=== PATIENT | male | born 1960 | race Caucasian/White ===

== ENCOUNTER 2017-01-05 09:56 | Emergency (ER) | payer SELFPAY ==
[~2017-01-05] VITALS: Ht 180.3 cm; Wt 83.9 kg
[2017-01-05] MEDS ORDERED: LIDOCAINE 1%/EPI 1:100,000 20 ML VIAL. INJ ONE (10:00)
[2017-01-05] MEDS ORDERED: IV NORMAL SALINE 1000ML BAG 1,000 ML IV ONE (10:15)
[2017-01-05] MEDS ORDERED: DIPHTH,PERTUSS(ACELL),TET TOX 0.5 ML DISP.SYRIN. VAX IM ONE (10:15)
--- NOTE | 2017-01-05 10:18 | PHYS DOC ---
Past Medical History Past Medical History: Depression, Other Additional Past Medical Histor: PSORIASIS Past Surgical History: Other Additional Past Surgical Histo: CLEFT PALATE, CYST ON BOWEL REMOVED. Alcohol Use: Heavy Drug Use: Marijuana Adult General Chief Complaint Chief Complaint: MECHANICAL FALL HPI HPI Patient is a 56 year old male who presents with laceration to the scalp after he had a syncopal episode at a local [facility] [place]. Patient states he was walking to his class when he felt faint and passed out striking his head. How long the patient was out is unknown, patient has had syncopal episodes in the past with workups not showing cause. Records show history of alcohol abuse, patient states he hasn't been drinking for 2 days. Patient denies any chest pain or shortness of breath, no neck or back pain. Denies any takes any blood thinners. 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 GI: Denies abdominal pain, nausea, vomiting, bloody stools or diarrhea [] : Denies dysuria or hematuria [] Musculoskeletal: Denies back pain or joint pain [] Integument: chronic periumbilical rash that pt states is psoriasis Neurologic: Denies focal weakness or sensory changes [] Current Medications Current Medications Current Medications Medications (Trade) Dose Ordered Sig/Kala Start Time Stop Time Status Last Admin Dose Admin Diphtheria/ Tetanus/Acell Pertussis (Boostrix) 0.5 ml ONCE ONCE 01/05/17 10:15 01/05/17 10:16 DC 01/05/17 10:34 0.5 ML Lidocaine/ Epinephrine (Xylocaine 1%-Epi 1:100,000) 20 ml 1X ONCE 01/05/17 10:00 01/05/17 10:03 DC 01/05/17 10:33 20 ML Lorazepam (Ativan) 1 mg 1X ONCE 01/05/17 10:15 01/05/17 10:16 DC 01/05/17 10:32 1 MG Sodium Chloride 1,000 ml @ 1,000 mls/hr 1X ONCE 01/05/17 10:15 01/05/17 11:14 DC 01/05/17 10:34 1,000 MLS/HR Allergies Allergies Allergies Coded Allergies Type Severity Reaction Last Updated Verified egg Allergy Mild 10/15/14 Yes Physical Exam Physical Exam Constitutional: Well developed, well nourished, no acute distress, non-toxic appearance. [] HENT: Normocephalic, R mid proximal forehead laceration 4 cm moderate hemostasis , linear, bilateral external ears normal, oropharynx dry ,no oral exudates, nose normal. [] Eyes: PERRLA, EOMI, conjunctiva normal, no discharge. [] Neck: Normal range of motion, no tenderness, supple, no stridor. [] Cardiovascular:Heart rate tachy with regular rhythm, no murmur [] Lungs & Thorax: Bilateral breath sounds clear to auscultation, 4x6cm bruise appears several days old Abdomen: Bowel sounds normal, soft, no tenderness, no masses, no pulsatile masses. [] Skin: Warm, dry, periumbilical rash consistent with psoriasis Back: No midline stepoffs or tenderness, no CVA tenderness. [] Extremities: No tenderness, no cyanosis, no clubbing, ROM intact, mild bilatearl lower ext edema. [] Neurologic: Alert and oriented X 3, normal motor function, normal sensory function, no focal deficits noted. [] Psychologic: Affect normal, judgement normal, mood normal. [] Current Patient Data Vital Signs Vital Signs Date Time Temp Pulse Resp B/P (MAP) Pulse Ox O2 Delivery O2 Flow Rate FiO2 01/05/17 12:30 90 16 135/83 (100) 96 Room Air 01/05/17 11:32 1.0 01/05/17 10:02 98.1 98.1 Lab Values Laboratory Tests Test 01/05/17 10:45 01/05/17 10:50 01/05/17 11:40 White Blood Count 4.1 x10^3/uL (4.0-11.0) Red Blood Count 3.79 x10^6/uL (4.30-5.70) L Hemoglobin 13.7 g/dL (13.0-17.5) Hematocrit 40.5 % (39.0-53.0) Mean Corpuscular Volume 107 fL (79-100) H Mean Corpuscular Hemoglobin 36 pg (25-35) H Mean Corpuscular Hemoglobin Concent 34 g/dL (31-37) Red Cell Distribution Width 13.8 % (11.5-14.5) Platelet Count 122 x10^3/uL (140-400) L Neutrophils (%) (Auto) 75 % (31-73) H Lymphocytes (%) (Auto) 14 % (24-48) L Monocytes (%) (Auto) 7 % (0-9) Eosinophils (%) (Auto) 1 % (0-3) Basophils (%) (Auto) 3 % (0-3) Neutrophils # (Auto) 3.1 x10^3uL (1.8-7.7) Lymphocytes # (Auto) 0.6 x10^3/uL (1.0-4.8) L Monocytes # (Auto) 0.3 x10^3/uL (0.0-1.1) Eosinophils # (Auto) 0.0 x10^3/uL (0.0-0.7) Basophils # (Auto) 0.1 x10^3/uL (0.0-0.2) Prothrombin Time 11.8 SEC (11.7-14.0) 12.4 Sec (10.0-14.0) Prothrombin Time INR 0.9 (0.8-1.1) Sodium Level 145 mmol/L (136-145) Potassium Level 3.2 mmol/L (3.5-5.1) L Chloride Level 107 mmol/L (98-107) Carbon Dioxide Level 25 mmol/L (21-32) Anion Gap 13 (6-14) Blood Urea Nitrogen 14 mg/dL (8-26) Creatinine 0.6 mg/dL (0.7-1.3) L Estimated GFR (Cockcroft-Gault) 140.4 BUN/Creatinine Ratio 23 (6-20) H Glucose Level 93 mg/dL (70-99) Calcium Level 8.1 mg/dL (8.5-10.1) L Magnesium Level 1.2 mg/dL (1.8-2.4) L Total Bilirubin 0.7 mg/dL (0.2-1.0) Aspartate Amino Transferase (AST) 210 U/L (15-37) H Alanine Aminotransferase (ALT) 72 U/L (16-63) H Alkaline Phosphatase 71 U/L (46-116) Troponin I Quantitative < 0.017 ng/mL (0.000-0.055) Total Protein 6.1 g/dL (6.4-8.2) L Albumin 3.3 g/dL (3.4-5.0) L Albumin/Globulin Ratio 1.2 (1.0-1.7) Ethyl Alcohol Level 361 mg/dL (0-10) H POC INR 1.0 (0.9-1.1) Urine Collection Type Unknown Urine Color Yellow Urine Clarity Clear Urine pH 6.0 Urine Specific Bartelso 1.010 Urine Protein Negative mg/dL (NEG-TRACE) Urine Glucose (UA) Negative mg/dL (NEG) Urine Ketones (Stick) Negative mg/dL (NEG) Urine Blood Negative (NEG) Urine Nitrite Negative (NEG) Urine Bilirubin Negative (NEG) Urine Urobilinogen Dipstick 0.2 mg/dL (0.2 mg/dL) Urine Leukocyte Esterase Negative (NEG) Urine RBC 0 /HPF (0-2) Urine WBC 0 /HPF (0-4) Urine Bacteria 0 /HPF (0-FEW) Laboratory Tests 01/05/17 10:45 Laboratory Tests 01/05/17 10:45 EKG EKG 112 bpm, sinus tach, normal axis,, no ST elevation or depression appreciated, widened QRS at 116 with a right bundle-branch block, nonischemic T waves, interpreted by me[] Radiology/Procedures Radiology/Procedures head ct: Impression: 1. No acute intracranial process. Course & Med Decision Making Course & Med Decision Making Pertinent Labs and Imaging studies reviewed. (See chart for details) Tetanus updated, will numb up laceration and close. Labs, EKG performed. Patient appears dry, 1 L of IV fluids given along with 1 mg Ativan in case patient is withdrawing from alcohol as he states he hasn't been drinking for 2 days. Etoh level Elevated, likely the caused the pt to fall. Pt sobered in Ed, mom came to get him. Counseled pt extensively on the dangers of excessive alcohol and drinking and driving, which pt admitted to doing. Sutures closed with dissolvable, counseled on wound care. Dragon Disclaimer Dragon Disclaimer This electronic medical record was generated, in whole or in part, using a voice recognition dictation system. Departure Departure Impression: Primary Impression: Alcohol intoxication Additional Impression: Facial laceration Disposition: 01 HOME, SELF-CARE Condition: IMPROVED Referrals: NO PCP (PCP) Laceration Repair Lac Repair Indication: forehead laceration Procedure: The patient was placed in the appropriate position and anesthesia around the 1% lidocaine with epi . The area was then irrigated with tap water. The laceration was 6-0 chromic gut simple interrupted with 1 deep , closed with steristrips. The wound area was then dressed with steristrips. Total repaired wound length: 4cm . Other Items: The patient tolerated the procedure well. Complications: none. Problem Qualifiers VANESSA CERNA MD Jan 05, 2017 10:18
--- NOTE | 2017-01-05 10:40 | RAD ---
CT head without contrast History: Syncope, fall. Comparison: 10/14/2014. Procedure: Axial images are obtained of the head from the skull base through the vertex without IV contrast. Findings: Mild bilateral periventricular white matter hypodensities likely chronic small vessel ischemic disease. The ventricles and sulci are normal for the patient's age. No mass-effect, intracranial mass, midline shift, hemorrhage or obvious acute infarction is identified. Basilar cisterns are patent. Bone windows demonstrate no significant calvarial abnormality. The visualized paranasal sinuses appear clear. Probable old fracture of the left zygomatic arch similar to prior exam. Impression: 1. No acute intracranial process. PQRS Compliance Statement: One or more of the following individualized dose reduction techniques were utilized for this examination: 1. Automated exposure control 2. Adjustment of the mA and/or kV according to patient size 3. Use of iterative reconstruction technique
--- NOTE | 2017-01-05 10:50 | EKG ---
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
[2017-01-05 10:59] LABS: ISTAT PT 12.4 Sec (10.0-14.0)
[2017-01-05 11:05] LABS: CALCIUM 8.1 mg/dL (8.5-10.1); CREATININE 0.6 mg/dL (0.7-1.3); GFR 140.4; POTASSIUM 3.2 mmol/L (3.5-5.1)
[2017-01-05 11:08] LABS: BASO # 0.1 x10^3/uL (0.0-0.2); BASO % 3 % (0-3); EOS % 1 % (0-3); HEMATOCRIT 40.5 % (39.0-53.0); HEMOGLOBIN 13.7 g/dL (13.0-17.5); LYMPH # 0.6 x10^3/uL (1.0-4.8); LYMPH % 14 % (24-48); MEAN CORPUSCULAR HEMOGLOBIN 36 pg (25-35); MEAN CORPUSCULAR HGB CONC 34 g/dL (31-37); MEAN CORPUSCULAR VOLUME 107 fL (79-100); MONO % 7 % (0-9); NEUT % 75 % (31-73); PLATELET COUNT 122 x10^3/uL (140-400); RED BLOOD COUNT 3.79 x10^6/uL (4.30-5.70); RED CELL DISTRIBUTION WIDTH 13.8 % (11.5-14.5); WHITE BLOOD COUNT 4.1 x10^3/uL (4.0-11.0)
[2017-01-05 11:12] LABS: ALBUMIN 3.3 g/dL (3.4-5.0); ALBUMIN/GLOBULIN RATIO 1.2 (1.0-1.7); MAGNESIUM 1.2 mg/dL (1.8-2.4); TOTAL BILIRUBIN 0.7 mg/dL (0.2-1.0); TOTAL PROTEIN 6.1 g/dL (6.4-8.2)
[2017-01-05 11:47] LABS: INR 0.9 (0.8-1.1); PROTHROMBIN TIME PATIENT 11.8 SEC (11.7-14.0)
[2017-01-05 11:54] LABS: BILIRUBIN,URINE NEGATIVE (NEG); GLUCOSE,URINE NEGATIVE (NEG); NITRITE,URINE NEGATIVE (NEG); PROTEIN,URINE NEGATIVE (NEG-TRACE); UROBILINOGEN,URINE 0.2 mg/dL (0.2 mg/dL)
[2017-01-05 12:13] LABS: BACTERIA,URINE 0 /HPF (0-FEW); RBC,URINE 0 /HPF (0-2); WBC,URINE 0 /HPF (0-4)
[2017-01-05 12:30] VITALS: BP 135/83
== END 2017-01-05 13:20 | disposition home or self-care (01) ==
LOC: ER 09:56
DX: S01.81XA Laceration without foreign body of other part of head, initial encounter (principal); F10.129 Alcohol abuse with intoxication, unspecified; F12.10 Cannabis abuse, uncomplicated; Z91.012 Allergy to eggs; Z79.01 Long term (current) use of anticoagulants; Z79.899 Other long term (current) drug therapy; W19.XXXA Unspecified fall, initial encounter; Y93.89 Activity, other specified; Y92.89 Other specified places as the place of occurrence of the external cause; Y99.8 Other external cause status
CPT/HCPCS: 12013; 36415; 70450; 80053; 81001; 83735; 84484; 85025; 85610; 90471; 90715; 93005; 96361; 96374; 99285; G0480; J2060; J3490; J7030

== ENCOUNTER 2017-03-31 15:26 | Emergency (ER) | payer SELFPAY ==
[~2017-03-31] VITALS: Ht 180.3 cm; Wt 83.9 kg
[2017-03-31 16:14] LABS: BASO % 1 % (0-3); EOS % 1 % (0-3); HEMATOCRIT 39.3 % (39.0-53.0); HEMOGLOBIN 13.1 g/dL (13.0-17.5); LYMPH % 28 % (24-48); MEAN CORPUSCULAR HEMOGLOBIN 36 pg (25-35); MEAN CORPUSCULAR HGB CONC 33 g/dL (31-37); MEAN CORPUSCULAR VOLUME 108 fL (79-100); MONO % 12 % (0-9); NEUT % 59 % (31-73); PLATELET COUNT 120 x10^3/uL (140-400); RED BLOOD COUNT 3.63 x10^6/uL (4.30-5.70); RED CELL DISTRIBUTION WIDTH 14.4 % (11.5-14.5); WHITE BLOOD COUNT 3.7 x10^3/uL (4.0-11.0)
[2017-03-31 16:22] LABS: PROTHROMBIN TIME PATIENT 12.4 SEC (11.7-14.0)
[2017-03-31 16:23] LABS: CREATININE 0.6 mg/dL (0.7-1.3); GFR 139.9; POTASSIUM 3.3 mmol/L (3.5-5.1)
[2017-03-31 16:29] LABS: ALBUMIN 2.9 g/dL (3.4-5.0); ALBUMIN/GLOBULIN RATIO 0.7 (1.0-1.7); MAGNESIUM 1.1 mg/dL (1.8-2.4); TOTAL BILIRUBIN 0.5 mg/dL (0.2-1.0); TOTAL PROTEIN 7.1 g/dL (6.4-8.2)
[2017-03-31 16:35] LABS: ETHANOL 325 mg/dL (0-10)
[2017-03-31 16:39] LABS: BILIRUBIN,URINE NEGATIVE (NEG); GLUCOSE,URINE NEGATIVE (NEG); NITRITE,URINE NEGATIVE (NEG); PROTEIN,URINE NEGATIVE (NEG-TRACE)
[2017-03-31 16:44] LABS: BACTERIA,URINE 0 /HPF (0-FEW); RBC,URINE 0 /HPF (0-2); WBC,URINE 0 /HPF (0-4)
[2017-03-31 16:45] LABS: BARBITURATES NEG (NEG); BENZODIAZEPINES NEG (NEG); CANNABINOIDS NEG (NEG); COCAINE NEG (NEG); METHADONE NEG (NEG); OPIATES NEG (NEG); PHENCYCLIDINE NEG (NEG)
[2017-03-31] MEDS ORDERED: POTASSIUM CHLORIDE 20 MEQ TABLET.ER. PO ONE (17:45)
[2017-03-31] MEDS ORDERED: CHLO25CA9 PO (18:11)
--- NOTE | 2017-03-31 18:11 | PHYS DOC ---
Past Medical History Past Medical History: Depression, IBS, Other Additional Past Medical Histor: PSORIASIS Past Surgical History: Other Additional Past Surgical Histo: CLEFT PALATE, CYST ON BOWEL REMOVED. Additional Information: 5 cigars/day. Alcohol Use: Heavy Additional Information: 2 pints day-either Tequila or Vodka. Drug Use: None Adult General Chief Complaint Chief Complaint: OTHER COMPLAINTS HPI HPI Patient is a 57 year old male presenting to the emergency department to try and get medically cleared to go to [facility] for alcohol detox. Patient says that he is feeling medically fine and he is having some shaking right now but no seizures or confusion. He says that he has had one seizure in his life from withdrawal. He is denying any pain fevers chills nausea vomiting or other medical complaints at this time. Review of Systems Review of Systems Constitutional: Denies fever or chills [] Eyes: Denies change in visual acuity, redness, or eye pain [] HENT: Denies nasal congestion or sore throat [] Respiratory: Denies cough or shortness of breath [] Cardiovascular: No additional information not addressed in HPI [] GI: Denies abdominal pain, nausea, vomiting, bloody stools or diarrhea [] : Denies dysuria or hematuria [] Musculoskeletal: Denies back pain or joint pain [] Integument: Denies rash or skin lesions [] Neurologic: Denies headache, focal weakness or sensory changes [] Endocrine: Denies polyuria or polydipsia [] All other systems were reviewed and found to be within normal limits, except as documented in this note. Current Medications Current Medications Current Medications Medications (Trade) Dose Ordered Sig/Kala Start Time Stop Time Status Last Admin Dose Admin Lorazepam (Ativan) 1 mg 1X ONCE 03/31/17 18:15 03/31/17 18:16 DC 03/31/17 18:16 1 MG Potassium Chloride (Klor-Con) 40 meq 1X ONCE 03/31/17 17:45 03/31/17 17:46 DC 03/31/17 18:16 40 MEQ Allergies Allergies Allergies Coded Allergies Type Severity Reaction Last Updated Verified egg Allergy Mild 10/15/14 Yes Physical Exam Physical Exam Constitutional: Well developed, well nourished, no acute distress, non-toxic appearance. [] HENT: Normocephalic, atraumatic, bilateral external ears normal, oropharynx moist, no oral exudates, nose normal. [] Eyes: PERRLA, EOMI, conjunctiva normal, no discharge. [] Neck: Normal range of motion, no tenderness, supple, no stridor. [] Cardiovascular:Heart rate regular rhythm, no murmur [] Lungs & Thorax: Bilateral breath sounds clear to auscultation [] Abdomen: Bowel sounds normal, soft, no tenderness, no masses, no pulsatile masses. [] Skin: Warm, dry, no erythema, no rash. [] Back: No tenderness, no CVA tenderness. [] Extremities: No tenderness, no cyanosis, no clubbing, ROM intact, no edema. [] Neurologic: Alert and oriented X 3, normal motor function, normal sensory function, no focal deficits noted. [] Psychologic: Affect normal, judgement normal, mood normal. [] Current Patient Data Vital Signs Vital Signs Date Time Temp Pulse Resp B/P (MAP) Pulse Ox O2 Delivery O2 Flow Rate FiO2 03/31/17 18:27 90 22 138/85 (102) 100 Room Air 03/31/17 15:30 98.5 98.5 Lab Values Laboratory Tests Test 03/31/17 16:05 03/31/17 16:30 White Blood Count 3.7 x10^3/uL (4.0-11.0) L Red Blood Count 3.63 x10^6/uL (4.30-5.70) L Hemoglobin 13.1 g/dL (13.0-17.5) Hematocrit 39.3 % (39.0-53.0) Mean Corpuscular Volume 108 fL (79-100) H Mean Corpuscular Hemoglobin 36 pg (25-35) H Mean Corpuscular Hemoglobin Concent 33 g/dL (31-37) Red Cell Distribution Width 14.4 % (11.5-14.5) Platelet Count 120 x10^3/uL (140-400) L Neutrophils (%) (Auto) 59 % (31-73) Lymphocytes (%) (Auto) 28 % (24-48) Monocytes (%) (Auto) 12 % (0-9) H Eosinophils (%) (Auto) 1 % (0-3) Basophils (%) (Auto) 1 % (0-3) Neutrophils # (Auto) 2.2 x10^3uL (1.8-7.7) Lymphocytes # (Auto) 1.0 x10^3/uL (1.0-4.8) Monocytes # (Auto) 0.4 x10^3/uL (0.0-1.1) Eosinophils # (Auto) 0.1 x10^3/uL (0.0-0.7) Basophils # (Auto) 0.0 x10^3/uL (0.0-0.2) Prothrombin Time 12.4 SEC (11.7-14.0) Prothrombin Time INR 1.0 (0.8-1.1) PTT 31 SEC (24-38) Sodium Level 149 mmol/L (136-145) H Potassium Level 3.3 mmol/L (3.5-5.1) L Chloride Level 108 mmol/L (98-107) H Carbon Dioxide Level 27 mmol/L (21-32) Anion Gap 14 (6-14) Blood Urea Nitrogen 11 mg/dL (8-26) Creatinine 0.6 mg/dL (0.7-1.3) L Estimated GFR (Cockcroft-Gault) 139.9 BUN/Creatinine Ratio 18 (6-20) Glucose Level 94 mg/dL (70-99) Calcium Level 8.0 mg/dL (8.5-10.1) L Magnesium Level 1.1 mg/dL (1.8-2.4) L Total Bilirubin 0.5 mg/dL (0.2-1.0) Aspartate Amino Transferase (AST) 96 U/L (15-37) H Alanine Aminotransferase (ALT) 42 U/L (16-63) Alkaline Phosphatase 111 U/L (46-116) Total Protein 7.1 g/dL (6.4-8.2) Albumin 2.9 g/dL (3.4-5.0) L Albumin/Globulin Ratio 0.7 (1.0-1.7) L Lipase 340 U/L (73-393) Thyroid Stimulating Hormone (TSH) 2.629 uIU/mL (0.358-3.74) Salicylates Level 7.0 mg/dL (2.8-20.0) Salicylate Last Dose Date Salicylate Last Dose Time Acetaminophen Level < 2 mcg/ml (10-30) L Acetaminophen Last Dose Date Acetaminophen Last Dose Time Ethyl Alcohol Level 325 mg/dL (0-10) H Urine Collection Type Unknown Urine Color Bhavana Urine Clarity Clear Urine pH 6.0 Urine Specific Laura 1.015 Urine Protein Negative mg/dL (NEG-TRACE) Urine Glucose (UA) Negative mg/dL (NEG) Urine Ketones (Stick) Negative mg/dL (NEG) Urine Blood Negative (NEG) Urine Nitrite Negative (NEG) Urine Bilirubin Negative (NEG) Urine Urobilinogen Dipstick 1.0 mg/dL (0.2 mg/dL) Urine Leukocyte Esterase Negative (NEG) Urine RBC 0 /HPF (0-2) Urine WBC 0 /HPF (0-4) Urine Bacteria 0 /HPF (0-FEW) Urine Mucus Mod /LPF Urine Opiates Screen Neg (NEG) Urine Methadone Screen Neg (NEG) Urine Barbiturates Neg (NEG) Urine Phencyclidine Screen Neg (NEG) Urine Amphetamine/Methamphetamine Neg (NEG) Urine Benzodiazepines Screen Neg (NEG) Urine Cocaine Screen Neg (NEG) Urine Cannabinoids Screen Neg (NEG) Urine Ethyl Alcohol Pos (NEG) Laboratory Tests 03/31/17 16:05 Laboratory Tests 03/31/17 16:05 EKG EKG [] Radiology/Procedures Radiology/Procedures [] Course & Med Decision Making Course & Med Decision Making [facility] wanted his alcohol level under 300. Report was called to [facility] and we recommended that they supplement his diet with extra potassium and magnesium. They said that they would do this. They requested that I prescribe Librium for his withdrawal symptoms that he would likely have so I did this for them and wrote down the taper dose instructions. Patient was told about all his incidental laboratory findings of the need for follow-up to make sure that they are resolving. Patient is going to be driven directly to [facility] by his friend and he was told to come back to the emergency room with any concerns. Patient aware and agreeable with plan for discharge and verbalized understanding of the need for short-term follow-up and strict ED return precautions discussed worsening pain seizures or other general concerns. Dragon Disclaimer Dragon Disclaimer This electronic medical record was generated, in whole or in part, using a voice recognition dictation system. Departure Departure Impression: Primary Impression: Alcohol intoxication Additional Impressions: Hypokalemia Hypomagnesemia Thrombocytopenia Disposition: HOME, SELF-CARE ([facility]) Condition: STABLE Referrals: NO PCP (PCP) Patient Instructions: Alcohol Withdrawal Scripts Chlordiazepoxide Hcl (CHLORDIAZEPOXIDE HCL) 25 Mg Capsule 25 MG PO Q8HRS, #30 CAP TAKE 50MG EVERY 8 HOURS FOR 2 DAYS THEN TAKE 25MG EVERY 8 HOURS FOR 2 DAYS THEN TAKE 25MG PRN NEEDED. Prov: ADRIANO MATTSON DO 03/31/17 Problem Qualifiers Primary Impression: Alcohol intoxication Complication of substance-induced condition: uncomplicated Qualified Codes: F10.920 - Alcohol use, unspecified with intoxication, uncomplicated ARDIANO MATTSON DO Mar 31, 2017 18:11
[2017-03-31] MEDS ORDERED: LORazepam 1 MG TABLET PO ONE (18:15)
[2017-03-31 18:27] VITALS: BP 138/85
== END 2017-03-31 18:32 | disposition home or self-care (01) ==
LOC: ER 15:26
DX: F10.920 Alcohol use, unspecified with intoxication, uncomplicated (principal); E87.6 Hypokalemia; E83.42 Hypomagnesemia; D69.6 Thrombocytopenia, unspecified; F32.9 Major depressive disorder, single episode, unspecified; K58.9 Irritable bowel syndrome, unspecified; L40.9 Psoriasis, unspecified; F17.210 Nicotine dependence, cigarettes, uncomplicated; Z91.012 Allergy to eggs
CPT/HCPCS: 36415; 80053; 80307; 80329; 81001; 83690; 83735; 84443; 85025; 85610; 85730; 96374; 99284; G0480; J2060; G0479

== ENCOUNTER 2019-03-09 00:19 | Inpatient (IN) | payer SELFPAY ==
[2019-03-09] VITALS (23 sets, daily range): BP systolic 81–109; BP diastolic 44–67
[~2019-03-09] VITALS: Ht 180.3 cm; Wt 111.6 kg
[~2019-03-09 00:19] MED LIST: CHLO25CA9 PO; LORA-434 PO; MULT1TAB90 PO; THIA500T PO; VITA1TAB19 PO
[2019-03-09 01:11] LABS: BASO # 0.1 x10^3/uL (0.0-0.2); BASO % 1 % (0-3); EOS % 0 % (0-3); HEMATOCRIT 35.2 % (39.0-53.0); HEMOGLOBIN 11.8 g/dL (13.0-17.5); LYMPH # 1.3 x10^3/uL (1.0-4.8); LYMPH % 12 % (24-48); MEAN CORPUSCULAR HEMOGLOBIN 41 pg (25-35); MEAN CORPUSCULAR HGB CONC 34 g/dL (31-37); MEAN CORPUSCULAR VOLUME 122 fL (79-100); MONO # 0.7 x10^3/uL (0.0-1.1); MONO % 7 % (0-9); NEUT # 8.1 x10^3/uL (1.8-7.7); NEUT % 80 % (31-73); PLATELET COUNT 173 x10^3/uL (140-400); RED BLOOD COUNT 2.89 x10^6/uL (4.30-5.70); RED CELL DISTRIBUTION WIDTH 16.1 % (11.5-14.5); WHITE BLOOD COUNT 10.1 x10^3/uL (4.0-11.0)
[2019-03-09 01:24] LABS: PROTHROMBIN TIME PATIENT 14.9 SEC (11.7-14.0)
[2019-03-09 01:28] LABS: ALBUMIN 1.5 g/dL (3.4-5.0); ALBUMIN/GLOBULIN RATIO 0.4 (1.0-1.7); CREATININE 4.4 mg/dL (0.7-1.3); GFR 13.9; MAGNESIUM 1.3 mg/dL (1.8-2.4); TOTAL BILIRUBIN 13.8 mg/dL (0.2-1.0); TOTAL PROTEIN 5.6 g/dL (6.4-8.2)
[2019-03-09 01:33] LABS: POTASSIUM 1.9 mmol/L (3.5-5.1)
[2019-03-09] MEDS ORDERED: POTASSIUM CHLORIDE 20 MEQ TABLET.ER. PO ONE ×5 (01:45→18:45)
[2019-03-09] MEDS ORDERED: MAGNESIUM SULFATE 2GM 50 ML IV ONE (01:45)
[2019-03-09 01:53] LABS: PLT ESTIMATE ADEQUATE (ADEQUATE)
[2019-03-09 01:54] LABS: POLYCHROMASIA SLIGHT
[2019-03-09] MEDS: POTASSIUM CHLORIDE 10MEQ 100 ML IV SCH ×8 (02:02→11:03)
[2019-03-09] MEDS ORDERED: PIPERACILLIN/TAZOBACTAM 3.375 GM in IV NORMAL SALINE 50ML 50 ML IV ONE (02:15)
[2019-03-09] MEDS ORDERED: IV NORMAL SALINE 1000ML BAG 1,000 ML IV ONE (02:15)
[2019-03-09] MEDS ORDERED: VANCOMYCIN 1GM IVPB FOR OMNI 250 ML IV ONE (02:15)
--- NOTE | 2019-03-09 02:33 | PHYS DOC ---
Past Medical History Past Medical History: Depression, IBS, Other Additional Past Medical Histor: PSORIASIS Past Surgical History: Other Additional Past Surgical Histo: CLEFT PALATE, CYST ON BOWEL REMOVED. Alcohol Use: Heavy Additional Information: REPORTS DRINKING 1 1/2- 2 PINTS OF VODKA OR FIREBALL DAILY Drug Use: None Adult General Chief Complaint Chief Complaint: WEAKNESS/GENERALIZED HPI HPI Patient is a 59 year old male patient with history of IBS, depression, psoriasis, of chronic liver disease who presents with complaining of weakness. Patient complaining of progressive generalized weakness for the last 6 months that gradually getting worse. Patient states he was not able to sleep for the last 4 days and asking for medication to able to sleep. Patient also states was not able to support getting for the last several days and has problems with walking because of generalized weakness. Patient had history of alcohol abuse and alcoholic liver disease with obvious jaundice but denies drinking alcohol for the last several days. Patient states he did not have urine output for the last couple days and complaining of chronic diarrhea that does not getting better with taking Imodium. Patient denies chest pain, shortness of breath, focal neuro deficit, headache, fever and chills, vomiting. Patient presented to ER with his parents and states he lives with them. Review of Systems Review of Systems Constitutional: Denies fever or chills [] Eyes: Denies change in visual acuity, redness, or eye pain [] HENT: Denies nasal congestion or sore throat [] Respiratory: Denies cough or shortness of breath [] Cardiovascular: No additional information not addressed in HPI [] GI: Denies abdominal pain, vomiting, bloody stools, reports diarrhea [] : Denies dysuria or hematuria [] Musculoskeletal: Denies back pain or joint pain [] Integument: Denies rash or skin lesions [] Neurologic: Denies headache, focal weakness or sensory changes [] Endocrine: Denies polyuria or polydipsia [] All other systems were reviewed and found to be within normal limits, except as documented in this note. Allergies Allergies Allergies Coded Allergies Type Severity Reaction Last Updated Verified egg Allergy Mild 10/15/14 Yes Physical Exam Physical Exam Constitutional: Well developed, mild distress, non-toxic appearance, jaundice. [] HENT: Normocephalic, atraumatic, oropharynx dry, no oral exudates. Eyes: PERRLA, EOMI, conjunctiva normal, no discharge, severe jaundice. [] Neck: Normal range of motion, no tenderness, supple, no stridor. [] Cardiovascular:Heart rate regular rhythm, no murmur [] Lungs & Thorax: Bilateral breath sounds clear to auscultation [] Abdomen: Bowel sounds normal, soft, moderate to severe distention of abdomen with fluid. Skin: Jaundiced Back: No tenderness, no CVA tenderness. [] Extremities: No tenderness, no cyanosis, no clubbing, ROM intact, bilateral lower extremity 2+ edema. [] Neurologic: Alert and oriented X 3, normal motor function, normal sensory function, no focal deficits noted. [] Psychologic: Affect depressed,mood normal. [] Current Patient Data Vital Signs Vital Signs Date Time Temp Pulse Resp B/P (MAP) Pulse Ox O2 Delivery O2 Flow Rate FiO2 03/09/19 01:05 92 24 96 03/09/19 00:30 97.6 91/58 (69) Room Air 97.6 Lab Values Laboratory Tests Test 03/09/19 00:45 White Blood Count 10.1 x10^3/uL (4.0-11.0) Red Blood Count 2.89 x10^6/uL (4.30-5.70) L Hemoglobin 11.8 g/dL (13.0-17.5) L Hematocrit 35.2 % (39.0-53.0) L Mean Corpuscular Volume 122 fL (79-100) H Mean Corpuscular Hemoglobin 41 pg (25-35) H Mean Corpuscular Hemoglobin Concent 34 g/dL (31-37) Red Cell Distribution Width 16.1 % (11.5-14.5) H Platelet Count 173 x10^3/uL (140-400) Neutrophils (%) (Auto) 80 % (31-73) H Lymphocytes (%) (Auto) 12 % (24-48) L Monocytes (%) (Auto) 7 % (0-9) Eosinophils (%) (Auto) 0 % (0-3) Basophils (%) (Auto) 1 % (0-3) Neutrophils # (Auto) 8.1 x10^3/uL (1.8-7.7) H Lymphocytes # (Auto) 1.3 x10^3/uL (1.0-4.8) Monocytes # (Auto) 0.7 x10^3/uL (0.0-1.1) Eosinophils # (Auto) 0.0 x10^3/uL (0.0-0.7) Basophils # (Auto) 0.1 x10^3/uL (0.0-0.2) Platelet Estimate Adequate (ADEQUATE) Polychromasia Slight Macrocytosis Marked Prothrombin Time 14.9 SEC (11.7-14.0) H Prothrombin Time INR 1.2 (0.8-1.1) H Activated Partial Thromboplast Time 38 SEC (24-38) Sodium Level 131 mmol/L (136-145) L Potassium Level 1.9 mmol/L (3.5-5.1) *L Chloride Level 89 mmol/L (98-107) L Carbon Dioxide Level 25 mmol/L (21-32) Anion Gap 17 (6-14) H Blood Urea Nitrogen 12 mg/dL (8-26) Creatinine 4.4 mg/dL (0.7-1.3) H Estimated GFR (Cockcroft-Gault) 13.9 BUN/Creatinine Ratio 3 (6-20) L Glucose Level 94 mg/dL (70-99) Lactic Acid Level 5.6 mmol/L (0.4-2.0) *H Calcium Level 7.0 mg/dL (8.5-10.1) L Magnesium Level 1.3 mg/dL (1.8-2.4) L Total Bilirubin 13.8 mg/dL (0.2-1.0) H Aspartate Amino Transferase (AST) 171 U/L (15-37) H Alanine Aminotransferase (ALT) 71 U/L (16-63) H Alkaline Phosphatase 180 U/L (46-116) H Ammonia 93 mcmol/L (11-34) H Creatine Kinase 96 U/L (39-308) Troponin I Quantitative 0.021 ng/mL (0.000-0.055) XW-Nzp-I-Type Natriuretic Peptide 1707 pg/mL (0-124) H Total Protein 5.6 g/dL (6.4-8.2) L Albumin 1.5 g/dL (3.4-5.0) L Albumin/Globulin Ratio 0.4 (1.0-1.7) L Lipase 89 U/L (73-393) Thyroid Stimulating Hormone (TSH) 2.489 uIU/mL (0.358-3.74) Ethyl Alcohol Level < 10 mg/dL (0-10) Laboratory Tests 03/09/19 00:45 Laboratory Tests 03/09/19 00:45 EKG EKG EKG interpreted by me. EKG at 0115 showed normal sinus rhythm at rate of 90, right bundle branch block, LVH with repolarization abnormality, normal CT and QT intervals, no acute ST and T-wave elevation. Radiology/Procedures Radiology/Procedures [facility] [address] [place] [address] IMAGING REPORT Signed PATIENT: SUZY AGUILERA ACCOUNT: [id number] : 1960 LOCATION: [facility] ICU AGE: 59 SEX: M EXAM STATUS: ADM IN ORD. PHYSICIAN: MADHURI HAGAN MD REASON: generalized weakness PROCEDURE: CT ABDOMEN PELVIS WO CONTRAST INDICATION: Generalized weakness COMPARISON: None. TECHNIQUE: Axial CT images obtained through the abdomen and pelvis without contrast. Limited assessment of solid organ structures and vasculature secondary to lack of intravenous contrast.. One or more of the following individualized dose reduction techniques were utilized for this examination: 1. Automated exposure control; 2. Adjustment of the mA and/or kV according to patient size; 3. Use of iterative reconstruction technique. FINDINGS: Mild reticulation at lung bases. Coronary artery calcific atherosclerosis. Moderate calcific atherosclerosis. Edema of the soft tissues. Severe low density of the liver. Gallbladder is distended. No peripancreatic fluid collection. Spleen unremarkable. Nonobstructive bilateral renal stones. No hydronephrosis. Urinary bladder is largely decompressed. Colonic wall is prominent in thickness but not very distended. Diverticulosis is identified. The suspected appendix does not appear enlarged. Small free fluid. Degenerative changes of spine with multilevel central canal and neural foraminal stenosis. Mild wedging of multiple vertebral bodies including L1, T12, T11. IMPRESSION: * There is some wall thickening seen within the colon. The colon is not very distended therefore could be from regions of contraction but would correlate with symptoms to ensure that there is not a pathologic cause such as mild colitis. * Small free fluid within the pelvis. * Severe low density of the liver. This can be seen with fatty infiltration. * Calcific atherosclerosis including of the coronary arteries which appears severe. * The gallbladder is dilated. Would correlate with symptoms and lab markers to ensure that this is not secondary to biliary disease such as hydrops. Electronically signed by: Gary Haywood MD (03/09/2019 2:46 AM) [facility] DICTATED and SIGNED BY: GARY HAYWOOD MD DATE: 03/09/19 0246 Course & Med Decision Making Course & Med Decision Making Pertinent Labs and Imaging studies reviewed. (See chart for details) Evaluation of patient in ER showed 59-year-old male patient with alcoholic hepatic failure and severe jaundice with complaining of increasing generalized weakness for 6 months. Patient had mild pallor and severe jaundice with ascites and lower extremity edema without fever and tachycardia. Blood pressure was 91/50 at arrival to ER. Labs showed potassium of 1.9 and magnesium 1.3 and creatinine of 4.4 with ammonia of 95 and elevation of liver function tests. Lactic acid was 5.4 but patient did not have sign of sepsis and lactic acid was elevated mainly because of abnormal liver function tests. Therefore patient was not treated with 30 mL of IV fluid/kg that but 1 dose of antibiotic was given. Patient was admitted to ICU and IV potassium and magnesium was started.Patient requiring admission for further evaluation and treatment. Discussed with Dr. Green who is in agreement with admission. Discussed findings and plan with patient and family, who acknowledge understanding and agreement. GI consult was requested. Dragon Disclaimer Dragon Disclaimer This electronic medical record was generated, in whole or in part, using a voice recognition dictation system. Departure Departure Impression: Primary Impression: Hepatic encephalopathy Additional Impressions: Hypokalemia Hypomagnesemia Alcoholic hepatic failure without coma Renal insufficiency Severe sepsis Ascites Hypoalbuminemia Anemia Hyponatremia Disposition: ADMITTED INPATIENT (at 0200) Admitting Physician: MANDY (Dr. Green accepted admission) Condition: GUARDED Referrals: NO PCP (PCP) Date and Time of Reassessment Date: Mar 09, 2019 Time: 02:00 Fluid Challenge Is the fluid challenge complet: No IBW Target Volume Used: No BMI > 30: No Vital Signs Vital Signs: Vital Signs Date Time Temp Pulse Resp B/P (MAP) Pulse Ox O2 Delivery O2 Flow Rate FiO2 03/09/19 01:05 92 24 96 03/09/19 00:30 97.6 91/58 (69) Room Air 97.6 Temperature Source: Oral Respirations Respiratory Pattern: Normal Cardiovascular Pulse Rhythm: Regular Heart: Nml rate, reg. rhythm Lung Sounds Breath Sounds: Clear Capillary Refil Capillary Refill: Rt Hand < 3 seconds Peripheral Pulse Pulse Location: Radial Pulse Strength: Normal (2+) Pulse Assessment Method: NIBP Integumentary Skin Moisture: Dry Critical Care Time Critical care time was 70 minutes exclusive of procedures. Problem Qualifiers Additional Impressions: Ascites Ascites type: other type Qualified Codes: R18.8 - Other ascites Anemia Anemia type: unspecified type Qualified Codes: D64.9 - Anemia, unspecified MADHURI HAGAN MD Mar 09, 2019 02:33
--- NOTE | 2019-03-09 02:48 | RAD ---
INDICATION: Generalized weakness COMPARISON: None. TECHNIQUE: Axial CT images obtained through the abdomen and pelvis without contrast. Limited assessment of solid organ structures and vasculature secondary to lack of intravenous contrast.. One or more of the following individualized dose reduction techniques were utilized for this examination: 1. Automated exposure control; 2. Adjustment of the mA and/or kV according to patient size; 3. Use of iterative reconstruction technique. FINDINGS: Mild reticulation at lung bases. Coronary artery calcific atherosclerosis. Moderate calcific atherosclerosis. Edema of the soft tissues. Severe low density of the liver. Gallbladder is distended. No peripancreatic fluid collection. Spleen unremarkable. Nonobstructive bilateral renal stones. No hydronephrosis. Urinary bladder is largely decompressed. Colonic wall is prominent in thickness but not very distended. Diverticulosis is identified. The suspected appendix does not appear enlarged. Small free fluid. Degenerative changes of spine with multilevel central canal and neural foraminal stenosis. Mild wedging of multiple vertebral bodies including L1, T12, T11. IMPRESSION: * There is some wall thickening seen within the colon. The colon is not very distended therefore could be from regions of contraction but would correlate with symptoms to ensure that there is not a pathologic cause such as mild colitis. * Small free fluid within the pelvis. * Severe low density of the liver. This can be seen with fatty infiltration. * Calcific atherosclerosis including of the coronary arteries which appears severe. * The gallbladder is dilated. Would correlate with symptoms and lab markers to ensure that this is not secondary to biliary disease such as hydrops. Electronically signed by: Adrien Robles MD (03/09/2019 2:46 AM) [facility]
[2019-03-09] MEDS: IV NORMAL SALINE 1000ML BAG 1,000 ML IV SCH ×3 (04:09→16:20)
[2019-03-09] MEDS ORDERED: VANCOMYCIN PER PHARMACY MC PRN (06:00)
[2019-03-09] MEDS ORDERED: PIP/TAZO PER PHARMACY MC PRN (06:00)
[2019-03-09] MEDS ORDERED: PIPERACILLIN/TAZOBACTAM 2.25 GM in IV NORMAL SALINE 50ML 50 ML IV SCH (06:00)
[2019-03-09] MEDS ORDERED: VANCOMYCIN 2 GM in IV NORMAL SALINE 500ML BAG 500 ML IV ONE (06:30)
--- NOTE | 2019-03-09 06:39 | NUR ---
Pharmacy Vancomycin Dosing Note S:Consulted to monitor and dose vancomycin started 03/09/19. O:SUZY AGUILERA is a 59 year old M with Sepsis . Height: 5 feet, 11 inches Weight: 114.393525 kg [place] Body Weight: 75.30 Adjusted Body Weight: 91.10 Dosing Weight: Actual Other Antibiotics: ZOSYN 2.25GM IV Q6H LABS: Last BUN: 12 Last Creatinine: 4.4 Creatinine Clearance: 23.8 mL/min Last WBC: 10.1 Last Procalcitonin: Tmax (past 24 hours): Microbiology: I/O: Drug Levels: Last level: on at Last dose given at Vancomycin Dosing: Loading Dose: 2000 mg x1 03/09/19 1000MG ER AT 0347 & 1000MG ICU AT 0645 Dosing Weight: Actual Target Trough: 15-20 A: Based on: Actual Wt and CrCl P: 1. 03/10/19 0400 Vancomycin 1500 mg IV q24h 2. Follow up Trough level on 03/11/19 at 0330 3. Pharmacy will continue to monitor, follow and adjust therapy as needed. TAVO TOVAR RPH, 03/09/19 0639 Signed: 03/09/19 at 0642 by TAVO TOVAR RPH PHA
[2019-03-09] MEDS ORDERED: VANCOMYCIN 1 GM in IV NORMAL SALINE 250ML 250 ML IV ONE (06:45)
--- NOTE | 2019-03-09 08:13 | RAD ---
PORTABLE CHEST 1V INDICATION: Generalized weakness. COMPARISON STUDY: 11/23/2018. FINDINGS: Lungs: Low lung volume. No pulmonary mass or consolidation. The tracheobronchial tree and hilar structures are normal. Pleura: No pleural effusion or pneumothorax. Heart and Mediastinum: The cardiomediastinal silhouette is normal. The great vessels of the thorax are normal. IMPRESSION: Low lung volume. No consolidation. Electronically signed by: Jaswinder Gunn MD (03/09/2019 8:10 AM) [facility]
[2019-03-09] MEDS: NICOTINE 21MG PATCH. TD PRN (08:46)
--- NOTE | 2019-03-09 08:58 | PDOC1 ---
History and Physical Date of Admission Date of Admission DATE: 03/09/19 TIME: 08:50 Identification/Chief Complaint Chief Complaint Weakness History of Present Illness History of Present Illness Mr Mcgowan is a 59 year old male patient with PMHx IBS, depression, psoriasis, chronic liver disease who presents with complaining of weakness. Patient complaining of progressive generalized weakness for the last 6 months that gradually getting worse. 3 days ago he literally had to crawl across concrete floor as he states his legs have been giving out on him. Patient states he was not able to sleep for the last 4 days and asking for medication to able to sl eep. He had been trying to take 3 advil daily to help with pain and sleep Patient also states was not able to support getting for the last several days and has problems with walking because of generalized weakness. Patient had history of alcohol abuse and alcoholic liver disease with obvious jaundice but denies drinking alcohol for the last several days. Patient states he did not h ave urine output for the last couple days and complaining of chronic diarrhea for 3 straight weeks that does not improve with taking Imodium. Patient denies chest pain, shortness of breath, focal neuro deficit, headache, fever and chills, vomiting. Patient presented to ER with his parents and states he lives with them. In ED K noted 1.9, Mg 1.3, Cr 4.4, BUN 12, Bilirubin 13.8. albumin of 1.5 lactic acid of 5.6 Lactic acid was 5.4 but patient did not have sign of sepsis and lactic acid was elevated mainly because of abnormal liver function tests. Therefore patient was not treated with 30 mL of IV fluid/kg that but 1 dose of antibiotic was given. Patient was admitted to ICU and IV potassium and magnesium was started He has not previously been told of any kidney disease, he has been previously told his liver function was abnormal. Overnight EKG showed RBBB, LVH. He did experience 70 beats of v-tach and cardiology was consulted and admitted to ICU Past Medical History Cardiovascular: No pertinent hx Pulmonary: No pertinent hx GI: No pertinent hx Heme/Onc: No pertinent hx Hepatobiliary: No pertinent hx Psych: Addictions Rheumatologic: No pertinent hx Infectious disease: No pertinent hx ENT: No pertinent hx Renal/: No pertinent hx Endocrine: No pertinent hx Dermatology: No pertinent hx Past Surgical History Past Surgical History: Other Family History Family History: Diabetes, Heart Disease Social History Smoke: <1 pack per day ALCOHOL: other Drugs: None Current Problem List Problem List Problems Medical Problems: (1) Alcoholic hepatic failure without coma Status: Acute (2) Anemia Status: Acute (3) Ascites Status: Acute (4) Hepatic encephalopathy Status: Acute (5) Hypoalbuminemia Status: Acute (6) Hypokalemia Status: Acute (7) Hypomagnesemia Status: Acute (8) Hyponatremia Status: Acute (9) Renal insufficiency Status: Acute (10) Severe sepsis Status: Acute Current Medications Current Medications Current Medications Magnesium Sulfate 50 ml @ 25 mls/hr 1X ONCE IV Last administered on 03/09/19 02:02; Start 03/09/19 at 01:45; Stop 03/09/19 at 03:44; Status DC Potassium Chloride (Klor-Con) 40 meq 1X ONCE PO Last administered on 03/09/19at 02:03; Start 03/09/19 at 01:45; Stop 03/09/19 at 01:46; Status DC Potassium Chloride/Water 100 ml @ 100 mls/hr Q1H IV Last administered on 03/09/19at 05:09; Start 03/09/19 at 01:45; Stop 03/09/19 at 05:44; Status DC Sodium Chloride 1,000 ml @ 1,000 mls/hr 1X ONCE IV Last administered on 03/09/19at 02:24; Start 03/09/19 at 02:15; Stop 03/09/19 at 03:14; Status DC Piperacillin Sod/ Tazobactam Sod 3.375 gm/Sodium Chloride 50 ml @ 100 mls/hr 1X ONCE IV Last administered on 03/09/19at 02:24; Start 03/09/19 at 02:15; Stop 03/09/19 at 02:44; Status DC Vancomycin HCl 250 ml @ 250 mls/hr 1X ONCE IV Last administered on 03/09/19at 03:47; Start 03/09/19 at 02:15; Stop 03/09/19 at 03:14; Status DC Sodium Chloride 1,000 ml @ 150 mls/hr Q6H40M IV Last administered on 03/09/19at 04:09; Start 03/09/19 at 03:00; Stop 03/10/19 at 02:59 Vancomycin HCl 2 gm/Sodium Chloride 500 ml @ 250 mls/hr 1X ONCE IV ; Start 03/09/19 at 06:30; Stop 03/09/19 at 08:29; Status Cancel Piperacillin Sod/ Tazobactam Sod 2.25 gm/Sodium Chloride 50 ml @ 100 mls/hr Q6HRS IV Last administered on 03/09/19at 06:25; Start 03/09/19 at 06:00 Vancomycin HCl (Vanco Per Pharmacy) 1 each PRN DAILY PRN MC SEE COMMENTS Last administered on 03/09/19at 06:34; Start 03/09/19 at 06:00 Piperacillin Sod/ Tazobactam Sod (Zosyn Per Pharmacy) 1 each PRN DAILY PRN MC SEE COMMENTS; Start 03/09/19 at 06:00 Vancomycin HCl 1 gm/Sodium Chloride 250 ml @ 250 mls/hr 1X ONCE IV Last administered on 03/09/19at 06:25; Start 03/09/19 at 06:45; Stop 03/09/19 at 07:44; Status DC Vancomycin HCl 1.5 gm/Sodium Chloride 500 ml @ 250 mls/hr Q24H IV ; Start 03/10/19 at 04:00 Vancomycin HCl (Vancomycin Trough Level) 1 each 1X ONCE MC ; Start 03/11/19 at 03:30; Stop 03/11/19 at 03:31 Potassium Chloride (Klor-Con) 40 meq 1X ONCE PO Last administered on 03/09/19at 07:55; Start 03/09/19 at 07:30; Stop 03/09/19 at 07:31; Status DC Potassium Chloride/Water 100 ml @ 100 mls/hr Q1H IV Last administered on 03/09/19at 07:55; Start 03/09/19 at 08:00; Stop 03/09/19 at 11:59 Potassium Chloride (Klor-Con) 80 meq 1X ONCE PO ; Start 03/09/19 at 08:15; Stop 03/09/19 at 08:16; Status DC Nicotine (Nicoderm Cq 21mg) 1 patch PRN DAILY PRN TD SMOKING CESSATION Last administered on 03/09/19at 08:46; Start 03/09/19 at 08:30 Active Scripts Active Ativan (Lorazepam) 1 Mg Tablet 1 Mg PO QIDPRN PRN B Complex (Vitamin B Complex) 1 Each Tablet 1 Each PO DAILY Thiamine Hcl 500 Mg Tablet 500 Mg PO DAILY Thera-M Tablet (Multivits,Ca,Minerals/Iron/Fa) 1 Each Tablet 1 Tab PO DAILY Allergies Allergies: Coded Allergies: egg (Verified Allergy, Mild, 10/15/14) ROS Review of System Difficult due to patient confusion General: YES: Fatigue, Malaise; No: Chills, Night Sweats, Appetite, Other PSYCHOLOGICAL ROS: YES: Anxiety; No: Behavioral Disorder, Concentration difficultie, Decreased libido, Depress ion, Disorientation, Hallucinations, Hostility, Irritablity, Memory difficulties, Mood Swings, Obsessive thoughts, Physical abuse, Sexual abuse, Sleep disturbances, Suicidal ideation, Other Eyes: No Blurry vision, No Decreased vision, No Double vision, No Dry eyes, No Excessive tearing, No Eye Pain, No Itchy Eyes, No Loss of vision, No Photophobia, No Scotomata, No Uses contacts, No Uses glasses, No Other HEENT: No: Heacaches, Visual Changes, Hearing change, Nasal congestion, Nasal discharge, Oral lesions, Sinus pain, Sore Throat, Epistaxis, Sneezing, Snoring, Tinnitus, Vertigo, Vocal changes, Other ALLERGY AND IMMUNOLOGY: No: Hives, Insect Bite Sensitivity, Itchy/Watery Eyes, Nasal Congestion, Post Nasal Drip, Seasonal Allergies, Other Hematological and Lymphatic: No: Bleeding Problems, Blood Clots, Blood Transfusions, Brusing, Night Sweats, Pallor, Swollen Lymph Nodes, Other ENDOCRINE: No: Breast Changes, Galactorrhea, Hair Pattern Changes, Hot Flashes, Malaise/lethargy, Mood Swings, Palpitations, Polydipsia/polyuria, Skin Changes, Temperature Intolerance, Unexpected Weight Changes, Other Breast: No New/Changing Breast Lumps, No Nipple changes, No Nipple discharge, No Other Respiratory: YES: Shortness of breath; No: Cough, Hemoptysis, Orthopnea, Pleuritic Pain, SOB with excertion, Sputum Changes, Stridor, Tachypnea, Wheezing, Other Cardiovascular: No Chest Pain, No Palpitations, No Orthopnea, No Paroxysmal Noc. Dyspnea, No Edema, No Lt Headedness, No Other Gastrointestinal: Yes Nausea, Yes Abdominal Pain, Yes Diarrhea; No Vomiting, No Constipation, No Melena, No Hematochezia, No Other Genitourinary: No Dysuria, No Frequency, No Incontinence, No Hematuria, No Retention, No Discharge, No Urgency, No Pain, No Flank Pain, No Other, No , No , No , No , No , No , No Musculoskeletal: Yes Gait Disturbance; No Joint Pain, No Joint Stiffness, No Joint Swelling, No Muscle Pain, No Muscular Weakness, No Pain In:, No Swelling In:, No Other Neurological: Yes Gait Disturbance; No Behavorial Changes, No Bowel/Bladder ControlChng, No Confusion, No Dizziness, No Headaches, No Impaired Coord/balance, No Memory Loss, No Numbness/Tingling, No Seizures, No Speech Problems, No Tremors, No Visual Changes, No Weakness, No Other Skin: No Dry Skin, No Eczema, No Hair Changes, No Lumps, No Mole Changes, No Mottling, No Nail Changes, No Pruritus, No Rash, No Skin Lesion Changes, No Other, No Acne Physical Exam General: Alert, Cooperative, mild distress, Other (Confused) HEENT: Atraumatic, PERRLA, EOMI, Mucous membr. moist/pink Lungs: Clear to auscultation, Normal air movement Heart: S1S2, RRR, no thrills, no rubs Abdomen: Normal bowel sounds, Soft, Other (Fluid wave, enlarged abdomen) Extremities: No clubbing, No cyanosis, Normal pulses, No tenderness/swelling, Other (2+) Skin: No rashes, No breakdown, No significant lesion Neuro: Normal speech, Strength at 5/5 X4 ext, Normal tone, Cranial nerves 3-12 NL, Reflexes 2+, Other (decreased sensation bilateral feet) Psych/Mental Status: Mental status NL, Mood NL Vitals Vitals Vital Signs Date Time Temp Pulse Resp B/P (MAP) Pulse Ox O2 Delivery O2 Flow Rate FiO2 03/09/19 08:00 98.8 85 20 92/46 (61) 99 Room Air 98.8 Labs Labs Laboratory Tests Test 03/09/19 00:45 03/09/19 04:00 03/09/19 06:40 White Blood Count 10.1 x10^3/uL (4.0-11.0) Red Blood Count 2.89 x10^6/uL (4.30-5.70) Hemoglobin 11.8 g/dL (13.0-17.5) Hematocrit 35.2 % (39.0-53.0) Mean Corpuscular Volume 122 fL (79-100) Mean Corpuscular Hemoglobin 41 pg (25-35) Mean Corpuscular Hemoglobin Concent 34 g/dL (31-37) Red Cell Distribution Width 16.1 % (11.5-14.5) Platelet Count 173 x10^3/uL (140-400) Neutrophils (%) (Auto) 80 % (31-73) Lymphocytes (%) (Auto) 12 % (24-48) Monocytes (%) (Auto) 7 % (0-9) Eosinophils (%) (Auto) 0 % (0-3) Basophils (%) (Auto) 1 % (0-3) Neutrophils # (Auto) 8.1 x10^3/uL (1.8-7.7) Lymphocytes # (Auto) 1.3 x10^3/uL (1.0-4.8) Monocytes # (Auto) 0.7 x10^3/uL (0.0-1.1) Eosinophils # (Auto) 0.0 x10^3/uL (0.0-0.7) Basophils # (Auto) 0.1 x10^3/uL (0.0-0.2) Platelet Estimate Adequate (ADEQUATE) Polychromasia Slight Macrocytosis Marked Prothrombin Time 14.9 SEC (11.7-14.0) Prothromb Time International Ratio 1.2 (0.8-1.1) Activated Partial Thromboplast Time 38 SEC (24-38) Sodium Level 131 mmol/L (136-145) Potassium Level 1.9 mmol/L (3.5-5.1) 2.1 mmol/L (3.5-5.1) Chloride Level 89 mmol/L (98-107) Carbon Dioxide Level 25 mmol/L (21-32) Anion Gap 17 (6-14) Blood Urea Nitrogen 12 mg/dL (8-26) Creatinine 4.4 mg/dL (0.7-1.3) Estimated GFR (Cockcroft-Gault) 13.9 BUN/Creatinine Ratio 3 (6-20) Glucose Level 94 mg/dL (70-99) Lactic Acid Level 5.6 mmol/L (0.4-2.0) 4.0 mmol/L (0.4-2.0) Calcium Level 7.0 mg/dL (8.5-10.1) Magnesium Level 1.3 mg/dL (1.8-2.4) Total Bilirubin 13.8 mg/dL (0.2-1.0) Aspartate Amino Transf (AST/SGOT) 171 U/L (15-37) Alanine Aminotransferase (ALT/SGPT) 71 U/L (16-63) Alkaline Phosphatase 180 U/L (46-116) Ammonia 93 mcmol/L (11-34) Creatine Kinase 96 U/L (39-308) Troponin I Quantitative 0.021 ng/mL (0.000-0.055) QV-Gdv-C-Type Natriuretic Peptide 1707 pg/mL (0-124) Total Protein 5.6 g/dL (6.4-8.2) Albumin 1.5 g/dL (3.4-5.0) Albumin/Globulin Ratio 0.4 (1.0-1.7) Lipase 89 U/L (73-393) Thyroid Stimulating Hormone (TSH) 2.489 uIU/mL (0.358-3.74) Ethyl Alcohol Level < 10 mg/dL (0-10) Laboratory Tests Test 03/09/19 00:45 03/09/19 04:00 03/09/19 06:40 White Blood Count 10.1 x10^3/uL (4.0-11.0) Red Blood Count 2.89 x10^6/uL (4.30-5.70) Hemoglobin 11.8 g/dL (13.0-17.5) Hematocrit 35.2 % (39.0-53.0) Mean Corpuscular Volume 122 fL (79-100) Mean Corpuscular Hemoglobin 41 pg (25-35) Mean Corpuscular Hemoglobin Concent 34 g/dL (31-37) Red Cell Distribution Width 16.1 % (11.5-14.5) Platelet Count 173 x10^3/uL (140-400) Neutrophils (%) (Auto) 80 % (31-73) Lymphocytes (%) (Auto) 12 % (24-48) Monocytes (%) (Auto) 7 % (0-9) Eosinophils (%) (Auto) 0 % (0-3) Basophils (%) (Auto) 1 % (0-3) Neutrophils # (Auto) 8.1 x10^3/uL (1.8-7.7) Lymphocytes # (Auto) 1.3 x10^3/uL (1.0-4.8) Monocytes # (Auto) 0.7 x10^3/uL (0.0-1.1) Eosinophils # (Auto) 0.0 x10^3/uL (0.0-0.7) Basophils # (Auto) 0.1 x10^3/uL (0.0-0.2) Platelet Estimate Adequate (ADEQUATE) Polychromasia Slight Macrocytosis Marked Prothrombin Time 14.9 SEC (11.7-14.0) Prothromb Time International Ratio 1.2 (0.8-1.1) Activated Partial Thromboplast Time 38 SEC (24-38) Sodium Level 131 mmol/L (136-145) Potassium Level 1.9 mmol/L (3.5-5.1) 2.1 mmol/L (3.5-5.1) Chloride Level 89 mmol/L (98-107) Carbon Dioxide Level 25 mmol/L (21-32) Anion Gap 17 (6-14) Blood Urea Nitrogen 12 mg/dL (8-26) Creatinine 4.4 mg/dL (0.7-1.3) Estimated GFR (Cockcroft-Gault) 13.9 BUN/Creatinine Ratio 3 (6-20) Glucose Level 94 mg/dL (70-99) Lactic Acid Level 5.6 mmol/L (0.4-2.0) 4.0 mmol/L (0.4-2.0) Calcium Level 7.0 mg/dL (8.5-10.1) Magnesium Level 1.3 mg/dL (1.8-2.4) Total Bilirubin 13.8 mg/dL (0.2-1.0) Aspartate Amino Transf (AST/SGOT) 171 U/L (15-37) Alanine Aminotransferase (ALT/SGPT) 71 U/L (16-63) Alkaline Phosphatase 180 U/L (46-116) Ammonia 93 mcmol/L (11-34) Creatine Kinase 96 U/L (39-308) Troponin I Quantitative 0.021 ng/mL (0.000-0.055) YT-Ikn-Z-Type Natriuretic Peptide 1707 pg/mL (0-124) Total Protein 5.6 g/dL (6.4-8.2) Albumin 1.5 g/dL (3.4-5.0) Albumin/Globulin Ratio 0.4 (1.0-1.7) Lipase 89 U/L (73-393) Thyroid Stimulating Hormone (TSH) 2.489 uIU/mL (0.358-3.74) Ethyl Alcohol Level < 10 mg/dL (0-10) Images Images CXR - low lung volume CT abdomen/pelvis - * There is some wall thickening seen within the colon. The colon is not very distended therefore could be from regions of contraction but would correlate with symptoms to ensure that there is not a pathologic cause such as mild colitis. * Small free fluid within the pelvis. * Severe low density of the liver. This can be seen with fatty infiltration. * Calcific atherosclerosis including of the coronary arteries which appears severe. * The gallbladder is dilated. Would correlate with symptoms and lab markers to ensure that this is not secondary to biliary disease such as hydrops. VTE Prophylaxis Ordered VTE Prophylaxis Devices: Yes VTE Pharmacological Prophylaxi: No Assessment/Plan Assessment/Plan A/P: Ventricular tachycardia - likely 2/2 hypokalemia and hypomagnesemia. Cardiology to see Acute kidney injury - Cr 4.4. possibly vasomotor nephropathy from GI losses, poor PO intake, there is some concern he may have much worse liver disease than he implies. Possible hepatorenal syndrome. GI and nephro Hypokalemia - 1.9, severe, will keep in ICU on IV replacement Lactic acidosis - seems more hepatic related than sepsis, has no infectious symptoms. Given vancomycin and zosyn by ED. will stop. IVF for now Hypomagnesemia - will replace IV, monitor renal function q 6hours Severe protein calorie malnutrion - Anasarca - severe hypoalbuminemia and malnutrition likely from ETOH abuse Acute encephalopathy - most certainly hepatic encephalopathy, with meld score 34, will initiate lactulose, consult GI ETOH abuse - counseled on cessation Hyperbilirubinemia - with significant cirrhosis symptoms likely has severe liver disease, Gallbladder is also dilated, though he does not c/o RUQ pain Transaminitis - has an alcoholic pattern consistent with his history. Counseled on cessation FEN - Cardiac diet PPX - heparin FULL CODE Dispo - ICU for critically ill patient with life-threatening electrolyte abnormalities in renal and hepatic failure CC time 47 minutes HARESH LARSON MD Mar 09, 2019 08:58
--- NOTE | 2019-03-09 09:13 | NUR ---
PT REPORTS NOT URINATING FOR 3 DAYS. BLADDER SCAN PERFORMED- 14ML URINE IN BLADDER. BARAJAS CATHETER INSERTED PER DR. Sorin SILVERMAN- 10ML OF COLA COLORED URINE RETURNED. PT TOLERATED WELL.
--- NOTE | 2019-03-09 09:22 | PDOC2 ---
CONSULT Date of Consult Date of Consult DATE: 03/09/19 TIME: 09:05 Reason for Consult Reason for Consult: Renal failure, creatinine 4.4 Referring Physician Referring Physician: Kayla Identification/Chief Complaint Chief Complaint Weakness Source Source: Chart review, Patient History of Present Illness Reason for Visit: Kentrell is a 59-year-old gentleman with no significant medical past history other than tobaccoism atherosclerosis and substance abuse in the past was told about his elevated blood pressures in the ER recently and is under h istory of alcoholism as well as severe DJD arthritis for which he takes 3 Advil a day for the last few months. He has had diarrhea for about 3 weeks. He was also on diuretics at home which she stopped about 3 weeks ago. He did have one episode of vomiting. He developed significant weakness and presented to the ER for further evaluation. In the ER he was noted to have a potassium of 1.9 sodium of 131 anion gap 17 BUN of 12 creatinine 4.4 magnesium of 1.3 albumin of 1.5 lactic acid of 5.6. He is currently on potassium replacement. Magnesium has been replaced. He is not aware of her diagnosis of liver failure per se. Past Medical History Cardiovascular: HTN (newly diagnoes) Psych: Anxiety, Addictions, Depression Past Surgical History Past Surgical History: Other Family History Family History: Diabetes, Heart Disease Social History ALCOHOL: other Drugs: None Lives: with Family Domestic Violence: Neg Current Problem List Problem List Problems Medical Problems: (1) Alcoholic hepatic failure without coma Status: Acute (2) Anemia Status: Acute (3) Ascites Status: Acute (4) Hepatic encephalopathy Status: Acute (5) Hypoalbuminemia Status: Acute (6) Hypokalemia Status: Acute (7) Hypomagnesemia Status: Acute (8) Hyponatremia Status: Acute (9) Renal insufficiency Status: Acute (10) Severe sepsis Status: Acute Current Medications Current Medications Current Medications Magnesium Sulfate 50 ml @ 25 mls/hr 1X ONCE IV Last administered on 03/09/19at 02:02; Start 03/09/19 at 01:45; Stop 03/09/19 at 03:44; Status DC Potassium Chloride (Klor-Con) 40 meq 1X ONCE PO Last administered on 03/09/19at 02:03; Start 03/09/19 at 01:45; Stop 03/09/19 at 01:46; Status DC Potassium Chloride/Water 100 ml @ 100 mls/hr Q1H IV Last administered on 03/09/19at 05:09; Start 03/09/19 at 01:45; Stop 03/09/19 at 05:44; Status DC Sodium Chloride 1,000 ml @ 1,000 mls/hr 1X ONCE IV Last administered on 03/09/19at 02:24; Start 03/09/19 at 02:15; Stop 03/09/19 at 03:14; Status DC Piperacillin Sod/ Tazobactam Sod 3.375 gm/Sodium Chloride 50 ml @ 100 mls/hr 1X ONCE IV Last administered on 03/09/19at 02:24; Start 03/09/19 at 02:15; Stop 03/09/19 at 02:44; Status DC Vancomycin HCl 250 ml @ 250 mls/hr 1X ONCE IV Last administered on 03/09/19at 03:47; Start 03/09/19 at 02:15; Stop 03/09/19 at 03:14; Status DC Sodium Chloride 1,000 ml @ 150 mls/hr Q6H40M IV Last administered on 03/09/19at 04:09; Start 03/09/19 at 03:00; Stop 03/10/19 at 02:59 Vancomycin HCl 2 gm/Sodium Chloride 500 ml @ 250 mls/hr 1X ONCE IV ; Start 03/09/19 at 06:30; Stop 03/09/19 at 08:29; Status Cancel Piperacillin Sod/ Tazobactam Sod 2.25 gm/Sodium Chloride 50 ml @ 100 mls/hr Q6HRS IV Last administered on 03/09/19at 06:25; Start 03/09/19 at 06:00 Vancomycin HCl (Vanco Per Pharmacy) 1 each PRN DAILY PRN MC SEE COMMENTS Last administered on 03/09/19at 06:34; Start 03/09/19 at 06:00 Piperacillin Sod/ Tazobactam Sod (Zosyn Per Pharmacy) 1 each PRN DAILY PRN MC SEE COMMENTS; Start 03/09/19 at 06:00 Vancomycin HCl 1 gm/Sodium Chloride 250 ml @ 250 mls/hr 1X ONCE IV Last administered on 03/09/19at 06:25; Start 03/09/19 at 06:45; Stop 03/09/19 at 07:44; Status DC Vancomycin HCl 1.5 gm/Sodium Chloride 500 ml @ 250 mls/hr Q24H IV ; Start 03/10/19 at 04:00 Vancomycin HCl (Vancomycin Trough Level) 1 each 1X ONCE MC ; Start 03/11/19 at 03:30; Stop 03/11/19 at 03:31 Potassium Chloride (Klor-Con) 40 meq 1X ONCE PO Last administered on 03/09/19at 07:55; Start 03/09/19 at 07:30; Stop 03/09/19 at 07:31; Status DC Potassium Chloride/Water 100 ml @ 100 mls/hr Q1H IV Last administered on 03/09/19at 07:55; Start 03/09/19 at 08:00; Stop 03/09/19 at 11:59 Potassium Chloride (Klor-Con) 80 meq 1X ONCE PO ; Start 03/09/19 at 08:15; Stop 03/09/19 at 08:16; Status DC Nicotine (Nicoderm Cq 21mg) 1 patch PRN DAILY PRN TD SMOKING CESSATION Last administered on 03/09/19at 08:46; Start 03/09/19 at 08:30 Active Scripts Active Ativan (Lorazepam) 1 Mg Tablet 1 Mg PO QIDPRN PRN B Complex (Vitamin B Complex) 1 Each Tablet 1 Each PO DAILY Thiamine Hcl 500 Mg Tablet 500 Mg PO DAILY Thera-M Tablet (Multivits,Ca,Minerals/Iron/Fa) 1 Each Tablet 1 Tab PO DAILY Allergies Allergies: Coded Allergies: egg (Verified Allergy, Mild, 10/15/14) ROS Review of System Review of systems as reviewed under history of present illness otherwise grossly negative Physical Exam Physical Exam GEN: Awake, Oriented x 3, In no distress EYES: Vision Unchanged, Conjunctiva Normal EN: No EN Drainage, Mucous Membranes moist NECK: no JVD, + JVP, Supple, no Thyromegaly CVS: S1S2, ? Murmur, No Gallop, No Rub,+2 Edema RESP: no Rales, no Rhonchi,no Acc. Muscle Use GI: BS + ve, NO Bruit, ? Tender, + Distended : no CVA tenderness, no Suprapubic Tenderness Vital Signs Vital Signs Date Time Temp Pulse Resp B/P (MAP) Pulse Ox O2 Delivery O2 Flow Rate FiO2 03/09/19 08:00 98.8 85 20 92/46 (61) 99 Room Air 98.8 Assessment & Plan Acute kidney injury: Possible ATN associated with volume depletion, NSAID use, if found to have liver disease and hepatorenal state is a possibility. Bladder scan did show significant fluid however when Gan was placed only 10 mL return. Urine looks dark cola colored. CPK was 96 on presentation here he had baseline creatinine is normal Severe hypokalemia: Presumably associated with hypomagnesemia prior diuretic use. Supplementation as required Lactic acidosis appears to be improving Severe hypoalbuminemia: Presumably associated with liver disease, alcoholism, poor by mouth intake Labs Labs Laboratory Tests Test 03/09/19 00:45 03/09/19 04:00 03/09/19 06:40 White Blood Count 10.1 x10^3/uL (4.0-11.0) Red Blood Count 2.89 x10^6/uL (4.30-5.70) Hemoglobin 11.8 g/dL (13.0-17.5) Hematocrit 35.2 % (39.0-53.0) Mean Corpuscular Volume 122 fL (79-100) Mean Corpuscular Hemoglobin 41 pg (25-35) Mean Corpuscular Hemoglobin Concent 34 g/dL (31-37) Red Cell Distribution Width 16.1 % (11.5-14.5) Platelet Count 173 x10^3/uL (140-400) Neutrophils (%) (Auto) 80 % (31-73) Lymphocytes (%) (Auto) 12 % (24-48) Monocytes (%) (Auto) 7 % (0-9) Eosinophils (%) (Auto) 0 % (0-3) Basophils (%) (Auto) 1 % (0-3) Neutrophils # (Auto) 8.1 x10^3/uL (1.8-7.7) Lymphocytes # (Auto) 1.3 x10^3/uL (1.0-4.8) Monocytes # (Auto) 0.7 x10^3/uL (0.0-1.1) Eosinophils # (Auto) 0.0 x10^3/uL (0.0-0.7) Basophils # (Auto) 0.1 x10^3/uL (0.0-0.2) Platelet Estimate Adequate (ADEQUATE) Polychromasia Slight Macrocytosis Marked Prothrombin Time 14.9 SEC (11.7-14.0) Prothromb Time International Ratio 1.2 (0.8-1.1) Activated Partial Thromboplast Time 38 SEC (24-38) Sodium Level 131 mmol/L (136-145) Potassium Level 1.9 mmol/L (3.5-5.1) 2.1 mmol/L (3.5-5.1) Chloride Level 89 mmol/L (98-107) Carbon Dioxide Level 25 mmol/L (21-32) Anion Gap 17 (6-14) Blood Urea Nitrogen 12 mg/dL (8-26) Creatinine 4.4 mg/dL (0.7-1.3) Estimated GFR (Cockcroft-Gault) 13.9 BUN/Creatinine Ratio 3 (6-20) Glucose Level 94 mg/dL (70-99) Lactic Acid Level 5.6 mmol/L (0.4-2.0) 4.0 mmol/L (0.4-2.0) Calcium Level 7.0 mg/dL (8.5-10.1) Magnesium Level 1.3 mg/dL (1.8-2.4) Total Bilirubin 13.8 mg/dL (0.2-1.0) Aspartate Amino Transf (AST/SGOT) 171 U/L (15-37) Alanine Aminotransferase (ALT/SGPT) 71 U/L (16-63) Alkaline Phosphatase 180 U/L (46-116) Ammonia 93 mcmol/L (11-34) Creatine Kinase 96 U/L (39-308) Troponin I Quantitative 0.021 ng/mL (0.000-0.055) EJ-Vak-Z-Type Natriuretic Peptide 1707 pg/mL (0-124) Total Protein 5.6 g/dL (6.4-8.2) Albumin 1.5 g/dL (3.4-5.0) Albumin/Globulin Ratio 0.4 (1.0-1.7) Lipase 89 U/L (73-393) Thyroid Stimulating Hormone (TSH) 2.489 uIU/mL (0.358-3.74) Ethyl Alcohol Level < 10 mg/dL (0-10) Laboratory Tests Test 03/09/19 00:45 03/09/19 04:00 03/09/19 06:40 White Blood Count 10.1 x10^3/uL (4.0-11.0) Red Blood Count 2.89 x10^6/uL (4.30-5.70) Hemoglobin 11.8 g/dL (13.0-17.5) Hematocrit 35.2 % (39.0-53.0) Mean Corpuscular Volume 122 fL (79-100) Mean Corpuscular Hemoglobin 41 pg (25-35) Mean Corpuscular Hemoglobin Concent 34 g/dL (31-37) Red Cell Distribution Width 16.1 % (11.5-14.5) Platelet Count 173 x10^3/uL (140-400) Neutrophils (%) (Auto) 80 % (31-73) Lymphocytes (%) (Auto) 12 % (24-48) Monocytes (%) (Auto) 7 % (0-9) Eosinophils (%) (Auto) 0 % (0-3) Basophils (%) (Auto) 1 % (0-3) Neutrophils # (Auto) 8.1 x10^3/uL (1.8-7.7) Lymphocytes # (Auto) 1.3 x10^3/uL (1.0-4.8) Monocytes # (Auto) 0.7 x10^3/uL (0.0-1.1) Eosinophils # (Auto) 0.0 x10^3/uL (0.0-0.7) Basophils # (Auto) 0.1 x10^3/uL (0.0-0.2) Platelet Estimate Adequate (ADEQUATE) Polychromasia Slight Macrocytosis Marked Prothrombin Time 14.9 SEC (11.7-14.0) Prothromb Time International Ratio 1.2 (0.8-1.1) Activated Partial Thromboplast Time 38 SEC (24-38) Sodium Level 131 mmol/L (136-145) Potassium Level 1.9 mmol/L (3.5-5.1) 2.1 mmol/L (3.5-5.1) Chloride Level 89 mmol/L (98-107) Carbon Dioxide Level 25 mmol/L (21-32) Anion Gap 17 (6-14) Blood Urea Nitrogen 12 mg/dL (8-26) Creatinine 4.4 mg/dL (0.7-1.3) Estimated GFR (Cockcroft-Gault) 13.9 BUN/Creatinine Ratio 3 (6-20) Glucose Level 94 mg/dL (70-99) Lactic Acid Level 5.6 mmol/L (0.4-2.0) 4.0 mmol/L (0.4-2.0) Calcium Level 7.0 mg/dL (8.5-10.1) Magnesium Level 1.3 mg/dL (1.8-2.4) Total Bilirubin 13.8 mg/dL (0.2-1.0) Aspartate Amino Transf (AST/SGOT) 171 U/L (15-37) Alanine Aminotransferase (ALT/SGPT) 71 U/L (16-63) Alkaline Phosphatase 180 U/L (46-116) Ammonia 93 mcmol/L (11-34) Creatine Kinase 96 U/L (39-308) Troponin I Quantitative 0.021 ng/mL (0.000-0.055) NY-Owo-X-Type Natriuretic Peptide 1707 pg/mL (0-124) Total Protein 5.6 g/dL (6.4-8.2) Albumin 1.5 g/dL (3.4-5.0) Albumin/Globulin Ratio 0.4 (1.0-1.7) Lipase 89 U/L (73-393) Thyroid Stimulating Hormone (TSH) 2.489 uIU/mL (0.358-3.74) Ethyl Alcohol Level < 10 mg/dL (0-10) Review All relevant outside records, renal labs, imaging studies, telemetry/EKG's were reviewed. Images Images * There is some wall thickening seen within the colon. The colon is not very distended therefore could be from regions of contraction but would correlate with symptoms to ensure that there is not a pathologic cause such as mild colitis. * Small free fluid within the pelvis. * Severe low density of the liver. This can be seen with fatty infiltration. * Calcific atherosclerosis including of the coronary arteries which appears severe. * The gallbladder is dilated. Would correlate with symptoms and lab markers to ensure that this is not secondary to biliary disease such as hydrops. CECILY SILVERMAN MD Mar 09, 2019 09:22
--- NOTE | 2019-03-09 09:40 | CONS ---
DATE OF CONSULTATION: 03/09/2019 REASON FOR CONSULTATION: Ventricular tachycardia. CONSULTING PHYSICIAN: Dr. Green. HISTORY OF PRESENT ILLNESS: The patient is an unfortunate 59-year-old male with prior history of alcohol abuse, who comes in to the hospital with weakness. He unfortunately appears to be going through another bout of alcohol abuse and subsequent withdrawal. He has been admitted for treatment and while on telemetry, was noted to have a nonsustained VT episode in the setting of potassium 1.9 upon arrival. Currently, the patient still appears to be inebriated and denies any specific chest pain, dyspnea, orthopnea, but he does report significant lower extremity edema. He reports abdominal tenderness and increasing distention. PAST MEDICAL HISTORY: 1. Alcohol abuse. 2. Hypertension. 3. Dyslipidemia. SOCIAL HISTORY: As noted above. FAMILY HISTORY: Noncontributory. ALLERGIES: EGGS. CURRENT CARDIOVASCULAR MEDICATIONS: None. REVIEW OF SYSTEMS: Negative unless otherwise mentioned above. PHYSICAL EXAMINATION: VITAL SIGNS: Afebrile, 92, 21, 85/48, 95% on room air. GENERAL: He is alert and oriented to person, place and time. HEAD AND NECK: Unremarkable. CARDIAC: Regular rate and rhythm without any obvious murmurs, rubs noted. LUNGS: Notable for decreased breath sounds at the bases. ABDOMEN: Obese, protuberant and mildly tender to palpation. He has abdominal wall edema. EXTREMITIES: He has 3+ lower extremity edema. NEUROLOGIC: He appears weak without any focal or lateralizing signs. DIAGNOSTIC STUDIES: Hemoglobin 11.8 at baseline. Creatinine 4.4. Potassium 1.9 with repeat at 2.1 after 80 mEq. Lactate at 4.0. BNP is elevated at 1707. Troponin negative x 1. Albumin 1.5. Telemetry reviewed and EKG shows nonsustained VT, probable fascicular VT and/or RVOT area related to ventricular tachycardia. IMPRESSION: 1. Ventricular tachycardia in the setting of severe metabolic disturbances, specifically hypokalemia and hypomagnesemia. 2. Acute kidney injury. 3. Probable hepatorenal syndrome. 4. Anasarca secondary to severe hypoalbuminemia and malnutrition. 5. Alcohol abuse. 6. Probable diastolic heart failure with echocardiogram in 11/2018 revealing normal LV function and no evidence of significant pulmonary hypertension. 7. Acute kidney injury with a new creatinine of 4.4. RECOMMENDATIONS: 1. Agree with aggressive electrolyte supplementation with q.6 hour basic metabolic panel to ensure that the potassium and magnesium are above 4.0 with a potassium of 2.0 for the magnesium. 2. Consider GI and renal consultation for further evaluation of possible hepatorenal syndrome. 3. Agree with intravenous fluids and may then challenge with IV Lasix, but his anasarca is likely related to his severe hypoalbuminemia. Poor long-term prognosis. Cardiology is available for any further acute issues. Please call with any questions. Thank you for this consultation. JUAN PACKER MD DR: FERNANDO/gerardo JOB#: [id number] / [id number]
[2019-03-09] MEDS: POTASSIUM CL 40MEQ IN 0.9%NACL 1,000 ML IV SCH ×3 (09:43→23:29)
[2019-03-09] MEDS: LACTULOSE 20 GM/30 ML SOLUTION. PO SCH ×3 (10:41→23:23)
--- NOTE | 2019-03-09 10:51 | PDOC ---
G I PROGRESS NOTE Reason for Follow-up Cirrhosis/Alcoholic hepatitis Subjective Minimal urine output noted Physical Exam Lungs decreased BS 'CV S1 S2 ABD mild distention, +RUQ tenderness Review of Relevant I have reviewed the following items tammi (where applicable) has been applied. Labs Laboratory Tests Test 03/09/19 00:45 03/09/19 04:00 03/09/19 06:40 White Blood Count 10.1 x10^3/uL (4.0-11.0) Red Blood Count 2.89 x10^6/uL (4.30-5.70) Hemoglobin 11.8 g/dL (13.0-17.5) Hematocrit 35.2 % (39.0-53.0) Mean Corpuscular Volume 122 fL (79-100) Mean Corpuscular Hemoglobin 41 pg (25-35) Mean Corpuscular Hemoglobin Concent 34 g/dL (31-37) Red Cell Distribution Width 16.1 % (11.5-14.5) Platelet Count 173 x10^3/uL (140-400) Neutrophils (%) (Auto) 80 % (31-73) Lymphocytes (%) (Auto) 12 % (24-48) Monocytes (%) (Auto) 7 % (0-9) Eosinophils (%) (Auto) 0 % (0-3) Basophils (%) (Auto) 1 % (0-3) Neutrophils # (Auto) 8.1 x10^3/uL (1.8-7.7) Lymphocytes # (Auto) 1.3 x10^3/uL (1.0-4.8) Monocytes # (Auto) 0.7 x10^3/uL (0.0-1.1) Eosinophils # (Auto) 0.0 x10^3/uL (0.0-0.7) Basophils # (Auto) 0.1 x10^3/uL (0.0-0.2) Platelet Estimate Adequate (ADEQUATE) Polychromasia Slight Macrocytosis Marked Prothrombin Time 14.9 SEC (11.7-14.0) Prothromb Time International Ratio 1.2 (0.8-1.1) Activated Partial Thromboplast Time 38 SEC (24-38) Sodium Level 131 mmol/L (136-145) Potassium Level 1.9 mmol/L (3.5-5.1) 2.1 mmol/L (3.5-5.1) Chloride Level 89 mmol/L (98-107) Carbon Dioxide Level 25 mmol/L (21-32) Anion Gap 17 (6-14) Blood Urea Nitrogen 12 mg/dL (8-26) Creatinine 4.4 mg/dL (0.7-1.3) Estimated GFR (Cockcroft-Gault) 13.9 BUN/Creatinine Ratio 3 (6-20) Glucose Level 94 mg/dL (70-99) Lactic Acid Level 5.6 mmol/L (0.4-2.0) 4.0 mmol/L (0.4-2.0) Calcium Level 7.0 mg/dL (8.5-10.1) Magnesium Level 1.3 mg/dL (1.8-2.4) Total Bilirubin 13.8 mg/dL (0.2-1.0) Aspartate Amino Transf (AST/SGOT) 171 U/L (15-37) Alanine Aminotransferase (ALT/SGPT) 71 U/L (16-63) Alkaline Phosphatase 180 U/L (46-116) Ammonia 93 mcmol/L (11-34) Creatine Kinase 96 U/L (39-308) Troponin I Quantitative 0.021 ng/mL (0.000-0.055) LL-Jiu-K-Type Natriuretic Peptide 1707 pg/mL (0-124) Total Protein 5.6 g/dL (6.4-8.2) Albumin 1.5 g/dL (3.4-5.0) Albumin/Globulin Ratio 0.4 (1.0-1.7) Lipase 89 U/L (73-393) Thyroid Stimulating Hormone (TSH) 2.489 uIU/mL (0.358-3.74) Ethyl Alcohol Level < 10 mg/dL (0-10) Laboratory Tests Test 03/09/19 00:45 03/09/19 04:00 03/09/19 06:40 White Blood Count 10.1 x10^3/uL (4.0-11.0) Red Blood Count 2.89 x10^6/uL (4.30-5.70) Hemoglobin 11.8 g/dL (13.0-17.5) Hematocrit 35.2 % (39.0-53.0) Mean Corpuscular Volume 122 fL (79-100) Mean Corpuscular Hemoglobin 41 pg (25-35) Mean Corpuscular Hemoglobin Concent 34 g/dL (31-37) Red Cell Distribution Width 16.1 % (11.5-14.5) Platelet Count 173 x10^3/uL (140-400) Neutrophils (%) (Auto) 80 % (31-73) Lymphocytes (%) (Auto) 12 % (24-48) Monocytes (%) (Auto) 7 % (0-9) Eosinophils (%) (Auto) 0 % (0-3) Basophils (%) (Auto) 1 % (0-3) Neutrophils # (Auto) 8.1 x10^3/uL (1.8-7.7) Lymphocytes # (Auto) 1.3 x10^3/uL (1.0-4.8) Monocytes # (Auto) 0.7 x10^3/uL (0.0-1.1) Eosinophils # (Auto) 0.0 x10^3/uL (0.0-0.7) Basophils # (Auto) 0.1 x10^3/uL (0.0-0.2) Platelet Estimate Adequate (ADEQUATE) Polychromasia Slight Macrocytosis Marked Prothrombin Time 14.9 SEC (11.7-14.0) Prothromb Time International Ratio 1.2 (0.8-1.1) Activated Partial Thromboplast Time 38 SEC (24-38) Sodium Level 131 mmol/L (136-145) Potassium Level 1.9 mmol/L (3.5-5.1) 2.1 mmol/L (3.5-5.1) Chloride Level 89 mmol/L (98-107) Carbon Dioxide Level 25 mmol/L (21-32) Anion Gap 17 (6-14) Blood Urea Nitrogen 12 mg/dL (8-26) Creatinine 4.4 mg/dL (0.7-1.3) Estimated GFR (Cockcroft-Gault) 13.9 BUN/Creatinine Ratio 3 (6-20) Glucose Level 94 mg/dL (70-99) Lactic Acid Level 5.6 mmol/L (0.4-2.0) 4.0 mmol/L (0.4-2.0) Calcium Level 7.0 mg/dL (8.5-10.1) Magnesium Level 1.3 mg/dL (1.8-2.4) Total Bilirubin 13.8 mg/dL (0.2-1.0) Aspartate Amino Transf (AST/SGOT) 171 U/L (15-37) Alanine Aminotransferase (ALT/SGPT) 71 U/L (16-63) Alkaline Phosphatase 180 U/L (46-116) Ammonia 93 mcmol/L (11-34) Creatine Kinase 96 U/L (39-308) Troponin I Quantitative 0.021 ng/mL (0.000-0.055) RS-Kfm-T-Type Natriuretic Peptide 1707 pg/mL (0-124) Total Protein 5.6 g/dL (6.4-8.2) Albumin 1.5 g/dL (3.4-5.0) Albumin/Globulin Ratio 0.4 (1.0-1.7) Lipase 89 U/L (73-393) Thyroid Stimulating Hormone (TSH) 2.489 uIU/mL (0.358-3.74) Ethyl Alcohol Level < 10 mg/dL (0-10) Medications Current Medications Magnesium Sulfate 50 ml @ 25 mls/hr 1X ONCE IV Last administered on 03/09/19at 02:02; Start 03/09/19 at 01:45; Stop 03/09/19 at 03:44; Status DC Potassium Chloride (Klor-Con) 40 meq 1X ONCE PO Last administered on 03/09/19at 02:03; Start 03/09/19 at 01:45; Stop 03/09/19 at 01:46; Status DC Potassium Chloride/Water 100 ml @ 100 mls/hr Q1H IV Last administered on 03/09/19at 05:09; Start 03/09/19 at 01:45; Stop 03/09/19 at 05:44; Status DC Sodium Chloride 1,000 ml @ 1,000 mls/hr 1X ONCE IV Last administered on 03/09/19at 02:24; Start 03/09/19 at 02:15; Stop 03/09/19 at 03:14; Status DC Piperacillin Sod/ Tazobactam Sod 3.375 gm/Sodium Chloride 50 ml @ 100 mls/hr 1X ONCE IV Last administered on 03/09/19at 02:24; Start 03/09/19 at 02:15; Stop 03/09/19 at 02:44; Status DC Vancomycin HCl 250 ml @ 250 mls/hr 1X ONCE IV Last administered on 03/09/19at 03:47; Start 03/09/19 at 02:15; Stop 03/09/19 at 03:14; Status DC Sodium Chloride 1,000 ml @ 150 mls/hr Q6H40M IV Last administered on 03/09/19at 04:09; Start 03/09/19 at 03:00; Stop 03/10/19 at 02:59 Vancomycin HCl 2 gm/Sodium Chloride 500 ml @ 250 mls/hr 1X ONCE IV ; Start 03/09/19 at 06:30; Stop 03/09/19 at 08:29; Status Cancel Piperacillin Sod/ Tazobactam Sod 2.25 gm/Sodium Chloride 50 ml @ 100 mls/hr Q6HRS IV Last administered on 03/09/19at 06:25; Start 03/09/19 at 06:00; Stop 03/09/19 at 10:25; Status DC Vancomycin HCl (Vanco Per Pharmacy) 1 each PRN DAILY PRN MC SEE COMMENTS Last administered on 03/09/19at 06:34; Start 03/09/19 at 06:00 Piperacillin Sod/ Tazobactam Sod (Zosyn Per Pharmacy) 1 each PRN DAILY PRN MC SEE COMMENTS; Start 03/09/19 at 06:00 Vancomycin HCl 1 gm/Sodium Chloride 250 ml @ 250 mls/hr 1X ONCE IV Last administered on 03/09/19at 06:25; Start 03/09/19 at 06:45; Stop 03/09/19 at 07:44; Status DC Vancomycin HCl 1.5 gm/Sodium Chloride 500 ml @ 250 mls/hr Q24H IV ; Start 03/10/19 at 04:00; Stop 03/09/19 at 10:25; Status DC Vancomycin HCl (Vancomycin Trough Level) 1 each 1X ONCE MC ; Start 03/11/19 at 03:30; Stop 03/11/19 at 03:31 Potassium Chloride (Klor-Con) 40 meq 1X ONCE PO Last administered on 03/09/19at 07:55; Start 03/09/19 at 07:30; Stop 03/09/19 at 07:31; Status DC Potassium Chloride/Water 100 ml @ 100 mls/hr Q1H IV Last administered on 03/09/19at 10:24; Start 03/09/19 at 08:00; Stop 03/09/19 at 11:59 Potassium Chloride (Klor-Con) 80 meq 1X ONCE PO ; Start 03/09/19 at 08:15; Stop 03/09/19 at 08:16; Status DC Nicotine (Nicoderm Cq 21mg) 1 patch PRN DAILY PRN TD SMOKING CESSATION Last administered on 03/09/19at 08:46; Start 03/09/19 at 08:30 Potassium Chloride/Sodium Chloride 1,000 ml @ 150 mls/hr Q6H40M IV Last administered on 03/09/19at 09:43; Start 03/09/19 at 09:30 Lactulose (Lactulose) 20 gm TID PO ; Start 03/09/19 at 10:30 Active Scripts Active Ativan (Lorazepam) 1 Mg Tablet 1 Mg PO QIDPRN PRN B Complex (Vitamin B Complex) 1 Each Tablet 1 Each PO DAILY Thiamine Hcl 500 Mg Tablet 500 Mg PO DAILY Thera-M Tablet (Multivits,Ca,Minerals/Iron/Fa) 1 Each Tablet 1 Tab PO DAILY Vitals/I & O Vital Sign - Last 24 Hours 03/09/19 03/09/19 03/09/19 03/09/19 00:30 00:35 01:05 01:58 Temp 97.6 97.6 Pulse 106 104 92 93 Resp 24 B/P (MAP) 91/58 (69) Pulse Ox 98 98 96 96 O2 Delivery Room Air 03/09/19 03/09/19 03/09/19 03/09/19 02:05 03:30 03:45 04:00 Temp 98.3 98.3 Pulse 94 96 88 90 Resp 21 18 B/P (MAP) 96/60 (72) 90/51 (64) 87/50 (62) Pulse Ox 96 99 96 97 O2 Delivery Room Air Room Air Room Air 03/09/19 03/09/19 03/09/19 03/09/19 04:00 04:15 04:30 05:00 Pulse 86 92 88 Resp 23 23 22 B/P (MAP) 90/50 (63) 95/50 (65) 88/48 (61) Pulse Ox 93 94 96 O2 Delivery Room Air Room Air Room Air Room Air 11/2803/09/19 03/09/19 03/09/19 06:00 07:00 08:00 08:00 Temp 98.8 98.8 Pulse 88 92 85 Resp 20 21 20 B/P (MAP) 87/48 (61) 85/48 (60) 92/46 (61) Pulse Ox 92 95 99 O2 Delivery Room Air Room Air Room Air Room Air 03/09/19 03/09/19 09:00 10:00 Pulse 92 87 Resp 21 20 B/P (MAP) 98/55 (69) 94/54 (67) Pulse Ox 95 96 O2 Delivery Room Air Room Air Intake and Output 03/08/19 03/08/19 03/09/19 15:00 23:00 07:00 Intake Total 2259 ml Output Total 0 ml Balance 2259 ml Problem List Problems Medical Problems: (1) Alcoholic hepatic failure without coma Status: Acute (2) Anemia Status: Acute (3) Ascites Status: Acute (4) Hepatic encephalopathy Status: Acute (5) Hypoalbuminemia Status: Acute (6) Hypokalemia Status: Acute (7) Hypomagnesemia Status: Acute (8) Hyponatremia Status: Acute (9) Renal insufficiency Status: Acute (10) Severe sepsis Status: Acute Assessment Alcoholic hepatitis- with acute renal failure, MELD score 33 with 50% plus mortality rate over next three months, alcohol abstinence alf with AA, patient to consider, renal input appreciated JOSE KATZ MD Mar 09, 2019 10:51
[2019-03-09 12:16] LABS: CALCIUM 6.6 mg/dL (8.5-10.1); CREATININE 4.6 mg/dL (0.7-1.3); GFR 13.2
[2019-03-09 12:19] LABS: POTASSIUM 2.8 mmol/L (3.5-5.1)
[2019-03-09] MEDS ORDERED: ONDANSETRON PF 4 MG/2 ML VIAL. ONE (13:24)
[2019-03-09] MEDS ORDERED: ONDANSETRON PF 4 MG/2 ML VIAL. IVP PRN (13:30)
[2019-03-09] MEDS ORDERED: diphenhydrAMINE 50 MG/ML VIAL IVP PRN (17:00)
[2019-03-09] MEDS ORDERED: HALOPERIDOL LACTATE 5 MG/ML VIAL. IVP PRN (17:00)
[2019-03-09] MEDS ORDERED: LORazepam 1 MG TABLET PO PRN ×2 (17:00)
[2019-03-09] MEDS ORDERED: cloNIDine HCL 0.1 MG TABLET PO PRN (17:00)
[2019-03-09 18:32] LABS: CALCIUM 6.6 mg/dL (8.5-10.1); CREATININE 4.8 mg/dL (0.7-1.3); GFR 12.6; MAGNESIUM 1.8 mg/dL (1.8-2.4)
[2019-03-10] VITALS (25 sets, daily range): BP systolic 76–115; BP diastolic 51–73
[2019-03-10] MEDS ORDERED: VANCOMYCIN 1.5 GM in IV NORMAL SALINE 500ML BAG 500 ML IV SCH (04:00)
[2019-03-10 04:22] LABS: BASO # 0.1 x10^3/uL (0.0-0.2); BASO % 1 % (0-3); EOS % 0 % (0-3); HEMATOCRIT 35.8 % (39.0-53.0); HEMOGLOBIN 11.9 g/dL (13.0-17.5); LYMPH # 0.6 x10^3/uL (1.0-4.8); LYMPH % 7 % (24-48); MEAN CORPUSCULAR HEMOGLOBIN 40 pg (25-35); MEAN CORPUSCULAR HGB CONC 33 g/dL (31-37); MEAN CORPUSCULAR VOLUME 121 fL (79-100); MONO # 0.5 x10^3/uL (0.0-1.1); MONO % 6 % (0-9); NEUT # 7.2 x10^3/uL (1.8-7.7); NEUT % 87 % (31-73); PLATELET COUNT 144 x10^3/uL (140-400); RED BLOOD COUNT 2.96 x10^6/uL (4.30-5.70); RED CELL DISTRIBUTION WIDTH 16.8 % (11.5-14.5); WHITE BLOOD COUNT 8.3 x10^3/uL (4.0-11.0)
[2019-03-10 04:32] LABS: CALCIUM 6.5 mg/dL (8.5-10.1); CREATININE 5.1 mg/dL (0.7-1.3); GFR 11.8; POTASSIUM 4.1 mmol/L (3.5-5.1)
[2019-03-10 04:52] LABS: % BANDS 5 % (0-9); % EOS 1 % (0-5); % LYMPHS 9 % (24-48); % MONOS 5 % (0-10); % SEGS 80 % (35-66)
[2019-03-10 04:53] LABS: HYPOCHROMIA SLIGHT; PAPPENHEIMER BODIES OCC; PLT ESTIMATE ADEQUATE (ADEQUATE); POLYCHROMASIA SLIGHT; TOXIC GRANULATION SLIGHT
[2019-03-10] MEDS: POTASSIUM CL 40MEQ IN 0.9%NACL 1,000 ML IV SCH (06:30)
[2019-03-10] MEDS: IV NORMAL SALINE 1000ML BAG 1,000 ML IV SCH (07:00)
[2019-03-10] MEDS ORDERED: LORazepam 1 MG TABLET PO PRN (07:45)
--- NOTE | 2019-03-10 07:47 | NUR ---
Paged Dr. Holguin regarding mental status change and right sided facial droop. No new orders received. Pt had these symptoms on admission 03/09.
--- NOTE | 2019-03-10 07:50 | PDOC ---
PROGRESS NOTES Chief Complaint Chief Complaint A/P: Ventricular tachycardia - likely 2/2 hypokalemia and hypomagnesemia. Cardiology to see Acute kidney injury - Cr 4.4. possibly vasomotor nephropathy from GI losses, poor PO intake, there is some concern he may have much worse liver disease than he implies. Possible hepatorenal syndrome. GI and nephro Hypokalemia - 1.9, severe, will keep in ICU on IV replacement Lactic acidosis - seems more hepatic related than sepsis, has no infectious symptoms. Given vancomycin and zosyn by ED. will stop. IVF for now Hypomagnesemia - will replace IV, monitor renal function q 6hours Severe protein calorie malnutrion - Anasarca - severe hypoalbuminemia and malnutrition likely from ETOH abuse Acute encephalopathy - most certainly hepatic encephalopathy, with meld score 34, will initiate lactulose, consult GI ETOH abuse - counseled on cessation Hyperbilirubinemia - with significant cirrhosis symptoms likely has severe liver disease, Gallbladder is also dilated, though he does not c/o RUQ pain Transaminitis - has an alcoholic pattern consistent with his history. Counseled on cessation FEN - Cardiac diet PPX - heparin FULL CODE Dispo - ICU for critically ill patient with life-threatening electrolyte abnormalities in renal and hepatic failure History of Present Illness History of Present Illness Mr Mcgowan is a 59 year old male patient with PMHx IBS, depression, psoriasis, chronic liver disease who presents with complaining of weakness. Patient complaining of progressive generalized weakness for the last 6 months that gradually getting worse. 3 days ago he literally had to crawl across concrete floor as he states his legs have been giving out on him. Patient states he was not able to sleep for the last 4 days and asking for medication to able to sleep. He had been trying to take 3 advil daily to help with pain and sleep Patient also states was not able to support getting for the last several days and has problems with walking because of generalized weakness. Patient had history of alcohol abuse and alcoholic liver disease with obvious jaundice but denies drinking alcohol for the last several days. Patient states he did not have urine output for the last couple days and complaining of chronic diarrhea for 3 straight weeks that does not improve with taking Imodium. Patient denies chest pain, shortness of breath, focal neuro deficit, headache, fever and chills, vomiting. Patient presented to ER with his parents and states he lives with them. In ED K noted 1.9, Mg 1.3, Cr 4.4, BUN 12, Bilirubin 13.8. albumin of 1.5 lactic acid of 5.6 Lactic acid was 5.4 but patient did not have sign of sepsis and lactic acid was elevated mainly because of abnormal liver function tests. Therefore patient was not treated with 30 mL of IV fluid/kg that but 1 dose of antibiotic was given. Patient was admitted to ICU and IV potassium and magnesium was started He has not previously been told of any kidney disease, he has been previously t old his liver function was abnormal. Overnight EKG showed RBBB, LVH. He did experience 70 beats of v-tach and cardiology was consulted and admitted to ICU. His Cr has been climbing. Has had multiple bowel movements. NSS was given overnight, his abdomen is more swollen. Confused. Discussed with his parents bedside his UOP has been dropping and cr climbing. Vitals Vitals Vital Signs Date Time Temp Pulse Resp B/P (MAP) Pulse Ox O2 Delivery O2 Flow Rate FiO2 03/10/19 04:00 Nasal Cannula 2.0 03/10/19 03:00 94 28 90/59 (69) 97 03/10/19 00:00 98.7 98.7 Physical Exam General: Alert, Cooperative, mild distress, Other (Confused) Abdomen: Normal bowel sounds, Soft, Other (Fluid wave, enlarged abdomen) Extremities: No clubbing, No cyanosis, Normal pulses, No tenderness/swelling, Other (2+) Skin: No rashes, No breakdown, No significant lesion Labs LABS Laboratory Tests Test 03/09/19 12:00 03/09/19 15:15 03/09/19 18:00 03/10/19 00:15 Sodium Level 130 mmol/L (136-145) 131 mmol/L (136-145) Potassium Level 2.8 mmol/L (3.5-5.1) 3.0 mmol/L (3.5-5.1) 3.6 mmol/L (3.5-5.1) Chloride Level 92 mmol/L (98-107) 94 mmol/L (98-107) Carbon Dioxide Level 26 mmol/L (21-32) 22 mmol/L (21-32) Anion Gap 12 (6-14) 15 (6-14) Blood Urea Nitrogen 13 mg/dL (8-26) 14 mg/dL (8-26) Creatinine 4.6 mg/dL (0.7-1.3) 4.8 mg/dL (0.7-1.3) Estimated GFR (Cockcroft-Gault) 13.2 12.6 Glucose Level 81 mg/dL (70-99) 98 mg/dL (70-99) Lactic Acid Level 2.1 mmol/L (0.4-2.0) 2.6 mmol/L (0.4-2.0) 2.5 mmol/L (0.4-2.0) Calcium Level 6.6 mg/dL (8.5-10.1) 6.6 mg/dL (8.5-10.1) Magnesium Level 1.8 mg/dL (1.8-2.4) Test 03/10/19 04:00 White Blood Count 8.3 x10^3/uL (4.0-11.0) Red Blood Count 2.96 x10^6/uL (4.30-5.70) Hemoglobin 11.9 g/dL (13.0-17.5) Hematocrit 35.8 % (39.0-53.0) Mean Corpuscular Volume 121 fL (79-100) Mean Corpuscular Hemoglobin 40 pg (25-35) Mean Corpuscular Hemoglobin Concent 33 g/dL (31-37) Red Cell Distribution Width 16.8 % (11.5-14.5) Platelet Count 144 x10^3/uL (140-400) Neutrophils (%) (Auto) 87 % (31-73) Lymphocytes (%) (Auto) 7 % (24-48) Monocytes (%) (Auto) 6 % (0-9) Eosinophils (%) (Auto) 0 % (0-3) Basophils (%) (Auto) 1 % (0-3) Neutrophils # (Auto) 7.2 x10^3/uL (1.8-7.7) Lymphocytes # (Auto) 0.6 x10^3/uL (1.0-4.8) Monocytes # (Auto) 0.5 x10^3/uL (0.0-1.1) Eosinophils # (Auto) 0.0 x10^3/uL (0.0-0.7) Basophils # (Auto) 0.1 x10^3/uL (0.0-0.2) Segmented Neutrophils % 80 % (35-66) Band Neutrophils % 5 % (0-9) Lymphocytes % 9 % (24-48) Monocytes % 5 % (0-10) Eosinophils % 1 % (0-5) Toxic Granulation Slight Platelet Estimate Adequate (ADEQUATE) Polychromasia Slight Hypochromasia Slight Macrocytosis Marked Pappenheimer Bodies Occ Sodium Level 132 mmol/L (136-145) Potassium Level 4.1 mmol/L (3.5-5.1) Chloride Level 96 mmol/L (98-107) Carbon Dioxide Level 20 mmol/L (21-32) Anion Gap 16 (6-14) Blood Urea Nitrogen 14 mg/dL (8-26) Creatinine 5.1 mg/dL (0.7-1.3) Estimated GFR (Cockcroft-Gault) 11.8 Glucose Level 122 mg/dL (70-99) Lactic Acid Level 2.6 mmol/L (0.4-2.0) Calcium Level 6.5 mg/dL (8.5-10.1) Assessment and Plan Assessmemt and Plan Problems Medical Problems: (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 Labs Laboratory Tests Test 03/09/19 00:45 03/09/19 04:00 03/09/19 06:40 03/09/19 12:00 White Blood Count 10.1 x10^3/uL (4.0-11.0) Red Blood Count 2.89 x10^6/uL (4.30-5.70) Hemoglobin 11.8 g/dL (13.0-17.5) Hematocrit 35.2 % (39.0-53.0) Mean Corpuscular Volume 122 fL (79-100) Mean Corpuscular Hemoglobin 41 pg (25-35) Mean Corpuscular Hemoglobin Concent 34 g/dL (31-37) Red Cell Distribution Width 16.1 % (11.5-14.5) Platelet Count 173 x10^3/uL (140-400) Neutrophils (%) (Auto) 80 % (31-73) Lymphocytes (%) (Auto) 12 % (24-48) Monocytes (%) (Auto) 7 % (0-9) Eosinophils (%) (Auto) 0 % (0-3) Basophils (%) (Auto) 1 % (0-3) Neutrophils # (Auto) 8.1 x10^3/uL (1.8-7.7) Lymphocytes # (Auto) 1.3 x10^3/uL (1.0-4.8) Monocytes # (Auto) 0.7 x10^3/uL (0.0-1.1) Eosinophils # (Auto) 0.0 x10^3/uL (0.0-0.7) Basophils # (Auto) 0.1 x10^3/uL (0.0-0.2) Platelet Estimate Adequate (ADEQUATE) Polychromasia Slight Macrocytosis Marked Prothrombin Time 14.9 SEC (11.7-14.0) Prothromb Time International Ratio 1.2 (0.8-1.1) Activated Partial Thromboplast Time 38 SEC (24-38) Sodium Level 131 mmol/L (136-145) 130 mmol/L (136-145) Potassium Level 1.9 mmol/L (3.5-5.1) 2.1 mmol/L (3.5-5.1) 2.8 mmol/L (3.5-5.1) Chloride Level 89 mmol/L (98-107) 92 mmol/L (98-107) Carbon Dioxide Level 25 mmol/L (21-32) 26 mmol/L (21-32) Anion Gap 17 (6-14) 12 (6-14) Blood Urea Nitrogen 12 mg/dL (8-26) 13 mg/dL (8-26) Creatinine 4.4 mg/dL (0.7-1.3) 4.6 mg/dL (0.7-1.3) Estimated GFR (Cockcroft-Gault) 13.9 13.2 BUN/Creatinine Ratio 3 (6-20) Glucose Level 94 mg/dL (70-99) 81 mg/dL (70-99) Lactic Acid Level 5.6 mmol/L (0.4-2.0) 4.0 mmol/L (0.4-2.0) 2.1 mmol/L (0.4-2.0) Calcium Level 7.0 mg/dL (8.5-10.1) 6.6 mg/dL (8.5-10.1) Magnesium Level 1.3 mg/dL (1.8-2.4) Total Bilirubin 13.8 mg/dL (0.2-1.0) Aspartate Amino Transf (AST/SGOT) 171 U/L (15-37) Alanine Aminotransferase (ALT/SGPT) 71 U/L (16-63) Alkaline Phosphatase 180 U/L (46-116) Ammonia 93 mcmol/L (11-34) Creatine Kinase 96 U/L (39-308) Troponin I Quantitative 0.021 ng/mL (0.000-0.055) NQ-Kus-D-Type Natriuretic Peptide 1707 pg/mL (0-124) Total Protein 5.6 g/dL (6.4-8.2) Albumin 1.5 g/dL (3.4-5.0) Albumin/Globulin Ratio 0.4 (1.0-1.7) Lipase 89 U/L (73-393) Thyroid Stimulating Hormone (TSH) 2.489 uIU/mL (0.358-3.74) Ethyl Alcohol Level < 10 mg/dL (0-10) Procalcitonin 5.53 ng/mL (0.00-0.10) Test 03/09/19 15:15 03/09/19 18:00 03/10/19 00:15 03/10/19 04:00 Lactic Acid Level 2.6 mmol/L (0.4-2.0) 2.5 mmol/L (0.4-2.0) 2.6 mmol/L (0.4-2.0) Sodium Level 131 mmol/L (136-145) 132 mmol/L (136-145) Potassium Level 3.0 mmol/L (3.5-5.1) 3.6 mmol/L (3.5-5.1) 4.1 mmol/L (3.5-5.1) Chloride Level 94 mmol/L (98-107) 96 mmol/L (98-107) Carbon Dioxide Level 22 mmol/L (21-32) 20 mmol/L (21-32) Anion Gap 15 (6-14) 16 (6-14) Blood Urea Nitrogen 14 mg/dL (8-26) 14 mg/dL (8-26) Creatinine 4.8 mg/dL (0.7-1.3) 5.1 mg/dL (0.7-1.3) Estimated GFR (Cockcroft-Gault) 12.6 11.8 Glucose Level 98 mg/dL (70-99) 122 mg/dL (70-99) Calcium Level 6.6 mg/dL (8.5-10.1) 6.5 mg/dL (8.5-10.1) Magnesium Level 1.8 mg/dL (1.8-2.4) White Blood Count 8.3 x10^3/uL (4.0-11.0) Red Blood Count 2.96 x10^6/uL (4.30-5.70) Hemoglobin 11.9 g/dL (13.0-17.5) Hematocrit 35.8 % (39.0-53.0) Mean Corpuscular Volume 121 fL (79-100) Mean Corpuscular Hemoglobin 40 pg (25-35) Mean Corpuscular Hemoglobin Concent 33 g/dL (31-37) Red Cell Distribution Width 16.8 % (11.5-14.5) Platelet Count 144 x10^3/uL (140-400) Neutrophils (%) (Auto) 87 % (31-73) Lymphocytes (%) (Auto) 7 % (24-48) Monocytes (%) (Auto) 6 % (0-9) Eosinophils (%) (Auto) 0 % (0-3) Basophils (%) (Auto) 1 % (0-3) Neutrophils # (Auto) 7.2 x10^3/uL (1.8-7.7) Lymphocytes # (Auto) 0.6 x10^3/uL (1.0-4.8) Monocytes # (Auto) 0.5 x10^3/uL (0.0-1.1) Eosinophils # (Auto) 0.0 x10^3/uL (0.0-0.7) Basophils # (Auto) 0.1 x10^3/uL (0.0-0.2) Segmented Neutrophils % 80 % (35-66) Band Neutrophils % 5 % (0-9) Lymphocytes % 9 % (24-48) Monocytes % 5 % (0-10) Eosinophils % 1 % (0-5) Toxic Granulation Slight Platelet Estimate Adequate (ADEQUATE) Polychromasia Slight Hypochromasia Slight Macrocytosis Marked Pappenheimer Bodies Occ Laboratory Tests Test 03/09/19 12:00 03/09/19 15:15 03/09/19 18:00 03/10/19 00:15 Sodium Level 130 mmol/L (136-145) 131 mmol/L (136-145) Potassium Level 2.8 mmol/L (3.5-5.1) 3.0 mmol/L (3.5-5.1) 3.6 mmol/L (3.5-5.1) Chloride Level 92 mmol/L (98-107) 94 mmol/L (98-107) Carbon Dioxide Level 26 mmol/L (21-32) 22 mmol/L (21-32) Anion Gap 12 (6-14) 15 (6-14) Blood Urea Nitrogen 13 mg/dL (8-26) 14 mg/dL (8-26) Creatinine 4.6 mg/dL (0.7-1.3) 4.8 mg/dL (0.7-1.3) Estimated GFR (Cockcroft-Gault) 13.2 12.6 Glucose Level 81 mg/dL (70-99) 98 mg/dL (70-99) Lactic Acid Level 2.1 mmol/L (0.4-2.0) 2.6 mmol/L (0.4-2.0) 2.5 mmol/L (0.4-2.0) Calcium Level 6.6 mg/dL (8.5-10.1) 6.6 mg/dL (8.5-10.1) Magnesium Level 1.8 mg/dL (1.8-2.4) Test 03/10/19 04:00 White Blood Count 8.3 x10^3/uL (4.0-11.0) Red Blood Count 2.96 x10^6/uL (4.30-5.70) Hemoglobin 11.9 g/dL (13.0-17.5) Hematocrit 35.8 % (39.0-53.0) Mean Corpuscular Volume 121 fL (79-100) Mean Corpuscular Hemoglobin 40 pg (25-35) Mean Corpuscular Hemoglobin Concent 33 g/dL (31-37) Red Cell Distribution Width 16.8 % (11.5-14.5) Platelet Count 144 x10^3/uL (140-400) Neutrophils (%) (Auto) 87 % (31-73) Lymphocytes (%) (Auto) 7 % (24-48) Monocytes (%) (Auto) 6 % (0-9) Eosinophils (%) (Auto) 0 % (0-3) Basophils (%) (Auto) 1 % (0-3) Neutrophils # (Auto) 7.2 x10^3/uL (1.8-7.7) Lymphocytes # (Auto) 0.6 x10^3/uL (1.0-4.8) Monocytes # (Auto) 0.5 x10^3/uL (0.0-1.1) Eosinophils # (Auto) 0.0 x10^3/uL (0.0-0.7) Basophils # (Auto) 0.1 x10^3/uL (0.0-0.2) Segmented Neutrophils % 80 % (35-66) Band Neutrophils % 5 % (0-9) Lymphocytes % 9 % (24-48) Monocytes % 5 % (0-10) Eosinophils % 1 % (0-5) Toxic Granulation Slight Platelet Estimate Adequate (ADEQUATE) Polychromasia Slight Hypochromasia Slight Macrocytosis Marked Pappenheimer Bodies Occ Sodium Level 132 mmol/L (136-145) Potassium Level 4.1 mmol/L (3.5-5.1) Chloride Level 96 mmol/L (98-107) Carbon Dioxide Level 20 mmol/L (21-32) Anion Gap 16 (6-14) Blood Urea Nitrogen 14 mg/dL (8-26) Creatinine 5.1 mg/dL (0.7-1.3) Estimated GFR (Cockcroft-Gault) 11.8 Glucose Level 122 mg/dL (70-99) Lactic Acid Level 2.6 mmol/L (0.4-2.0) Calcium Level 6.5 mg/dL (8.5-10.1) Microbiology 03/09/19 Blood Culture - Preliminary, Resulted NO GROWTH AFTER 1 DAY Medications Current Medications Magnesium Sulfate 50 ml @ 25 mls/hr 1X ONCE IV Last administered on 03/09/19at 02:02; Start 03/09/19 at 01:45; Stop 03/09/19 at 03:44; Status DC Potassium Chloride (Klor-Con) 40 meq 1X ONCE PO Last administered on 03/09/19at 02:03; Start 03/09/19 at 01:45; Stop 03/09/19 at 01:46; Status DC Potassium Chloride/Water 100 ml @ 100 mls/hr Q1H IV Last administered on 03/09/19at 05:09; Start 03/09/19 at 01:45; Stop 03/09/19 at 05:44; Status DC Sodium Chloride 1,000 ml @ 1,000 mls/hr 1X ONCE IV Last administered on 03/09/19at 02:24; Start 03/09/19 at 02:15; Stop 03/09/19 at 03:14; Status DC Piperacillin Sod/ Tazobactam Sod 3.375 gm/Sodium Chloride 50 ml @ 100 mls/hr 1X ONCE IV Last administered on 03/09/19at 02:24; Start 03/09/19 at 02:15; Stop 03/09/19 at 02:44; Status DC Vancomycin HCl 250 ml @ 250 mls/hr 1X ONCE IV Last administered on 03/09/19at 03:47; Start 03/09/19 at 02:15; Stop 03/09/19 at 03:14; Status DC Sodium Chloride 1,000 ml @ 150 mls/hr Q6H40M IV Last administered on 03/09/19at 04:09; Start 03/09/19 at 03:00; Stop 03/10/19 at 02:59; Status DC Vancomycin HCl 2 gm/Sodium Chloride 500 ml @ 250 mls/hr 1X ONCE IV ; Start 03/09/19 at 06:30; Stop 03/09/19 at 08:29; Status Cancel Piperacillin Sod/ Tazobactam Sod 2.25 gm/Sodium Chloride 50 ml @ 100 mls/hr Q6HRS IV Last administered on 03/09/19at 06:25; Start 03/09/19 at 06:00; Stop 03/09/19 at 10:25; Status DC Vancomycin HCl (Vanco Per Pharmacy) 1 each PRN DAILY PRN MC SEE COMMENTS Last administered on 03/09/19at 06:34; Start 03/09/19 at 06:00; Stop 03/09/19 at 21:39; Status DC Piperacillin Sod/ Tazobactam Sod (Zosyn Per Pharmacy) 1 each PRN DAILY PRN MC SEE COMMENTS; Start 03/09/19 at 06:00; Stop 03/09/19 at 17:01; Status DC Vancomycin HCl 1 gm/Sodium Chloride 250 ml @ 250 mls/hr 1X ONCE IV Last administered on 03/09/19at 06:25; Start 03/09/19 at 06:45; Stop 03/09/19 at 07:44; Status DC Vancomycin HCl 1.5 gm/Sodium Chloride 500 ml @ 250 mls/hr Q24H IV ; Start 03/10/19 at 04:00; Stop 03/09/19 at 10:25; Status DC Vancomycin HCl (Vancomycin Trough Level) 1 each 1X ONCE MC ; Start 03/11/19 at 03:30; Stop 03/09/19 at 21:39; Status DC Potassium Chloride (Klor-Con) 40 meq 1X ONCE PO Last administered on 03/09/19at 07:55; Start 03/09/19 at 07:30; Stop 03/09/19 at 07:31; Status DC Potassium Chloride/Water 100 ml @ 100 mls/hr Q1H IV Last administered on 03/09/19at 11:03; Start 03/09/19 at 08:00; Stop 03/09/19 at 11:59; Status DC Potassium Chloride (Klor-Con) 80 meq 1X ONCE PO Last administered on 03/09/19at 13:21; Start 03/09/19 at 08:15; Stop 03/09/19 at 08:16; Status DC Nicotine (Nicoderm Cq 21mg) 1 patch PRN DAILY PRN TD SMOKING CESSATION Last administered on 03/09/19at 08:46; Start 03/09/19 at 08:30 Potassium Chloride/Sodium Chloride 1,000 ml @ 150 mls/hr Q6H40M IV Last administered on 03/09/19at 23:29; Start 03/09/19 at 09:30 Lactulose (Lactulose) 20 gm TID PO Last administered on 03/09/19at 23:23; Start 03/09/19 at 10:30 Potassium Chloride (Klor-Con) 20 meq STK-MED ONCE PO ; Start 03/09/19 at 13:19; Stop 03/09/19 at 13:20; Status DC Ondansetron HCl (Zofran) 4 mg STK-MED ONCE .ROUTE ; Start 03/09/19 at 13:24; Stop 03/09/19 at 13:24; Status DC Ondansetron HCl (Zofran) 4 mg PRN Q6HRS PRN IVP NAUSEA/VOMITING Last administered on 03/09/19at 13:45; Start 03/09/19 at 13:30 Lorazepam (Ativan) 4 mg PRN Q1HR PRN PO For CIWA 8-14; Start 03/09/19 at 17:00 Lorazepam (Ativan) 8 mg PRN Q1HR PRN PO For CIWA 15 or greater; Start 03/09/19 at 17:00 Lorazepam (Ativan Inj) 2 mg PRN Q1HR PRN IV For CIWA 8-14 Last administered on 03/10/19at 05:56; Start 03/09/19 at 17:00 Lorazepam (Ativan Inj) 4 mg PRN Q1HR PRN IV For CIWA 15 or greater; Start 03/09/19 at 17:00 Haloperidol Lactate (Haldol Inj) 5 mg PRN Q4HRS PRN IVP Hallucinatns,Confusn,Delirium; Start 03/09/19 at 17:00 Diphenhydramine HCl (Benadryl) 25 mg PRN Q15MIN PRN IVP EPS symptoms 2'Haldol admin; Start 03/09/19 at 17:00 Clonidine HCl (Catapres) 0.1 mg PRN Q1HR PRN PO SBP > 180 or DBP > 100, MRX3; Start 03/09/19 at 17:00 Potassium Chloride (Klor-Con) 40 meq 1X ONCE PO Last administered on 03/09/19at 19:25; Start 03/09/19 at 18:45; Stop 03/09/19 at 18:48; Status DC Active Scripts Active Ativan (Lorazepam) 1 Mg Tablet 1 Mg PO QIDPRN PRN B Complex (Vitamin B Complex) 1 Each Tablet 1 Each PO DAILY Thiamine Hcl 500 Mg Tablet 500 Mg PO DAILY Thera-M Tablet (Multivits,Ca,Minerals/Iron/Fa) 1 Each Tablet 1 Tab PO DAILY Vitals/I & O Vital Sign - Last 24 Hours 03/09/19 03/09/19 03/09/19 03/09/19 08:00 08:00 09:00 10:00 Temp 98.8 98.8 Pulse 85 92 87 Resp 20 21 20 B/P (MAP) 92/46 (61) 98/55 (69) 94/54 (67) Pulse Ox 99 95 96 O2 Delivery Room Air Room Air Room Air Room Air 03/09/19 03/09/19 03/09/19 03/09/19 10:58 12:00 12:00 13:00 Temp 98.5 98.5 Pulse 90 97 95 Resp 19 23 20 B/P (MAP) 85/47 (60) 95/44 (61) 91/47 (62) Pulse Ox 96 96 98 O2 Delivery Room Air Room Air Room Air Room Air 03/09/19 03/09/19 03/09/19 03/09/19 14:00 15:00 16:00 16:00 Temp 99.0 99.0 Pulse 95 92 90 Resp 20 20 23 B/P (MAP) 109/53 (71) 94/50 (65) 87/49 (62) Pulse Ox 98 98 96 O2 Delivery Room Air Room Air Room Air Room Air 03/09/19 03/09/19 03/09/19 03/09/19 17:01 18:00 20:00 20:00 Temp 98.5 98.5 Pulse 90 92 100 Resp 20 20 16 B/P (MAP) 85/50 (62) 103/67 (79) 94/53 (67) Pulse Ox 98 98 96 O2 Delivery Room Air Room Air Nasal Cannula Nasal Cannula O2 Flow Rate 2.0 2.0 03/09/19 03/09/19 03/09/19 03/10/19 21:00 22:00 23:00 00:00 Temp 98.7 98.7 Pulse 90 94 95 98 Resp 31 B/P (MAP) 95/51 (66) 81/52 (62) 98/51 (67) 93/52 (66) Pulse Ox 98 99 99 99 O2 Delivery Nasal Cannula Nasal Cannula Nasal Cannula Nasal Cannula O2 Flow Rate 2.0 2.0 2.0 2.0 03/10/19 03/10/19 03/10/19 03/10/19 00:00 01:00 02:00 03:00 Pulse 94 96 94 Resp 25 25 28 B/P (MAP) 96/55 (69) 97/54 (68) 90/59 (69) Pulse Ox 99 99 97 O2 Delivery Nasal Cannula Nasal Cannula Nasal Cannula Nasal Cannula O2 Flow Rate 2.0 2.0 2.0 2.0 03/10/19 04:00 O2 Delivery Nasal Cannula O2 Flow Rate 2.0 Intake and Output 03/09/19 03/09/19 03/10/19 15:00 23:00 07:00 Intake Total 740 ml 430 ml 60 ml Output Total 13 ml 5 ml 0 ml Balance 727 ml 425 ml 60 ml HARESH LARSON MD Mar 10, 2019 07:50
[2019-03-10] MEDS: LACTULOSE 20 GM/30 ML SOLUTION. PO SCH ×3 (08:34→20:48)
--- NOTE | 2019-03-10 10:09 | EKG ---
[facility] [address] [place] [address] Test Date: 2019-03-09 Test Time: 01:15:19 Pat Name: SUZY AGUILERA Department: Room: Gender: B[employer]: : 1960 Requested By: MADHURI HAGAN Order Number: [id number] Reading MD: Measurements Intervals [place] Rate: 90 P: 31 SD: 140 QRS: 32 QRSD: 136 T: 4 QT: 380 QTc: 469 Interpretive Statements SINUS RHYTHM RIGHT BUNDLE BRANCH BLOCK RVH WITH REPOLARIZATION ABNORMALITY ABNORMAL ECG RI6.01 No previous ECG available for comparison
--- NOTE | 2019-03-10 12:13 | PDOC ---
SUBJECTIVE ROS Asked to see for acute kidney injury Patient has received IV fluids overnight and has not produced much in terms of urine. Abdominal distention may be a little worse by his reports. OBJECTIVE Vital Signs Vital Signs Date Time Temp Pulse Resp B/P (MAP) Pulse Ox O2 Delivery O2 Flow Rate FiO2 03/10/19 10:00 97 23 103/55 (71) 98 Nasal Cannula 2.0 03/10/19 08:00 97.4 97.4 I & 0 Intake and Output 03/10/19 07:00 Intake Total 4759 ml Output Total 23 ml Balance 4736 ml Intake Oral 740 ml IV Total 4019 ml Output Urine Total 23 ml # Bowel Movements 3 PHYSICAL EXAM Physical Exam GEN: Awake, Oriented x 3, In no distress EYES: Vision Unchanged, Conjunctiva Normal EN: No EN Drainage, Mucous Membranes moist NECK: no JVD, + JVP, Supple, no Thyromegaly CVS: S1S2, ? Murmur, No Gallop, No Rub,+2 Edema RESP: no Rales, no Rhonchi,no Acc. Muscle Use GI: BS + ve, NO Bruit, ? Tender, + Distended : no CVA tenderness, no Suprapubic Tenderness Assessment & Plan Acute kidney injury: Possible ATN. Cannot rule out hepatorenal state patient remains oligo anuric hence we'll proceed with initiation of dialysis. Discussed need her dialysis with patient who is agreeable to initiation of the same ESRD: Dialysis as below F 180 NR 3.0 Hrs 3 K 2.5 Ca 140 Na 40 HC03 Qb 300 Qd 500 Heparin 0 Units Uf 1-2 Kgs or to dry weight as tolerated May give 25-50 gms of 25% Albumin if needed to maintain Hemodynamic stability Treatment plan reviewed and discussed with electrical appliance preparer Severe hypokalemia: Now status post. Supplementation Lactic acidosis appears to have resolved Severe hypoalbuminemia: Presumably associated with liver disease, alcoholism, poor by mouth intake Possible ascites: Deferred to GI evaluated and drain if needed COMMENT/RELEVANT DATA Meds Current Medications Medications (Trade) Dose Ordered Sig/Kala Start Time Stop Time Status Last Admin Dose Admin Clonidine HCl (Catapres) 0.1 mg PRN Q1HR PRN 03/09/19 17:00 Diphenhydramine HCl (Benadryl) 25 mg PRN Q15MIN PRN 03/09/19 17:00 Haloperidol Lactate (Haldol Inj) 5 mg PRN Q4HRS PRN 03/09/19 17:00 Lactulose (Lactulose) 20 gm TID 03/09/19 10:30 03/10/19 08:34 20 GM Lorazepam (Ativan Inj) 0.5 mg PRN Q1HR PRN 03/10/19 07:45 Lorazepam (Ativan) 1 mg PRN Q1HR PRN 03/10/19 07:45 03/10/19 10:03 1 MG Magnesium Sulfate 50 ml @ 25 mls/hr 1X ONCE 03/09/19 01:45 03/09/19 03:44 DC 03/09/19 02:02 25 MLS/HR Nicotine (Nicoderm Cq 21mg) 1 patch PRN DAILY PRN 03/09/19 08:30 03/09/19 08:46 1 PATCH Ondansetron HCl (Zofran) 4 mg PRN Q6HRS PRN 03/09/19 13:30 03/09/19 13:45 4 MG Piperacillin Sod/ Tazobactam Sod (Zosyn Per Pharmacy) 1 each PRN DAILY PRN 03/09/19 06:00 03/09/19 17:01 DC Piperacillin Sod/ Tazobactam Sod 2.25 gm/Sodium Chloride 50 ml @ 100 mls/hr Q6HRS 03/09/19 06:00 03/09/19 10:25 DC 03/09/19 06:25 100 MLS/HR Piperacillin Sod/ Tazobactam Sod 3.375 gm/Sodium Chloride 50 ml @ 100 mls/hr 1X ONCE 03/09/19 02:15 03/09/19 02:44 DC 03/09/19 02:24 100 MLS/HR Potassium Chloride/Sodium Chloride 1,000 ml @ 150 mls/hr Q6H40M 03/09/19 09:30 03/09/19 23:29 150 MLS/HR Potassium Chloride/Water 100 ml @ 100 mls/hr Q1H 03/09/19 08:00 03/09/19 11:59 DC 03/09/19 11:03 100 MLS/HR Potassium Chloride (Klor-Con) 40 meq 1X ONCE 03/09/19 18:45 03/09/19 18:48 DC 03/09/19 19:25 40 MEQ Sodium Chloride 1,000 ml @ 150 mls/hr Q6H40M 03/09/19 03:00 03/10/19 02:59 DC 03/10/19 07:00 150 MLS/HR Vancomycin HCl (Vanco Per Pharmacy) 1 each PRN DAILY PRN 03/09/19 06:00 03/09/19 21:39 DC 03/09/19 06:34 1 EACH Vancomycin HCl (Vancomycin Trough Level) 1 each 1X ONCE 03/11/19 03:30 03/09/19 21:39 DC Vancomycin HCl 1.5 gm/Sodium Chloride 500 ml @ 250 mls/hr Q24H 03/10/19 04:00 03/09/19 10:25 DC Vancomycin HCl 1 gm/Sodium Chloride 250 ml @ 250 mls/hr 1X ONCE 03/09/19 06:45 03/09/19 07:44 DC 03/09/19 06:25 250 MLS/HR Vancomycin HCl 2 gm/Sodium Chloride 500 ml @ 250 mls/hr 1X ONCE 03/09/19 06:30 03/09/19 08:29 Cancel Lab Laboratory Tests Test 03/09/19 15:15 03/09/19 18:00 03/10/19 00:15 03/10/19 04:00 Lactic Acid Level 2.6 mmol/L (0.4-2.0) 2.5 mmol/L (0.4-2.0) 2.6 mmol/L (0.4-2.0) Sodium Level 131 mmol/L (136-145) 132 mmol/L (136-145) Potassium Level 3.0 mmol/L (3.5-5.1) 3.6 mmol/L (3.5-5.1) 4.1 mmol/L (3.5-5.1) Chloride Level 94 mmol/L (98-107) 96 mmol/L (98-107) Carbon Dioxide Level 22 mmol/L (21-32) 20 mmol/L (21-32) Anion Gap 15 (6-14) 16 (6-14) Blood Urea Nitrogen 14 mg/dL (8-26) 14 mg/dL (8-26) Creatinine 4.8 mg/dL (0.7-1.3) 5.1 mg/dL (0.7-1.3) Estimated GFR (Cockcroft-Gault) 12.6 11.8 Glucose Level 98 mg/dL (70-99) 122 mg/dL (70-99) Calcium Level 6.6 mg/dL (8.5-10.1) 6.5 mg/dL (8.5-10.1) Magnesium Level 1.8 mg/dL (1.8-2.4) White Blood Count 8.3 x10^3/uL (4.0-11.0) Red Blood Count 2.96 x10^6/uL (4.30-5.70) Hemoglobin 11.9 g/dL (13.0-17.5) Hematocrit 35.8 % (39.0-53.0) Mean Corpuscular Volume 121 fL (79-100) Mean Corpuscular Hemoglobin 40 pg (25-35) Mean Corpuscular Hemoglobin Concent 33 g/dL (31-37) Red Cell Distribution Width 16.8 % (11.5-14.5) Platelet Count 144 x10^3/uL (140-400) Neutrophils (%) (Auto) 87 % (31-73) Lymphocytes (%) (Auto) 7 % (24-48) Monocytes (%) (Auto) 6 % (0-9) Eosinophils (%) (Auto) 0 % (0-3) Basophils (%) (Auto) 1 % (0-3) Neutrophils # (Auto) 7.2 x10^3/uL (1.8-7.7) Lymphocytes # (Auto) 0.6 x10^3/uL (1.0-4.8) Monocytes # (Auto) 0.5 x10^3/uL (0.0-1.1) Eosinophils # (Auto) 0.0 x10^3/uL (0.0-0.7) Basophils # (Auto) 0.1 x10^3/uL (0.0-0.2) Segmented Neutrophils % 80 % (35-66) Band Neutrophils % 5 % (0-9) Lymphocytes % 9 % (24-48) Monocytes % 5 % (0-10) Eosinophils % 1 % (0-5) Toxic Granulation Slight Platelet Estimate Adequate (ADEQUATE) Polychromasia Slight Hypochromasia Slight Macrocytosis Marked Pappenheimer Bodies Occ Results All relevant outside records, renal labs, imaging studies, telemetry/EKG's were reviewed. CECILY SILVERMAN MD Mar 10, 2019 12:13
[2019-03-10 12:22] LABS: ALBUMIN 1.5 g/dL (3.4-5.0); DIRECT BILIRUBIN 14.3 mg/dL (0.0-0.2); TOTAL BILIRUBIN 16.7 mg/dL (0.2-1.0); TOTAL PROTEIN 4.9 g/dL (6.4-8.2)
--- NOTE | 2019-03-10 13:03 | RAD ---
Limited ultrasound of the abdomen. HISTORY: Evaluate for ascites, weakness, abdominal pain Ultrasound was used to evaluate the abdomen. Ascites was not demonstrated. Evaluation was limited by the patient's large body habitus. IMPRESSION: 1. No ascites identified. Electronically signed by: Juarez Peters MD (03/10/2019 1:00 PM) [id number]
[2019-03-10] MEDS ORDERED: LIDOCAINE WITH 8.4% SOD BICARB 3 ML DISP.SYRIN. INJ ONE (13:30)
[2019-03-10] MEDS ORDERED: LIDOCAINE WITH 8.4% SOD BICARB 3 ML DISP.SYRIN. ONE (13:34)
[2019-03-10] MEDS ORDERED: IV NORMAL SALINE 1000ML BAG 1,000 ML IV PRN ×2 (14:01)
[2019-03-10] MEDS ORDERED: ACETAMINOPHEN 500 MG TABLET PO PRN (14:15)
[2019-03-10] MEDS ORDERED: DIALYSIS PATIENT. MC PRN (14:15)
[2019-03-10] MEDS ORDERED: diphenhydrAMINE 50 MG/ML VIAL IV PRN ×2 (14:15)
--- NOTE | 2019-03-10 15:07 | RAD ---
EXAM: Chest, single view. HISTORY: IJ catheter placement. COMPARISON: 03/09/2019. FINDINGS: A frontal view of the chest is obtained. There has been placement of a right internal jugular catheter with the tip in the inferior right atrium or inferior cavoatrial junction. There is stable diffuse increased interstitial opacity. There may be trace pleural effusions. There is no pneumothorax. The heart is normal in size. IMPRESSION: Interval placement of a right intraventricular catheter with the tip in the inferior right atrium or inferior cavoatrial junction. Electronically signed by: Stephani Sosa MD (03/10/2019 3:04 PM) [facility] [place]
--- NOTE | 2019-03-10 15:08 | RAD ---
Procedure: Temporary hemodialysis catheter placement at the bedside. Clinical Indication: 59-year-old requiring hemodialysis Sedation: Local anesthesia only Antibiotics: None Fluoro Time: Not applicable Contrast: None Sterility: All elements of maximal sterile barrier technique including the use of a cap, mask, sterile gown, sterile gloves, large sterile sheet, appropriate hand hygiene, and 2% chlorhexidine for cutaneous antisepsis (or acceptable alternative antiseptic per current guidelines) were followed for this procedure. Consent: The procedure was explained in its entirety to the patient or the patients designated cordage sales representative by a member of the treatment team, including a discussion of the risks, benefits and commonly accepted alternatives to the procedure, as well as the expected consequences of no therapy whatsoever. Discussion of the risks included, but was not limited to, those that are most frequent and those that are rare but possibly severe or life-threatening, as well as the possibility of unforeseen complications. Technique and Findings: Following informed consent, the patient was prepped and draped in the usual sterile fashion. Ultrasound interrogation of the right neck revealed patency and compressibility of the right internal jugular vein. A 21-gauge micropuncture needle was used to gain access to this vein after 1% Lidocaine was used to achieve local anesthesia. A hardcopy ultrasound image was recorded. The needle was exchanged over a wire for serial dilators followed by a 20 cm Schon temporary hemodialysis catheter which was deployed in the expected location of the mid right atrium. The catheter flow rates were assessed manually and found to be excellent. The catheter was then flushed, packed with Heparin, capped, and sutured to the skin. Chest x-ray was then obtained to assess line position. Complications: No immediate Impression: 1. Ultrasound guided placement of a temporary hemodialysis catheter which exhibits excellent manual flow rates as described.
[2019-03-11] VITALS (12 sets, daily range): BP systolic 82–107; BP diastolic 52–62
[2019-03-11 04:39] LABS: VANC TR 15.6 mcg/mL (10.0-20.0)
[2019-03-11 05:00] LABS: ALBUMIN 1.3 g/dL (3.4-5.0); ALBUMIN/GLOBULIN RATIO 0.4 (1.0-1.7); CALCIUM 6.6 mg/dL (8.5-10.1); CREATININE 4.3 mg/dL (0.7-1.3); GFR 14.3; POTASSIUM 4.3 mmol/L (3.5-5.1); TOTAL BILIRUBIN 15.8 mg/dL (0.2-1.0); TOTAL PROTEIN 4.4 g/dL (6.4-8.2)
[2019-03-11] MEDS ORDERED: IV NORMAL SALINE 1000ML BAG 1,000 ML IV PRN ×2 (08:06)
[2019-03-11] MEDS ORDERED: diphenhydrAMINE 50 MG/ML VIAL IV PRN ×2 (08:15)
[2019-03-11] MEDS ORDERED: ALBUMIN HUMAN 25% 200 ML IV PRN (08:15)
[2019-03-11] MEDS ORDERED: ACETAMINOPHEN 500 MG TABLET PO PRN (08:15)
[2019-03-11] MEDS ORDERED: DIALYSIS PATIENT. MC PRN (08:15)
[2019-03-11] MEDS ORDERED: 0.9 % SODIUM CHLORIDE 10 ML DISP.SYRIN. IV PRN ×2 (08:15)
[2019-03-11] MEDS: LACTULOSE 20 GM/30 ML SOLUTION. PO SCH ×3 (09:00→21:00)
--- NOTE | 2019-03-11 09:36 | PDOC ---
Dialysis Progress Note Dialysis Note Dialysis Note Seen on Hemodialysis, tolerating treatment Okay Vitals on Hemodialysis: 98/64 112 afeb General Appearance: Awake: Alert Oriented x 2-3 Neck: No JVD or JVP Chest: CTA Ab Heart: S1 S2 Abdomen - Soft NTND Extremities - No Edema ARF/ ATN : Dialysis as below F 180 NR 3.0 Hrs 3 K 3.5 Ca 140 Na 35 HC03 Qb 350 + Qd 500+ Heparin 0 Units Uf 0-1 Kgs or to dry weight as tolerated May give 25-50 gms of 25% Albumin if needed to maintain Hemodynamic stability Treatment plan reviewed and discussed with political science faculty member Vitals Vital Signs Vital Signs Date Time Temp Pulse Resp B/P (MAP) Pulse Ox O2 Delivery O2 Flow Rate FiO2 03/11/19 08:00 97.4 107 22 82/59 (67) 95 Nasal Cannula 3.0 97.4 Labs Last Labs Laboratory Tests Test 03/09/19 12:00 03/09/19 15:15 03/09/19 18:00 03/10/19 00:15 Sodium Level 130 mmol/L (136-145) 131 mmol/L (136-145) Potassium Level 2.8 mmol/L (3.5-5.1) 3.0 mmol/L (3.5-5.1) 3.6 mmol/L (3.5-5.1) Chloride Level 92 mmol/L (98-107) 94 mmol/L (98-107) Carbon Dioxide Level 26 mmol/L (21-32) 22 mmol/L (21-32) Anion Gap 12 (6-14) 15 (6-14) Blood Urea Nitrogen 13 mg/dL (8-26) 14 mg/dL (8-26) Creatinine 4.6 mg/dL (0.7-1.3) 4.8 mg/dL (0.7-1.3) Estimated GFR (Cockcroft-Gault) 13.2 12.6 Glucose Level 81 mg/dL (70-99) 98 mg/dL (70-99) Lactic Acid Level 2.1 mmol/L (0.4-2.0) 2.6 mmol/L (0.4-2.0) 2.5 mmol/L (0.4-2.0) Calcium Level 6.6 mg/dL (8.5-10.1) 6.6 mg/dL (8.5-10.1) Magnesium Level 1.8 mg/dL (1.8-2.4) Test 03/10/19 04:00 03/10/19 11:58 03/10/19 12:00 03/10/19 15:40 White Blood Count 8.3 x10^3/uL (4.0-11.0) Red Blood Count 2.96 x10^6/uL (4.30-5.70) Hemoglobin 11.9 g/dL (13.0-17.5) Hematocrit 35.8 % (39.0-53.0) Mean Corpuscular Volume 121 fL (79-100) Mean Corpuscular Hemoglobin 40 pg (25-35) Mean Corpuscular Hemoglobin Concent 33 g/dL (31-37) Red Cell Distribution Width 16.8 % (11.5-14.5) Platelet Count 144 x10^3/uL (140-400) Neutrophils (%) (Auto) 87 % (31-73) Lymphocytes (%) (Auto) 7 % (24-48) Monocytes (%) (Auto) 6 % (0-9) Eosinophils (%) (Auto) 0 % (0-3) Basophils (%) (Auto) 1 % (0-3) Neutrophils # (Auto) 7.2 x10^3/uL (1.8-7.7) Lymphocytes # (Auto) 0.6 x10^3/uL (1.0-4.8) Monocytes # (Auto) 0.5 x10^3/uL (0.0-1.1) Eosinophils # (Auto) 0.0 x10^3/uL (0.0-0.7) Basophils # (Auto) 0.1 x10^3/uL (0.0-0.2) Segmented Neutrophils % 80 % (35-66) Band Neutrophils % 5 % (0-9) Lymphocytes % 9 % (24-48) Monocytes % 5 % (0-10) Eosinophils % 1 % (0-5) Toxic Granulation Slight Platelet Estimate Adequate (ADEQUATE) Polychromasia Slight Hypochromasia Slight Macrocytosis Marked Pappenheimer Bodies Occ Sodium Level 132 mmol/L (136-145) Potassium Level 4.1 mmol/L (3.5-5.1) 4.1 mmol/L (3.5-5.1) Chloride Level 96 mmol/L (98-107) Carbon Dioxide Level 20 mmol/L (21-32) Anion Gap 16 (6-14) Blood Urea Nitrogen 14 mg/dL (8-26) Creatinine 5.1 mg/dL (0.7-1.3) Estimated GFR (Cockcroft-Gault) 11.8 Glucose Level 122 mg/dL (70-99) Lactic Acid Level 2.6 mmol/L (0.4-2.0) Calcium Level 6.5 mg/dL (8.5-10.1) Total Bilirubin 16.7 mg/dL (0.2-1.0) Direct Bilirubin 14.3 mg/dL (0.0-0.2) Aspartate Amino Transf (AST/SGOT) 178 U/L (15-37) Alanine Aminotransferase (ALT/SGPT) 81 U/L (16-63) Alkaline Phosphatase 189 U/L (46-116) Total Protein 4.9 g/dL (6.4-8.2) Albumin 1.5 g/dL (3.4-5.0) Hepatitis B Surface Antibody, Quant <3.1 mIU/mL (Immunity>9.9) Hepatitis B Surface Antigen Nonreactive (Nonreactive) Urine Random Sodium 76 mmol/L (Not Estab.) Test 03/10/19 19:20 03/11/19 03:45 Potassium Level 3.7 mmol/L (3.5-5.1) 4.3 mmol/L (3.5-5.1) Sodium Level 134 mmol/L (136-145) Chloride Level 98 mmol/L (98-107) Carbon Dioxide Level 24 mmol/L (21-32) Anion Gap 12 (6-14) Blood Urea Nitrogen 9 mg/dL (8-26) Creatinine 4.3 mg/dL (0.7-1.3) Estimated GFR (Cockcroft-Gault) 14.3 BUN/Creatinine Ratio 2 (6-20) Glucose Level 70 mg/dL (70-99) Calcium Level 6.6 mg/dL (8.5-10.1) Total Bilirubin 15.8 mg/dL (0.2-1.0) Aspartate Amino Transf (AST/SGOT) 174 U/L (15-37) Alanine Aminotransferase (ALT/SGPT) 82 U/L (16-63) Alkaline Phosphatase 185 U/L (46-116) Total Protein 4.4 g/dL (6.4-8.2) Albumin 1.3 g/dL (3.4-5.0) Albumin/Globulin Ratio 0.4 (1.0-1.7) Vancomycin Level Trough 15.6 mcg/mL (10.0-20.0) Vancomycin Last Dose Date 03/10/19 Vancomycin Last Dose Time 0400 Laboratory Tests Test 03/10/19 11:58 03/10/19 12:00 03/10/19 15:40 03/10/19 19:20 Potassium Level 4.1 mmol/L (3.5-5.1) 3.7 mmol/L (3.5-5.1) Total Bilirubin 16.7 mg/dL (0.2-1.0) Direct Bilirubin 14.3 mg/dL (0.0-0.2) Aspartate Amino Transf (AST/SGOT) 178 U/L (15-37) Alanine Aminotransferase (ALT/SGPT) 81 U/L (16-63) Alkaline Phosphatase 189 U/L (46-116) Total Protein 4.9 g/dL (6.4-8.2) Albumin 1.5 g/dL (3.4-5.0) Hepatitis B Surface Antibody, Quant <3.1 mIU/mL (Immunity>9.9) Hepatitis B Surface Antigen Nonreactive (Nonreactive) Urine Random Sodium 76 mmol/L (Not Estab.) Test 03/11/19 03:45 Sodium Level 134 mmol/L (136-145) Potassium Level 4.3 mmol/L (3.5-5.1) Chloride Level 98 mmol/L (98-107) Carbon Dioxide Level 24 mmol/L (21-32) Anion Gap 12 (6-14) Blood Urea Nitrogen 9 mg/dL (8-26) Creatinine 4.3 mg/dL (0.7-1.3) Estimated GFR (Cockcroft-Gault) 14.3 BUN/Creatinine Ratio 2 (6-20) Glucose Level 70 mg/dL (70-99) Calcium Level 6.6 mg/dL (8.5-10.1) Total Bilirubin 15.8 mg/dL (0.2-1.0) Aspartate Amino Transf (AST/SGOT) 174 U/L (15-37) Alanine Aminotransferase (ALT/SGPT) 82 U/L (16-63) Alkaline Phosphatase 185 U/L (46-116) Total Protein 4.4 g/dL (6.4-8.2) Albumin 1.3 g/dL (3.4-5.0) Albumin/Globulin Ratio 0.4 (1.0-1.7) Vancomycin Level Trough 15.6 mcg/mL (10.0-20.0) Vancomycin Last Dose Date 03/10/19 Vancomycin Last Dose Time 0400 Assessment Assessment Problems Medical Problems: (1) Alcoholic hepatic failure without coma Status: Acute (2) Anemia Status: Acute (3) Ascites Status: Acute (4) Hepatic encephalopathy Status: Acute (5) Hypoalbuminemia Status: Acute (6) Hypokalemia Status: Acute (7) Hypomagnesemia Status: Acute (8) Hyponatremia Status: Acute (9) Renal insufficiency Status: Acute (10) Severe sepsis Status: Acute Plan Plan of Care Problems Medical Problems: (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
--- NOTE | 2019-03-11 09:40 | PDOC ---
PROGRESS NOTES Chief Complaint Chief Complaint A/P: Ventricular tachycardia - likely 2/2 hypokalemia and hypomagnesemia. Cardiology to see Acute kidney injury - Cr 4.4. possibly vasomotor nephropathy from GI losses, poor PO intake, there is some concern he may have much worse liver disease than he implies. Possible hepatorenal syndrome. GI and nephro Hypokalemia - 1.9, severe, will keep in ICU on IV replacement Lactic acidosis - seems more hepatic related than sepsis, has no infectious symptoms. Given vancomycin and zosyn by ED. will stop. IVF for now Hypomagnesemia - will replace IV, monitor renal function q 6hours Severe protein calorie malnutrion - Anasarca - severe hypoalbuminemia and malnutrition likely from ETOH abuse Acute encephalopathy - most certainly hepatic encephalopathy, with meld score 34, will initiate lactulose, consult GI ETOH abuse - counseled on cessation Hyperbilirubinemia - with significant cirrhosis symptoms likely has severe liver disease, Gallbladder is also dilated, though he does not c/o RUQ pain Transaminitis - has an alcoholic pattern consistent with his history. Counseled on cessation FEN - Cardiac diet PPX - heparin FULL CODE Dispo - ICU for critically ill patient with life-threatening electrolyte abnormalities in renal and hepatic failure History of Present Illness History of Present Illness Mr Mcgowan is a 59 yo male patient with PMHx IBS, depression, psoriasis, chronic liver disease who presents with complaining of weakness. Patient complaining of progressive generalized weakness for the last 6 months that gradually getting wo rse. 3 days ago he literally had to crawl across concrete floor as he states his legs have been giving out on him. Patient states he was not able to sleep for the last 4 days and asking for medication to able to sleep. He had been trying to take 3 advil daily to help with pain and sleep Patient also states was not able to support getting for the last several days and has problems with walking because of generalized weakness. Patient had history of alcohol abuse and alcoholic liver disease with obvious jaundice but denies drinking alcohol for the last several days. Patient states he did not have urine output for the last couple days and complaining of chronic diarrhea for 3 straight weeks that does not improve with taking Imodium. Patient denies chest pain, shortness of breath, focal neuro deficit, headache, fever and chills, vomiting. Patient presented to ER with his parents and states he lives with them. In ED K noted 1.9, Mg 1.3, Cr 4.4, BUN 12, Bilirubin 13.8. albumin of 1.5 lactic acid of 5.6 Lactic acid was 5.4 but patient did not have sign of sepsis and lactic acid was elevated mainly because of abnormal liver function tests. Therefore patient was not treated with 30 mL of IV fluid/kg that but 1 dose of antibiotic was given. Patient was admitted to ICU and IV potassium and magnesium was started He has not previously been told of any kidney disease, he has been previously told his liver function was abnormal. Overnight EKG showed RBBB, LVH. He did experience 70 beats of v-tach and cardiology was consulted and admitted to ICU. 03/10: His Cr has been climbing. Has had multiple bowel movements. NSS was given overnight, his abdomen is more swollen. Confused. Discussed with his parents bedside his UOP has been dropping and cr climbing. IR placed HD catheter, con sented for dialysis Dialysis this morning. Began vomiting, NGT placed with >1L out. KUB shows dilated bowel loops consistent with adynamic ileus. Bilirubin 16.7 yesterday, 15.8 today. Cr 4.3. Still very confused. Vitals Vitals Vital Signs Date Time Temp Pulse Resp B/P (MAP) Pulse Ox O2 Delivery O2 Flow Rate FiO2 03/11/19 08:00 97.4 107 22 82/59 (67) 95 Nasal Cannula 3.0 97.4 Physical Exam General: Alert, Cooperative, mild distress, Other (Confused) Abdomen: Normal bowel sounds, Soft, Other (Fluid wave, enlarged abdomen) Extremities: No clubbing, No cyanosis, Normal pulses, No tenderness/swelling, Other (2+) Skin: No rashes, No breakdown, No significant lesion Labs LABS Laboratory Tests Test 03/10/19 11:58 03/10/19 12:00 03/10/19 15:40 03/10/19 19:20 Potassium Level 4.1 mmol/L (3.5-5.1) 3.7 mmol/L (3.5-5.1) Total Bilirubin 16.7 mg/dL (0.2-1.0) Direct Bilirubin 14.3 mg/dL (0.0-0.2) Aspartate Amino Transf (AST/SGOT) 178 U/L (15-37) Alanine Aminotransferase (ALT/SGPT) 81 U/L (16-63) Alkaline Phosphatase 189 U/L (46-116) Total Protein 4.9 g/dL (6.4-8.2) Albumin 1.5 g/dL (3.4-5.0) Hepatitis B Surface Antibody, Quant <3.1 mIU/mL (Immunity>9.9) Hepatitis B Surface Antigen Nonreactive (Nonreactive) Urine Random Sodium 76 mmol/L (Not Estab.) Test 03/11/19 03:45 Sodium Level 134 mmol/L (136-145) Potassium Level 4.3 mmol/L (3.5-5.1) Chloride Level 98 mmol/L (98-107) Carbon Dioxide Level 24 mmol/L (21-32) Anion Gap 12 (6-14) Blood Urea Nitrogen 9 mg/dL (8-26) Creatinine 4.3 mg/dL (0.7-1.3) Estimated GFR (Cockcroft-Gault) 14.3 BUN/Creatinine Ratio 2 (6-20) Glucose Level 70 mg/dL (70-99) Calcium Level 6.6 mg/dL (8.5-10.1) Total Bilirubin 15.8 mg/dL (0.2-1.0) Aspartate Amino Transf (AST/SGOT) 174 U/L (15-37) Alanine Aminotransferase (ALT/SGPT) 82 U/L (16-63) Alkaline Phosphatase 185 U/L (46-116) Total Protein 4.4 g/dL (6.4-8.2) Albumin 1.3 g/dL (3.4-5.0) Albumin/Globulin Ratio 0.4 (1.0-1.7) Vancomycin Level Trough 15.6 mcg/mL (10.0-20.0) Vancomycin Last Dose Date 03/10/19 Vancomycin Last Dose Time 0400 Assessment and Plan Assessmemt and Plan Problems Medical Problems: (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 Labs Laboratory Tests Test 03/09/19 12:00 03/09/19 15:15 03/09/19 18:00 03/10/19 00:15 Sodium Level 130 mmol/L (136-145) 131 mmol/L (136-145) Potassium Level 2.8 mmol/L (3.5-5.1) 3.0 mmol/L (3.5-5.1) 3.6 mmol/L (3.5-5.1) Chloride Level 92 mmol/L (98-107) 94 mmol/L (98-107) Carbon Dioxide Level 26 mmol/L (21-32) 22 mmol/L (21-32) Anion Gap 12 (6-14) 15 (6-14) Blood Urea Nitrogen 13 mg/dL (8-26) 14 mg/dL (8-26) Creatinine 4.6 mg/dL (0.7-1.3) 4.8 mg/dL (0.7-1.3) Estimated GFR (Cockcroft-Gault) 13.2 12.6 Glucose Level 81 mg/dL (70-99) 98 mg/dL (70-99) Lactic Acid Level 2.1 mmol/L (0.4-2.0) 2.6 mmol/L (0.4-2.0) 2.5 mmol/L (0.4-2.0) Calcium Level 6.6 mg/dL (8.5-10.1) 6.6 mg/dL (8.5-10.1) Magnesium Level 1.8 mg/dL (1.8-2.4) Test 03/10/19 04:00 03/10/19 11:58 03/10/19 12:00 03/10/19 15:40 White Blood Count 8.3 x10^3/uL (4.0-11.0) Red Blood Count 2.96 x10^6/uL (4.30-5.70) Hemoglobin 11.9 g/dL (13.0-17.5) Hematocrit 35.8 % (39.0-53.0) Mean Corpuscular Volume 121 fL (79-100) Mean Corpuscular Hemoglobin 40 pg (25-35) Mean Corpuscular Hemoglobin Concent 33 g/dL (31-37) Red Cell Distribution Width 16.8 % (11.5-14.5) Platelet Count 144 x10^3/uL (140-400) Neutrophils (%) (Auto) 87 % (31-73) Lymphocytes (%) (Auto) 7 % (24-48) Monocytes (%) (Auto) 6 % (0-9) Eosinophils (%) (Auto) 0 % (0-3) Basophils (%) (Auto) 1 % (0-3) Neutrophils # (Auto) 7.2 x10^3/uL (1.8-7.7) Lymphocytes # (Auto) 0.6 x10^3/uL (1.0-4.8) Monocytes # (Auto) 0.5 x10^3/uL (0.0-1.1) Eosinophils # (Auto) 0.0 x10^3/uL (0.0-0.7) Basophils # (Auto) 0.1 x10^3/uL (0.0-0.2) Segmented Neutrophils % 80 % (35-66) Band Neutrophils % 5 % (0-9) Lymphocytes % 9 % (24-48) Monocytes % 5 % (0-10) Eosinophils % 1 % (0-5) Toxic Granulation Slight Platelet Estimate Adequate (ADEQUATE) Polychromasia Slight Hypochromasia Slight Macrocytosis Marked Pappenheimer Bodies Occ Sodium Level 132 mmol/L (136-145) Potassium Level 4.1 mmol/L (3.5-5.1) 4.1 mmol/L (3.5-5.1) Chloride Level 96 mmol/L (98-107) Carbon Dioxide Level 20 mmol/L (21-32) Anion Gap 16 (6-14) Blood Urea Nitrogen 14 mg/dL (8-26) Creatinine 5.1 mg/dL (0.7-1.3) Estimated GFR (Cockcroft-Gault) 11.8 Glucose Level 122 mg/dL (70-99) Lactic Acid Level 2.6 mmol/L (0.4-2.0) Calcium Level 6.5 mg/dL (8.5-10.1) Total Bilirubin 16.7 mg/dL (0.2-1.0) Direct Bilirubin 14.3 mg/dL (0.0-0.2) Aspartate Amino Transf (AST/SGOT) 178 U/L (15-37) Alanine Aminotransferase (ALT/SGPT) 81 U/L (16-63) Alkaline Phosphatase 189 U/L (46-116) Total Protein 4.9 g/dL (6.4-8.2) Albumin 1.5 g/dL (3.4-5.0) Hepatitis B Surface Antibody, Quant <3.1 mIU/mL (Immunity>9.9) Hepatitis B Surface Antigen Nonreactive (Nonreactive) Urine Random Sodium 76 mmol/L (Not Estab.) Test 03/10/19 19:20 03/11/19 03:45 Potassium Level 3.7 mmol/L (3.5-5.1) 4.3 mmol/L (3.5-5.1) Sodium Level 134 mmol/L (136-145) Chloride Level 98 mmol/L (98-107) Carbon Dioxide Level 24 mmol/L (21-32) Anion Gap 12 (6-14) Blood Urea Nitrogen 9 mg/dL (8-26) Creatinine 4.3 mg/dL (0.7-1.3) Estimated GFR (Cockcroft-Gault) 14.3 BUN/Creatinine Ratio 2 (6-20) Glucose Level 70 mg/dL (70-99) Calcium Level 6.6 mg/dL (8.5-10.1) Total Bilirubin 15.8 mg/dL (0.2-1.0) Aspartate Amino Transf (AST/SGOT) 174 U/L (15-37) Alanine Aminotransferase (ALT/SGPT) 82 U/L (16-63) Alkaline Phosphatase 185 U/L (46-116) Total Protein 4.4 g/dL (6.4-8.2) Albumin 1.3 g/dL (3.4-5.0) Albumin/Globulin Ratio 0.4 (1.0-1.7) Vancomycin Level Trough 15.6 mcg/mL (10.0-20.0) Vancomycin Last Dose Date 03/10/19 Vancomycin Last Dose Time 0400 Laboratory Tests Test 03/10/19 11:58 03/10/19 12:00 03/10/19 15:40 03/10/19 19:20 Potassium Level 4.1 mmol/L (3.5-5.1) 3.7 mmol/L (3.5-5.1) Total Bilirubin 16.7 mg/dL (0.2-1.0) Direct Bilirubin 14.3 mg/dL (0.0-0.2) Aspartate Amino Transf (AST/SGOT) 178 U/L (15-37) Alanine Aminotransferase (ALT/SGPT) 81 U/L (16-63) Alkaline Phosphatase 189 U/L (46-116) Total Protein 4.9 g/dL (6.4-8.2) Albumin 1.5 g/dL (3.4-5.0) Hepatitis B Surface Antibody, Quant <3.1 mIU/mL (Immunity>9.9) Hepatitis B Surface Antigen Nonreactive (Nonreactive) Urine Random Sodium 76 mmol/L (Not Estab.) Test 03/11/19 03:45 Sodium Level 134 mmol/L (136-145) Potassium Level 4.3 mmol/L (3.5-5.1) Chloride Level 98 mmol/L (98-107) Carbon Dioxide Level 24 mmol/L (21-32) Anion Gap 12 (6-14) Blood Urea Nitrogen 9 mg/dL (8-26) Creatinine 4.3 mg/dL (0.7-1.3) Estimated GFR (Cockcroft-Gault) 14.3 BUN/Creatinine Ratio 2 (6-20) Glucose Level 70 mg/dL (70-99) Calcium Level 6.6 mg/dL (8.5-10.1) Total Bilirubin 15.8 mg/dL (0.2-1.0) Aspartate Amino Transf (AST/SGOT) 174 U/L (15-37) Alanine Aminotransferase (ALT/SGPT) 82 U/L (16-63) Alkaline Phosphatase 185 U/L (46-116) Total Protein 4.4 g/dL (6.4-8.2) Albumin 1.3 g/dL (3.4-5.0) Albumin/Globulin Ratio 0.4 (1.0-1.7) Vancomycin Level Trough 15.6 mcg/mL (10.0-20.0) Vancomycin Last Dose Date 03/10/19 Vancomycin Last Dose Time 0400 Microbiology 03/09/19 Blood Culture - Preliminary, Resulted NO GROWTH AFTER 2 DAYS Medications Current Medications Magnesium Sulfate 50 ml @ 25 mls/hr 1X ONCE IV Last administered on 03/09/19at 02:02; Start 03/09/19 at 01:45; Stop 03/09/19 at 03:44; Status DC Potassium Chloride (Klor-Con) 40 meq 1X ONCE PO Last administered on 03/09/19at 02:03; Start 03/09/19 at 01:45; Stop 03/09/19 at 01:46; Status DC Potassium Chloride/Water 100 ml @ 100 mls/hr Q1H IV Last administered on 03/09/19at 05:09; Start 03/09/19 at 01:45; Stop 03/09/19 at 05:44; Status DC Sodium Chloride 1,000 ml @ 1,000 mls/hr 1X ONCE IV Last administered on 03/09/19at 02:24; Start 03/09/19 at 02:15; Stop 03/09/19 at 03:14; Status DC Piperacillin Sod/ Tazobactam Sod 3.375 gm/Sodium Chloride 50 ml @ 100 mls/hr 1X ONCE IV Last administered on 03/09/19at 02:24; Start 03/09/19 at 02:15; Stop 03/09/19 at 02:44; Status DC Vancomycin HCl 250 ml @ 250 mls/hr 1X ONCE IV Last administered on 03/09/19at 03:47; Start 03/09/19 at 02:15; Stop 03/09/19 at 03:14; Status DC Sodium Chloride 1,000 ml @ 150 mls/hr Q6H40M IV Last administered on 03/10/19at 07:00; Start 03/09/19 at 03:00; Stop 03/10/19 at 02:59; Status DC Vancomycin HCl 2 gm/Sodium Chloride 500 ml @ 250 mls/hr 1X ONCE IV ; Start 03/09/19 at 06:30; Stop 03/09/19 at 08:29; Status Cancel Piperacillin Sod/ Tazobactam Sod 2.25 gm/Sodium Chloride 50 ml @ 100 mls/hr Q6HRS IV Last administered on 03/09/19at 06:25; Start 03/09/19 at 06:00; Stop 03/09/19 at 10:25; Status DC Vancomycin HCl (Vanco Per Pharmacy) 1 each PRN DAILY PRN MC SEE COMMENTS Last administered on 03/09/19at 06:34; Start 03/09/19 at 06:00; Stop 03/09/19 at 21:39; Status DC Piperacillin Sod/ Tazobactam Sod (Zosyn Per Pharmacy) 1 each PRN DAILY PRN MC SEE COMMENTS; Start 03/09/19 at 06:00; Stop 03/09/19 at 17:01; Status DC Vancomycin HCl 1 gm/Sodium Chloride 250 ml @ 250 mls/hr 1X ONCE IV Last administered on 03/09/19at 06:25; Start 03/09/19 at 06:45; Stop 03/09/19 at 07:44; Status DC Vancomycin HCl 1.5 gm/Sodium Chloride 500 ml @ 250 mls/hr Q24H IV ; Start 03/10/19 at 04:00; Stop 03/09/19 at 10:25; Status DC Vancomycin HCl (Vancomycin Trough Level) 1 each 1X ONCE MC ; Start 03/11/19 at 03:30; Stop 03/09/19 at 21:39; Status DC Potassium Chloride (Klor-Con) 40 meq 1X ONCE PO Last administered on 03/09/19at 07:55; Start 03/09/19 at 07:30; Stop 03/09/19 at 07:31; Status DC Potassium Chloride/Water 100 ml @ 100 mls/hr Q1H IV Last administered on 03/09/19at 11:03; Start 03/09/19 at 08:00; Stop 03/09/19 at 11:59; Status DC Potassium Chloride (Klor-Con) 80 meq 1X ONCE PO Last administered on 03/09/19at 13:21; Start 03/09/19 at 08:15; Stop 03/09/19 at 08:16; Status DC Nicotine (Nicoderm Cq 21mg) 1 patch PRN DAILY PRN TD SMOKING CESSATION Last administered on 03/09/19at 08:46; Start 03/09/19 at 08:30 Potassium Chloride/Sodium Chloride 1,000 ml @ 150 mls/hr Q6H40M IV Last administered on 03/09/19at 23:29; Start 03/09/19 at 09:30; Stop 03/10/19 at 12:12; Status DC Lactulose (Lactulose) 20 gm TID PO Last administered on 03/10/19at 20:48; Start 03/09/19 at 10:30 Potassium Chloride (Klor-Con) 20 meq STK-MED ONCE PO ; Start 03/09/19 at 13:19; Stop 03/09/19 at 13:20; Status DC Ondansetron HCl (Zofran) 4 mg STK-MED ONCE .ROUTE ; Start 03/09/19 at 13:24; Stop 03/09/19 at 13:24; Status DC Ondansetron HCl (Zofran) 4 mg PRN Q6HRS PRN IVP NAUSEA/VOMITING Last administered on 03/09/19at 13:45; Start 03/09/19 at 13:30 Lorazepam (Ativan) 4 mg PRN Q1HR PRN PO For CIWA 8-14; Start 03/09/19 at 17:00; Stop 03/10/19 at 07:45; Status DC Lorazepam (Ativan) 8 mg PRN Q1HR PRN PO For CIWA 15 or greater; Start 03/09/19 at 17:00; Stop 03/10/19 at 07:45; Status DC Lorazepam (Ativan Inj) 2 mg PRN Q1HR PRN IV For CIWA 8-14 Last administered on 03/10/19at 05:56; Start 03/09/19 at 17:00; Stop 03/10/19 at 07:45; Status DC Lorazepam (Ativan Inj) 4 mg PRN Q1HR PRN IV For CIWA 15 or greater; Start 03/09/19 at 17:00; Stop 03/10/19 at 07:45; Status DC Haloperidol Lactate (Haldol Inj) 5 mg PRN Q4HRS PRN IVP Hallucinatns,Confusn,Delirium; Start 03/09/19 at 17:00 Diphenhydramine HCl (Benadryl) 25 mg PRN Q15MIN PRN IVP EPS symptoms 2'Haldol admin; Start 03/09/19 at 17:00 Clonidine HCl (Catapres) 0.1 mg PRN Q1HR PRN PO SBP > 180 or DBP > 100, MRX3; Start 03/09/19 at 17:00 Potassium Chloride (Klor-Con) 40 meq 1X ONCE PO Last administered on 03/09/19at 19:25; Start 03/09/19 at 18:45; Stop 03/09/19 at 18:48; Status DC Lorazepam (Ativan) 1 mg PRN Q1HR PRN PO For CIWA 8-14 Last administered on 03/10/19at 10:03; Start 03/10/19 at 07:45 Lorazepam (Ativan Inj) 0.5 mg PRN Q1HR PRN IV For CIWA 8-14 Last administered on 03/11/19at 07:35; Start 03/10/19 at 07:45 Lidocaine HCl (Buffered Lidocaine 1%) 6 ml 1X ONCE INJ Last administered on 03/10/19at 14:25; Start 03/10/19 at 13:30; Stop 03/10/19 at 13:31; Status DC Lidocaine HCl (Buffered Lidocaine 1%) 3 ml STK-MED ONCE .ROUTE ; Start 03/10/19 at 13:34; Stop 03/10/19 at 13:34; Status DC Sodium Chloride 1,000 ml @ 1,000 mls/hr Q1H PRN IV hypotension; Start 03/10/19 at 14:01; Stop 03/10/19 at 20:00; Status DC Acetaminophen (Tylenol) 500 mg 1X PRN PRN PO MILD PAIN / TEMP; Start 03/10/19 at 14:15; Stop 03/11/19 at 14:14 Diphenhydramine HCl (Benadryl) 25 mg 1X PRN PRN IV ITCHING; Start 03/10/19 at 14:15; Stop 03/11/19 at 14:14 Diphenhydramine HCl (Benadryl) 25 mg 1X PRN PRN IV ITCHING; Start 03/10/19 at 14:15; Stop 03/11/19 at 14:14 Sodium Chloride 1,000 ml @ 400 mls/hr Q2H30M PRN IV PATENCY; Start 03/10/19 at 14:01; Stop 03/11/19 at 02:00; Status DC Info (PHARMACY MONITORING -- do not chart) 1 each PRN DAILY PRN MC SEE COMMENTS; Start 03/10/19 at 14:15 Sodium Chloride 1,000 ml @ 1,000 mls/hr Q1H PRN IV hypotension; Start 03/11/19 at 08:06; Stop 03/11/19 at 14:05 Albumin Human 200 ml @ 200 mls/hr 1X PRN PRN IV Hypotension; Start 03/11/19 at 08:15; Stop 03/11/19 at 14:14 Acetaminophen (Tylenol) 500 mg 1X PRN PRN PO MILD PAIN / TEMP; Start 03/11/19 at 08:15; Stop 03/12/19 at 08:14 Diphenhydramine HCl (Benadryl) 25 mg 1X PRN PRN IV ITCHING; Start 03/11/19 at 08:15; Stop 03/12/19 at 08:14 Diphenhydramine HCl (Benadryl) 25 mg 1X PRN PRN IV ITCHING; Start 03/11/19 at 08:15; Stop 03/12/19 at 08:14 Sodium Chloride (Normal Saline Flush) 10 ml 1X PRN PRN IV AP catheter pack; Start 03/11/19 at 08:15; Stop 03/12/19 at 08:14 Sodium Chloride (Normal Saline Flush) 10 ml 1X PRN PRN IV CASE FITTER catheter pack; Start 03/11/19 at 08:15; Stop 03/12/19 at 08:14 Sodium Chloride 1,000 ml @ 400 mls/hr Q2H30M PRN IV PATENCY; Start 03/11/19 at 08:06; Stop 03/11/19 at 20:05 Info (PHARMACY MONITORING -- do not chart) 1 each PRN DAILY PRN MC SEE COMMENTS; Start 03/11/19 at 08:15 Active Scripts Active Ativan (Lorazepam) 1 Mg Tablet 1 Mg PO QIDPRN PRN B Complex (Vitamin B Complex) 1 Each Tablet 1 Each PO DAILY Thiamine Hcl 500 Mg Tablet 500 Mg PO DAILY Thera-M Tablet (Multivits,Ca,Minerals/Iron/Fa) 1 Each Tablet 1 Tab PO DAILY Vitals/I & O Vital Sign - Last 24 Hours 03/10/19 03/10/19 03/10/19 03/10/19 10:00 11:00 12:00 12:00 Temp 97.6 97.6 Pulse 97 98 102 Resp 23 28 32 B/P (MAP) 103/55 (71) 115/73 (87) 96/59 (71) Pulse Ox 98 98 96 O2 Delivery Nasal Cannula Nasal Cannula Nasal Cannula Nasal Cannula O2 Flow Rate 2.0 2.0 2.0 2.0 03/10/19 03/10/19 03/10/19 03/10/19 13:00 14:00 15:00 16:00 Temp 97.6 97.6 Pulse 100 96 100 103 Resp 27 25 25 26 B/P (MAP) 96/59 (71) 91/59 (70) 98/61 (73) 95/55 (68) Pulse Ox 98 98 99 98 O2 Delivery Nasal Cannula Nasal Cannula Nasal Cannula Nasal Cannula O2 Flow Rate 2.0 2.0 2.0 2.0 03/10/19 03/10/19 03/10/19 03/10/19 16:00 17:00 18:00 18:30 Pulse 106 110 Resp 30 B/P (MAP) 81/56 (64) 76/56 (63) 81/58 (66) Pulse Ox 97 97 O2 Delivery Nasal Cannula Nasal Cannula Nasal Cannula O2 Flow Rate 2.0 2.0 2.0 03/10/19 03/10/19 03/10/19 03/10/19 18:43 20:00 20:10 21:00 Temp 97.9 97.9 Pulse 106 114 Resp B/P (MAP) 99/59 (72) 98/61 (73) 94/54 (67) Pulse Ox 96 98 O2 Delivery Nasal Cannula Nasal Cannula Nasal Cannula O2 Flow Rate 2.0 2.0 2.0 03/10/19 03/10/19 03/11/19 03/11/19 22:00 23:15 00:01 00:01 Temp 98.6 98.6 Pulse 104 104 104 Resp 20 B/P (MAP) 90/51 (64) 86/52 (63) 90/62 (71) Pulse Ox 97 97 98 O2 Delivery Nasal Cannula Nasal Cannula Nasal Cannula Nasal Cannula O2 Flow Rate 2.0 2.0 2.0 2.0 03/11/19 03/11/19 03/11/19 03/11/19 01:00 02:00 03:07 04:00 Temp 98.1 98.1 Pulse 107 104 102 102 Resp 20 18 18 20 B/P (MAP) 90/60 (70) 83/54 (64) 87/54 (65) 84/52 (63) Pulse Ox 96 96 96 96 O2 Delivery Nasal Cannula Nasal Cannula Nasal Cannula Nasal Cannula O2 Flow Rate 2.0 2.0 2.0 2.0 03/11/19 03/11/19 03/11/19 03/11/19 04:00 05:00 06:00 07:00 Pulse 102 104 102 Resp 24 22 22 B/P (MAP) 86/56 (66) 95/55 (68) 88/57 (67) Pulse Ox 96 95 95 O2 Delivery Nasal Cannula Nasal Cannula Nasal Cannula Nasal Cannula O2 Flow Rate 2.0 2.0 2.0 3.0 03/11/19 03/11/19 08:00 08:00 Temp 97.4 97.4 Pulse 107 Resp 22 B/P (MAP) 82/59 (67) Pulse Ox 95 O2 Delivery Nasal Cannula Nasal Cannula O2 Flow Rate 3.0 3.0 Intake and Output 03/10/19 03/10/19 03/11/19 15:00 23:00 07:00 Intake Total 100 ml 0 ml Output Total 12 ml 0 ml 50 ml Balance -12 ml 100 ml -50 ml HARESH LARSON MD Mar 11, 2019 09:40
--- NOTE | 2019-03-11 14:22 | RAD ---
KUB INDICATION: NG placement. COMPARISON: None. TECHNIQUE: Supine view of the abdomen was obtained. FINDINGS: Enteric tube with tip coiled in the stomach multiple dilated loops of small bowel measuring up to 4.3 cm. Scattered colonic gas. No free air on this limited supine image. Limited view of the lower chest demonstrates no acute abnormality. IMPRESSION: 1. Enteric tube with tip coiled in the stomach. 2. Multiple dilated loops of small bowel with scattered colonic gas, likely representing adynamic ileus Electronically signed by: Jaswinder Gunn MD (03/11/2019 2:19 PM) [facility]
[2019-03-12 03:54] VITALS: BP 88/52
[2019-03-12 05:22] LABS: PROTHROMBIN TIME PATIENT 18.8 SEC (11.7-14.0)
[2019-03-12 07:00] VITALS: BP 84/52
[2019-03-12] MEDS: LACTULOSE 20 GM/30 ML SOLUTION. PO SCH ×3 (08:38→20:11)
[2019-03-12 11:00] VITALS: BP 94/56
--- NOTE | 2019-03-12 13:21 | PDOC ---
G I PROGRESS NOTE Subjective Confused. Mittens on as pulls on NG. Objective Abdominal distention yesterday. KUB with ileus. NG with high output. Physical Exam Lungs clear. RRR Abdomen distended. No bowel sounds heard. Review of Relevant I have reviewed the following items tammi (where applicable) has been applied. Labs Laboratory Tests Test 03/10/19 15:40 03/10/19 19:20 03/11/19 03:45 03/12/19 04:30 Urine Random Sodium 76 mmol/L (Not Estab.) Potassium Level 3.7 mmol/L (3.5-5.1) 4.3 mmol/L (3.5-5.1) Sodium Level 134 mmol/L (136-145) Chloride Level 98 mmol/L (98-107) Carbon Dioxide Level 24 mmol/L (21-32) Anion Gap 12 (6-14) Blood Urea Nitrogen 9 mg/dL (8-26) Creatinine 4.3 mg/dL (0.7-1.3) Estimated GFR (Cockcroft-Gault) 14.3 BUN/Creatinine Ratio 2 (6-20) Glucose Level 70 mg/dL (70-99) Calcium Level 6.6 mg/dL (8.5-10.1) Total Bilirubin 15.8 mg/dL (0.2-1.0) Aspartate Amino Transf (AST/SGOT) 174 U/L (15-37) Alanine Aminotransferase (ALT/SGPT) 82 U/L (16-63) Alkaline Phosphatase 185 U/L (46-116) Total Protein 4.4 g/dL (6.4-8.2) Albumin 1.3 g/dL (3.4-5.0) Albumin/Globulin Ratio 0.4 (1.0-1.7) Vancomycin Level Trough 15.6 mcg/mL (10.0-20.0) Vancomycin Last Dose Date 03/10/19 Vancomycin Last Dose Time 0400 Prothrombin Time 18.8 SEC (11.7-14.0) Prothromb Time International Ratio 1.6 (0.8-1.1) Laboratory Tests Test 03/12/19 04:30 Prothrombin Time 18.8 SEC (11.7-14.0) Prothromb Time International Ratio 1.6 (0.8-1.1) Microbiology 03/09/19 Blood Culture - Preliminary, Resulted NO GROWTH AFTER 3 DAYS Vitals/I & O Vital Sign - Last 24 Hours 03/11/19 03/11/19 03/11/19 03/11/19 15:00 20:00 20:26 23:10 Temp 98.3 98.4 98.5 98.3 98.4 98.5 Pulse 106 110 112 Resp 24 34 32 B/P (MAP) 107/58 (74) 86/54 (65) 95/53 (67) Pulse Ox 91 93 94 O2 Delivery Nasal Cannula Nasal Cannula Nasal Cannula Room Air O2 Flow Rate 3.0 2.0 4.0 4.0 03/12/19 03/12/19 03/12/19 03/12/19 03:54 07:00 08:00 11:00 Temp 97.9 98.0 98.3 97.9 98.0 98.3 Pulse 105 107 107 Resp 32 24 22 B/P (MAP) 88/52 (64) 84/52 (63) 94/56 (69) Pulse Ox 93 94 96 O2 Delivery Nasal Cannula Nasal Cannula Nasal Cannula O2 Flow Rate 4.0 2.0 2.0 2.0 Intake and Output 03/11/19 03/11/19 03/12/19 15:00 23:00 07:00 Intake Total 0 ml 0 ml 0 ml Output Total 950 ml 150 ml 0 ml Balance -950 ml -150 ml 0 ml Problem List Problems Medical Problems: (1) Alcoholic hepatic failure without coma Status: Acute (2) Anemia Status: Acute (3) Ascites Status: Acute (4) Hepatic encephalopathy Status: Acute (5) Hypoalbuminemia Status: Acute (6) Hypokalemia Status: Acute (7) Hypomagnesemia Status: Acute (8) Hyponatremia Status: Acute (9) Renal insufficiency Status: Acute (10) Severe sepsis Status: Acute Assessment Alcoholic hepatitis Ileus Plan of Care: Continue current Tx, Mgmt NICA CLARK MD Mar 12, 2019 13:21
[2019-03-12 15:00] VITALS: BP 87/50
--- NOTE | 2019-03-12 16:13 | PDOC ---
PROGRESS NOTES Chief Complaint Chief Complaint A/P: Ventricular tachycardia - likely 2/2 hypokalemia and hypomagnesemia. Cardiology has seen, now resolved Acute kidney injury - Cr 4.4. possibly vasomotor nephropathy from GI losses, more likely much worse liver disease than he implies. Possible hepatorenal syndrome. HD per nephro Hypokalemia - 1.9, severe, replaced Lactic acidosis - seems more hepatic related than sepsis, has no infectious symptoms. Given vancomycin and zosyn by ED. will stop. IVF for now Hypomagnesemia - replaced Severe protein calorie malnutrion - Anasarca - severe hypoalbuminemia and malnutrition likely from ETOH abuse and liver disease Acute encephalopathy - most certainly hepatic encephalopathy, with meld score 34, will initiate lactulose, consult GI ETOH abuse - counseled on cessation Hyperbilirubinemia - with significant cirrhosis symptoms likely has severe liver disease, Gallbladder is also dilated, though he does not c/o RUQ pain Transaminitis - has an alcoholic pattern consistent with his history. Counseled on cessation Ileus FEN - Cardiac diet PPX - heparin FULL CODE Dispo - CVC for critically ill patient with life-threatening electrolyte abnormalities in renal and hepatic failure History of Present Illness History of Present Illness Mr Mcgowan is a 59 yo male patient with PMHx IBS, depression, psoriasis, chronic liver disease who presents with complaining of weakness. Patient complaining of progressive generalized weakness for the last 6 months that gradually getting worse. 3 days ago he literally had to crawl across concrete floor as he states his legs have been giving out on him. Patient states he was not able to sleep for the last 4 days and asking for medication to able to sleep. He had been trying to take 3 advil daily to help with pain and sleep Patient also states was not able to support getting for the last several days and has problems with walking because of generalized weakness. Patient had history of alcohol abuse and alcoholic liver disease with obvious jaundice but denies drinking alcohol for the last several days. Patient states he did not have urine output for the last couple days and complaining of chronic diarrhea for 3 straight weeks that does not improve with taking Imodium. Patient denies chest pain, shortness of breath, focal neuro deficit, headache, fever and chills, vomiting. Patient presented to ER with his parents and states he lives with them. In ED K noted 1.9, Mg 1.3, Cr 4.4, BUN 12, Bilirubin 13.8. albumin of 1.5 lactic acid of 5.6 Lactic acid was 5.4 but patient did not have sign of sepsis and lactic acid was elevated mainly because of abnormal liver function tests. Therefore patient was not treated with 30 mL of IV fluid/kg that but 1 dose of antibiotic was given. Patient was admitted to ICU and IV potassium and magnesium was started He has not previously been told of any kidney disease, he has been previously told his liver function was abnormal. Overnight EKG showed RBBB, LVH. He did experience 70 beats of v-tach and cardiology was consulted and admitted to ICU. 03/10: His Cr has been climbing. Has had multiple bowel movements. NSS was given overnight, his abdomen is more swollen. Confused. Discussed with his parents bedside his UOP has been dropping and cr climbing. IR placed HD catheter, consented for dialysis 03/11: Dialysis this morning. Began vomiting, NGT placed with >1L out. KUB shows dilated bowel loops consistent with adynamic ileus. Bilirubin 16.7 yesterday, 15.8 today. Cr 4.3. Still very confused. Pulling at his mittens. Still with ileus and large NGT output. Discussed with his parents bedside his overall poor prognosis. Vitals Vitals Vital Signs Date Time Temp Pulse Resp B/P (MAP) Pulse Ox O2 Delivery O2 Flow Rate FiO2 03/12/19 15:00 97.4 117 24 87/50 (62) 95 Nasal Cannula 2.0 97.4 Physical Exam General: Alert, Cooperative, mild distress, Other (Confused) Abdomen: Normal bowel sounds, Soft, Other (Fluid wave, enlarged abdomen) Extremities: No clubbing, No cyanosis, Normal pulses, No tenderness/swelling, Other (2+) Skin: No rashes, No breakdown, No significant lesion Labs LABS Laboratory Tests Test 03/12/19 04:30 Prothrombin Time 18.8 SEC (11.7-14.0) Prothromb Time International Ratio 1.6 (0.8-1.1) Assessment and Plan Assessmemt and Plan Problems Medical Problems: (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 Labs Laboratory Tests Test 03/10/19 19:20 03/11/19 03:45 03/12/19 04:30 Potassium Level 3.7 mmol/L (3.5-5.1) 4.3 mmol/L (3.5-5.1) Sodium Level 134 mmol/L (136-145) Chloride Level 98 mmol/L (98-107) Carbon Dioxide Level 24 mmol/L (21-32) Anion Gap 12 (6-14) Blood Urea Nitrogen 9 mg/dL (8-26) Creatinine 4.3 mg/dL (0.7-1.3) Estimated GFR (Cockcroft-Gault) 14.3 BUN/Creatinine Ratio 2 (6-20) Glucose Level 70 mg/dL (70-99) Calcium Level 6.6 mg/dL (8.5-10.1) Total Bilirubin 15.8 mg/dL (0.2-1.0) Aspartate Amino Transf (AST/SGOT) 174 U/L (15-37) Alanine Aminotransferase (ALT/SGPT) 82 U/L (16-63) Alkaline Phosphatase 185 U/L (46-116) Total Protein 4.4 g/dL (6.4-8.2) Albumin 1.3 g/dL (3.4-5.0) Albumin/Globulin Ratio 0.4 (1.0-1.7) Vancomycin Level Trough 15.6 mcg/mL (10.0-20.0) Vancomycin Last Dose Date 03/10/19 Vancomycin Last Dose Time 0400 Prothrombin Time 18.8 SEC (11.7-14.0) Prothromb Time International Ratio 1.6 (0.8-1.1) Laboratory Tests Test 03/12/19 04:30 Prothrombin Time 18.8 SEC (11.7-14.0) Prothromb Time International Ratio 1.6 (0.8-1.1) Microbiology 03/09/19 Blood Culture - Preliminary, Resulted NO GROWTH AFTER 3 DAYS Medications Current Medications Magnesium Sulfate 50 ml @ 25 mls/hr 1X ONCE IV Last administered on 03/09/19at 02:02; Start 03/09/19 at 01:45; Stop 03/09/19 at 03:44; Status DC Potassium Chloride (Klor-Con) 40 meq 1X ONCE PO Last administered on 03/09/19at 02:03; Start 03/09/19 at 01:45; Stop 03/09/19 at 01:46; Status DC Potassium Chloride/Water 100 ml @ 100 mls/hr Q1H IV Last administered on 03/09/19at 05:09; Start 03/09/19 at 01:45; Stop 03/09/19 at 05:44; Status DC Sodium Chloride 1,000 ml @ 1,000 mls/hr 1X ONCE IV Last administered on 03/09/19at 02:24; Start 03/09/19 at 02:15; Stop 03/09/19 at 03:14; Status DC Piperacillin Sod/ Tazobactam Sod 3.375 gm/Sodium Chloride 50 ml @ 100 mls/hr 1X ONCE IV Last administered on 03/09/19at 02:24; Start 03/09/19 at 02:15; Stop 03/09/19 at 02:44; Status DC Vancomycin HCl 250 ml @ 250 mls/hr 1X ONCE IV Last administered on 03/09/19at 03:47; Start 03/09/19 at 02:15; Stop 03/09/19 at 03:14; Status DC Sodium Chloride 1,000 ml @ 150 mls/hr Q6H40M IV Last administered on 03/10/19at 07:00; Start 03/09/19 at 03:00; Stop 03/10/19 at 02:59; Status DC Vancomycin HCl 2 gm/Sodium Chloride 500 ml @ 250 mls/hr 1X ONCE IV ; Start 03/09/19 at 06:30; Stop 03/09/19 at 08:29; Status Cancel Piperacillin Sod/ Tazobactam Sod 2.25 gm/Sodium Chloride 50 ml @ 100 mls/hr Q6HRS IV Last administered on 03/09/19at 06:25; Start 03/09/19 at 06:00; Stop 03/09/19 at 10:25; Status DC Vancomycin HCl (Vanco Per Pharmacy) 1 each PRN DAILY PRN MC SEE COMMENTS Last administered on 03/09/19at 06:34; Start 03/09/19 at 06:00; Stop 03/09/19 at 21:39; Status DC Piperacillin Sod/ Tazobactam Sod (Zosyn Per Pharmacy) 1 each PRN DAILY PRN MC SEE COMMENTS; Start 03/09/19 at 06:00; Stop 03/09/19 at 17:01; Status DC Vancomycin HCl 1 gm/Sodium Chloride 250 ml @ 250 mls/hr 1X ONCE IV Last administered on 03/09/19at 06:25; Start 03/09/19 at 06:45; Stop 03/09/19 at 07:44; Status DC Vancomycin HCl 1.5 gm/Sodium Chloride 500 ml @ 250 mls/hr Q24H IV ; Start 03/10/19 at 04:00; Stop 03/09/19 at 10:25; Status DC Vancomycin HCl (Vancomycin Trough Level) 1 each 1X ONCE MC ; Start 03/11/19 at 03:30; Stop 03/09/19 at 21:39; Status DC Potassium Chloride (Klor-Con) 40 meq 1X ONCE PO Last administered on 03/09/19at 07:55; Start 03/09/19 at 07:30; Stop 03/09/19 at 07:31; Status DC Potassium Chloride/Water 100 ml @ 100 mls/hr Q1H IV Last administered on 03/09/19at 11:03; Start 03/09/19 at 08:00; Stop 03/09/19 at 11:59; Status DC Potassium Chloride (Klor-Con) 80 meq 1X ONCE PO Last administered on 03/09/19at 13:21; Start 03/09/19 at 08:15; Stop 03/09/19 at 08:16; Status DC Nicotine (Nicoderm Cq 21mg) 1 patch PRN DAILY PRN TD SMOKING CESSATION Last administered on 03/09/19at 08:46; Start 03/09/19 at 08:30 Potassium Chloride/Sodium Chloride 1,000 ml @ 150 mls/hr Q6H40M IV Last administered on 03/09/19at 23:29; Start 03/09/19 at 09:30; Stop 03/10/19 at 12:12; Status DC Lactulose (Lactulose) 20 gm TID PO Last administered on 03/12/19at 13:35; Start 03/09/19 at 10:30 Potassium Chloride (Klor-Con) 20 meq STK-MED ONCE PO ; Start 03/09/19 at 13:19; Stop 03/09/19 at 13:20; Status DC Ondansetron HCl (Zofran) 4 mg STK-MED ONCE .ROUTE ; Start 03/09/19 at 13:24; Stop 03/09/19 at 13:24; Status DC Ondansetron HCl (Zofran) 4 mg PRN Q6HRS PRN IVP NAUSEA/VOMITING Last administered on 03/09/19at 13:45; Start 03/09/19 at 13:30 Lorazepam (Ativan) 4 mg PRN Q1HR PRN PO For CIWA 8-14; Start 03/09/19 at 17:00; Stop 03/10/19 at 07:45; Status DC Lorazepam (Ativan) 8 mg PRN Q1HR PRN PO For CIWA 15 or greater; Start 03/09/19 at 17:00; Stop 03/10/19 at 07:45; Status DC Lorazepam (Ativan Inj) 2 mg PRN Q1HR PRN IV For CIWA 8-14 Last administered on 03/10/19at 05:56; Start 03/09/19 at 17:00; Stop 03/10/19 at 07:45; Status DC Lorazepam (Ativan Inj) 4 mg PRN Q1HR PRN IV For CIWA 15 or greater; Start 03/09/19 at 17:00; Stop 03/10/19 at 07:45; Status DC Haloperidol Lactate (Haldol Inj) 5 mg PRN Q4HRS PRN IVP Hallucinatns,Confusn,Delirium; Start 03/09/19 at 17:00 Diphenhydramine HCl (Benadryl) 25 mg PRN Q15MIN PRN IVP EPS symptoms 2'Haldol admin; Start 03/09/19 at 17:00 Clonidine HCl (Catapres) 0.1 mg PRN Q1HR PRN PO SBP > 180 or DBP > 100, MRX3; Start 03/09/19 at 17:00 Potassium Chloride (Klor-Con) 40 meq 1X ONCE PO Last administered on 03/09/19at 19:25; Start 03/09/19 at 18:45; Stop 03/09/19 at 18:48; Status DC Lorazepam (Ativan) 1 mg PRN Q1HR PRN PO For CIWA 8-14 Last administered on 03/10/19at 10:03; Start 03/10/19 at 07:45 Lorazepam (Ativan Inj) 0.5 mg PRN Q1HR PRN IV For CIWA 8-14 Last administered on 03/11/19at 07:35; Start 03/10/19 at 07:45 Lidocaine HCl (Buffered Lidocaine 1%) 6 ml 1X ONCE INJ Last administered on 03/10/19at 14:25; Start 03/10/19 at 13:30; Stop 03/10/19 at 13:31; Status DC Lidocaine HCl (Buffered Lidocaine 1%) 3 ml STK-MED ONCE .ROUTE ; Start 03/10/19 at 13:34; Stop 03/10/19 at 13:34; Status DC Sodium Chloride 1,000 ml @ 1,000 mls/hr Q1H PRN IV hypotension; Start 03/10/19 at 14:01; Stop 03/10/19 at 20:00; Status DC Acetaminophen (Tylenol) 500 mg 1X PRN PRN PO MILD PAIN / TEMP; Start 03/10/19 at 14:15; Stop 03/11/19 at 14:14; Status DC Diphenhydramine HCl (Benadryl) 25 mg 1X PRN PRN IV ITCHING; Start 03/10/19 at 14:15; Stop 03/11/19 at 14:14; Status DC Diphenhydramine HCl (Benadryl) 25 mg 1X PRN PRN IV ITCHING; Start 03/10/19 at 14:15; Stop 03/11/19 at 14:14; Status DC Sodium Chloride 1,000 ml @ 400 mls/hr Q2H30M PRN IV PATENCY; Start 03/10/19 at 14:01; Stop 03/11/19 at 02:00; Status DC Info (PHARMACY MONITORING -- do not chart) 1 each PRN DAILY PRN MC KATINA Perez OMMENTS; Start 03/10/19 at 14:15 Sodium Chloride 1,000 ml @ 1,000 mls/hr Q1H PRN IV hypotension; Start 03/11/19 at 08:06; Stop 03/11/19 at 14:05; Status DC Albumin Human 200 ml @ 200 mls/hr 1X PRN PRN IV Hypotension; Start 03/11/19 at 08:15; Stop 03/11/19 at 14:14; Status DC Acetaminophen (Tylenol) 500 mg 1X PRN PRN PO MILD PAIN / TEMP; Start 03/11/19 at 08:15; Stop 03/12/19 at 08:14; Status DC Diphenhydramine HCl (Benadryl) 25 mg 1X PRN PRN IV ITCHING; Start 03/11/19 at 08:15; Stop 03/12/19 at 08:14; Status DC Diphenhydramine HCl (Benadryl) 25 mg 1X PRN PRN IV ITCHING; Start 03/11/19 at 08:15; Stop 03/12/19 at 08:14; Status DC Sodium Chloride (Normal Saline Flush) 10 ml 1X PRN PRN IV AP catheter pack; Start 03/11/19 at 08:15; Stop 03/12/19 at 08:14; Status DC Sodium Chloride (Normal Saline Flush) 10 ml 1X PRN PRN IV DIRECTOR OF ACCOUNTS PAYABLE catheter pack; Start 03/11/19 at 08:15; Stop 03/12/19 at 08:14; Status DC Sodium Chloride 1,000 ml @ 400 mls/hr Q2H30M PRN IV PATENCY; Start 03/11/19 at 08:06; Stop 03/11/19 at 20:05; Status DC Info (PHARMACY MONITORING -- do not chart) 1 each PRN DAILY PRN MC SEE COMMENTS; Start 03/11/19 at 08:15 Active Scripts Active Ativan (Lorazepam) 1 Mg Tablet 1 Mg PO QIDPRN PRN B Complex (Vitamin B Complex) 1 Each Tablet 1 Each PO DAILY Thiamine Hcl 500 Mg Tablet 500 Mg PO DAILY Thera-M Tablet (Multivits,Ca,Minerals/Iron/Fa) 1 Each Tablet 1 Tab PO DAILY Vitals/I & O Vital Sign - Last 24 Hours 03/11/19 03/11/19 03/11/19 03/12/19 20:00 20:26 23:10 03:54 Temp 98.4 98.5 97.9 98.4 98.5 97.9 Pulse 110 112 105 Resp 34 32 32 B/P (MAP) 86/54 (65) 95/53 (67) 88/52 (64) Pulse Ox 93 94 93 O2 Delivery Nasal Cannula Nasal Cannula Room Air Nasal Cannula O2 Flow Rate 2.0 4.0 4.0 4.0 03/12/19 03/12/19 03/12/19 03/12/19 07:00 08:00 11:00 15:00 Temp 98.0 98.3 97.4 98.0 98.3 97.4 Pulse 107 107 117 Resp 24 22 24 B/P (MAP) 84/52 (63) 94/56 (69) 87/50 (62) Pulse Ox 94 96 95 O2 Delivery Nasal Cannula Nasal Cannula Nasal Cannula O2 Flow Rate 2.0 2.0 2.0 2.0 Intake and Output 03/11/19 03/11/19 03/12/19 15:00 23:00 07:00 Intake Total 0 ml 0 ml 0 ml Output Total 950 ml 150 ml 0 ml Balance -950 ml -150 ml 0 ml HARESH LARSON MD Mar 12, 2019 16:13
[2019-03-12 19:56] VITALS: BP 88/52
[2019-03-12 22:33] VITALS: BP 98/54
[2019-03-13] VITALS (18 sets, daily range): BP systolic 74–106; BP diastolic 45–62
[2019-03-13 05:13] LABS: PROTHROMBIN TIME PATIENT 19.1 SEC (11.7-14.0)
[2019-03-13 06:08] LABS: ALBUMIN 1.4 g/dL (3.4-5.0); ALBUMIN/GLOBULIN RATIO 0.4 (1.0-1.7); CALCIUM 7.4 mg/dL (8.5-10.1); CREATININE 5.4 mg/dL (0.7-1.3); POTASSIUM 4.1 mmol/L (3.5-5.1); TOTAL BILIRUBIN 19.3 mg/dL (0.2-1.0); TOTAL PROTEIN 4.8 g/dL (6.4-8.2)
[2019-03-13] MEDS ORDERED: DEXTROSE 50% 25 GM / 50ML DISP.SYRIN. IV ONE (06:15)
[2019-03-13] MEDS ORDERED: DEXTROSE 50% 25 GM / 50ML DISP.SYRIN. IV PRN (06:30)
[2019-03-13] MEDS: LACTULOSE 20 GM/30 ML SOLUTION. PO SCH ×3 (08:52→20:36)
[2019-03-13] MEDS: NICOTINE 21MG PATCH. TD PRN (08:56)
[2019-03-13] MEDS ORDERED: PANTOPRAZOLE IV PUSH 40 MG VIAL. IVP ONE (09:30)
[2019-03-13] MEDS ORDERED: ALBUMIN HUMAN 25% 100 ML IV ONE ×2 (09:30→19:15)
[2019-03-13] MEDS ORDERED: ACETAMINOPHEN 325 MG SUPP.RECT. PR PRN (09:30)
--- NOTE | 2019-03-13 10:08 | PDOC ---
SUBJECTIVE ROS Lethargic, confused , his parents are at bedside OBJECTIVE Vital Signs Vital Signs Date Time Temp Pulse Resp B/P (MAP) Pulse Ox O2 Delivery O2 Flow Rate FiO2 03/13/19 07:17 98.3 120 28 93/55 (68) 91 Nasal Cannula 4.0 98.3 I & 0 Intake and Output 03/13/19 07:00 Intake Total 0 ml Output Total 210 ml Balance -210 ml Intake Oral 0 ml Output Urine Total 10 ml Drainage Total 200 ml # Bowel Movements 1 PHYSICAL EXAM Physical Exam General: Confused, mild distress HEENT: Icterus ++, neck supple Lungs: Clear to auscultation Heart: S1S2, RRR, no thrills, no rubs Abdomen: Soft, Extremities: No clubbing, No cyanosis, Bilat LE edema + Skin: No rashes, Jaundice++ Neuro: Confused Gan + DIAGNOSIS/ASSESSMENT Assessment & Plan Acute kidney injury: Suspect Hepatorenal Remains Anuric , initiated on HD on 03/10 Unlikely to tolerate or benefit from jail HD with Hepatorenal unless Hepatic issues addressed/ or candidate for Liver Tx Dialysis today if BP stable Hypotensive- sec to Hepatic etiology Severe hypokalemia:Resolved Alcoholic Hepatitis - per GI GB is dilated on CT r/o secondary to biliary disease such as hydrops. Defer to GI Nonobstructive bilateral renal stones. No hydronephrosis. Urinary bladder is largely decompressed. Discussed A/P from renal standpoint with Parents, RN and GI OFFICE 365 CONSULTANT COMMENT/RELEVANT DATA Meds Current Medications Medications (Trade) Dose Ordered Sig/Kala Start Time Stop Time Status Last Admin Dose Admin Acetaminophen (Tylenol Supp) 325 mg PRN Q6HRS PRN 03/13/19 09:30 Acetaminophen (Tylenol) 500 mg 1X PRN PRN 03/11/19 08:15 03/12/19 08:14 DC Albumin Human 100 ml @ 100 mls/hr 1X ONCE 03/13/19 09:30 03/13/19 10:29 Clonidine HCl (Catapres) 0.1 mg PRN Q1HR PRN 03/09/19 17:00 Dextrose (Dextrose 50%-Water Syringe) 12.5 gm PRN Q15MIN PRN 03/13/19 06:30 03/13/19 06:43 12.5 GM Dextrose/Sodium Chloride 1,000 ml @ 75 mls/hr [id number] 03/13/19 09:30 Diphenhydramine HCl (Benadryl) 25 mg 1X PRN PRN 03/11/19 08:15 03/12/19 08:14 DC Haloperidol Lactate (Haldol Inj) 5 mg PRN Q4HRS PRN 03/09/19 17:00 Info (PHARMACY MONITORING -- do not chart) 1 each PRN DAILY PRN 03/11/19 08:15 Lactulose (Lactulose) 20 gm TID 03/09/19 10:30 03/12/19 20:11 20 GM Lidocaine HCl (Buffered Lidocaine 1%) 3 ml STK-MED ONCE 03/10/19 13:34 03/10/19 13:34 DC Lorazepam (Ativan Inj) 0.5 mg PRN Q1HR PRN 03/10/19 07:45 03/13/19 08:56 0.5 MG Lorazepam (Ativan) 1 mg PRN Q1HR PRN 03/10/19 07:45 03/10/19 10:03 1 MG Magnesium Sulfate 50 ml @ 25 mls/hr 1X ONCE 03/09/19 01:45 03/09/19 03:44 DC 03/09/19 02:02 25 MLS/HR Nicotine (Nicoderm Cq 21mg) 1 patch PRN DAILY PRN 03/09/19 08:30 03/13/19 08:56 1 PATCH Ondansetron HCl (Zofran) 4 mg PRN Q6HRS PRN 03/09/19 13:30 03/09/19 13:45 4 MG Pantoprazole Sodium (PROTONIX VIAL for IV PUSH) 40 mg 1X ONCE 03/13/19 09:30 03/13/19 09:31 DC Piperacillin Sod/ Tazobactam Sod (Zosyn Per Pharmacy) 1 each PRN DAILY PRN 03/09/19 06:00 03/09/19 17:01 DC Piperacillin Sod/ Tazobactam Sod 2.25 gm/Sodium Chloride 50 ml @ 100 mls/hr Q6HRS 03/09/19 06:00 03/09/19 10:25 DC 03/09/19 06:25 100 MLS/HR Piperacillin Sod/ Tazobactam Sod 3.375 gm/Sodium Chloride 50 ml @ 100 mls/hr 1X ONCE 03/09/19 02:15 03/09/19 02:44 DC 03/09/19 02:24 100 MLS/HR Potassium Chloride/Sodium Chloride 1,000 ml @ 150 mls/hr Q6H40M 03/09/19 09:30 03/10/19 12:12 DC 03/09/19 23:29 150 MLS/HR Potassium Chloride/Water 100 ml @ 100 mls/hr Q1H 03/09/19 08:00 03/09/19 11:59 DC 03/09/19 11:03 100 MLS/HR Potassium Chloride (Klor-Con) 40 meq 1X ONCE 03/09/19 18:45 03/09/19 18:48 DC 03/09/19 19:25 40 MEQ Sodium Chloride 1,000 ml @ 400 mls/hr Q2H30M PRN 03/11/19 08:06 03/11/19 20:05 DC Sodium Chloride (Normal Saline Flush) 10 ml 1X PRN PRN 03/11/19 08:15 03/12/19 08:14 DC Vancomycin HCl (Vanco Per Pharmacy) 1 each PRN DAILY PRN 03/09/19 06:00 03/09/19 21:39 DC 03/09/19 06:34 1 EACH Vancomycin HCl (Vancomycin Trough Level) 1 each 1X ONCE 03/11/19 03:30 03/09/19 21:39 DC Vancomycin HCl 1.5 gm/Sodium Chloride 500 ml @ 250 mls/hr Q24H 03/10/19 04:00 03/09/19 10:25 DC Vancomycin HCl 1 gm/Sodium Chloride 250 ml @ 250 mls/hr 1X ONCE 03/09/19 06:45 03/09/19 07:44 DC 03/09/19 06:25 250 MLS/HR Vancomycin HCl 2 gm/Sodium Chloride 500 ml @ 250 mls/hr 1X ONCE 03/09/19 06:30 03/09/19 08:29 Cancel Lab Laboratory Tests Test 03/13/19 04:40 03/13/19 06:35 03/13/19 08:30 Prothrombin Time 19.1 SEC (11.7-14.0) Prothromb Time International Ratio 1.6 (0.8-1.1) Sodium Level 140 mmol/L (136-145) Potassium Level 4.1 mmol/L (3.5-5.1) Chloride Level 103 mmol/L (98-107) Carbon Dioxide Level 26 mmol/L (21-32) Anion Gap 11 (6-14) Blood Urea Nitrogen 15 mg/dL (8-26) Creatinine 5.4 mg/dL (0.7-1.3) Estimated GFR (Cockcroft-Gault) 11.0 BUN/Creatinine Ratio 3 (6-20) Glucose Level 13 mg/dL (70-99) Calcium Level 7.4 mg/dL (8.5-10.1) Total Bilirubin 19.3 mg/dL (0.2-1.0) Aspartate Amino Transf (AST/SGOT) 195 U/L (15-37) Alanine Aminotransferase (ALT/SGPT) 79 U/L (16-63) Alkaline Phosphatase 184 U/L (46-116) Total Protein 4.8 g/dL (6.4-8.2) Albumin 1.4 g/dL (3.4-5.0) Albumin/Globulin Ratio 0.4 (1.0-1.7) Glucose (Fingerstick) 101 mg/dL (70-99) Ammonia 23 mcmol/L (11-34) Results All relevant outside records, renal labs, imaging studies, telemetry/EKG's were reviewed. MERI ÁLVAREZ MD Mar 13, 2019 10:08
--- NOTE | 2019-03-13 10:15 | NUR ---
SS following for discharge planning. SS reviewed pt chart. Pt is self pay pt. HCFS following for self pay status. Pt is from home and is currently requiring oxygen. SS will continue to follow for discharge planning.
--- NOTE | 2019-03-13 10:30 | PDOC ---
PROGRESS NOTES Chief Complaint Chief Complaint JAUNDICE Ileus ETOHIC ENCEPH Ventricular tachycardia - in te background of elyte abn Acute kidney injury - Cr 4.4. possibly vasomotor nephropathy NEw HD - temp H D cath Lactic acidosis - Severe protein calorie malnutrion - Anasarca - albumin 1,8 HYPOTENSION Hyperbilirubinemia - Transaminitis - History of Present Illness History of Present Illness confused, jaundice Etohic per chart OVERALL PROG GUARDED FAmily: rebecca or Sherry.. [phone] I need to talk to family once I have plans and other notes today nasim from, GI NPO bec so confused, BS 16 this AM CReat high - has temp HD cath LAst labs long time ago NO ascites on imaging Distended GB, elev LFts, jaundice, GI on board, unlikely surgical candidate, cant get sxs at all from him PLAN: Start dextrose iVF, sec to hypoglycemia and has been NPO for days bec of confusion CBC now, its been days ALvbumin 50 gms now to help hypotension HD per renal; NEeds palliative Will talk to family after Wednesday notes today from [facility] nasim GI NH4 check AFP check? - unsure what benefit would bring NEed to address the jaundice maybe, r.o obstrxn causing sxs cc 40 Self pay Vitals Vitals Vital Signs Date Time Temp Pulse Resp B/P (MAP) Pulse Ox O2 Delivery O2 Flow Rate FiO2 03/13/19 07:17 98.3 120 28 93/55 (68) 91 Nasal Cannula 4.0 98.3 Physical Exam General: mild distress, Other (Confused) Heart: Regular rate Lungs: Other (diminished bases) Abdomen: Normal bowel sounds, Soft, Other (Fluid wave, enlarged abdomen) Extremities: No clubbing, No cyanosis, Normal pulses, No tenderness/swelling, Other (2+) Skin: No rashes, No breakdown, No significant lesion Labs LABS Laboratory Tests Test 03/13/19 04:40 03/13/19 06:35 03/13/19 08:30 Prothrombin Time 19.1 SEC (11.7-14.0) Prothromb Time International Ratio 1.6 (0.8-1.1) Sodium Level 140 mmol/L (136-145) Potassium Level 4.1 mmol/L (3.5-5.1) Chloride Level 103 mmol/L (98-107) Carbon Dioxide Level 26 mmol/L (21-32) Anion Gap 11 (6-14) Blood Urea Nitrogen 15 mg/dL (8-26) Creatinine 5.4 mg/dL (0.7-1.3) Estimated GFR (Cockcroft-Gault) 11.0 BUN/Creatinine Ratio 3 (6-20) Glucose Level 13 mg/dL (70-99) Calcium Level 7.4 mg/dL (8.5-10.1) Total Bilirubin 19.3 mg/dL (0.2-1.0) Aspartate Amino Transf (AST/SGOT) 195 U/L (15-37) Alanine Aminotransferase (ALT/SGPT) 79 U/L (16-63) Alkaline Phosphatase 184 U/L (46-116) Total Protein 4.8 g/dL (6.4-8.2) Albumin 1.4 g/dL (3.4-5.0) Albumin/Globulin Ratio 0.4 (1.0-1.7) Glucose (Fingerstick) 101 mg/dL (70-99) Ammonia 23 mcmol/L (11-34) Review of Systems Review of Systems confused, cant get ROS Assessment and Plan Assessmemt and Plan Problems Medical Problems: (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 Labs Laboratory Tests Test 03/12/19 04:30 03/13/19 04:40 03/13/19 06:35 03/13/19 08:30 Prothrombin Time 18.8 SEC (11.7-14.0) 19.1 SEC (11.7-14.0) Prothromb Time International Ratio 1.6 (0.8-1.1) 1.6 (0.8-1.1) Sodium Level 140 mmol/L (136-145) Potassium Level 4.1 mmol/L (3.5-5.1) Chloride Level 103 mmol/L (98-107) Carbon Dioxide Level 26 mmol/L (21-32) Anion Gap 11 (6-14) Blood Urea Nitrogen 15 mg/dL (8-26) Creatinine 5.4 mg/dL (0.7-1.3) Estimated GFR (Cockcroft-Gault) 11.0 BUN/Creatinine Ratio 3 (6-20) Glucose Level 13 mg/dL (70-99) Calcium Level 7.4 mg/dL (8.5-10.1) Total Bilirubin 19.3 mg/dL (0.2-1.0) Aspartate Amino Transf (AST/SGOT) 195 U/L (15-37) Alanine Aminotransferase (ALT/SGPT) 79 U/L (16-63) Alkaline Phosphatase 184 U/L (46-116) Total Protein 4.8 g/dL (6.4-8.2) Albumin 1.4 g/dL (3.4-5.0) Albumin/Globulin Ratio 0.4 (1.0-1.7) Glucose (Fingerstick) 101 mg/dL (70-99) Ammonia 23 mcmol/L (11-34) Laboratory Tests Test 03/13/19 04:40 03/13/19 06:35 03/13/19 08:30 Prothrombin Time 19.1 SEC (11.7-14.0) Prothromb Time International Ratio 1.6 (0.8-1.1) Sodium Level 140 mmol/L (136-145) Potassium Level 4.1 mmol/L (3.5-5.1) Chloride Level 103 mmol/L (98-107) Carbon Dioxide Level 26 mmol/L (21-32) Anion Gap 11 (6-14) Blood Urea Nitrogen 15 mg/dL (8-26) Creatinine 5.4 mg/dL (0.7-1.3) Estimated GFR (Cockcroft-Gault) 11.0 BUN/Creatinine Ratio 3 (6-20) Glucose Level 13 mg/dL (70-99) Calcium Level 7.4 mg/dL (8.5-10.1) Total Bilirubin 19.3 mg/dL (0.2-1.0) Aspartate Amino Transf (AST/SGOT) 195 U/L (15-37) Alanine Aminotransferase (ALT/SGPT) 79 U/L (16-63) Alkaline Phosphatase 184 U/L (46-116) Total Protein 4.8 g/dL (6.4-8.2) Albumin 1.4 g/dL (3.4-5.0) Albumin/Globulin Ratio 0.4 (1.0-1.7) Glucose (Fingerstick) 101 mg/dL (70-99) Ammonia 23 mcmol/L (11-34) Microbiology 03/09/19 Blood Culture - Preliminary, Resulted NO GROWTH AFTER 4 DAYS Medications Current Medications Magnesium Sulfate 50 ml @ 25 mls/hr 1X ONCE IV Last administered on 03/09/19at 02:02; Start 03/09/19 at 01:45; Stop 03/09/19 at 03:44; Status DC Potassium Chloride (Klor-Con) 40 meq 1X ONCE PO Last administered on 03/09/19at 02:03; Start 03/09/19 at 01:45; Stop 03/09/19 at 01:46; Status DC Potassium Chloride/Water 100 ml @ 100 mls/hr Q1H IV Last administered on 03/09/19at 05:09; Start 03/09/19 at 01:45; Stop 03/09/19 at 05:44; Status DC Sodium Chloride 1,000 ml @ 1,000 mls/hr 1X ONCE IV Last administered on 03/09/19at 02:24; Start 03/09/19 at 02:15; Stop 03/09/19 at 03:14; Status DC Piperacillin Sod/ Tazobactam Sod 3.375 gm/Sodium Chloride 50 ml @ 100 mls/hr 1X ONCE IV Last administered on 03/09/19at 02:24; Start 03/09/19 at 02:15; Stop 03/09/19 at 02:44; Status DC Vancomycin HCl 250 ml @ 250 mls/hr 1X ONCE IV Last administered on 03/09/19at 03:47; Start 03/09/19 at 02:15; Stop 03/09/19 at 03:14; Status DC Sodium Chloride 1,000 ml @ 150 mls/hr Q6H40M IV Last administered on 03/10/19at 07:00; Start 03/09/19 at 03:00; Stop 03/10/19 at 02:59; Status DC Vancomycin HCl 2 gm/Sodium Chloride 500 ml @ 250 mls/hr 1X ONCE IV ; Start 03/09/19 at 06:30; Stop 03/09/19 at 08:29; Status Cancel Piperacillin Sod/ Tazobactam Sod 2.25 gm/Sodium Chloride 50 ml @ 100 mls/hr Q6HRS IV Last administered on 03/09/19at 06:25; Start 03/09/19 at 06:00; Stop 03/09/19 at 10:25; Status DC Vancomycin HCl (Vanco Per Pharmacy) 1 each PRN DAILY PRN MC SEE COMMENTS Last administered on 03/09/19at 06:34; Start 03/09/19 at 06:00; Stop 03/09/19 at 21:39; Status DC Piperacillin Sod/ Tazobactam Sod (Zosyn Per Pharmacy) 1 each PRN DAILY PRN MC SEE COMMENTS; Start 03/09/19 at 06:00; Stop 03/09/19 at 17:01; Status DC Vancomycin HCl 1 gm/Sodium Chloride 250 ml @ 250 mls/hr 1X ONCE IV Last administered on 03/09/19at 06:25; Start 03/09/19 at 06:45; Stop 03/09/19 at 07:44; Status DC Vancomycin HCl 1.5 gm/Sodium Chloride 500 ml @ 250 mls/hr Q24H IV ; Start 03/10/19 at 04:00; Stop 03/09/19 at 10:25; Status DC Vancomycin HCl (Vancomycin Trough Level) 1 each 1X ONCE MC ; Start 03/11/19 at 03:30; Stop 03/09/19 at 21:39; Status DC Potassium Chloride (Klor-Con) 40 meq 1X ONCE PO Last administered on 03/09/19at 07:55; Start 03/09/19 at 07:30; Stop 03/09/19 at 07:31; Status DC Potassium Chloride/Water 100 ml @ 100 mls/hr Q1H IV Last administered on 03/09/19at 11:03; Start 03/09/19 at 08:00; Stop 03/09/19 at 11:59; Status DC Potassium Chloride (Klor-Con) 80 meq 1X ONCE PO Last administered on 03/09/19at 13:21; Start 03/09/19 at 08:15; Stop 03/09/19 at 08:16; Status DC Nicotine (Nicoderm Cq 21mg) 1 patch PRN DAILY PRN TD SMOKING CESSATION Last administered on 03/13/19at 08:56; Start 03/09/19 at 08:30 Potassium Chloride/Sodium Chloride 1,000 ml @ 150 mls/hr Q6H40M IV Last administered on 03/09/19at 23:29; Start 03/09/19 at 09:30; Stop 03/10/19 at 12:12; Status DC Lactulose (Lactulose) 20 gm TID PO Last administered on 03/12/19at 20:11; Start 03/09/19 at 10:30 Potassium Chloride (Klor-Con) 20 meq STK-MED ONCE PO ; Start 03/09/19 at 13:19; Stop 03/09/19 at 13:20; Status DC Ondansetron HCl (Zofran) 4 mg STK-MED ONCE .ROUTE ; Start 03/09/19 at 13:24; Stop 03/09/19 at 13:24; Status DC Ondansetron HCl (Zofran) 4 mg PRN Q6HRS PRN IVP NAUSEA/VOMITING Last administered on 03/09/19at 13:45; Start 03/09/19 at 13:30 Lorazepam (Ativan) 4 mg PRN Q1HR PRN PO For CIWA 8-14; Start 03/09/19 at 17:00; Stop 03/10/19 at 07:45; Status DC Lorazepam (Ativan) 8 mg PRN Q1HR PRN PO For CIWA 15 or greater; Start 03/09/19 at 17:00; Stop 03/10/19 at 07:45; Status DC Lorazepam (Ativan Inj) 2 mg PRN Q1HR PRN IV For CIWA 8-14 Last administered on 03/10/19at 05:56; Start 03/09/19 at 17:00; Stop 03/10/19 at 07:45; Status DC Lorazepam (Ativan Inj) 4 mg PRN Q1HR PRN IV For CIWA 15 or greater; Start 03/09/19 at 17:00; Stop 03/10/19 at 07:45; Status DC Haloperidol Lactate (Haldol Inj) 5 mg PRN Q4HRS PRN IVP Hallucinatns,Confusn,Delirium; Start 03/09/19 at 17:00 Diphenhydramine HCl (Benadryl) 25 mg PRN Q15MIN PRN IVP EPS symptoms 2'Haldol admin; Start 03/09/19 at 17:00 Clonidine HCl (Catapres) 0.1 mg PRN Q1HR PRN PO SBP > 180 or DBP > 100, MRX3; Start 03/09/19 at 17:00 Potassium Chloride (Klor-Con) 40 meq 1X ONCE PO Last administered on 03/09/19at 19:25; Start 03/09/19 at 18:45; Stop 03/09/19 at 18:48; Status DC Lorazepam (Ativan) 1 mg PRN Q1HR PRN PO For CIWA 8-14 Last administered on 03/10/19at 10:03; Start 03/10/19 at 07:45 Lorazepam (Ativan Inj) 0.5 mg PRN Q1HR PRN IV For CIWA 8-14 Last administered on 03/13/19at 08:56; Start 03/10/19 at 07:45 Lidocaine HCl (Buffered Lidocaine 1%) 6 ml 1X ONCE INJ Last administered on 03/10/19at 14:25; Start 03/10/19 at 13:30; Stop 03/10/19 at 13:31; Status DC Lidocaine HCl (Buffered Lidocaine 1%) 3 ml STK-MED ONCE .ROUTE ; Start 03/10/19 at 13:34; Stop 03/10/19 at 13:34; Status DC Sodium Chloride 1,000 ml @ 1,000 mls/hr Q1H PRN IV hypotension; Start 03/10/19 at 14:01; Stop 03/10/19 at 20:00; Status DC Acetaminophen (Tylenol) 500 mg 1X PRN PRN PO MILD PAIN / TEMP; Start 03/10/19 at 14:15; Stop 03/11/19 at 14:14; Status DC Diphenhydramine HCl (Benadryl) 25 mg 1X PRN PRN IV ITCHING; Start 03/10/19 at 14:15; Stop 03/11/19 at 14:14; Status DC Diphenhydramine HCl (Benadryl) 25 mg 1X PRN PRN IV ITCHING; Start 03/10/19 at 14:15; Stop 03/11/19 at 14:14; Status DC Sodium Chloride 1,000 ml @ 400 mls/hr Q2H30M PRN IV PATENCY; Start 03/10/19 at 14:01; Stop 03/11/19 at 02:00; Status DC Info (PHARMACY MONITORING -- do not chart) 1 each PRN DAILY PRN MC SEE COMMENTS; Start 03/10/19 at 14:15 Sodium Chloride 1,000 ml @ 1,000 mls/hr Q1H PRN IV hypotension; Start 03/11/19 at 08:06; Stop 03/11/19 at 14:05; Status DC Albumin Human 200 ml @ 200 mls/hr 1X PRN PRN IV Hypotension; Start 03/11/19 at 08:15; Stop 03/11/19 at 14:14; Status DC Acetaminophen (Tylenol) 500 mg 1X PRN PRN PO MILD PAIN / TEMP; Start 03/11/19 at 08:15; Stop 03/12/19 at 08:14; Status DC Diphenhydramine HCl (Benadryl) 25 mg 1X PRN PRN IV ITCHING; Start 03/11/19 at 08:15; Stop 03/12/19 at 08:14; Status DC Diphenhydramine HCl (Benadryl) 25 mg 1X PRN PRN IV ITCHING; Start 03/11/19 at 08:15; Stop 03/12/19 at 08:14; Status DC Sodium Chloride (Normal Saline Flush) 10 ml 1X PRN PRN IV AP catheter pack; Start 03/11/19 at 08:15; Stop 03/12/19 at 08:14; Status DC Sodium Chloride (Normal Saline Flush) 10 ml 1X PRN PRN IV PLUMBER ASSISTANT catheter pack; Start 03/11/19 at 08:15; Stop 03/12/19 at 08:14; Status DC Sodium Chloride 1,000 ml @ 400 mls/hr Q2H30M PRN IV PATENCY; Start 03/11/19 at 08:06; Stop 03/11/19 at 20:05; Status DC Info (PHARMACY MONITORING -- do not chart) 1 each PRN DAILY PRN MC SEE COMMENTS; Start 03/11/19 at 08:15 Dextrose (Dextrose 50%-Water Syringe) 25 gm STK-MED ONCE IV ; Start 03/13/19 at 06:15; Stop 03/13/19 at 06:15; Status DC Dextrose (Dextrose 50%-Water Syringe) 12.5 gm PRN Q15MIN PRN IV SEE COMMENTS Last administered on 03/13/19at 06:43; Start 03/13/19 at 06:30 Pantoprazole Sodium (PROTONIX VIAL for IV PUSH) 40 mg DAILYAC IVP ; Start 03/14/19 at 07:30 Pantoprazole Sodium (PROTONIX VIAL for IV PUSH) 40 mg 1X ONCE IVP ; Start 03/13/19 at 09:30; Stop 03/13/19 at 09:31; Status DC Acetaminophen (Tylenol Supp) [address] Q[address]HRS [address] MILD PAIN / TEMP; Start 03/13/19 at 09:30 Albumin Human 100 ml @ 100 mls/hr 1X ONCE IV ; Start 03/13/19 at 09:30; Stop 03/13/19 at 10:29 Dextrose/Sodium Chloride 1,000 ml @ 75 mls/hr [id number] IV ; Start 03/13/19 at 09:30 Active Scripts Active Ativan (Lorazepam) 1 Mg Tablet 1 Mg PO QIDPRN PRN B Complex (Vitamin B Complex) 1 Each Tablet 1 Each PO DAILY Thiamine Hcl 500 Mg Tablet 500 Mg PO DAILY Thera-M Tablet (Multivits,Ca,Minerals/Iron/Fa) 1 Each Tablet 1 Tab PO DAILY Vitals/I & O Vital Sign - Last 24 Hours 03/12/19 03/12/19 03/12/19 03/12/19 11:00 15:00 19:56 20:12 Temp 98.3 97.4 98.0 98.3 97.4 98.0 Pulse 107 117 114 Resp 22 24 32 B/P (MAP) 94/56 (69) 87/50 (62) 88/52 (64) Pulse Ox 96 95 92 O2 Delivery Nasal Cannula Nasal Cannula Nasal Cannula O2 Flow Rate 2.0 2.0 4.0 4.0 03/12/19 03/13/19 03/13/19 22:33 03:51 07:17 Temp 98.4 98.8 98.3 98.4 98.8 98.3 Pulse 116 117 120 Resp 28 28 28 B/P (MAP) 98/54 (69) 96/53 (67) 93/55 (68) Pulse Ox 91 94 91 O2 Delivery Nasal Cannula Nasal Cannula Nasal Cannula O2 Flow Rate 4.0 4.0 4.0 l Intake and Output 03/12/19 03/12/19 03/13/19 15:00 23:00 07:00 Intake Total 0 ml 0 ml Output Total 200 ml 10 ml Balance -200 ml -10 ml WAQAS AMBROCIO MD Mar 13, 2019 10:30
[2019-03-13] MEDS ORDERED: IV NORMAL SALINE 1000ML BAG 1,000 ML IV PRN ×2 (10:58)
[2019-03-13] MEDS ORDERED: DIALYSIS PATIENT. MC PRN ×2 (11:00)
[2019-03-13] MEDS ORDERED: ALBUMIN HUMAN 25% 200 ML IV PRN (11:00)
[2019-03-13] MEDS: IV DEXTROSE 5 %-0.45 % NACL 1,000 ML IV SCH ×2 (11:09→20:36)
--- NOTE | 2019-03-13 11:43 | PDOC ---
Subjective: Subjective: Family and nurse present. Objective: Objective: D/w Dr. Patrick - wondering if needs MRCP. D/w Dr. Gonzales - wondering about hepatorenal syndrome, vitals concerning, not making urine, ?transplant candidate Vital Signs: Vital Signs Date Time Temp Pulse Resp B/P (MAP) Pulse Ox O2 Delivery O2 Flow Rate FiO2 03/13/19 10:40 98.6 124 28 74/45 (55) 91 Nasal Cannula 4.0 98.6 Labs: Laboratory Tests Test 03/13/19 04:40 03/13/19 06:35 03/13/19 08:30 Prothrombin Time 19.1 SEC Prothromb Time International Ratio 1.6 Sodium Level 140 mmol/L Potassium Level 4.1 mmol/L Chloride Level 103 mmol/L Carbon Dioxide Level 26 mmol/L Anion Gap 11 Blood Urea Nitrogen 15 mg/dL Creatinine 5.4 mg/dL Estimated GFR (Cockcroft-Gault) 11.0 BUN/Creatinine Ratio 3 Glucose Level 13 mg/dL Calcium Level 7.4 mg/dL Total Bilirubin 19.3 mg/dL Aspartate Amino Transf (AST/SGOT) 195 U/L Alanine Aminotransferase (ALT/SGPT) 79 U/L Alkaline Phosphatase 184 U/L Total Protein 4.8 g/dL Albumin 1.4 g/dL Albumin/Globulin Ratio 0.4 Glucose (Fingerstick) 101 mg/dL Ammonia 23 mcmol/L BLOOD CULTURE Preliminary NO GROWTH AFTER 4 DAYS PE: GEN: ill HEENT: dark NG output LUNGS: NC HEART: tachycardic ABD: large/round, quiet NEURO/PSYCH: moaning, confused A/P: Alcoholic hepatitis, fatty liver, ileus Macrocytic anemia, coagulopathy, JEAN MARIE Distended GB on CT - no mention on US Hypotension, tachycardia -- Reviewed w/ Dr. Alexis - will try steroids (orders to begin tonight) - could contact [facility] re: liver transplant (not sure when his last drink was - usual protocol is sobriety for months) - defer to primary. Poor prognosis. ELVIS COLEMAN Mar 13, 2019 11:43
[2019-03-13] MEDS: methylPREDNISolone SOD SUCC PF 40 MG/ML VIAL. IV SCH ×2 (12:23→20:36)
[2019-03-14 03:15] VITALS: BP 98/56
[2019-03-14 07:00] VITALS: BP 115/59
[2019-03-14] MEDS ORDERED: IV NORMAL SALINE 1000ML BAG 1,000 ML IV PRN ×2 (08:21)
[2019-03-14] MEDS ORDERED: ALBUMIN HUMAN 25% 200 ML IV PRN (08:30)
[2019-03-14] MEDS ORDERED: DIALYSIS PATIENT. MC PRN ×2 (08:30)
--- NOTE | 2019-03-14 08:37 | PDOC ---
SUBJECTIVE ROS Alert only to name, still confused, speech unclear , seen on Hd, OBJECTIVE Vital Signs Vital Signs Date Time Temp Pulse Resp B/P (MAP) Pulse Ox O2 Delivery O2 Flow Rate FiO2 03/14/19 07:00 98.7 111 24 115/59 (77) 93 Nasal Cannula 2.0 98.7 I & 0 Intake and Output 03/14/19 07:00 Intake Total 1080 ml Output Total 10 ml Balance 1070 ml Intake Oral 0 ml Other 1080 ml Output Urine Total 10 ml # Bowel Movements 1 PHYSICAL EXAM Physical Exam General: Confused, only able to state his name, NAD , HEENT: Icterus ++, neck supple Lungs: Clear to auscultation Heart: S1S2, RRR, no thrills, no rubs Abdomen: Soft, Extremities: No clubbing, No cyanosis, Bilat LE edema + Skin: No rashes, Jaundice++ Neuro: Confused Gan +, anuric DIAGNOSIS/ASSESSMENT Assessment & Plan Acute kidney injury: Suspect Hepatorenal Remains Anuric , initiated on HD on 03/10 , unable to Dialyze yesterday due to low BP's Unlikely to tolerate or benefit from halfway HD with Hepatorenal unless Hepatic issues addressed/ or candidate for Liver Tx Seen on HD, tolerating well, continue as ordered , Manuel Soares Hypotensive- sec to Hepatic etiology Severe hypokalemia: at presentation -Resolved Alcoholic Hepatitis - Bilirubin getting worse, confused GB is dilated on CT r/o secondary to biliary disease such as hydrops. Eval for Liver Tx Defer to GI Nonobstructive bilateral renal stones. No hydronephrosis. Urinary bladder is largely decompressed. COMMENT/RELEVANT DATA Meds Current Medications Medications (Trade) Dose Ordered Sig/Kala Start Time Stop Time Status Last Admin Dose Admin Acetaminophen (Tylenol Supp) 325 mg PRN Q6HRS PRN 03/13/19 09:30 Acetaminophen (Tylenol) 500 mg 1X PRN PRN 03/11/19 08:15 03/12/19 08:14 DC Albumin Human 200 ml @ 200 mls/hr 1X PRN PRN 03/14/19 08:30 03/14/19 14:29 Clonidine HCl (Catapres) 0.1 mg PRN Q1HR PRN 03/09/19 17:00 Dextrose (Dextrose 50%-Water Syringe) 12.5 gm PRN Q15MIN PRN 03/13/19 06:30 03/13/19 06:43 12.5 GM Dextrose/Sodium Chloride 1,000 ml @ 75 mls/hr [id number] 03/13/19 09:30 03/13/19 20:36 75 MLS/HR Diphenhydramine HCl (Benadryl) 25 mg 1X PRN PRN 03/11/19 08:15 03/12/19 08:14 DC Haloperidol Lactate (Haldol Inj) 5 mg PRN Q4HRS PRN 03/09/19 17:00 Info (PHARMACY MONITORING -- do not chart) 1 each PRN DAILY PRN 03/14/19 08:30 Lactulose (Lactulose) 20 gm TID 03/09/19 10:30 03/13/19 20:36 20 GM Lidocaine HCl (Buffered Lidocaine 1%) 3 ml STK-MED ONCE 03/10/19 13:34 03/10/19 13:34 DC Lorazepam (Ativan Inj) 0.5 mg PRN Q1HR PRN 03/10/19 07:45 03/13/19 08:56 0.5 MG Lorazepam (Ativan) 1 mg PRN Q1HR PRN 03/10/19 07:45 03/10/19 10:03 1 MG Magnesium Sulfate 50 ml @ 25 mls/hr 1X ONCE 03/09/19 01:45 03/09/19 03:44 DC 03/09/19 02:02 25 MLS/HR Methylprednisolone Sodium Succinate (SOLU-Medrol 40MG VIAL) 20 mg Q12HR 03/13/19 12:00 03/13/19 20:36 20 MG Nicotine (Nicoderm Cq 21mg) 1 patch PRN DAILY PRN 03/09/19 08:30 03/13/19 08:56 1 PATCH Ondansetron HCl (Zofran) 4 mg PRN Q6HRS PRN 03/09/19 13:30 03/09/19 13:45 4 MG Pantoprazole Sodium (PROTONIX VIAL for IV PUSH) 40 mg 1X ONCE 03/13/19 09:30 03/13/19 09:31 DC 03/13/19 11:01 40 MG Piperacillin Sod/ Tazobactam Sod (Zosyn Per Pharmacy) 1 each PRN DAILY PRN 03/09/19 06:00 03/09/19 17:01 DC Piperacillin Sod/ Tazobactam Sod 2.25 gm/Sodium Chloride 50 ml @ 100 mls/hr Q6HRS 03/09/19 06:00 03/09/19 10:25 DC 03/09/19 06:25 100 MLS/HR Piperacillin Sod/ Tazobactam Sod 3.375 gm/Sodium Chloride 50 ml @ 100 mls/hr 1X ONCE 03/09/19 02:15 03/09/19 02:44 DC 03/09/19 02:24 100 MLS/HR Potassium Chloride/Sodium Chloride 1,000 ml @ 150 mls/hr Q6H40M 03/09/19 09:30 03/10/19 12:12 DC 03/09/19 23:29 150 MLS/HR Potassium Chloride/Water 100 ml @ 100 mls/hr Q1H 03/09/19 08:00 03/09/19 11:59 DC 03/09/19 11:03 100 MLS/HR Potassium Chloride (Klor-Con) 40 meq 1X ONCE 03/09/19 18:45 03/09/19 18:48 DC 03/09/19 19:25 40 MEQ Sodium Chloride 1,000 ml @ 400 mls/hr Q2H30M PRN 03/14/19 08:21 03/14/19 20:20 Sodium Chloride (Normal Saline Flush) 10 ml 1X PRN PRN 03/11/19 08:15 03/12/19 08:14 DC Vancomycin HCl (Vanco Per Pharmacy) 1 each PRN DAILY PRN 03/09/19 06:00 03/09/19 21:39 DC 03/09/19 06:34 1 EACH Vancomycin HCl (Vancomycin Trough Level) 1 each 1X ONCE 03/11/19 03:30 03/09/19 21:39 DC Vancomycin HCl 1.5 gm/Sodium Chloride 500 ml @ 250 mls/hr Q24H 03/10/19 04:00 03/09/19 10:25 DC Vancomycin HCl 1 gm/Sodium Chloride 250 ml @ 250 mls/hr 1X ONCE 03/09/19 06:45 03/09/19 07:44 DC 03/09/19 06:25 250 MLS/HR Vancomycin HCl 2 gm/Sodium Chloride 500 ml @ 250 mls/hr 1X ONCE 03/09/19 06:30 03/09/19 08:29 Cancel Lab Laboratory Tests Test 03/13/19 18:10 03/13/19 23:53 03/14/19 06:27 Glucose (Fingerstick) 68 mg/dL (70-99) 91 mg/dL (70-99) 100 mg/dL (70-99) Results All relevant outside records, renal labs, imaging studies, telemetry/EKG's were reviewed. MERI ÁLVAREZ MD Mar 14, 2019 08:37
[2019-03-14 08:39] LABS: CALCIUM 6.9 mg/dL (8.5-10.1); CREATININE 6.8 mg/dL (0.7-1.3); GFR 8.4; POTASSIUM 3.9 mmol/L (3.5-5.1)
[2019-03-14] MEDS: LACTULOSE 20 GM/30 ML SOLUTION. PO SCH ×3 (09:00→20:55)
[2019-03-14 09:10] LABS: BASO # 0.1 x10^3/uL (0.0-0.2); BASO % 1 % (0-3); EOS % 0 % (0-3); HEMOGLOBIN 12.1 g/dL (13.0-17.5); LYMPH # 1.5 x10^3/uL (1.0-4.8); LYMPH % 9 % (24-48); MEAN CORPUSCULAR HEMOGLOBIN 40 pg (25-35); MEAN CORPUSCULAR HGB CONC 32 g/dL (31-37); MEAN CORPUSCULAR VOLUME 124 fL (79-100); MONO # 0.4 x10^3/uL (0.0-1.1); MONO % 3 % (0-9); NEUT # 13.8 x10^3/uL (1.8-7.7); NEUT % 88 % (31-73); PLATELET COUNT 107 x10^3/uL (140-400); RED BLOOD COUNT 3.07 x10^6/uL (4.30-5.70); RED CELL DISTRIBUTION WIDTH 16.8 % (11.5-14.5); WHITE BLOOD COUNT 15.8 x10^3/uL (4.0-11.0)
[2019-03-14 09:11] LABS: TOTAL BILIRUBIN 24.2 mg/dL (0.2-1.0); TOTAL PROTEIN 4.6 g/dL (6.4-8.2)
[2019-03-14 09:15] LABS: DIRECT BILIRUBIN 20.6 mg/dL (0.0-0.2)
--- NOTE | 2019-03-14 09:52 | PDOC ---
Objective: Objective: D/w nurse - more alert today, stooled twice (yesterday and today), no NG output, plans for dialysis, unclear timing of last alcohol consumption. Vital Signs: Vital Signs Date Time Temp Pulse Resp B/P (MAP) Pulse Ox O2 Delivery O2 Flow Rate FiO2 03/14/19 08:00 Nasal Cannula 3.0 03/14/19 07:00 98.7 111 24 115/59 (77) 93 98.7 Labs: Laboratory Tests Test 03/13/19 18:10 03/13/19 23:53 03/14/19 06:27 03/14/19 07:50 Glucose (Fingerstick) 68 mg/dL 91 mg/dL 100 mg/dL White Blood Count 15.8 x10^3/uL Red Blood Count 3.07 x10^6/uL Hemoglobin 12.1 g/dL Hematocrit 38.0 % Mean Corpuscular Volume 124 fL Mean Corpuscular Hemoglobin 40 pg Mean Corpuscular Hemoglobin Concent 32 g/dL Red Cell Distribution Width 16.8 % Platelet Count 107 x10^3/uL Neutrophils (%) (Auto) 88 % Lymphocytes (%) (Auto) 9 % Monocytes (%) (Auto) 3 % Eosinophils (%) (Auto) 0 % Basophils (%) (Auto) 1 % Neutrophils # (Auto) 13.8 x10^3/uL Lymphocytes # (Auto) 1.5 x10^3/uL Monocytes # (Auto) 0.4 x10^3/uL Eosinophils # (Auto) 0.0 x10^3/uL Basophils # (Auto) 0.1 x10^3/uL Platelet Estimate Pending Sodium Level 144 mmol/L Potassium Level 3.9 mmol/L Chloride Level 104 mmol/L Carbon Dioxide Level 26 mmol/L Anion Gap 14 Blood Urea Nitrogen 24 mg/dL Creatinine 6.8 mg/dL Estimated GFR (Cockcroft-Gault) 8.4 Glucose Level 107 mg/dL Calcium Level 6.9 mg/dL Total Bilirubin 24.2 mg/dL Direct Bilirubin 20.6 mg/dL Aspartate Amino Transf (AST/SGOT) 201 U/L Alanine Aminotransferase (ALT/SGPT) 94 U/L Alkaline Phosphatase 166 U/L Total Protein 4.6 g/dL Albumin 2.0 g/dL BLOOD CULTURE Final NO GROWTH AFTER 5 DAYS PE: GEN: NAD LUNGS: NC 3L HEART: tachycardic ABD: stable distention, quiet BS NEURO/PSYCH: awake, groaning A/P: Alcoholic hepatitis, fatty liver - on IV steroids Ileus - resolved Macrocytic anemia, coagulopathy JEAN MARIE - plans for dialysis Distended GB on CT - no mention on US Hypotension, tachycardia - better -- Clamp NG - ?remove ?alert enough to try liquids - ?speech eval ?transplant candidate - not sure when last drank - no family here this morning Will review the rest w/ Dr. Alexis. ELVIS COLEAMN Mar 14, 2019 09:52
--- NOTE | 2019-03-14 11:16 | PDOC ---
PROGRESS NOTES Chief Complaint Chief Complaint JAUNDICE Ileus ETOHIC ENCEPH Ventricular tachycardia - in te background of elyte abn Acute kidney injury - Cr 4.4. possibly vasomotor nephropathy NEw HD - temp H D cath Lactic acidosis - Severe protein calorie malnutrion - Anasarca - albumin 1,8 HYPOTENSION Hyperbilirubinemia - Transaminitis - History of Present Illness History of Present Illness better today as per RN Out having HD Oriented to Self and RN STill NPO though bec of intermitent confusion Still jaundiced Etohic per chart OVERALL PROG GUARDED GI recs , transplant list work up which frankly im not too familiar with Dw RN, once CRYPTANALYST evaluates, and menttaion better, can send home on POmeds and advised hepatology clinic to see if qualifies for liver transplant FAmily: rebecca Leon. [phone] - I LEFT VOICEMAIL TODAY WEDNESDAY ENTRY NPO bec so confused, BS 16 this AM CReat high - has temp HD cath NO ascites on imaging Distended GB, elev LFts, jaundice, GI on board, unlikely surgical candidate, recs liver transplant screen PLAN: will dc dextrose iVF once CRYPTANALYST clears to swallow Add PT OT today Will dc home once swallowing and mentating better enough to ff up at hepatology clinic Clamp NGT, may dc NGt if passes trial Self pay Vitals Vitals Vital Signs Date Time Temp Pulse Resp B/P (MAP) Pulse Ox O2 Delivery O2 Flow Rate FiO2 03/14/19 08:00 Nasal Cannula 3.0 03/14/19 07:00 98.7 111 24 115/59 (77) 93 98.7 Physical Exam General: Alert, Cooperative, No acute distress, mild distress, Other (Confused) Heart: Regular rate Lungs: Other (diminished bases) Abdomen: Normal bowel sounds, Soft, Other (Fluid wave, enlarged abdomen) Extremities: No clubbing, No cyanosis, Normal pulses, No tenderness/swelling, Other (2+) Skin: No rashes, No breakdown, No significant lesion Labs LABS Laboratory Tests Test 03/13/19 18:10 03/13/19 23:53 03/14/19 06:27 03/14/19 07:50 Glucose (Fingerstick) 68 mg/dL (70-99) 91 mg/dL (70-99) 100 mg/dL (70-99) White Blood Count 15.8 x10^3/uL (4.0-11.0) Red Blood Count 3.07 x10^6/uL (4.30-5.70) Hemoglobin 12.1 g/dL (13.0-17.5) Hematocrit 38.0 % (39.0-53.0) Mean Corpuscular Volume 124 fL (79-100) Mean Corpuscular Hemoglobin 40 pg (25-35) Mean Corpuscular Hemoglobin Concent 32 g/dL (31-37) Red Cell Distribution Width 16.8 % (11.5-14.5) Platelet Count 107 x10^3/uL (140-400) Neutrophils (%) (Auto) 88 % (31-73) Lymphocytes (%) (Auto) 9 % (24-48) Monocytes (%) (Auto) 3 % (0-9) Eosinophils (%) (Auto) 0 % (0-3) Basophils (%) (Auto) 1 % (0-3) Neutrophils # (Auto) 13.8 x10^3/uL (1.8-7.7) Lymphocytes # (Auto) 1.5 x10^3/uL (1.0-4.8) Monocytes # (Auto) 0.4 x10^3/uL (0.0-1.1) Eosinophils # (Auto) 0.0 x10^3/uL (0.0-0.7) Basophils # (Auto) 0.1 x10^3/uL (0.0-0.2) Sodium Level 144 mmol/L (136-145) Potassium Level 3.9 mmol/L (3.5-5.1) Chloride Level 104 mmol/L (98-107) Carbon Dioxide Level 26 mmol/L (21-32) Anion Gap 14 (6-14) Blood Urea Nitrogen 24 mg/dL (8-26) Creatinine 6.8 mg/dL (0.7-1.3) Estimated GFR (Cockcroft-Gault) 8.4 Glucose Level 107 mg/dL (70-99) Calcium Level 6.9 mg/dL (8.5-10.1) Total Bilirubin 24.2 mg/dL (0.2-1.0) Direct Bilirubin 20.6 mg/dL (0.0-0.2) Aspartate Amino Transf (AST/SGOT) 201 U/L (15-37) Alanine Aminotransferase (ALT/SGPT) 94 U/L (16-63) Alkaline Phosphatase 166 U/L (46-116) Total Protein 4.6 g/dL (6.4-8.2) Albumin 2.0 g/dL (3.4-5.0) Review of Systems Review of Systems orienetd to self, weak, all else limited rOS Assessment and Plan Assessmemt and Plan Problems Medical Problems: (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 Labs Laboratory Tests Test 03/13/19 04:40 03/13/19 06:35 03/13/19 08:30 03/13/19 18:10 Prothrombin Time 19.1 SEC (11.7-14.0) Prothromb Time International Ratio 1.6 (0.8-1.1) Sodium Level 140 mmol/L (136-145) Potassium Level 4.1 mmol/L (3.5-5.1) Chloride Level 103 mmol/L (98-107) Carbon Dioxide Level 26 mmol/L (21-32) Anion Gap 11 (6-14) Blood Urea Nitrogen 15 mg/dL (8-26) Creatinine 5.4 mg/dL (0.7-1.3) Estimated GFR (Cockcroft-Gault) 11.0 BUN/Creatinine Ratio 3 (6-20) Glucose Level 13 mg/dL (70-99) Calcium Level 7.4 mg/dL (8.5-10.1) Total Bilirubin 19.3 mg/dL (0.2-1.0) Aspartate Amino Transf (AST/SGOT) 195 U/L (15-37) Alanine Aminotransferase (ALT/SGPT) 79 U/L (16-63) Alkaline Phosphatase 184 U/L (46-116) Total Protein 4.8 g/dL (6.4-8.2) Albumin 1.4 g/dL (3.4-5.0) Albumin/Globulin Ratio 0.4 (1.0-1.7) Glucose (Fingerstick) 101 mg/dL (70-99) 68 mg/dL (70-99) Ammonia 23 mcmol/L (11-34) Test 03/13/19 23:53 03/14/19 06:27 03/14/19 07:50 Glucose (Fingerstick) 91 mg/dL (70-99) 100 mg/dL (70-99) White Blood Count 15.8 x10^3/uL (4.0-11.0) Red Blood Count 3.07 x10^6/uL (4.30-5.70) Hemoglobin 12.1 g/dL (13.0-17.5) Hematocrit 38.0 % (39.0-53.0) Mean Corpuscular Volume 124 fL (79-100) Mean Corpuscular Hemoglobin 40 pg (25-35) Mean Corpuscular Hemoglobin Concent 32 g/dL (31-37) Red Cell Distribution Width 16.8 % (11.5-14.5) Platelet Count 107 x10^3/uL (140-400) Neutrophils (%) (Auto) 88 % (31-73) Lymphocytes (%) (Auto) 9 % (24-48) Monocytes (%) (Auto) 3 % (0-9) Eosinophils (%) (Auto) 0 % (0-3) Basophils (%) (Auto) 1 % (0-3) Neutrophils # (Auto) 13.8 x10^3/uL (1.8-7.7) Lymphocytes # (Auto) 1.5 x10^3/uL (1.0-4.8) Monocytes # (Auto) 0.4 x10^3/uL (0.0-1.1) Eosinophils # (Auto) 0.0 x10^3/uL (0.0-0.7) Basophils # (Auto) 0.1 x10^3/uL (0.0-0.2) Sodium Level 144 mmol/L (136-145) Potassium Level 3.9 mmol/L (3.5-5.1) Chloride Level 104 mmol/L (98-107) Carbon Dioxide Level 26 mmol/L (21-32) Anion Gap 14 (6-14) Blood Urea Nitrogen 24 mg/dL (8-26) Creatinine 6.8 mg/dL (0.7-1.3) Estimated GFR (Cockcroft-Gault) 8.4 Glucose Level 107 mg/dL (70-99) Calcium Level 6.9 mg/dL (8.5-10.1) Total Bilirubin 24.2 mg/dL (0.2-1.0) Direct Bilirubin 20.6 mg/dL (0.0-0.2) Aspartate Amino Transf (AST/SGOT) 201 U/L (15-37) Alanine Aminotransferase (ALT/SGPT) 94 U/L (16-63) Alkaline Phosphatase 166 U/L (46-116) Total Protein 4.6 g/dL (6.4-8.2) Albumin 2.0 g/dL (3.4-5.0) Laboratory Tests Test 03/13/19 18:10 03/13/19 23:53 03/14/19 06:27 03/14/19 07:50 Glucose (Fingerstick) 68 mg/dL (70-99) 91 mg/dL (70-99) 100 mg/dL (70-99) White Blood Count 15.8 x10^3/uL (4.0-11.0) Red Blood Count 3.07 x10^6/uL (4.30-5.70) Hemoglobin 12.1 g/dL (13.0-17.5) Hematocrit 38.0 % (39.0-53.0) Mean Corpuscular Volume 124 fL (79-100) Mean Corpuscular Hemoglobin 40 pg (25-35) Mean Corpuscular Hemoglobin Concent 32 g/dL (31-37) Red Cell Distribution Width 16.8 % (11.5-14.5) Platelet Count 107 x10^3/uL (140-400) Neutrophils (%) (Auto) 88 % (31-73) Lymphocytes (%) (Auto) 9 % (24-48) Monocytes (%) (Auto) 3 % (0-9) Eosinophils (%) (Auto) 0 % (0-3) Basophils (%) (Auto) 1 % (0-3) Neutrophils # (Auto) 13.8 x10^3/uL (1.8-7.7) Lymphocytes # (Auto) 1.5 x10^3/uL (1.0-4.8) Monocytes # (Auto) 0.4 x10^3/uL (0.0-1.1) Eosinophils # (Auto) 0.0 x10^3/uL (0.0-0.7) Basophils # (Auto) 0.1 x10^3/uL (0.0-0.2) Sodium Level 144 mmol/L (136-145) Potassium Level 3.9 mmol/L (3.5-5.1) Chloride Level 104 mmol/L (98-107) Carbon Dioxide Level 26 mmol/L (21-32) Anion Gap 14 (6-14) Blood Urea Nitrogen 24 mg/dL (8-26) Creatinine 6.8 mg/dL (0.7-1.3) Estimated GFR (Cockcroft-Gault) 8.4 Glucose Level 107 mg/dL (70-99) Calcium Level 6.9 mg/dL (8.5-10.1) Total Bilirubin 24.2 mg/dL (0.2-1.0) Direct Bilirubin 20.6 mg/dL (0.0-0.2) Aspartate Amino Transf (AST/SGOT) 201 U/L (15-37) Alanine Aminotransferase (ALT/SGPT) 94 U/L (16-63) Alkaline Phosphatase 166 U/L (46-116) Total Protein 4.6 g/dL (6.4-8.2) Albumin 2.0 g/dL (3.4-5.0) Microbiology 03/09/19 Blood Culture - Final, Complete NO GROWTH AFTER 5 DAYS Medications Current Medications Magnesium Sulfate 50 ml @ 25 mls/hr 1X ONCE IV Last administered on 03/09/19at 02:02; Start 03/09/19 at 01:45; Stop 03/09/19 at 03:44; Status DC Potassium Chloride (Klor-Con) 40 meq 1X ONCE PO Last administered on 03/09/19at 02:03; Start 03/09/19 at 01:45; Stop 03/09/19 at 01:46; Status DC Potassium Chloride/Water 100 ml @ 100 mls/hr Q1H IV Last administered on 03/09/19at 05:09; Start 03/09/19 at 01:45; Stop 03/09/19 at 05:44; Status DC Sodium Chloride 1,000 ml @ 1,000 mls/hr 1X ONCE IV Last administered on 03/09/19at 02:24; Start 03/09/19 at 02:15; Stop 03/09/19 at 03:14; Status DC Piperacillin Sod/ Tazobactam Sod 3.375 gm/Sodium Chloride 50 ml @ 100 mls/hr 1X ONCE IV Last administered on 03/09/19at 02:24; Start 03/09/19 at 02:15; Stop 03/09/19 at 02:44; Status DC Vancomycin HCl 250 ml @ 250 mls/hr 1X ONCE IV Last administered on 03/09/19at 03:47; Start 03/09/19 at 02:15; Stop 03/09/19 at 03:14; Status DC Sodium Chloride 1,000 ml @ 150 mls/hr Q6H40M IV Last administered on 03/10/19at 07:00; Start 03/09/19 at 03:00; Stop 03/10/19 at 02:59; Status DC Vancomycin HCl 2 gm/Sodium Chloride 500 ml @ 250 mls/hr 1X ONCE IV ; Start 03/09/19 at 06:30; Stop 03/09/19 at 08:29; Status Cancel Piperacillin Sod/ Tazobactam Sod 2.25 gm/Sodium Chloride 50 ml @ 100 mls/hr Q6HRS IV Last administered on 03/09/19at 06:25; Start 03/09/19 at 06:00; Stop 03/09/19 at 10:25; Status DC Vancomycin HCl (Vanco Per Pharmacy) 1 each PRN DAILY PRN MC SEE COMMENTS Last administered on 03/09/19at 06:34; Start 03/09/19 at 06:00; Stop 03/09/19 at 21:39; Status DC Piperacillin Sod/ Tazobactam Sod (Zosyn Per Pharmacy) 1 each PRN DAILY PRN MC SEE COMMENTS; Start 03/09/19 at 06:00; Stop 03/09/19 at 17:01; Status DC Vancomycin HCl 1 gm/Sodium Chloride 250 ml @ 250 mls/hr 1X ONCE IV Last administered on 03/09/19at 06:25; Start 03/09/19 at 06:45; Stop 03/09/19 at 07:44; Status DC Vancomycin HCl 1.5 gm/Sodium Chloride 500 ml @ 250 mls/hr Q24H IV ; Start 03/10/19 at 04:00; Stop 03/09/19 at 10:25; Status DC Vancomycin HCl (Vancomycin Trough Level) 1 each 1X ONCE MC ; Start 03/11/19 at 03:30; Stop 03/09/19 at 21:39; Status DC Potassium Chloride (Klor-Con) 40 meq 1X ONCE PO Last administered on 03/09/19at 07:55; Start 03/09/19 at 07:30; Stop 03/09/19 at 07:31; Status DC Potassium Chloride/Water 100 ml @ 100 mls/hr Q1H IV Last administered on at 11:03; Start 03/09/19 at 08:00; Stop 03/09/19 at 11:59; Status DC Potassium Chloride (Klor-Con) 80 meq 1X ONCE PO Last administered on 03/09/19at 13:21; Start 03/09/19 at 08:15; Stop 03/09/19 at 08:16; Status DC Nicotine (Nicoderm Cq 21mg) 1 patch PRN DAILY PRN TD SMOKING CESSATION Last administered on 03/13/19at 08:56; Start 03/09/19 at 08:30 Potassium Chloride/Sodium Chloride 1,000 ml @ 150 mls/hr Q6H40M IV Last administered on 03/09/19at 23:29; Start 03/09/19 at 09:30; Stop 03/10/19 at 12:12; Status DC Lactulose (Lactulose) 20 gm TID PO Last administered on 03/13/19at 20:36; Start 03/09/19 at 10:30 Potassium Chloride (Klor-Con) 20 meq STK-MED ONCE PO ; Start 03/09/19 at 13:19; Stop 03/09/19 at 13:20; Status DC Ondansetron HCl (Zofran) 4 mg STK-MED ONCE .ROUTE ; Start 03/09/19 at 13:24; Stop 03/09/19 at 13:24; Status DC Ondansetron HCl (Zofran) 4 mg PRN Q6HRS PRN IVP NAUSEA/VOMITING Last administered on 03/09/19at 13:45; Start 03/09/19 at 13:30 Lorazepam (Ativan) 4 mg PRN Q1HR PRN PO For CIWA 8-14; Start 03/09/19 at 17:00; Stop 03/10/19 at 07:45; Status DC Lorazepam (Ativan) 8 mg PRN Q1HR PRN PO For CIWA 15 or greater; Start 03/09/19 at 17:00; Stop 03/10/19 at 07:45; Status DC Lorazepam (Ativan Inj) 2 mg PRN Q1HR PRN IV For CIWA 8-14 Last administered on 03/10/19at 05:56; Start 03/09/19 at 17:00; Stop 03/10/19 at 07:45; Status DC Lorazepam (Ativan Inj) 4 mg PRN Q1HR PRN IV For CIWA 15 or greater; Start 03/09/19 at 17:00; Stop 03/10/19 at 07:45; Status DC Haloperidol Lactate (Haldol Inj) 5 mg PRN Q4HRS PRN IVP Hallucinatns,Confusn,Delirium; Start 03/09/19 at 17:00 Diphenhydramine HCl (Benadryl) 25 mg PRN Q15MIN PRN IVP EPS symptoms 2'Haldol admin; Start 03/09/19 at 17:00 Clonidine HCl (Catapres) 0.1 mg PRN Q1HR PRN PO SBP > 180 or DBP > 100, MRX3; Start 03/09/19 at 17:00 Potassium Chloride (Klor-Con) 40 meq 1X ONCE PO Last administered on 03/09/19at 19:25; Start 03/09/19 at 18:45; Stop 03/09/19 at 18:48; Status DC Lorazepam (Ativan) 1 mg PRN Q1HR PRN PO For CIWA 8-14 Last administered on 03/10/19at 10:03; Start 03/10/19 at 07:45 Lorazepam (Ativan Inj) 0.5 mg PRN Q1HR PRN IV For CIWA 8-14 Last administered on 03/13/19at 08:56; Start 03/10/19 at 07:45 Lidocaine HCl (Buffered Lidocaine 1%) 6 ml 1X ONCE INJ Last administered on 03/10/19at 14:25; Start 03/10/19 at 13:30; Stop 03/10/19 at 13:31; Status DC Lidocaine HCl (Buffered Lidocaine 1%) 3 ml STK-MED ONCE .ROUTE ; Start 03/10/19 at 13:34; Stop 03/10/19 at 13:34; Status DC Sodium Chloride 1,000 ml @ 1,000 mls/hr Q1H PRN IV hypotension; Start 03/10/19 at 14:01; Stop 03/10/19 at 20:00; Status DC Acetaminophen (Tylenol) 500 mg 1X PRN PRN PO MILD PAIN / TEMP; Start 03/10/19 at 14:15; Stop 03/11/19 at 14:14; Status DC Diphenhydramine HCl (Benadryl) 25 mg 1X PRN PRN IV ITCHING; Start 03/10/19 at 14:15; Stop 03/11/19 at 14:14; Status DC Diphenhydramine HCl (Benadryl) 25 mg 1X PRN PRN IV ITCHING; Start 03/10/19 at 14:15; Stop 03/11/19 at 14:14; Status DC Sodium Chloride 1,000 ml @ 400 mls/hr Q2H30M PRN IV PATENCY; Start 03/10/19 at 14:01; Stop 03/11/19 at 02:00; Status DC Info (PHARMACY MONITORING -- do not chart) 1 each PRN DAILY PRN MC SEE COMMENTS; Start 03/10/19 at 14:15; Stop 03/14/19 at 11:12; Status DC Sodium Chloride 1,000 ml @ 1,000 mls/hr Q1H PRN IV hypotension; Start 03/11/19 at 08:06; Stop 03/11/19 at 14:05; Status DC Albumin Human 200 ml @ 200 mls/hr 1X PRN PRN IV Hypotension; Start 03/11/19 at 08:15; Stop 03/11/19 at 14:14; Status DC Acetaminophen (Tylenol) 500 mg 1X PRN PRN PO MILD PAIN / TEMP; Start 03/11/19 at 08:15; Stop 03/12/19 at 08:14; Status DC Diphenhydramine HCl (Benadryl) 25 mg 1X PRN PRN IV ITCHING; Start 03/11/19 at 08:15; Stop 03/12/19 at 08:14; Status DC Diphenhydramine HCl (Benadryl) 25 mg 1X PRN PRN IV ITCHING; Start 03/11/19 at 08:15; Stop 03/12/19 at 08:14; Status DC Sodium Chloride (Normal Saline Flush) 10 ml 1X PRN PRN IV AP catheter pack; Start 03/11/19 at 08:15; Stop 03/12/19 at 08:14; Status DC Sodium Chloride (Normal Saline Flush) 10 ml 1X PRN PRN IV PIPE [employer]ESS [employer]INEER catheter pack; Start 03/11/19 at 08:15; Stop 03/12/19 at 08:14; Status DC Sodium Chloride 1,000 ml @ 400 mls/hr Q2H30M PRN IV PATENCY; Start 03/11/19 at 08:06; Stop 03/11/19 at 20:05; Status DC Info (PHARMACY MONITORING -- do not chart) 1 each PRN DAILY PRN MC SEE COMMENTS; Start 03/11/19 at 08:15; Stop 03/14/19 at 11:12; Status DC Dextrose (Dextrose 50%-Water Syringe) 25 gm STK-MED ONCE IV ; Start 03/13/19 at 06:15; Stop 03/13/19 at 06:15; Status DC Dextrose (Dextrose 50%-Water Syringe) 12.5 gm PRN Q15MIN PRN IV SEE COMMENTS Last administered on 03/13/19at 06:43; Start 03/13/19 at 06:30 Pantoprazole Sodium (PROTONIX VIAL for IV PUSH) 40 mg DAILYAC IVP ; Start 03/14/19 at 07:30 Pantoprazole Sodium (PROTONIX VIAL for IV PUSH) 40 mg 1X ONCE IVP Last administered on 03/13/19at 11:01; Start 03/13/19 at 09:30; Stop 03/13/19 at 09:31; Status DC Acetaminophen (Tylenol Supp) 325 mg PRN Q6HRS PRN [place] MILD PAIN / TEMP; Start 03/13/19 at 09:30 Albumin Human 100 ml @ 100 mls/hr 1X ONCE IV Last administered on 03/13/19at 11:01; Start 03/13/19 at 09:30; Stop 03/13/19 at 10:29; Status DC Dextrose/Sodium Chloride 1,000 ml @ 75 mls/hr [id number] IV Last administered on 03/13/19at 20:36; Start 03/13/19 at 09:30 Sodium Chloride 1,000 ml @ 1,000 mls/hr Q1H PRN IV hypotension; Start 03/13/19 at 10:58; Stop 03/13/19 at 16:57; Status DC Albumin Human 200 ml @ 200 mls/hr 1X PRN PRN IV Hypotension; Start 03/13/19 at 11:00; Stop 03/13/19 at 16:59; Status DC Sodium Chloride 1,000 ml @ 400 mls/hr Q2H30M PRN IV PATENCY; Start 03/13/19 at 10:58; Stop 03/13/19 at 22:57; Status DC Info (PHARMACY MONITORING -- do not chart) 1 each PRN DAILY PRN MC SEE COMMENTS; Start 03/13/19 at 11:00; Status UNV Info (PHARMACY MONITORING -- do not chart) 1 each PRN DAILY PRN MC SEE COMMENTS; Start 03/13/19 at 11:00; Status UNV Methylprednisolone Sodium Succinate (SOLU-Medrol 40MG VIAL) 20 mg Q12HR IV Last administered on 03/13/19at 20:36; Start 03/13/19 at 12:00 Albumin Human 100 ml @ 100 mls/hr 1X ONCE IV Last administered on 03/13/19at 20:35; Start 03/13/19 at 19:15; Stop 03/13/19 at 20:14; Status DC Sodium Chloride 1,000 ml @ 1,000 mls/hr Q1H PRN IV hypotension; Start 03/14/19 at 08:21; Stop 03/14/19 at 14:20 Albumin Human 200 ml @ 200 mls/hr 1X PRN PRN IV Hypotension; Start 03/14/19 at 08:30; Stop 03/14/19 at 14:29 Sodium Chloride 1,000 ml @ 400 mls/hr Q2H30M PRN IV PATENCY; Start 03/14/19 at 08:21; Stop 03/14/19 at 20:20 Info (PHARMACY MONITORING -- do not chart) 1 each PRN DAILY PRN MC SEE COMMENTS; Start 03/14/19 at 08:30 Info (PHARMACY MONITORING -- do not chart) 1 each PRN DAILY PRN MC SEE COMMENTS; Start 03/14/19 at 08:30 Active Scripts Active Ativan (Lorazepam) 1 Mg Tablet 1 Mg PO QIDPRN PRN B Complex (Vitamin B Complex) 1 Each Tablet 1 Each PO DAILY Thiamine Hcl 500 Mg Tablet 500 Mg PO DAILY Thera-M Tablet (Multivits,Ca,Minerals/Iron/Fa) 1 Each Tablet 1 Tab PO DAILY Vitals/I & O Vital Sign - Last 24 Hours 03/13/19 03/13/19 03/13/19 03/13/19 12:30 13:00 13:30 14:00 Pulse 120 122 122 124 B/P (MAP) 80/46 (57) 78/49 (59) 88/50 (63) 85/52 (63) 03/13/19 03/13/19 03/13/19 03/13/19 14:10 14:30 15:00 15:30 Temp 99.5 99.5 Pulse 122 122 122 122 Resp 28 B/P (MAP) 89/52 (64) 85/50 (62) 88/50 (63) 94/55 (68) Pulse Ox 93 O2 Delivery Nasal Cannula O2 Flow Rate 4.0 03/13/19 03/13/19 03/13/19 03/13/19 16:00 16:30 17:00 17:30 Pulse 120 118 120 116 B/P (MAP) 91/50 (64) 91/55 (67) 85/56 (66) 98/58 (71) 03/13/19 03/13/19 03/13/19 03/13/19 18:00 19:20 20:00 22:50 Temp 99.7 99.1 99.7 99.1 Pulse 120 122 112 Resp 24 24 B/P (MAP) 98/58 (71) 100/62 (75) 106/56 (73) Pulse Ox 91 92 O2 Delivery Nasal Cannula Nasal Cannula Nasal Cannula O2 Flow Rate 2.0 2.0 2.0 03/14/19 03/14/19 03/14/19 03:15 07:00 08:00 Temp 98.0 98.7 98.0 98.7 Pulse 107 111 Resp 24 24 B/P (MAP) 98/56 (70) 115/59 (77) Pulse Ox 93 93 O2 Delivery Nasal Cannula Nasal Cannula Nasal Cannula O2 Flow Rate 2.0 2.0 3.0 Intake and Output 03/13/19 03/13/19 03/14/19 15:00 23:00 07:00 Intake Total 1080 ml Output Total 10 ml Balance -10 ml 1080 ml WAQAS AMBROCIO MD Mar 14, 2019 11:16
[2019-03-14 11:32] LABS: % BANDS 9 % (0-9); % LYMPHS 15 % (24-48); % METAS 2 % (0-0); % MONOS 10 % (0-10); % SEGS 64 % (35-66); PLT ESTIMATE DECREASED (ADEQUATE)
[2019-03-14 11:33] LABS: ANISOCYTOSIS SLIGHT; TOXIC VACUOLATION SLIGHT
[2019-03-14 11:34] LABS: POLYCHROMASIA OCCASIONAL
[2019-03-14] MEDS: methylPREDNISolone SOD SUCC PF 40 MG/ML VIAL. IV SCH ×2 (13:20→20:55)
[2019-03-14] MEDS: PANTOPRAZOLE IV PUSH 40 MG VIAL. IVP SCH (13:20)
[2019-03-14 14:54] VITALS: BP 92/59
[2019-03-14 19:15] VITALS: BP 93/56
[2019-03-14] MEDS: IV DEXTROSE 5 %-0.45 % NACL 1,000 ML IV SCH (20:55)
[2019-03-14 23:15] VITALS: BP 124/65
[2019-03-15] VITALS (7 sets, daily range): BP systolic 98–157; BP diastolic 58–75
[2019-03-15] MEDS: IV DEXTROSE 5 %-0.45 % NACL 1,000 ML IV SCH ×2 (05:25→21:29)
[2019-03-15 06:01] LABS: CALCIUM 6.9 mg/dL (8.5-10.1); CREATININE 4.9 mg/dL (0.7-1.3); GFR 12.3; POTASSIUM 3.4 mmol/L (3.5-5.1)
[2019-03-15] MEDS: PANTOPRAZOLE IV PUSH 40 MG VIAL. IVP SCH (09:33)
[2019-03-15] MEDS: LACTULOSE 20 GM/30 ML SOLUTION. PO SCH ×3 (09:33→21:28)
[2019-03-15] MEDS: methylPREDNISolone SOD SUCC PF 40 MG/ML VIAL. IV SCH ×2 (09:33→21:28)
[2019-03-15] MEDS: POTASSIUM CHLORIDE 10MEQ 100 ML IV SCH ×2 (09:46→11:27)
--- NOTE | 2019-03-15 10:33 | NUR ---
SS following up with discharge planning. HCFS continuing to follow and assist with self pay status. Pt is from home and is currently requiring oxygen. PT/OT ordered. SS will continue to follow for discharge planning.
--- NOTE | 2019-03-15 10:53 | PDOC ---
PROGRESS NOTES Chief Complaint Chief Complaint END STAGE LIVER DSE JAUNDICE Ileus 03/01 KUB ETOHIC ENCEPH Ventricular tachycardia - in the background of elyte abn Acute kidney injury - Cr 4.4. possibly vasomotor nephropathy NEw HD - temp H D cath Lactic acidosis - Severe protein calorie malnutrion - Anasarca - albumin 1,8 HYPOTENSION resolved Hyperbilirubinemia - Transaminitis - History of Present Illness History of Present Illness more awake today Irritable bec hungry PAssed swallow! Buty belly distended but NO NGT output - has had multiple BMS - on lactulose NO ascites on imaging Distended GB, elev LFts, jaundice, GI on board, unlikely surgical candidate, As above. MELD score 44 with alcoholic hepatitis- 90 day mortality rate at 94% with impending hepatorenal syndrome. Day 1 of IV steroids. Poor prognosis discussed with patient and parent who are bedside.Not transplant candidate at this itme. CPM PLAN: keep dextrose iVF still BS lowish despite gtt MAy dc NGT KUB today ff up - dw RN Aditi Start reg diet with thin per SURGICAL FIRST ASSISTANT recs MAy t,o CVC to non tele bed PT OT Poor prog dw family at bedside, they understand HOpefully can start ambulation soon Self pay Vitals Vitals Vital Signs Date Time Temp Pulse Resp B/P (MAP) Pulse Ox O2 Delivery O2 Flow Rate FiO2 03/15/19 10:15 98.0 101 22 110/69 (83) 91 Nasal Cannula 2.0 98.0 Physical Exam General: Alert, Cooperative, No acute distress, mild distress, Other (Confused) Heart: Regular rate Lungs: Other (diminished bases) Abdomen: Soft, Other (distended, tympnaitic) Extremities: No clubbing, No cyanosis, Normal pulses, No tenderness/swelling, Other (2+) Skin: No rashes, No breakdown, No significant lesion Labs LABS Laboratory Tests Test 03/14/19 13:10 03/14/19 18:09 03/15/19 00:18 03/15/19 05:00 Glucose (Fingerstick) 81 mg/dL (70-99) 97 mg/dL (70-99) 108 mg/dL (70-99) Sodium Level 141 mmol/L (136-145) Potassium Level 3.4 mmol/L (3.5-5.1) Chloride Level 102 mmol/L (98-107) Carbon Dioxide Level 28 mmol/L (21-32) Anion Gap 11 (6-14) Blood Urea Nitrogen 21 mg/dL (8-26) Creatinine 4.9 mg/dL (0.7-1.3) Estimated GFR (Cockcroft-Gault) 12.3 Glucose Level 117 mg/dL (70-99) Calcium Level 6.9 mg/dL (8.5-10.1) Test 03/15/19 06:33 Glucose (Fingerstick) 115 mg/dL (70-99) Review of Systems Review of Systems hungry, irritable, all else is neg Assessment and Plan Assessmemt and Plan Problems Medical Problems: (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 Labs Laboratory Tests Test 03/13/19 18:10 03/13/19 23:53 03/14/19 06:27 03/14/19 07:50 Glucose (Fingerstick) 68 mg/dL (70-99) 91 mg/dL (70-99) 100 mg/dL (70-99) White Blood Count 15.8 x10^3/uL (4.0-11.0) Red Blood Count 3.07 x10^6/uL (4.30-5.70) Hemoglobin 12.1 g/dL (13.0-17.5) Hematocrit 38.0 % (39.0-53.0) Mean Corpuscular Volume 124 fL (79-100) Mean Corpuscular Hemoglobin 40 pg (25-35) Mean Corpuscular Hemoglobin Concent 32 g/dL (31-37) Red Cell Distribution Width 16.8 % (11.5-14.5) Platelet Count 107 x10^3/uL (140-400) Neutrophils (%) (Auto) 88 % (31-73) Lymphocytes (%) (Auto) 9 % (24-48) Monocytes (%) (Auto) 3 % (0-9) Eosinophils (%) (Auto) 0 % (0-3) Basophils (%) (Auto) 1 % (0-3) Neutrophils # (Auto) 13.8 x10^3/uL (1.8-7.7) Lymphocytes # (Auto) 1.5 x10^3/uL (1.0-4.8) Monocytes # (Auto) 0.4 x10^3/uL (0.0-1.1) Eosinophils # (Auto) 0.0 x10^3/uL (0.0-0.7) Basophils # (Auto) 0.1 x10^3/uL (0.0-0.2) Segmented Neutrophils % 64 % (35-66) Band Neutrophils % 9 % (0-9) Lymphocytes % 15 % (24-48) Monocytes % 10 % (0-10) Metamyelocytes % 2 % (0-0) Toxic Vacuolation Slight Platelet Estimate Decreased (ADEQUATE) Polychromasia Occasional Anisocytosis Slight Macrocytosis Present Sodium Level 144 mmol/L (136-145) Potassium Level 3.9 mmol/L (3.5-5.1) Chloride Level 104 mmol/L (98-107) Carbon Dioxide Level 26 mmol/L (21-32) Anion Gap 14 (6-14) Blood Urea Nitrogen 24 mg/dL (8-26) Creatinine 6.8 mg/dL (0.7-1.3) Estimated GFR (Cockcroft-Gault) 8.4 Glucose Level 107 mg/dL (70-99) Calcium Level 6.9 mg/dL (8.5-10.1) Total Bilirubin 24.2 mg/dL (0.2-1.0) Direct Bilirubin 20.6 mg/dL (0.0-0.2) Aspartate Amino Transf (AST/SGOT) 201 U/L (15-37) Alanine Aminotransferase (ALT/SGPT) 94 U/L (16-63) Alkaline Phosphatase 166 U/L (46-116) Total Protein 4.6 g/dL (6.4-8.2) Albumin 2.0 g/dL (3.4-5.0) Test 03/14/19 13:10 03/14/19 18:09 03/15/19 00:18 03/15/19 05:00 Glucose (Fingerstick) 81 mg/dL (70-99) 97 mg/dL (70-99) 108 mg/dL (70-99) Sodium Level 141 mmol/L (136-145) Potassium Level 3.4 mmol/L (3.5-5.1) Chloride Level 102 mmol/L (98-107) Carbon Dioxide Level 28 mmol/L (21-32) Anion Gap 11 (6-14) Blood Urea Nitrogen 21 mg/dL (8-26) Creatinine 4.9 mg/dL (0.7-1.3) Estimated GFR (Cockcroft-Gault) 12.3 Glucose Level 117 mg/dL (70-99) Calcium Level 6.9 mg/dL (8.5-10.1) Test 03/15/19 06:33 Glucose (Fingerstick) 115 mg/dL (70-99) Laboratory Tests Test 03/14/19 13:10 03/14/19 18:09 03/15/19 00:18 03/15/19 05:00 Glucose (Fingerstick) 81 mg/dL (70-99) 97 mg/dL (70-99) 108 mg/dL (70-99) Sodium Level 141 mmol/L (136-145) Potassium Level 3.4 mmol/L (3.5-5.1) Chloride Level 102 mmol/L (98-107) Carbon Dioxide Level 28 mmol/L (21-32) Anion Gap 11 (6-14) Blood Urea Nitrogen 21 mg/dL (8-26) Creatinine 4.9 mg/dL (0.7-1.3) Estimated GFR (Cockcroft-Gault) 12.3 Glucose Level 117 mg/dL (70-99) Calcium Level 6.9 mg/dL (8.5-10.1) Test 03/15/19 06:33 Glucose (Fingerstick) 115 mg/dL (70-99) Microbiology 03/09/19 Blood Culture - Final, Complete NO GROWTH AFTER 5 DAYS Medications Current Medications Magnesium Sulfate 50 ml @ 25 mls/hr 1X ONCE IV Last administered on 03/09/19at 02:02; Start 03/09/19 at 01:45; Stop 03/09/19 at 03:44; Status DC Potassium Chloride (Klor-Con) 40 meq 1X ONCE PO Last administered on 03/09/19at 02:03; Start 03/09/19 at 01:45; Stop 03/09/19 at 01:46; Status DC Potassium Chloride/Water 100 ml @ 100 mls/hr Q1H IV Last administered on 03/09/19at 05:09; Start 03/09/19 at 01:45; Stop 03/09/19 at 05:44; Status DC Sodium Chloride 1,000 ml @ 1,000 mls/hr 1X ONCE IV Last administered on 03/09/19at 02:24; Start 03/09/19 at 02:15; Stop 03/09/19 at 03:14; Status DC Piperacillin Sod/ Tazobactam Sod 3.375 gm/Sodium Chloride 50 ml @ 100 mls/hr 1X ONCE IV Last administered on 03/09/19at 02:24; Start 03/09/19 at 02:15; Stop 03/09/19 at 02:44; Status DC Vancomycin HCl 250 ml @ 250 mls/hr 1X ONCE IV Last administered on 03/09/19at 03:47; Start 03/09/19 at 02:15; Stop 03/09/19 at 03:14; Status DC Sodium Chloride 1,000 ml @ 150 mls/hr Q6H40M IV Last administered on 03/10/19at 07:00; Start 03/09/19 at 03:00; Stop 03/10/19 at 02:59; Status DC Vancomycin HCl 2 gm/Sodium Chloride 500 ml @ 250 mls/hr 1X ONCE IV ; Start 03/09/19 at 06:30; Stop 03/09/19 at 08:29; Status Cancel Piperacillin Sod/ Tazobactam Sod 2.25 gm/Sodium Chloride 50 ml @ 100 mls/hr Q6H RS IV Last administered on 03/09/19at 06:25; Start 03/09/19 at 06:00; Stop 03/09/19 at 10:25; Status DC Vancomycin HCl (Vanco Per Pharmacy) 1 each PRN DAILY PRN MC SEE COMMENTS Last administered on 03/09/19at 06:34; Start 03/09/19 at 06:00; Stop 03/09/19 at 21:39; Status DC Piperacillin Sod/ Tazobactam Sod (Zosyn Per Pharmacy) 1 each PRN DAILY PRN MC SEE COMMENTS; Start 03/09/19 at 06:00; Stop 03/09/19 at 17:01; Status DC Vancomycin HCl 1 gm/Sodium Chloride 250 ml @ 250 mls/hr 1X ONCE IV Last administered on 03/09/19at 06:25; Start 03/09/19 at 06:45; Stop 03/09/19 at 07:44; Status DC Vancomycin HCl 1.5 gm/Sodium Chloride 500 ml @ 250 mls/hr Q24H IV ; Start 03/10/19 at 04:00; Stop 03/09/19 at 10:25; Status DC Vancomycin HCl (Vancomycin Trough Level) 1 each 1X ONCE MC ; Start 03/11/19 at 03:30; Stop 03/09/19 at 21:39; Status DC Potassium Chloride (Klor-Con) 40 meq 1X ONCE PO Last administered on 03/09/19at 07:55; Start 03/09/19 at 07:30; Stop 03/09/19 at 07:31; Status DC Potassium Chloride/Water 100 ml @ 100 mls/hr Q1H IV Last administered on 03/09/19at 11:03; Start 03/09/19 at 08:00; Stop 03/09/19 at 11:59; Status DC Potassium Chloride (Klor-Con) 80 meq 1X ONCE PO Last administered on 03/09/19at 13:21; Start 03/09/19 at 08:15; Stop 03/09/19 at 08:16; Status DC Nicotine (Nicoderm Cq 21mg) 1 patch PRN DAILY PRN TD SMOKING CESSATION Last administered on 03/13/19at 08:56; Start 03/09/19 at 08:30 Potassium Chloride/Sodium Chloride 1,000 ml @ 150 mls/hr Q6H40M IV Last admini stered on 03/09/19at 23:29; Start 03/09/19 at 09:30; Stop 03/10/19 at 12:12; Status DC Lactulose (Lactulose) 20 gm TID PO Last administered on 03/15/19at 09:33; Start 03/09/19 at 10:30 Potassium Chloride (Klor-Con) 20 meq STK-MED ONCE PO ; Start 03/09/19 at 13:19; Stop 03/09/19 at 13:20; Status DC Ondansetron HCl (Zofran) 4 mg STK-MED ONCE .ROUTE ; Start 03/09/19 at 13:24; Stop 03/09/19 at 13:24; Status DC Ondansetron HCl (Zofran) 4 mg PRN Q6HRS PRN IVP NAUSEA/VOMITING Last administered on 03/09/19at 13:45; Start 03/09/19 at 13:30 Lorazepam (Ativan) 4 mg PRN Q1HR PRN PO For CIWA 8-14; Start 03/09/19 at 17:00; Stop 03/10/19 at 07:45; Status DC Lorazepam (Ativan) 8 mg PRN Q1HR PRN PO For CIWA 15 or greater; Start 03/09/19 at 17:00; Stop 03/10/19 at 07:45; Status DC Lorazepam (Ativan Inj) 2 mg PRN Q1HR PRN IV For CIWA 8-14 Last administered on 03/10/19at 05:56; Start 03/09/19 at 17:00; Stop 03/10/19 at 07:45; Status DC Lorazepam (Ativan Inj) 4 mg PRN Q1HR PRN IV For CIWA 15 or greater; Start 03/09/19 at 17:00; Stop 03/10/19 at 07:45; Status DC Haloperidol Lactate (Haldol Inj) 5 mg PRN Q4HRS PRN IVP Hallucinat ns,Confusn,Delirium; Start 03/09/19 at 17:00 Diphenhydramine HCl (Benadryl) 25 mg PRN Q15MIN PRN IVP EPS symptoms 2'Haldol admin; Start 03/09/19 at 17:00 Clonidine HCl (Catapres) 0.1 mg PRN Q1HR PRN PO SBP > 180 or DBP > 100, MRX3; Start 03/09/19 at 17:00 Potassium Chloride (Klor-Con) 40 meq 1X ONCE PO Last administered on 03/09/19at 19:25; Start 03/09/19 at 18:45; Stop 03/09/19 at 18:48; Status DC Lorazepam (Ativan) 1 mg PRN Q1HR PRN PO For CIWA 8-14 Last administered on 03/10/19at 10:03; Start 03/10/19 at 07:45 Lorazepam (Ativan Inj) 0.5 mg PRN Q1HR PRN IV For CIWA 8-14 Last administered on 03/14/19at 23:11; Start 03/10/19 at 07:45 Lidocaine HCl (Buffered Lidocaine 1%) 6 ml 1X ONCE INJ Last administered on 03/10/19at 14:25; Start 03/10/19 at 13:30; Stop 03/10/19 at 13:31; Status DC Lidocaine HCl (Buffered Lidocaine 1%) 3 ml STK-MED ONCE .ROUTE ; Start 03/10/19 at 13:34; Stop 03/10/19 at 13:34; Status DC Sodium Chloride 1,000 ml @ 1,000 mls/hr Q1H PRN IV hypotension; Start 03/10/19 at 14:01; Stop 03/10/19 at 20:00; Status DC Acetaminophen (Tylenol) 500 mg 1X PRN PRN PO MILD PAIN / TEMP; Start 03/10/19 at 14:15; Stop 03/11/19 at 14:14; Status DC Diphenhydramine HCl (Benadryl) 25 mg 1X PRN PRN IV ITCHING; Start 03/10/19 at 14:15; Stop 03/11/19 at 14:14; Status DC Diphenhydramine HCl (Benadryl) 25 mg 1X PRN PRN IV ITCHING; Start 03/10/19 at 14:15; Stop 03/11/19 at 14:14; Status DC Sodium Chloride 1,000 ml @ 400 mls/hr Q2H30M PRN IV PATENCY; Start 03/10/19 at 14:01; Stop 03/11/19 at 02:00; Status DC Info (PHARMACY MONITORING -- do not chart) 1 each PRN DAILY PRN MC SEE COMMENTS; Start 03/10/19 at 14:15; Stop 03/14/19 at 11:12; Status DC Sodium Chloride 1,000 ml @ 1,000 mls/hr Q1H PRN IV hypotension; Start 03/11/19 at 08:06; Stop 03/11/19 at 14:05; Status DC Albumin Human 200 ml @ 200 mls/hr 1X PRN PRN IV Hypotension; Start 03/11/19 at 08:15; Stop 03/11/19 at 14:14; Status DC Acetaminophen (Tylenol) 500 mg 1X PRN PRN PO MILD PAIN / TEMP; Start 03/11/19 at 08:15; Stop 03/12/19 at 08:14; Status DC Diphenhydramine HCl (Benadryl) 25 mg 1X PRN PRN IV ITCHING; Start 03/11/19 at 08:15; Stop 03/12/19 at 08:14; Status DC Diphenhydramine HCl (Benadryl) 25 mg 1X PRN PRN IV ITCHING; Start 03/11/19 at 08:15; Stop 03/12/19 at 08:14; Status DC Sodium Chloride (Normal Saline Flush) 10 ml 1X PRN PRN IV AP catheter pack; Start 03/11/19 at 08:15; Stop 03/12/19 at 08:14; Status DC Sodium Chloride (Normal Saline Flush) 10 ml 1X PRN PRN IV PORTER MARINA catheter pack; Start 03/11/19 at 08:15; Stop 03/12/19 at 08:14; Status DC Sodium Chloride 1,000 ml @ 400 mls/hr Q2H30M PRN IV PATENCY; Start 03/11/19 at 08:06; Stop 03/11/19 at 20:05; Status DC Info (PHARMACY MONITORING -- do not chart) 1 each PRN DAILY PRN MC SEE COMMENTS; Start 03/11/19 at 08:15; Stop 03/14/19 at 11:12; Status DC Dextrose (Dextrose 50%-Water Syringe) 25 gm STK-MED ONCE IV ; Start 03/13/19 at 06:15; Stop 03/13/19 at 06:15; Status DC Dextrose (Dextrose 50%-Water Syringe) 12.5 gm PRN Q15MIN PRN IV SEE COMMENTS La st administered on 03/13/19at 06:43; Start 03/13/19 at 06:30 Pantoprazole Sodium (PROTONIX VIAL for IV PUSH) 40 mg DAILYAC IVP Last administered on 03/15/19at 09:33; Start 03/14/19 at 07:30 Pantoprazole Sodium (PROTONIX VIAL for IV PUSH) 40 mg 1X ONCE IVP Last administered on 03/13/19at 11:01; Start 03/13/19 at 09:30; Stop 03/13/19 at 09:31; Status DC Acetaminophen (Tylenol Supp) 325 mg PRN Q6HRS PRN TN MILD PAIN / TEMP; Start 03/13/19 at 09:30 Albumin Human 100 ml @ 100 mls/hr 1X ONCE IV Last administered on 03/13/19at 11:01; Start 03/13/19 at 09:30; Stop 03/13/19 at 10:29; Status DC Dextrose/Sodium Chloride 1,000 ml @ 75 mls/hr [id number] IV Last administered on 03/15/19at 05:25; Start 03/13/19 at 09:30 Sodium Chloride 1,000 ml @ 1,000 mls/hr Q1H PRN IV hypotension; Start 03/13/19 at 10:58; Stop 03/13/19 at 16:57; Status DC Albumin Human 200 ml @ 200 mls/hr 1X PRN PRN IV Hypotension; Start 03/13/19 at 11:00; Stop 03/13/19 at 16:59; Status DC Sodium Chloride 1,000 ml @ 400 mls/hr Q2H30M PRN IV PATENCY; Start 03/13/19 at 10:58; Stop 03/13/19 at 22:57; Status DC Info (PHARMACY MONITORING -- do not chart) 1 each PRN DAILY PRN MC SEE COMMENTS; Start 03/13/19 at 11:00; Status UNV Info (PHARMACY MONITORING -- do not chart) 1 each PRN DAILY PRN MC SEE C OMMENTS; Start 03/13/19 at 11:00; Status UNV Methylprednisolone Sodium Succinate (SOLU-Medrol 40MG VIAL) 20 mg Q12HR IV Last administered on 03/15/19at 09:33; Start 03/13/19 at 12:00 Albumin Human 100 ml @ 100 mls/hr 1X ONCE IV Last administered on 03/13/19at 20:35; Start 03/13/19 at 19:15; Stop 03/13/19 at 20:14; Status DC Sodium Chloride 1,000 ml @ 1,000 mls/hr Q1H PRN IV hypotension; Start 03/14/19 at 08:21; Stop 03/14/19 at 14:20; Status DC Albumin Human 200 ml @ 200 mls/hr 1X PRN PRN IV Hypotension; Start 03/14/19 at 08:30; Stop 03/14/19 at 14:29; Status DC Sodium Chloride 1,000 ml @ 400 mls/hr Q2H30M PRN IV PATENCY; Start 03/14/19 at 08:21; Stop 03/14/19 at 20:20; Status DC Info (PHARMACY MONITORING -- do not chart) 1 each PRN DAILY PRN MC SEE COMMENTS; Start 03/14/19 at 08:30; Stop 03/14/19 at 11:14; Status DC Info (PHARMACY MONITORING -- do not chart) 1 each PRN DAILY PRN MC SEE COMMENTS; Start 03/14/19 at 08:30 Potassium Chloride/Water 100 ml @ 100 mls/hr Q1H IV Last administered on 1 05/16/18at 09:46; Start 03/15/19 at 09:30; Stop 03/15/19 at 11:29 Active Scripts Active Ativan (Lorazepam) 1 Mg Tablet 1 Mg PO QIDPRN PRN B Complex (Vitamin B Complex) 1 Each Tablet 1 Each PO DAILY Thiamine Hcl 500 Mg Tablet 500 Mg PO DAILY Thera-M Tablet (Multivits,Ca,Minerals/Iron/Fa) 1 Each Tablet 1 Tab PO DAILY Vitals/I & O Vital Sign - Last 24 Hours 03/14/19 03/14/19 03/14/19 03/14/19 14:54 19:15 20:00 23:15 Temp 98.5 98.4 98.4 98.5 98.4 98.4 Pulse 99 95 113 Resp 22 B/P (MAP) 92/59 (70) 93/56 (68) 124/65 (84) Pulse Ox 94 99 96 O2 Delivery Nasal Cannula Nasal Cannula Nasal Cannula Nasal Cannula O2 Flow Rate 2.0 2.0 2.0 2.0 03/15/19 03/15/19 03/15/19 03/15/19 03:20 07:00 08:00 10:15 Temp 98.3 97.7 98.0 98.3 97.7 98.0 Pulse 96 112 101 Resp 22 B/P (MAP) 98/58 (71) 157/73 (101) 110/69 (83) Pulse Ox 94 100 91 O2 Delivery Nasal Cannula Nasal Cannula Nasal Cannula Nasal Cannula O2 Flow Rate 2.0 2.0 3.0 2.0 Intake and Output 03/14/19 03/14/19 03/15/19 15:00 23:00 07:00 Intake Total 600 ml Output Total 30 ml Balance -30 ml 600 ml WAQAS AMBROCIO MD Mar 15, 2019 10:53
--- NOTE | 2019-03-15 11:45 | PDOC ---
SUBJECTIVE ROS Stable OBJECTIVE Vital Signs Vital Signs Date Time Temp Pulse Resp B/P (MAP) Pulse Ox O2 Delivery O2 Flow Rate FiO2 03/15/19 10:15 98.0 101 22 110/69 (83) 91 Nasal Cannula 2.0 98.0 I & 0 Intake and Output 03/15/19 07:00 Intake Total 600 ml Output Total 30 ml Balance 570 ml Intake Oral 0 ml Other 600 ml Output Urine Total 30 ml # Bowel Movements 5 PHYSICAL EXAM Physical Exam General: NAD , HEENT: Icterus ++, neck supple Lungs: Clear to auscultation Heart: S1S2, RRR, no thrills, no rubs Abdomen: Soft, Extremities: No clubbing, No cyanosis, Bilat LE edema + Skin: No rashes, Jaundice++ Neuro: Confused Gan +, anuric DIAGNOSIS/ASSESSMENT Assessment & Plan Acute kidney injury: Suspect Hepatorenal Remains Anuric , initiated on HD on 03/10 ,currently on TTS schedule 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 Started on IV steroids. Poor prognosis and Not transplant candidate at this time Nonobstructive bilateral renal stones. No hydronephrosis. Urinary bladder is largely decompressed. COMMENT/RELEVANT DATA Meds Current Medications Medications (Trade) Dose Ordered Sig/Kala Start Time Stop Time Status Last Admin Dose Admin Acetaminophen (Tylenol Supp) 325 mg PRN Q6HRS PRN 03/13/19 09:30 Acetaminophen (Tylenol) 500 mg 1X PRN PRN 03/11/19 08:15 03/12/19 08:14 DC Albumin Human 200 ml @ 200 mls/hr 1X PRN PRN 03/14/19 08:30 03/14/19 14:29 DC Clonidine HCl (Catapres) 0.1 mg PRN Q1HR PRN 03/09/19 17:00 Dextrose (Dextrose 50%-Water Syringe) 12.5 gm PRN Q15MIN PRN 03/13/19 06:30 03/13/19 06:43 12.5 GM Dextrose/Sodium Chloride 1,000 ml @ 75 mls/hr [id number] 03/13/19 09:30 03/15/19 05:25 75 MLS/HR Diphenhydramine HCl (Benadryl) 25 mg 1X PRN PRN 03/11/19 08:15 03/12/19 08:14 DC Haloperidol Lactate (Haldol Inj) 5 mg PRN Q4HRS PRN 03/09/19 17:00 Info (PHARMACY MONITORING -- do not chart) 1 each PRN DAILY PRN 03/14/19 08:30 Lactulose (Lactulose) 20 gm TID 03/09/19 10:30 03/15/19 09:33 20 GM Lidocaine HCl (Buffered Lidocaine 1%) 3 ml STK-MED ONCE 03/10/19 13:34 03/10/19 13:34 DC Lorazepam (Ativan Inj) 0.5 mg PRN Q1HR PRN 03/10/19 07:45 03/14/19 23:11 0.5 MG Lorazepam (Ativan) 1 mg PRN Q1HR PRN 03/10/19 07:45 03/10/19 10:03 1 MG Magnesium Sulfate 50 ml @ 25 mls/hr 1X ONCE 03/09/19 01:45 03/09/19 03:44 DC 03/09/19 02:02 25 MLS/HR Methylprednisolone Sodium Succinate (SOLU-Medrol 40MG VIAL) 20 mg Q12HR 03/13/19 12:00 03/15/19 09:33 20 MG Nicotine (Nicoderm Cq 21mg) 1 patch PRN DAILY PRN 03/09/19 08:30 03/13/19 08:56 1 PATCH Ondansetron HCl (Zofran) 4 mg PRN Q6HRS PRN 03/09/19 13:30 03/09/19 13:45 4 MG Pantoprazole Sodium (PROTONIX VIAL for IV PUSH) 40 mg 1X ONCE 03/13/19 09:30 03/13/19 09:31 DC 03/13/19 11:01 40 MG Pantoprazole Sodium (Protonix) 40 mg DAILYAC 03/16/19 07:30 Piperacillin Sod/ Tazobactam Sod (Zosyn Per Pharmacy) 1 each PRN DAILY PRN 03/09/19 06:00 03/09/19 17:01 DC Piperacillin Sod/ Tazobactam Sod 2.25 gm/Sodium Chloride 50 ml @ 100 mls/hr Q6HRS 03/09/19 06:00 03/09/19 10:25 DC 03/09/19 06:25 100 MLS/HR Piperacillin Sod/ Tazobactam Sod 3.375 gm/Sodium Chloride 50 ml @ 100 mls/hr 1X ONCE 03/09/19 02:15 03/09/19 02:44 DC 03/09/19 02:24 100 MLS/HR Potassium Chloride/Sodium Chloride 1,000 ml @ 150 mls/hr Q6H40M 03/09/19 09:30 03/10/19 12:12 DC 03/09/19 23:29 150 MLS/HR Potassium Chloride/Water 100 ml @ 100 mls/hr Q1H 03/15/19 09:30 03/15/19 11:29 DC 03/15/19 11:27 100 MLS/HR Potassium Chloride (Klor-Con) 40 meq 1X ONCE 03/09/19 18:45 03/09/19 18:48 DC 03/09/19 19:25 40 MEQ Sodium Chloride 1,000 ml @ 400 mls/hr Q2H30M PRN 03/14/19 08:21 03/14/19 20:20 DC Sodium Chloride (Normal Saline Flush) 10 ml 1X PRN PRN 03/11/19 08:15 03/12/19 08:14 DC Vancomycin HCl (Vanco Per Pharmacy) 1 each PRN DAILY PRN 03/09/19 06:00 03/09/19 21:39 DC 03/09/19 06:34 1 EACH Vancomycin HCl (Vancomycin Trough Level) 1 each 1X ONCE 03/11/19 03:30 03/09/19 21:39 DC Vancomycin HCl 1.5 gm/Sodium Chloride 500 ml @ 250 mls/hr Q24H 03/10/19 04:00 03/09/19 10:25 DC Vancomycin HCl 1 gm/Sodium Chloride 250 ml @ 250 mls/hr 1X ONCE 03/09/19 06:45 03/09/19 07:44 DC 03/09/19 06:25 250 MLS/HR Vancomycin HCl 2 gm/Sodium Chloride 500 ml @ 250 mls/hr 1X ONCE 03/09/19 06:30 03/09/19 08:29 Cancel Lab Laboratory Tests Test 03/14/19 13:10 03/14/19 18:09 03/15/19 00:18 03/15/19 05:00 Glucose (Fingerstick) 81 mg/dL (70-99) 97 mg/dL (70-99) 108 mg/dL (70-99) Sodium Level 141 mmol/L (136-145) Potassium Level 3.4 mmol/L (3.5-5.1) Chloride Level 102 mmol/L (98-107) Carbon Dioxide Level 28 mmol/L (21-32) Anion Gap 11 (6-14) Blood Urea Nitrogen 21 mg/dL (8-26) Creatinine 4.9 mg/dL (0.7-1.3) Estimated GFR (Cockcroft-Gault) 12.3 Glucose Level 117 mg/dL (70-99) Calcium Level 6.9 mg/dL (8.5-10.1) Test 03/15/19 06:33 Glucose (Fingerstick) 115 mg/dL (70-99) Results All relevant outside records, renal labs, imaging studies, telemetry/EKG's were reviewed. MERI ÁLVAREZ MD Mar 15, 2019 11:45
--- NOTE | 2019-03-15 13:13 | PDOC ---
Subjective: Subjective: Up in chair, wants mittens off. Objective: Objective: D/w speech and therapy, also nurse. Plans for KUB w/ possible removal of NGT. Vital Signs: Vital Signs Date Time Temp Pulse Resp B/P (MAP) Pulse Ox O2 Delivery O2 Flow Rate FiO2 03/15/19 10:15 98.0 101 22 110/69 (83) 91 Nasal Cannula 2.0 98.0 Labs: Laboratory Tests Test 03/14/19 18:09 03/15/19 00:18 03/15/19 05:00 03/15/19 06:33 Glucose (Fingerstick) 97 mg/dL 108 mg/dL 115 mg/dL Sodium Level 141 mmol/L Potassium Level 3.4 mmol/L Chloride Level 102 mmol/L Carbon Dioxide Level 28 mmol/L Anion Gap 11 Blood Urea Nitrogen 21 mg/dL Creatinine 4.9 mg/dL Estimated GFR (Cockcroft-Gault) 12.3 Glucose Level 117 mg/dL Calcium Level 6.9 mg/dL Test 03/15/19 11:16 Glucose (Fingerstick) 119 mg/dL PE: GEN: NAD HEENT: NG clamped ABD: BS+ SKIN: +jaundice NEURO/PSYCH: can tells me he's at a hospital [place]/P: Alcoholic liver disease, JEAN MARIE Ileus - resolved -- Note KUB plans, seems okay to remove NG and try diet per speech. No LFTs today - recheck, also INR. Discussion re: high mortality rate w/ parents and Dr. Alexis yesterday. Update: MELD 39 w/ 87% 90 day mortality rate. ELVIS COLEMAN Mar 15, 2019 13:13
[2019-03-15 13:14] LABS: ALBUMIN 1.6 g/dL (3.4-5.0); TOTAL BILIRUBIN 21.8 mg/dL (0.2-1.0); TOTAL PROTEIN 4.4 g/dL (6.4-8.2)
[2019-03-15 13:16] LABS: DIRECT BILIRUBIN 18.1 mg/dL (0.0-0.2)
[2019-03-15 13:43] LABS: PROTHROMBIN TIME PATIENT 18.8 SEC (11.7-14.0)
--- NOTE | 2019-03-15 16:45 | RAD ---
EXAM: Abdomen, single view. HISTORY: Ileus. COMPARISON: 03/11/2019. FINDINGS: A frontal view of the abdomen is obtained. There has been no significant change in distended air-filled loops of small bowel throughout the abdomen. There is a nasogastric tube looped within the stomach. IMPRESSION: No significant change in distended air-filled loops of small bowel. This may be due to partial obstruction or ileus. Electronically signed by: Stephani Sosa MD (03/15/2019 4:42 PM) [facility]
--- NOTE | 2019-03-15 17:39 | NUR ---
Pt transferred to rm [id number], resting quietly. Will continue to monitor.
[2019-03-16 03:00] VITALS: BP 96/66
[2019-03-16] MEDS: IV DEXTROSE 5 %-0.45 % NACL 1,000 ML IV SCH ×2 (04:10→14:48)
[2019-03-16 07:00] VITALS: BP 85/54
[2019-03-16] MEDS: PANTOPRAZOLE 40 MG TABLET.DR. PO SCH (07:30)
[2019-03-16] MEDS: LACTULOSE 20 GM/30 ML SOLUTION. PO SCH ×3 (07:31→21:05)
[2019-03-16] MEDS ORDERED: IV NORMAL SALINE 1000ML BAG 1,000 ML IV PRN ×2 (07:35)
[2019-03-16] MEDS ORDERED: DIALYSIS PATIENT. MC PRN (07:45)
[2019-03-16] MEDS ORDERED: ALBUMIN HUMAN 25% 200 ML IV PRN (07:45)
[2019-03-16] MEDS ORDERED: ACETAMINOPHEN 500 MG TABLET PO PRN (07:45)
[2019-03-16] MEDS ORDERED: 0.9 % SODIUM CHLORIDE 10 ML DISP.SYRIN. IV PRN ×2 (07:45)
[2019-03-16] MEDS ORDERED: diphenhydrAMINE 50 MG/ML VIAL IV PRN ×2 (07:45)
[2019-03-16] MEDS: methylPREDNISolone SOD SUCC PF 40 MG/ML VIAL. IV SCH ×2 (08:18→21:06)
--- NOTE | 2019-03-16 10:30 | PDOC ---
PROGRESS NOTES Chief Complaint Chief Complaint impression impression END STAGE LIVER Disease MELD score 44 - 90 day mortality rate at 94% with impending hepatorenal syndrome. JAUNDICE Ileus 03/01 KUB ETOH associated ENCEPH Ventricular tachycardia - in the background of elyte abn Acute kidney injury - Cr 4.4. possibly vasomotor nephropathy NEw HD - temp H D cath Lactic acidosis - Severe protein calorie malnutrion - Anasarca - albumin 1,8 HYPOTENSION resolved Hyperbilirubinemia - Transaminitis - 03/16 wants to leave ama d/w rn, recommend hospice intake, meeting with family, poor prognosis , "had been drinking vodka because it is easier to hide than beer" refusing dialysis, does not want extended life support will consult hospice today History of Present Illness History of Present Illness more awake today Irritable bec hungry PAssed swallow! Buty belly distended but NO NGT output - has had multiple BMS - on lactulose NO ascites on imaging Distended GB, elev LFts, jaundice, GI on board, unlikely surgical candidate, As above. MELD score 44 with alcoholic hepatitis- 90 day mortality rate at 94% with impending hepatorenal syndrome. Day 1 of IV steroids. Poor prognosis discussed with patient and parent who are bedside.Not transplant candidate at this itme. CPM PLAN: keep dextrose iVF still BS lowish despite gtt MAy dc NGT KUB today ff up - dw MITALI [place] Start reg diet with thin per [employer] recs MAy t,o CVC to non tele bed PT OT Poor prog dw family at bedside, they understand HOpefully can start ambulation soon Self pay Vitals Vitals Vital Signs Date Time Temp Pulse Resp B/P (MAP) Pulse Ox O2 Delivery O2 Flow Rate FiO2 03/16/19 07:00 98.0 79 16 85/54 (64) 93 Nasal Cannula 2.0 98.0 Physical Exam General: Alert, Cooperative, No acute distress, mild distress, Other (Confused, not able to make decisions well) Heart: Regular rate Lungs: Clear, Other (diminished bases) Abdomen: Normal bowel sounds, Soft, Other (distended, tympnaitic) Extremities: No clubbing, No cyanosis, Normal pulses, No tenderness/swelling, Other (2+) Skin: No rashes, No breakdown, No significant lesion Labs LABS Laboratory Tests Test 03/15/19 11:16 Glucose (Fingerstick) 119 mg/dL (70-99) Assessment and Plan Assessmemt and Plan Problems Medical Problems: (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 Labs Laboratory Tests Test 03/14/19 13:10 03/14/19 18:09 03/15/19 00:18 03/15/19 05:00 Glucose (Fingerstick) 81 mg/dL (70-99) 97 mg/dL (70-99) 108 mg/dL (70-99) Prothrombin Time 18.8 SEC (11.7-14.0) Prothromb Time International Ratio 1.6 (0.8-1.1) Sodium Level 141 mmol/L (136-145) Potassium Level 3.4 mmol/L (3.5-5.1) Chloride Level 102 mmol/L (98-107) Carbon Dioxide Level 28 mmol/L (21-32) Anion Gap 11 (6-14) Blood Urea Nitrogen 21 mg/dL (8-26) Creatinine 4.9 mg/dL (0.7-1.3) Estimated GFR (Cockcroft-Gault) 12.3 Glucose Level 117 mg/dL (70-99) Calcium Level 6.9 mg/dL (8.5-10.1) Total Bilirubin 21.8 mg/dL (0.2-1.0) Direct Bilirubin 18.1 mg/dL (0.0-0.2) Aspartate Amino Transf (AST/SGOT) 219 U/L (15-37) Alanine Aminotransferase (ALT/SGPT) 103 U/L (16-63) Alkaline Phosphatase 151 U/L (46-116) Total Protein 4.4 g/dL (6.4-8.2) Albumin 1.6 g/dL (3.4-5.0) Test 03/15/19 06:33 03/15/19 11:16 Glucose (Fingerstick) 115 mg/dL (70-99) 119 mg/dL (70-99) Laboratory Tests Test 03/15/19 11:16 Glucose (Fingerstick) 119 mg/dL (70-99) Microbiology 03/09/19 Blood Culture - Final, Complete NO GROWTH AFTER 5 DAYS Medications Current Medications Magnesium Sulfate 50 ml @ 25 mls/hr 1X ONCE IV Last administered on 03/09/19at 02:02; Start 03/09/19 at 01:45; Stop 03/09/19 at 03:44; Status DC Potassium Chloride (Klor-Con) 40 meq 1X ONCE PO Last administered on 05/09/18at 02:03; Start 03/09/19 at 01:45; Stop 03/09/19 at 01:46; Status DC Potassium Chloride/Water 100 ml @ 100 mls/hr Q1H IV Last administered on 03/09/19at 05:09; Start 03/09/19 at 01:45; Stop 03/09/19 at 05:44; Status DC Sodium Chloride 1,000 ml @ 1,000 mls/hr 1X ONCE IV Last administered on 03/09/19at 02:24; Start 03/09/19 at 02:15; Stop 03/09/19 at 03:14; Status DC Piperacillin Sod/ Tazobactam Sod 3.375 gm/Sodium Chloride 50 ml @ 100 mls/hr 1X ONCE IV Last administered on 03/09/19at 02:24; Start 03/09/19 at 02:15; Stop 03/09/19 at 02:44; Status DC Vancomycin HCl 250 ml @ 250 mls/hr 1X ONCE IV Last administered on 03/09/19at 03:47; Start 03/09/19 at 02:15; Stop 03/09/19 at 03:14; Status DC Sodium Chloride 1,000 ml @ 150 mls/hr Q6H40M IV Last administered on 03/10/19at 07:00; Start 03/09/19 at 03:00; Stop 03/10/19 at 02:59; Status DC Vancomycin HCl 2 gm/Sodium Chloride 500 ml @ 250 mls/hr 1X ONCE IV ; Start 03/09/19 at 06:30; Stop 03/09/19 at 08:29; Status Cancel Piperacillin Sod/ Tazobactam Sod 2.25 gm/Sodium Chloride 50 ml @ 100 mls/hr Q6HRS IV Last administered on 03/09/19at 06:25; Start 03/09/19 at 06:00; Stop 03/09/19 at 10:25; Status DC Vancomycin HCl (Vanco Per Pharmacy) 1 each PRN DAILY PRN MC SEE COMMENTS Last administered on 03/09/19at 06:34; Start 03/09/19 at 06:00; Stop 03/09/19 at 21:39; Status DC Piperacillin Sod/ Tazobactam Sod (Zosyn Per Pharmacy) 1 each PRN DAILY PRN MC SEE COMMENTS; Start 03/09/19 at 06:00; Stop 03/09/19 at 17:01; Status DC Vancomycin HCl 1 gm/Sodium Chloride 250 ml @ 250 mls/hr 1X ONCE IV Last administered on 03/09/19at 06:25; Start 03/09/19 at 06:45; Stop 03/09/19 at 07:44; Status DC Vancomycin HCl 1.5 gm/Sodium Chloride 500 ml @ 250 mls/hr Q24H IV ; Start 03/10/19 at 04:00; Stop 03/09/19 at 10:25; Status DC Vancomycin HCl (Vancomycin Trough Level) 1 each 1X ONCE MC ; Start 03/11/19 at 03:30; Stop 03/09/19 at 21:39; Status DC Potassium Chloride (Klor-Con) 40 meq 1X ONCE PO Last administered on 03/09/19at 07:55; Start 03/09/19 at 07:30; Stop 03/09/19 at 07:31; Status DC Potassium Chloride/Water 100 ml @ 100 mls/hr Q1H IV Last administered on 03/09/19at 11:03; Start 03/09/19 at 08:00; Stop 03/09/19 at 11:59; Status DC Potassium Chloride (Klor-Con) 80 meq 1X ONCE PO Last administered on 03/09/19at 13:21; Start 03/09/19 at 08:15; Stop 03/09/19 at 08:16; Status DC Nicotine (Nicoderm Cq 21mg) 1 patch PRN DAILY PRN TD SMOKING CESSATION Last administered on 03/13/19at 08:56; Start 03/09/19 at 08:30 Potassium Chloride/Sodium Chloride 1,000 ml @ 150 mls/hr Q6H40M IV Last administered on 03/09/19at 23:29; Start 03/09/19 at 09:30; Stop 03/10/19 at 12:12; Status DC Lactulose (Lactulose) 20 gm TID PO Last administered on 03/15/19at 21:28; Start 03/09/19 at 10:30 Potassium Chloride (Klor-Con) 20 meq STK-MED ONCE PO ; Start 03/09/19 at 13:19; Stop 03/09/19 at 13:20; Status DC Ondansetron HCl (Zofran) 4 mg STK-MED ONCE .ROUTE ; Start 03/09/19 at 13:24; Stop 03/09/19 at 13:24; Status DC Ondansetron HCl (Zofran) 4 mg PRN Q6HRS PRN IVP NAUSEA/VOMITING Last administered on 03/09/19at 13:45; Start 03/09/19 at 13:30 Lorazepam (Ativan) 4 mg PRN Q1HR PRN PO For CIWA 8-14; Start 03/09/19 at 17:00; Stop 03/10/19 at 07:45; Status DC Lorazepam (Ativan) 8 mg PRN Q1HR PRN PO For CIWA 15 or greater; Start 03/09/19 at 17:00; Stop 03/10/19 at 07:45; Status DC Lorazepam (Ativan Inj) 2 mg PRN Q1HR PRN IV For CIWA 8-14 Last administered on 03/10/19at 05:56; Start 03/09/19 at 17:00; Stop 03/10/19 at 07:45; Status DC Lorazepam (Ativan Inj) 4 mg PRN Q1HR PRN IV For CIWA 15 or greater; Start 03/09/19 at 17:00; Stop 03/10/19 at 07:45; Status DC Haloperidol Lactate (Haldol Inj) 5 mg PRN Q4HRS PRN IVP Hallucinatns,Confusn,Delirium Last administered on 03/15/19at 21:29; Start 03/09/19 at 17:00 Diphenhydramine HCl (Benadryl) 25 mg PRN Q15MIN PRN IVP EPS symptoms 2'Haldol admin; Start 03/09/19 at 17:00 Clonidine HCl (Catapres) 0.1 mg PRN Q1HR PRN PO SBP > 180 or DBP > 100, MRX3; Start 03/09/19 at 17:00 Potassium Chloride (Klor-Con) 40 meq 1X ONCE PO Last administered on 03/09/19at 19:25; Start 03/09/19 at 18:45; Stop 03/09/19 at 18:48; Status DC Lorazepam (Ativan) 1 mg PRN Q1HR PRN PO For CIWA 8-14 Last administered on 03/10/19at 10:03; Start 03/10/19 at 07:45 Lorazepam (Ativan Inj) 0.5 mg PRN Q1HR PRN IV For CIWA 8-14 Last administered on 03/14/19at 23:11; Start 03/10/19 at 07:45 Lidocaine HCl (Buffered Lidocaine 1%) 6 ml 1X ONCE INJ Last administered on 03/10/19at 14:25; Start 03/10/19 at 13:30; Stop 03/10/19 at 13:31; Status DC Lidocaine HCl (Buffered Lidocaine 1%) 3 ml STK-MED ONCE .ROUTE ; Start 03/10/19 at 13:34; Stop 03/10/19 at 13:34; Status DC Sodium Chloride 1,000 ml @ 1,000 mls/hr Q1H PRN IV hypotension; Start 03/10/19 at 14:01; Stop 03/10/19 at 20:00; Status DC Acetaminophen (Tylenol) 500 mg 1X PRN PRN PO MILD PAIN / TEMP; Start 03/10/19 at 14:15; Stop 03/11/19 at 14:14; Status DC Diphenhydramine HCl (Benadryl) 25 mg 1X PRN PRN IV ITCHING; Start 03/10/19 at 14:15; Stop 03/11/19 at 14:14; Status DC Diphenhydramine HCl (Benadryl) 25 mg 1X PRN PRN IV ITCHING; Start 03/10/19 at 14:15; Stop 03/11/19 at 14:14; Status DC Sodium Chloride 1,000 ml @ 400 mls/hr Q2H30M PRN IV PATENCY; Start 03/10/19 at 14:01; Stop 03/11/19 at 02:00; Status DC Info (PHARMACY MONITORING -- do not chart) 1 each PRN DAILY PRN MC SEE COMMENTS; Start 03/10/19 at 14:15; Stop 03/14/19 at 11:12; Status DC Sodium Chloride 1,000 ml @ 1,000 mls/hr Q1H PRN IV hypotension; Start 03/11/19 at 08:06; Stop 03/11/19 at 14:05; Status DC Albumin Human 200 ml @ 200 mls/hr 1X PRN PRN IV Hypotension; Start 03/11/19 at 08:15; Stop 03/11/19 at 14:14; Status DC Acetaminophen (Tylenol) 500 mg 1X PRN PRN PO MILD PAIN / TEMP; Start 03/11/19 at 08:15; Stop 03/12/19 at 08:14; Status DC Diphenhydramine HCl (Benadryl) 25 mg 1X PRN PRN IV ITCHING; Start 03/11/19 at 08:15; Stop 03/12/19 at 08:14; Status DC Diphenhydramine HCl (Benadryl) 25 mg 1X PRN PRN IV ITCHING; Start 03/11/19 at 08:15; Stop 03/12/19 at 08:14; Status DC Sodium Chloride (Normal Saline Flush) 10 ml 1X PRN PRN IV AP catheter pack; Start 03/11/19 at 08:15; Stop 03/12/19 at 08:14; Status DC Sodium Chloride (Normal Saline Flush) 10 ml 1X PRN PRN IV DEAL ARCHITECT catheter pack; Start 03/11/19 at 08:15; Stop 03/12/19 at 08:14; Status DC Sodium Chloride 1,000 ml @ 400 mls/hr Q2H30M PRN IV PATENCY; Start 03/11/19 at 08:06; Stop 03/11/19 at 20:05; Status DC Info (PHARMACY MONITORING -- do not chart) 1 each PRN DAILY PRN MC SEE COMMENTS; Start 03/11/19 at 08:15; Stop 03/14/19 at 11:12; Status DC Dextrose (Dextrose 50%-Water Syringe) 25 gm STK-MED ONCE IV ; Start 03/13/19 at 06:15; Stop 03/13/19 at 06:15; Status DC Dextrose (Dextrose 50%-Water Syringe) 12.5 gm PRN Q15MIN PRN IV SEE COMMENTS Last administered on 03/13/19at 06:43; Start 03/13/19 at 06:30 Pantoprazole Sodium (PROTONIX VIAL for IV PUSH) 40 mg DAILYAC IVP Last administered on 03/15/19at 09:33; Start 03/14/19 at 07:30; Stop 03/15/19 at 10:50; Status DC Pantoprazole Sodium (PROTONIX VIAL for IV PUSH) 40 mg 1X ONCE IVP Last administered on 03/13/19at 11:01; Start 03/13/19 at 09:30; Stop 03/13/19 at 09:31; Status DC Acetaminophen (Tylenol Supp) 325 mg PRN Q6HRS PRN [place] MILD PAIN / TEMP; Start 03/13/19 at 09:30 Albumin Human 100 ml @ 100 mls/hr 1X ONCE IV Last administered on 03/13/19at 11:01; Start 03/13/19 at 09:30; Stop 03/13/19 at 10:29; Status DC Dextrose/Sodium Chloride 1,000 ml @ 75 mls/hr [id number] IV Last administered on 03/15/19at 21:29; Start 03/13/19 at 09:30 Sodium Chloride 1,000 ml @ 1,000 mls/hr Q1H PRN IV hypotension; Start 03/13/19 at 10:58; Stop 03/13/19 at 16:57; Status DC Albumin Human 200 ml @ 200 mls/hr 1X PRN PRN IV Hypotension; Start 03/13/19 at 11:00; Stop 03/13/19 at 16:59; Status DC Sodium Chloride 1,000 ml @ 400 mls/hr Q2H30M PRN IV PATENCY; Start 03/13/19 at 10:58; Stop 03/13/19 at 22:57; Status DC Info (PHARMACY MONITORING -- do not chart) 1 each PRN DAILY PRN MC SEE COMMENTS; Start 03/13/19 at 11:00; Status UNV Info (PHARMACY MONITORING -- do not chart) 1 each PRN DAILY PRN MC SEE COMMENTS; Start 03/13/19 at 11:00; Status UNV Methylprednisolone Sodium Succinate (SOLU-Medrol 40MG VIAL) 20 mg Q12HR IV Last administered on 03/16/19at 08:18; Start 03/13/19 at 12:00 Albumin Human 100 ml @ 100 mls/hr 1X ONCE IV Last administered on 03/13/19at 20:35; Start 03/13/19 at 19:15; Stop 03/13/19 at 20:14; Status DC Sodium Chloride 1,000 ml @ 1,000 mls/hr Q1H PRN IV hypotension; Start 03/14/19 at 08:21; Stop 03/14/19 at 14:20; Status DC Albumin Human 200 ml @ 200 mls/hr 1X PRN PRN IV Hypotension; Start 03/14/19 at 08:30; Stop 03/14/19 at 14:29; Status DC Sodium Chloride 1,000 ml @ 400 mls/hr Q2H30M PRN IV PATENCY; Start 03/14/19 at 08:21; Stop 03/14/19 at 20:20; Status DC Info (PHARMACY MONITORING -- do not chart) 1 each PRN DAILY PRN MC SEE COMMENTS; Start 03/14/19 at 08:30; Stop 03/14/19 at 11:14; Status DC Info (PHARMACY MONITORING -- do not chart) 1 each PRN DAILY PRN MC SEE COMMENTS; Start 03/14/19 at 08:30 Potassium Chloride/Water 100 ml @ 100 mls/hr Q1H IV Last administered on 03/15/19at 11:27; Start 03/15/19 at 09:30; Stop 03/15/19 at 11:29; Status DC Pantoprazole Sodium (Protonix) 40 mg DAILYAC PO ; Start 03/16/19 at 07:30 Sodium Chloride 1,000 ml @ 1,000 mls/hr Q1H PRN IV hypotension; Start 03/16/19 at 07:35; Stop 03/16/19 at 13:34 Albumin Human 200 ml @ 200 mls/hr 1X PRN PRN IV Hypotension Last administered on 03/16/19at 10:22; Start 03/16/19 at 07:45; Stop 03/16/19 at 13:44 Acetaminophen (Tylenol) 500 mg 1X PRN PRN PO MILD PAIN / TEMP; Start 03/16/19 at 07:45; Stop 03/17/19 at 07:44 Diphenhydramine HCl (Benadryl) 25 mg 1X PRN PRN IV ITCHING; Start 03/16/19 at 07:45; Stop 03/17/19 at 07:44 Diphenhydramine HCl (Benadryl) 25 mg 1X PRN PRN IV ITCHING; Start 03/16/19 at 07:45; Stop 03/17/19 at 07:44 Sodium Chloride (Normal Saline Flush) 10 ml 1X PRN PRN IV AP catheter pack; Start 03/16/19 at 07:45; Stop 03/17/19 at 07:44 Sodium Chloride (Normal Saline Flush) 10 ml 1X PRN PRN IV DEAL ARCHITECT catheter pack; Start 03/16/19 at 07:45; Stop 03/17/19 at 07:44 Sodium Chloride 1,000 ml @ 400 mls/hr Q2H30M PRN IV PATENCY; Start 03/16/19 at 07:35; Stop 03/16/19 at 19:34 Info (PHARMACY MONITORING -- do not chart) 1 each PRN DAILY PRN MC SEE COMMENTS; Start 03/16/19 at 07:45 Active Scripts Active Ativan (Lorazepam) 1 Mg Tablet 1 Mg PO QIDPRN PRN B Complex (Vitamin B Complex) 1 Each Tablet 1 Each PO DAILY Thiamine Hcl 500 Mg Tablet 500 Mg PO DAILY Thera-M Tablet (Multivits,Ca,Minerals/Iron/Fa) 1 Each Tablet 1 Tab PO DAILY Vitals/I & O Vital Sign - Last 24 Hours 03/15/19 03/15/19 03/15/19 03/15/19 14:55 16:30 19:00 20:00 Temp 98.1 97.4 97.6 98.1 97.4 97.6 Pulse 95 98 101 Resp 22 18 22 B/P (MAP) 106/61 (76) 105/60 (75) 112/75 (87) Pulse Ox 96 96 96 O2 Delivery Nasal Cannula Nasal Cannula Nasal Cannula Nasal Cannula O2 Flow Rate 2.0 2.0 4.0 3.0 03/15/19 03/16/19 03/16/19 23:00 03:00 07:00 Temp 97.9 97.7 98.0 97.9 97.7 98.0 Pulse 94 76 79 Resp 19 18 16 B/P (MAP) 106/67 (80) 96/66 (76) 85/54 (64) Pulse Ox 94 95 93 O2 Delivery Nasal Cannula Nasal Cannula Nasal Cannula O2 Flow Rate 4.0 4.0 2.0 Intake and Output 03/15/19 03/15/19 03/16/19 15:00 23:00 07:00 Intake Total 200 ml 1000 ml Output Total 0 ml Balance 200 ml 1000 ml 0 ml GONZALO HART MD Mar 16, 2019 10:30
--- NOTE | 2019-03-16 12:01 | PDOC ---
Subjective: Subjective: "I'm pretty bored." Objective: Objective: Nurse wonders why NG still in place - stooling, no vomiting. Has a regular diet ordered in the chart. Vital Signs: Vital Signs Date Time Temp Pulse Resp B/P (MAP) Pulse Ox O2 Delivery O2 Flow Rate FiO2 03/16/19 08:00 Nasal Cannula 2.0 03/16/19 07:00 98.0 79 16 85/54 (64) 93 98.0 Imaging: KUB 03/15 IMPRESSION: No significant change in distended air-filled loops of small bowel. This may be due to partial obstruction or ileus. [employer] Bedside Swallow Eval: Pt demo's functional oropharyngeal swallow of regular diet consistency w/ 1:1 feeding asst. provided. No overt or subtle s/s aspiration noted during eval. Unclear if pt will be able to maintain safe po intake when able to feed himself. See [employer] BSE full report for details. Recommendations: Initiate regular diet consistency w/ thin/regular liquids, if cleared by GI. Pt must have 1:1 feeding asst w/ all PO intake. Will continue [employer] f/u to determine safety of independent PO intake. Swallow precautions posted in pt's rm. PE: GEN: dialyzing LUNGS: NC, NGT clamped ABD: distended (stable), non-tender, +BS SKIN: +jaundice NEURO/PSYCH: awake and alert, probably confused A/P: Alcoholic liver disease, JEAN MARIE on HD - yesterday's MELD 39 (87% mortality rate in 90 days) - on steroids Ileus - symptoms resolved -- No labs today, will recheck in a.m. Is a full code - ?discussion re: this - defer to primary/SW. KUB as above; however, has bowel sounds, no vomiting, is stooling - remove NG and try clears. ELVIS COLEMAN Mar 16, 2019 12:01
--- NOTE | 2019-03-16 12:39 | PDOC ---
SUBJECTIVE ROS Much more alert, reports his last drink *etoh)in may be more than 1 mo back OBJECTIVE Vital Signs Vital Signs Date Time Temp Pulse Resp B/P (MAP) Pulse Ox O2 Delivery O2 Flow Rate FiO2 03/16/19 08:00 Nasal Cannula 2.0 03/16/19 07:00 98.0 79 16 85/54 (64) 93 98.0 I & 0 Intake and Output 03/16/19 07:00 Intake Total 1200 ml Output Total 0 ml Balance 1200 ml IV Total 1200 ml Output Urine Total 0 ml # Voids 2 # Bowel Movements 1 PHYSICAL EXAM Physical Exam General: NAD , HEENT: Icterus ++, neck supple Lungs: Clear to auscultation Heart: S1S2, RRR, no thrills, no rubs Abdomen: Soft, Extremities: No clubbing, No cyanosis, Bilat LE edema + Skin: No rashes, Jaundice++ Neuro: Confused Gan +, anuric DIAGNOSIS/ASSESSMENT Assessment & Plan Acute kidney injury: Suspect Hepatorenal Remains Anuric , initiated on HD on 03/10 ,currently on TTS schedule Seen on HD, low BP's, had to give Albumin, not tolerating UF Less likely to tolerate or benefit from correction HD as not a Liver Transplant candidate per GI Will need Tunneled HDC and OP chair time prior to dc if no renal recovery and pt and family want to continue HD Hypotensive- sec to Hepatic etiology BP better this am Severe hypokalemia: at presentation -Resolved Alcoholic Hepatitis- Per GI MELD score 44 - 90 day mortality rate at 94% with impending hepatorenal syndrome. Started on IV steroids. Poor prognosis and Not transplant candidate at this time Nonobstructive bilateral renal stones. No hydronephrosis. Urinary bladder is largely decompressed. COMMENT/RELEVANT DATA Meds Current Medications Medications (Trade) Dose Ordered Sig/Kala Start Time Stop Time Status Last Admin Dose Admin Acetaminophen (Tylenol Supp) 325 mg PRN Q6HRS PRN 03/13/19 09:30 Acetaminophen (Tylenol) 500 mg 1X PRN PRN 03/16/19 07:45 03/17/19 07:44 Albumin Human 200 ml @ 200 mls/hr 1X PRN PRN 03/16/19 07:45 03/16/19 13:44 03/16/19 10:22 200 MLS/HR Clonidine HCl (Catapres) 0.1 mg PRN Q1HR PRN 03/09/19 17:00 Dextrose (Dextrose 50%-Water Syringe) 12.5 gm PRN Q15MIN PRN 03/13/19 06:30 03/13/19 06:43 12.5 GM Dextrose/Sodium Chloride 1,000 ml @ 75 mls/hr [id number] 03/13/19 09:30 03/15/19 21:29 75 MLS/HR Diphenhydramine HCl (Benadryl) 25 mg 1X PRN PRN 03/16/19 07:45 03/17/19 07:44 Haloperidol Lactate (Haldol Inj) 5 mg PRN Q4HRS PRN 03/09/19 17:00 03/15/19 21:29 5 MG Info (PHARMACY MONITORING -- do not chart) 1 each PRN DAILY PRN 03/16/19 07:45 Lactulose (Lactulose) 20 gm TID 03/09/19 10:30 03/15/19 21:28 20 GM Lidocaine HCl (Buffered Lidocaine 1%) 3 ml STK-MED ONCE 03/10/19 13:34 03/10/19 13:34 DC Lorazepam (Ativan Inj) 0.5 mg PRN Q1HR PRN 03/10/19 07:45 03/14/19 23:11 0.5 MG Lorazepam (Ativan) 1 mg PRN Q1HR PRN 03/10/19 07:45 03/10/19 10:03 1 MG Magnesium Sulfate 50 ml @ 25 mls/hr 1X ONCE 03/09/19 01:45 03/09/19 03:44 DC 03/09/19 02:02 25 MLS/HR Methylprednisolone Sodium Succinate (SOLU-Medrol 40MG VIAL) 20 mg Q12HR 03/13/19 12:00 03/16/19 08:18 20 MG Nicotine (Nicoderm Cq 21mg) 1 patch PRN DAILY PRN 03/09/19 08:30 03/13/19 08:56 1 PATCH Ondansetron HCl (Zofran) 4 mg PRN Q6HRS PRN 03/09/19 13:30 03/09/19 13:45 4 MG Pantoprazole Sodium (PROTONIX VIAL for IV PUSH) 40 mg 1X ONCE 03/13/19 09:30 03/13/19 09:31 DC 03/13/19 11:01 40 MG Pantoprazole Sodium (Protonix) 40 mg DAILYAC 03/16/19 07:30 Piperacillin Sod/ Tazobactam Sod (Zosyn Per Pharmacy) 1 each PRN DAILY PRN 03/09/19 06:00 03/09/19 17:01 DC Piperacillin Sod/ Tazobactam Sod 2.25 gm/Sodium Chloride 50 ml @ 100 mls/hr Q6HRS 03/09/19 06:00 03/09/19 10:25 DC 03/09/19 06:25 100 MLS/HR Piperacillin Sod/ Tazobactam Sod 3.375 gm/Sodium Chloride 50 ml @ 100 mls/hr 1X ONCE 03/09/19 02:15 03/09/19 02:44 DC 03/09/19 02:24 100 MLS/HR Potassium Chloride/Sodium Chloride 1,000 ml @ 150 mls/hr Q6H40M 03/09/19 09:30 03/10/19 12:12 DC 03/09/19 23:29 150 MLS/HR Potassium Chloride/Water 100 ml @ 100 mls/hr Q1H 03/15/19 09:30 03/15/19 11:29 DC 03/15/19 11:27 100 MLS/HR Potassium Chloride (Klor-Con) 40 meq 1X ONCE 03/09/19 18:45 03/09/19 18:48 DC 03/09/19 19:25 40 MEQ Sodium Chloride 1,000 ml @ 400 mls/hr Q2H30M PRN 03/16/19 07:35 03/16/19 19:34 Sodium Chloride (Normal Saline Flush) 10 ml 1X PRN PRN 03/16/19 07:45 03/17/19 07:44 Vancomycin HCl (Vanco Per Pharmacy) 1 each PRN DAILY PRN 03/09/19 06:00 03/09/19 21:39 DC 03/09/19 06:34 1 EACH Vancomycin HCl (Vancomycin Trough Level) 1 each 1X ONCE 03/11/19 03:30 03/09/19 21:39 DC Vancomycin HCl 1.5 gm/Sodium Chloride 500 ml @ 250 mls/hr Q24H 03/10/19 04:00 03/09/19 10:25 DC Vancomycin HCl 1 gm/Sodium Chloride 250 ml @ 250 mls/hr 1X ONCE 03/09/19 06:45 03/09/19 07:44 DC 03/09/19 06:25 250 MLS/HR Vancomycin HCl 2 gm/Sodium Chloride 500 ml @ 250 mls/hr 1X ONCE 03/09/19 06:30 03/09/19 08:29 Cancel Results All relevant outside records, renal labs, imaging studies, telemetry/EKG's were reviewed. MERI ÁLVAREZ MD Mar 16, 2019 12:39
[2019-03-16 15:00] VITALS: BP 79/51
--- NOTE | 2019-03-16 15:45 | NUR ---
SW consulted for hospice. Referral faxed to [facility] hosp[facility]. Pt agreeable with meeting with Hospice team and have his parents be present for discussion today.
--- NOTE | 2019-03-16 16:10 | NUR ---
Pt and family met with Stephani Suresh. Pt wants to be full code but does not want to do HD. Family would like to discuss about this because parents are hearing about pt's mortality rate for first time now and need to time to process this decision.
[2019-03-16 19:00] VITALS: BP 82/50
--- NOTE | 2019-03-16 19:00 | NUR ---
While changing patient this afternoon area to upper back was observed to red in color as the shape of a gait belt, and area to buttock to bed in the shape of the bedpan. Area pictured and placed in chart.
[2019-03-16 23:00] VITALS: BP 95/50
[2019-03-17 03:00] VITALS: BP 90/50
[2019-03-17] MEDS: IV DEXTROSE 5 %-0.45 % NACL 1,000 ML IV SCH (03:50)
[2019-03-17 05:57] LABS: BASO % 0 % (0-3); EOS % 0 % (0-3); HEMATOCRIT 34.8 % (39.0-53.0); HEMOGLOBIN 11.5 g/dL (13.0-17.5); LYMPH # 0.9 x10^3/uL (1.0-4.8); LYMPH % 5 % (24-48); MEAN CORPUSCULAR HEMOGLOBIN 40 pg (25-35); MEAN CORPUSCULAR HGB CONC 33 g/dL (31-37); MEAN CORPUSCULAR VOLUME 120 fL (79-100); MONO # 0.3 x10^3/uL (0.0-1.1); MONO % 1 % (0-9); NEUT # 18.8 x10^3/uL (1.8-7.7); NEUT % 94 % (31-73); PLATELET COUNT 71 x10^3/uL (140-400); RED BLOOD COUNT 2.91 x10^6/uL (4.30-5.70); RED CELL DISTRIBUTION WIDTH 17.5 % (11.5-14.5)
[2019-03-17 06:25] LABS: PROTHROMBIN TIME PATIENT 19.5 SEC (11.7-14.0)
[2019-03-17 06:29] LABS: ALBUMIN 1.9 g/dL (3.4-5.0); ALBUMIN/GLOBULIN RATIO 0.8 (1.0-1.7); CALCIUM 7.4 mg/dL (8.5-10.1); CREATININE 4.7 mg/dL (0.7-1.3); GFR 12.9; TOTAL PROTEIN 4.3 g/dL (6.4-8.2)
[2019-03-17 06:33] LABS: POTASSIUM 2.9 mmol/L (3.5-5.1)
[2019-03-17 06:34] LABS: TOTAL BILIRUBIN 25.7 mg/dL (0.2-1.0)
[2019-03-17 07:00] VITALS: BP 78/46
[2019-03-17] MEDS: POTASSIUM CHLORIDE 10MEQ 100 ML IV SCH ×2 (08:19→09:00)
[2019-03-17] MEDS: LACTULOSE 20 GM/30 ML SOLUTION. PO SCH ×2 (08:20→13:44)
[2019-03-17] MEDS: methylPREDNISolone SOD SUCC PF 40 MG/ML VIAL. IV SCH (08:21)
[2019-03-17] MEDS: PANTOPRAZOLE 40 MG TABLET.DR. PO SCH (08:21)
[2019-03-17 08:44] LABS: % ATYL 2 % (0-0); % BANDS 6 % (0-9); % LYMPHS 3 % (24-48); % MONOS 6 % (0-10); % MYELOS 2 % (0-0); % SEGS 81 % (35-66); PLT ESTIMATE DECREASED (ADEQUATE)
[2019-03-17 08:45] LABS: ANISOCYTOSIS SLIGHT; POLYCHROMASIA PRESENT
--- NOTE | 2019-03-17 09:46 | PDOC ---
Subjective: Subjective: Doing okay. Knows the hospital name, his date, the year, and who's president. Ate some breakfast. Objective: Objective: D/w nurse - stooling and eating. Vital Signs: Vital Signs Date Time Temp Pulse Resp B/P (MAP) Pulse Ox O2 Delivery O2 Flow Rate FiO2 03/17/19 07:00 98.0 92 18 78/46 (57) 91 Room Air 98.0 03/17/19 03:00 2.0 Labs: Laboratory Tests Test 03/17/19 05:30 White Blood Count 20.0 x10^3/uL Red Blood Count 2.91 x10^6/uL Hemoglobin 11.5 g/dL Hematocrit 34.8 % Mean Corpuscular Volume 120 fL Mean Corpuscular Hemoglobin 40 pg Mean Corpuscular Hemoglobin Concent 33 g/dL Red Cell Distribution Width 17.5 % Platelet Count 71 x10^3/uL Neutrophils (%) (Auto) 94 % Lymphocytes (%) (Auto) 5 % Monocytes (%) (Auto) 1 % Eosinophils (%) (Auto) 0 % Basophils (%) (Auto) 0 % Neutrophils # (Auto) 18.8 x10^3/uL Lymphocytes # (Auto) 0.9 x10^3/uL Monocytes # (Auto) 0.3 x10^3/uL Eosinophils # (Auto) 0.0 x10^3/uL Basophils # (Auto) 0.0 x10^3/uL Segmented Neutrophils % 81 % Band Neutrophils % 6 % Lymphocytes % 3 % Atypical Lymphocytes % (Manual) 2 % Monocytes % 6 % Myelocytes % 2 % Platelet Estimate Decreased Large Platelets Few Giant Platelets Few Polychromasia Present Anisocytosis Slight Macrocytosis Present Prothrombin Time 19.5 SEC Prothromb Time International Ratio 1.7 Sodium Level 139 mmol/L Potassium Level 2.9 mmol/L Chloride Level 101 mmol/L Carbon Dioxide Level 26 mmol/L Anion Gap 12 Blood Urea Nitrogen 23 mg/dL Creatinine 4.7 mg/dL Estimated GFR (Cockcroft-Gault) 12.9 BUN/Creatinine Ratio 5 Glucose Level 110 mg/dL Calcium Level 7.4 mg/dL Total Bilirubin 25.7 mg/dL Aspartate Amino Transf (AST/SGOT) 185 U/L Alanine Aminotransferase (ALT/SGPT) 125 U/L Alkaline Phosphatase 144 U/L Total Protein 4.3 g/dL Albumin 1.9 g/dL Albumin/Globulin Ratio 0.8 PE: GEN: NAD - was resting LUNGS: NC ABD: stable distention, non-tender, BS+ SKIN: +jaundice NEURO/PSYCH: A & O 3 A/P: Alcoholic liver disease, JEAN MARIE on HD - bili remains high, AST and ALT and Alk Phos better Leukocytosis on IV steroids Hypokalemia -- Mentating better, also eating and stooling w/ lactulose - goal is 3-4 stools daily. MELD 39 w/ 87% 90 day mortality rate - on IV steroids x 5 days. ?goals of care discussion - defer to primary LAURA-ELVIS BLAKELY Mar 17, 2019 09:46
--- NOTE | 2019-03-17 10:29 | PDOC ---
PROGRESS NOTES Chief Complaint Chief Complaint impression impression END STAGE LIVER Disease MELD score 44 - 90 day mortality rate at 94% with impending hepatorenal syndrome. JAUNDICE Ileus 03/01 KUB ETOH associated ENCEPH Ventricular tachycardia - in the background of elyte abn Acute kidney injury - Cr 4.4. possibly vasomotor nephropathy NEw HD - temp H D cath Lactic acidosis - Severe protein calorie malnutrion - Anasarca - albumin 1,8 HYPOTENSION resolved Hyperbilirubinemia - Transaminitis - 03/16 wants to leave ama d/w rn, recommend hospice intake, meeting with family, poor prognosis , "had been drinking vodka because it is easier to hide than beer" refusing dialysis, does not want extended life support will consult hospice 03/17 PAIN NOT WELL CONTROLLED * 2 weeks Discharge Recommendations * [facility] Unit Discharge Recommendation - DME * Rolling Walker needed * in order to complete ADLs * and ambulation safely History of Present Illness History of Present Illness more awake today PAIN WITH EATING PAssed swallow! belly distended NO ascites on imaging Distended GB, elev LFts, jaundice, GI on board, unlikely surgical candidate, As above. MELD score 44 with alcoholic hepatitis- 90 day mortality rate at 94% with impending hepatorenal syndrome. Day 1 of IV steroids. Poor prognosis discussed with patient and parent who are bedside.Not transplant candidate at this itme. 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 August t,o CVC to non tele bed PT OT Poor prog dw family at bedside, they understand weak, frail [facility] 39 MIN PT EXAM, CHART REVIEW, > 50% of time spent with exam, chart review, pt care coordination Vitals Vitals Vital Signs Date Time Temp Pulse Resp B/P (MAP) Pulse Ox O2 Delivery O2 Flow Rate FiO2 03/17/19 07:00 98.0 92 18 78/46 (57) 91 Room Air 98.0 03/17/19 03:00 2.0 Physical Exam General: Alert, Oriented X3, Cooperative, mild distress, moderate distress, Other (Confused, not able to make decisions well) Heart: Regular rate Lungs: Clear, Other (diminished bases) Abdomen: Normal bowel sounds, Soft, Other (distended, tympnaitic) Extremities: No clubbing, No cyanosis, Normal pulses, No tenderness/swelling, Other (2+) Skin: No rashes, No breakdown, No significant lesion Labs LABS Laboratory Tests Test 03/17/19 05:30 White Blood Count 20.0 x10^3/uL (4.0-11.0) Red Blood Count 2.91 x10^6/uL (4.30-5.70) Hemoglobin 11.5 g/dL (13.0-17.5) Hematocrit 34.8 % (39.0-53.0) Mean Corpuscular Volume 120 fL (79-100) Mean Corpuscular Hemoglobin 40 pg (25-35) Mean Corpuscular Hemoglobin Concent 33 g/dL (31-37) Red Cell Distribution Width 17.5 % (11.5-14.5) Platelet Count 71 x10^3/uL (140-400) Neutrophils (%) (Auto) 94 % (31-73) Lymphocytes (%) (Auto) 5 % (24-48) Monocytes (%) (Auto) 1 % (0-9) Eosinophils (%) (Auto) 0 % (0-3) Basophils (%) (Auto) 0 % (0-3) Neutrophils # (Auto) 18.8 x10^3/uL (1.8-7.7) Lymphocytes # (Auto) 0.9 x10^3/uL (1.0-4.8) Monocytes # (Auto) 0.3 x10^3/uL (0.0-1.1) Eosinophils # (Auto) 0.0 x10^3/uL (0.0-0.7) Basophils # (Auto) 0.0 x10^3/uL (0.0-0.2) Segmented Neutrophils % 81 % (35-66) Band Neutrophils % 6 % (0-9) Lymphocytes % 3 % (24-48) Atypical Lymphocytes % (Manual) 2 % (0-0) Monocytes % 6 % (0-10) Myelocytes % 2 % (0-0) Platelet Estimate Decreased (ADEQUATE) Large Platelets Few Giant Platelets Few Polychromasia Present Anisocytosis Slight Macrocytosis Present Prothrombin Time 19.5 SEC (11.7-14.0) Prothromb Time International Ratio 1.7 (0.8-1.1) Sodium Level 139 mmol/L (136-145) Potassium Level 2.9 mmol/L (3.5-5.1) Chloride Level 101 mmol/L (98-107) Carbon Dioxide Level 26 mmol/L (21-32) Anion Gap 12 (6-14) Blood Urea Nitrogen 23 mg/dL (8-26) Creatinine 4.7 mg/dL (0.7-1.3) Estimated GFR (Cockcroft-Gault) 12.9 BUN/Creatinine Ratio 5 (6-20) Glucose Level 110 mg/dL (70-99) Calcium Level 7.4 mg/dL (8.5-10.1) Total Bilirubin 25.7 mg/dL (0.2-1.0) Aspartate Amino Transf (AST/SGOT) 185 U/L (15-37) Alanine Aminotransferase (ALT/SGPT) 125 U/L (16-63) Alkaline Phosphatase 144 U/L (46-116) Total Protein 4.3 g/dL (6.4-8.2) Albumin 1.9 g/dL (3.4-5.0) Albumin/Globulin Ratio 0.8 (1.0-1.7) Assessment and Plan Assessmemt and Plan Problems Medical Problems: (1) Alcoholic hepatic failure without coma Status: Acute (2) Anemia Status: Acute (3) Ascites Status: Acute (4) Hepatic encephalopathy Status: Acute (5) Hypoalbuminemia Status: Acute (6) Hypokalemia Status: Acute (7) Hypomagnesemia Status: Acute (8) Hyponatremia Status: Acute (9) Renal insufficiency Status: Acute (10) Severe sepsis Status: Acute * Yes Patient condition at conclusion of therapy * Pt in chair * Personal alarm on * Call light in reach * Phone in reach * PtIn no apparent distress * Pt denies further needs * Visitor with patient Communicated Patient Care With (Name, Title) * Dena RN; Antelmo AUGUSTINA; Yaneth LOPEZ Goal 1 - Bed Mobility Assistance Required * Min Assistance Goal 1 Assessment * Appropriate - Continue Goal 2 - Transfers Assistance Required * Stand-by Assistance Goal 2 - Transfer Type * Sit to Stand Goal 2 Assessment * Goal Revised Goal 3 - Ambulation Assistance Required * Stand-by Assistance Goal 3 - Ambulation Distance * 25' Goal 3 - Ambulation Device * Roller Walker Goal 3 Assessment * Goal Revised Treatment Plan * Therapeutic Exercise * Bed Mobility Training * Transfer training * Gait Training * Neuromuscular Re-Ed * Dynamic Balance Training Treatment Plan - Other * Will incr frequency to BID as activity tolerance improves. Frequency of Treatment Expected * 7 visits/week Duration of Treatment Expected * 2 weeks Discharge Recommendations * [facility] Unit Discharge Recommendation - DME * Rolling Walker needed * in order to complete ADLs * and ambulation safely Discharge Recommendation Comments * Will continue to assess for discharge needs Comment Review of Relevant I have reviewed the following items tammi (where applicable) has been applied. Labs Laboratory Tests Test 03/15/19 11:16 03/17/19 05:30 Glucose (Fingerstick) 119 mg/dL (70-99) White Blood Count 20.0 x10^3/uL (4.0-11.0) Red Blood Count 2.91 x10^6/uL (4.30-5.70) Hemoglobin 11.5 g/dL (13.0-17.5) Hematocrit 34.8 % (39.0-53.0) Mean Corpuscular Volume 120 fL (79-100) Mean Corpuscular Hemoglobin 40 pg (25-35) Mean Corpuscular Hemoglobin Concent 33 g/dL (31-37) Red Cell Distribution Width 17.5 % (11.5-14.5) Platelet Count 71 x10^3/uL (140-400) Neutrophils (%) (Auto) 94 % (31-73) Lymphocytes (%) (Auto) 5 % (24-48) Monocytes (%) (Auto) 1 % (0-9) Eosinophils (%) (Auto) 0 % (0-3) Basophils (%) (Auto) 0 % (0-3) Neutrophils # (Auto) 18.8 x10^3/uL (1.8-7.7) Lymphocytes # (Auto) 0.9 x10^3/uL (1.0-4.8) Monocytes # (Auto) 0.3 x10^3/uL (0.0-1.1) Eosinophils # (Auto) 0.0 x10^3/uL (0.0-0.7) Basophils # (Auto) 0.0 x10^3/uL (0.0-0.2) Segmented Neutrophils % 81 % (35-66) Band Neutrophils % 6 % (0-9) Lymphocytes % 3 % (24-48) Atypical Lymphocytes % (Manual) 2 % (0-0) Monocytes % 6 % (0-10) Myelocytes % 2 % (0-0) Platelet Estimate Decreased (ADEQUATE) Large Platelets Few Giant Platelets Few Polychromasia Present Anisocytosis Slight Macrocytosis Present Prothrombin Time 19.5 SEC (11.7-14.0) Prothromb Time International Ratio 1.7 (0.8-1.1) Sodium Level 139 mmol/L (136-145) Potassium Level 2.9 mmol/L (3.5-5.1) Chloride Level 101 mmol/L (98-107) Carbon Dioxide Level 26 mmol/L (21-32) Anion Gap 12 (6-14) Blood Urea Nitrogen 23 mg/dL (8-26) Creatinine 4.7 mg/dL (0.7-1.3) Estimated GFR (Cockcroft-Gault) 12.9 BUN/Creatinine Ratio 5 (6-20) Glucose Level 110 mg/dL (70-99) Calcium Level 7.4 mg/dL (8.5-10.1) Total Bilirubin 25.7 mg/dL (0.2-1.0) Aspartate Amino Transf (AST/SGOT) 185 U/L (15-37) Alanine Aminotransferase (ALT/SGPT) 125 U/L (16-63) Alkaline Phosphatase 144 U/L (46-116) Total Protein 4.3 g/dL (6.4-8.2) Albumin 1.9 g/dL (3.4-5.0) Albumin/Globulin Ratio 0.8 (1.0-1.7) Laboratory Tests Test 03/17/19 05:30 White Blood Count 20.0 x10^3/uL (4.0-11.0) Red Blood Count 2.91 x10^6/uL (4.30-5.70) Hemoglobin 11.5 g/dL (13.0-17.5) Hematocrit 34.8 % (39.0-53.0) Mean Corpuscular Volume 120 fL (79-100) Mean Corpuscular Hemoglobin 40 pg (25-35) Mean Corpuscular Hemoglobin Concent 33 g/dL (31-37) Red Cell Distribution Width 17.5 % (11.5-14.5) Platelet Count 71 x10^3/uL (140-400) Neutrophils (%) (Auto) 94 % (31-73) Lymphocytes (%) (Auto) 5 % (24-48) Monocytes (%) (Auto) 1 % (0-9) Eosinophils (%) (Auto) 0 % (0-3) Basophils (%) (Auto) 0 % (0-3) Neutrophils # (Auto) 18.8 x10^3/uL (1.8-7.7) Lymphocytes # (Auto) 0.9 x10^3/uL (1.0-4.8) Monocytes # (Auto) 0.3 x10^3/uL (0.0-1.1) Eosinophils # (Auto) 0.0 x10^3/uL (0.0-0.7) Basophils # (Auto) 0.0 x10^3/uL (0.0-0.2) Segmented Neutrophils % 81 % (35-66) Band Neutrophils % 6 % (0-9) Lymphocytes % 3 % (24-48) Atypical Lymphocytes % (Manual) 2 % (0-0) Monocytes % 6 % (0-10) Myelocytes % 2 % (0-0) Platelet Estimate Decreased (ADEQUATE) Large Platelets Few Giant Platelets Few Polychromasia Present Anisocytosis Slight Macrocytosis Present Prothrombin Time 19.5 SEC (11.7-14.0) Prothromb Time International Ratio 1.7 (0.8-1.1) Sodium Level 139 mmol/L (136-145) Potassium Level 2.9 mmol/L (3.5-5.1) Chloride Level 101 mmol/L (98-107) Carbon Dioxide Level 26 mmol/L (21-32) Anion Gap 12 (6-14) Blood Urea Nitrogen 23 mg/dL (8-26) Creatinine 4.7 mg/dL (0.7-1.3) Estimated GFR (Cockcroft-Gault) 12.9 BUN/Creatinine Ratio 5 (6-20) Glucose Level 110 mg/dL (70-99) Calcium Level 7.4 mg/dL (8.5-10.1) Total Bilirubin 25.7 mg/dL (0.2-1.0) Aspartate Amino Transf (AST/SGOT) 185 U/L (15-37) Alanine Aminotransferase (ALT/SGPT) 125 U/L (16-63) Alkaline Phosphatase 144 U/L (46-116) Total Protein 4.3 g/dL (6.4-8.2) Albumin 1.9 g/dL (3.4-5.0) Albumin/Globulin Ratio 0.8 (1.0-1.7) Microbiology 03/09/19 Blood Culture - Final, Complete NO GROWTH AFTER 5 DAYS Medications Current Medications Magnesium Sulfate 50 ml @ 25 mls/hr 1X ONCE IV Last administered on 03/09/19at 02:02; Start 03/09/19 at 01:45; Stop 03/09/19 at 03:44; Status DC Potassium Chloride (Klor-Con) 40 meq 1X ONCE PO Last administered on 03/09/19at 02:03; Start 03/09/19 at 01:45; Stop 03/09/19 at 01:46; Status DC Potassium Chloride/Water 100 ml @ 100 mls/hr Q1H IV Last administered on 03/09/19at 05:09; Start 03/09/19 at 01:45; Stop 03/09/19 at 05:44; Status DC Sodium Chloride 1,000 ml @ 1,000 mls/hr 1X ONCE IV Last administered on 03/09/19at 02:24; Start 03/09/19 at 02:15; Stop 03/09/19 at 03:14; Status DC Piperacillin Sod/ Tazobactam Sod 3.375 gm/Sodium Chloride 50 ml @ 100 mls/hr 1X ONCE IV Last administered on 03/09/19at 02:24; Start 03/09/19 at 02:15; Stop 03/09/19 at 02:44; Status DC Vancomycin HCl 250 ml @ 250 mls/hr 1X ONCE IV Last administered on 03/09/19at 03:47; Start 03/09/19 at 02:15; Stop 03/09/19 at 03:14; Status DC Sodium Chloride 1,000 ml @ 150 mls/hr Q6H40M IV Last administered on 03/10/19at 07:00; Start 03/09/19 at 03:00; Stop 03/10/19 at 02:59; Status DC Vancomycin HCl 2 gm/Sodium Chloride 500 ml @ 250 mls/hr 1X ONCE IV ; Start 03/09/19 at 06:30; Stop 03/09/19 at 08:29; Status Cancel Piperacillin Sod/ Tazobactam Sod 2.25 gm/Sodium Chloride 50 ml @ 100 mls/hr Q6HRS IV Last administered on 03/09/19at 06:25; Start 03/09/19 at 06:00; Stop 03/09/19 at 10:25; Status DC Vancomycin HCl (Vanco Per Pharmacy) 1 each PRN DAILY PRN MC SEE COMMENTS Last administered on 03/09/19at 06:34; Start 03/09/19 at 06:00; Stop 03/09/19 at 21:39; Status DC Piperacillin Sod/ Tazobactam Sod (Zosyn Per Pharmacy) 1 each PRN DAILY PRN MC SEE COMMENTS; Start 03/09/19 at 06:00; Stop 03/09/19 at 17:01; Status DC Vancomycin HCl 1 gm/Sodium Chloride 250 ml @ 250 mls/hr 1X ONCE IV Last administered on 03/09/19at 06:25; Start 03/09/19 at 06:45; Stop 03/09/19 at 07:44; Status DC Vancomycin HCl 1.5 gm/Sodium Chloride 500 ml @ 250 mls/hr Q24H IV ; Start 03/10/19 at 04:00; Stop 03/09/19 at 10:25; Status DC Vancomycin HCl (Vancomycin Trough Level) 1 each 1X ONCE MC ; Start 03/11/19 at 03:30; Stop 03/09/19 at 21:39; Status DC Potassium Chloride (Klor-Con) 40 meq 1X ONCE PO Last administered on 03/09/19at 07:55; Start 03/09/19 at 07:30; Stop 03/09/19 at 07:31; Status DC Potassium Chloride/Water 100 ml @ 100 mls/hr Q1H IV Last administered on 03/09/19at 11:03; Start 03/09/19 at 08:00; Stop 03/09/19 at 11:59; Status DC Potassium Chloride (Klor-Con) 80 meq 1X ONCE PO Last administered on 03/09/19a t 13:21; Start 03/09/19 at 08:15; Stop 03/09/19 at 08:16; Status DC Nicotine (Nicoderm Cq 21mg) 1 patch PRN DAILY PRN TD SMOKING CESSATION Last administered on 03/13/19at 08:56; Start 03/09/19 at 08:30 Potassium Chloride/Sodium Chloride 1,000 ml @ 150 mls/hr Q6H40M IV Last administered on 03/09/19at 23:29; Start 03/09/19 at 09:30; Stop 03/10/19 at 12:12; Status DC Lactulose (Lactulose) 20 gm TID PO Last administered on 03/17/19at 08:20; Start 03/09/19 at 10:30 Potassium Chloride (Klor-Con) 20 meq STK-MED ONCE PO ; Start 03/09/19 at 13:19; Stop 03/09/19 at 13:20; Status DC Ondansetron HCl (Zofran) 4 mg STK-MED ONCE .ROUTE ; Start 03/09/19 at 13:24; Stop 03/09/19 at 13:24; Status DC Ondansetron HCl (Zofran) 4 mg PRN Q6HRS PRN IVP NAUSEA/VOMITING Last administered on 03/09/19at 13:45; Start 03/09/19 at 13:30 Lorazepam (Ativan) 4 mg PRN Q1HR PRN PO For CIWA 8-14; Start 03/09/19 at 17:00; Stop 03/10/19 at 07:45; Status DC Lorazepam (Ativan) 8 mg PRN Q1HR PRN PO For CIWA 15 or greater; Start 03/09/19 at 17:00; Stop 03/10/19 at 07:45; Status DC Lorazepam (Ativan Inj) 2 mg PRN Q1HR PRN IV For CIWA 8-14 Last administered on 03/10/19at 05:56; Start 03/09/19 at 17:00; Stop 03/10/19 at 07:45; Status DC Lorazepam (Ativan Inj) 4 mg PRN Q1HR PRN IV For CIWA 15 or greater; Start 03/09/19 at 17:00; Stop 03/10/19 at 07:45; Status DC Haloperidol Lactate (Haldol Inj) 5 mg PRN Q4HRS PRN IVP Hallucinatns,Confusn,Delirium Last administered on 03/15/19at 21:29; Start 03/09/19 at 17:00 Diphenhydramine HCl (Benadryl) 25 mg PRN Q15MIN PRN IVP EPS symptoms 2'Haldol admin; Start 03/09/19 at 17:00 Clonidine HCl (Catapres) 0.1 mg PRN Q1HR PRN PO SBP > 180 or DBP > 100, MRX3; Start 03/09/19 at 17:00 Potassium Chloride (Klor-Con) 40 meq 1X ONCE PO Last administered on 03/09/19at 19:25; Start 03/09/19 at 18:45; Stop 03/09/19 at 18:48; Status DC Lorazepam (Ativan) 1 mg PRN Q1HR PRN PO For CIWA 8-14 Last administered on 03/10/19at 10:03; Start 03/10/19 at 07:45 Lorazepam (Ativan Inj) 0.5 mg PRN Q1HR PRN IV For CIWA 8-14 Last administered on 03/14/19at 23:11; Start 03/10/19 at 07:45 Lidocaine HCl (Buffered Lidocaine 1%) 6 ml 1X ONCE INJ Last administered on 03/10/19at 14:25; Start 03/10/19 at 13:30; Stop 03/10/19 at 13:31; Status DC Lidocaine HCl (Buffered Lidocaine 1%) 3 ml STK-MED ONCE .ROUTE ; Start 03/10/19 at 13:34; Stop 03/10/19 at 13:34; Status DC Sodium Chloride 1,000 ml @ 1,000 mls/hr Q1H PRN IV hypotension; Start 03/10/19 at 14:01; Stop 03/10/19 at 20:00; Status DC Acetaminophen (Tylenol) 500 mg 1X PRN PRN PO MILD PAIN / TEMP; Start 03/10/19 at 14:15; Stop 03/11/19 at 14:14; Status DC Diphenhydramine HCl (Benadryl) 25 mg 1X PRN PRN IV ITCHING; Start 03/10/19 at 14:15; Stop 03/11/19 at 14:14; Status DC Diphenhydramine HCl (Benadryl) 25 mg 1X PRN PRN IV ITCHING; Start 03/10/19 at 14:15; Stop 03/11/19 at 14:14; Status DC Sodium Chloride 1,000 ml @ 400 mls/hr Q2H30M PRN IV PATENCY; Start 03/10/19 at 14:01; Stop 03/11/19 at 02:00; Status DC Info (PHARMACY MONITORING -- do not chart) 1 each PRN DAILY PRN MC SEE COMMENTS; Start 03/10/19 at 14:15; Stop 03/14/19 at 11:12; Status DC Sodium Chloride 1,000 ml @ 1,000 mls/hr Q1H PRN IV hypotension; Start 03/11/19 at 08:06; Stop 03/11/19 at 14:05; Status DC Albumin Human 200 ml @ 200 mls/hr 1X PRN PRN IV Hypotension; Start 03/11/19 at 08:15; Stop 03/11/19 at 14:14; Status DC Acetaminophen (Tylenol) 500 mg 1X PRN PRN PO MILD PAIN / TEMP; Start 03/11/19 at 08:15; Stop 03/12/19 at 08:14; Status DC Diphenhydramine HCl (Benadryl) 25 mg 1X PRN PRN IV ITCHING; Start 03/11/19 at 08:15; Stop 03/12/19 at 08:14; Status DC Diphenhydramine HCl (Benadryl) 25 mg 1X PRN PRN IV ITCHING; Start 03/11/19 at 08:15; Stop 03/12/19 at 08:14; Status DC Sodium Chloride (Normal Saline Flush) 10 ml 1X PRN PRN IV AP catheter pack; Start 03/11/19 at 08:15; Stop 03/12/19 at 08:14; Status DC Sodium Chloride (Normal Saline Flush) 10 ml 1X PRN PRN IV DATABASE MANAGEMENT SPECIALIST catheter pack; Start 03/11/19 at 08:15; Stop 03/12/19 at 08:14; Status DC Sodium Chloride 1,000 ml @ 400 mls/hr Q2H30M PRN IV PATENCY; Start 03/11/19 at 08:06; Stop 03/11/19 at 20:05; Status DC Info (PHARMACY MONITORING -- do not chart) 1 each PRN DAILY PRN MC SEE COMMENTS; Start 03/11/19 at 08:15; Stop 03/14/19 at 11:12; Status DC Dextrose (Dextrose 50%-Water Syringe) 25 gm STK-MED ONCE IV ; Start 03/13/19 at 06:15; Stop 03/13/19 at 06:15; Status DC Dextrose (Dextrose 50%-Water Syringe) 12.5 gm PRN Q15MIN PRN IV SEE COMMENTS Last administered on 03/13/19at 06:43; Start 03/13/19 at 06:30 Pantoprazole Sodium (PROTONIX VIAL for IV PUSH) 40 mg DAILYAC IVP Last administered on 03/15/19at 09:33; Start 03/14/19 at 07:30; Stop 03/15/19 at 10:50; Status DC Pantoprazole Sodium (PROTONIX VIAL for IV PUSH) 40 mg 1X ONCE IVP Last administered on 03/13/19at 11:01; Start 03/13/19 at 09:30; Stop 03/13/19 at 09:31; Status DC Acetaminophen (Tylenol Supp) 325 mg PRN Q6HRS PRN [place] MILD PAIN / TEMP; Start 03/13/19 at 09:30 Albumin Human 100 ml @ 100 mls/hr 1X ONCE IV Last administered on 03/13/19at 11:01; Start 03/13/19 at 09:30; Stop 03/13/19 at 10:29; Status DC Dextrose/Sodium Chloride 1,000 ml @ 75 mls/hr [id number] IV Last administered on 03/17/19at 03:50; Start 03/13/19 at 09:30 Sodium Chloride 1,000 ml @ 1,000 mls/hr Q1H PRN IV hypotension; Start 03/13/19 at 10:58; Stop 03/13/19 at 16:57; Status DC Albumin Human 200 ml @ 200 mls/hr 1X PRN PRN IV Hypotension; Start 03/13/19 at 11:00; Stop 03/13/19 at 16:59; Status DC Sodium Chloride 1,000 ml @ 400 mls/hr Q2H30M PRN IV PATENCY; Start 03/13/19 at 10:58; Stop 03/13/19 at 22:57; Status DC Info (PHARMACY MONITORING -- do not chart) 1 each PRN DAILY PRN MC SEE COMMENTS; Start 03/13/19 at 11:00; Status UNV Info (PHARMACY MONITORING -- do not chart) 1 each PRN DAILY PRN MC SEE COMMENTS; Start 03/13/19 at 11:00; Status UNV Methylprednisolone Sodium Succinate (SOLU-Medrol 40MG VIAL) 20 mg Q12HR IV Last administered on 03/17/19at 08:21; Start 03/13/19 at 12:00 Albumin Human 100 ml @ 100 mls/hr 1X ONCE IV Last administered on 03/13/19at 20:35; Start 03/13/19 at 19:15; Stop 03/13/19 at 20:14; Status DC Sodium Chloride 1,000 ml @ 1,000 mls/hr Q1H PRN IV hypotension; Start 03/14/19 at 08:21; Stop 03/14/19 at 14:20; Status DC Albumin Human 200 ml @ 200 mls/hr 1X PRN PRN IV Hypotension; Start 03/14/19 at 08:30; Stop 03/14/19 at 14:29; Status DC Sodium Chloride 1,000 ml @ 400 mls/hr Q2H30M PRN IV PATENCY; Start 03/14/19 at 08:21; Stop 03/14/19 at 20:20; Status DC Info (PHARMACY MONITORING -- do not chart) 1 each PRN DAILY PRN MC SEE COMMENTS; Start 03/14/19 at 08:30; Stop 03/14/19 at 11:14; Status DC Info (PHARMACY MONITORING -- do not chart) 1 each PRN DAILY PRN MC SEE COMMENT S; Start 03/14/19 at 08:30 Potassium Chloride/Water 100 ml @ 100 mls/hr Q1H IV Last administered on 03/15/19at 11:27; Start 03/15/19 at 09:30; Stop 03/15/19 at 11:29; Status DC Pantoprazole Sodium (Protonix) 40 mg DAILYAC PO Last administered on 03/17/19at 08:21; Start 03/16/19 at 07:30 Sodium Chloride 1,000 ml @ 1,000 mls/hr Q1H PRN IV hypotension; Start 03/16/19 at 07:35; Stop 03/16/19 at 13:34; Status DC Albumin Human 200 ml @ 200 mls/hr 1X PRN PRN IV Hypotension Last administered on 03/16/19at 10:22; Start 03/16/19 at 07:45; Stop 03/16/19 at 13:44; Status DC Acetaminophen (Tylenol) 500 mg 1X PRN PRN PO MILD PAIN / TEMP; Start 03/16/19 at 07:45; Stop 03/17/19 at 07:44; Status DC Diphenhydramine HCl (Benadryl) 25 mg 1X PRN PRN IV ITCHING; Start 03/16/19 at 07:45; Stop 03/17/19 at 07:44; Status DC Diphenhydramine HCl (Benadryl) 25 mg 1X PRN PRN IV ITCHING; Start 03/16/19 at 07:45; Stop 03/17/19 at 07:44; Status DC Sodium Chloride (Normal Saline Flush) 10 ml 1X PRN PRN IV AP catheter pack; Start 03/16/19 at 07:45; Stop 03/17/19 at 07:44; Status DC Sodium Chloride (Normal Saline Flush) 10 ml 1X PRN PRN IV [employer] catheter pack; Start 03/16/19 at 07:45; Stop 03/17/19 at 07:44; Status DC Sodium Chloride 1,000 ml @ 400 mls/hr Q2H30M PRN IV PATENCY; Start 03/16/19 at 07:35; Stop 03/16/19 at 19:34; Status DC Info (PHARMACY MONITORING -- do not chart) 1 each PRN DAILY PRN MC SEE COMMENTS; Start 03/16/19 at 07:45 Potassium Chloride/Water 100 ml @ 100 mls/hr Q1H IV Last administered on 03/17/19at 08:19; Start 03/17/19 at 08:00; Stop 03/17/19 at 09:59; Status DC Active Scripts Active Ativan (Lorazepam) 1 Mg Tablet 1 Mg PO QIDPRN PRN B Complex (Vitamin B Complex) 1 Each Tablet 1 Each PO DAILY Thiamine Hcl 500 Mg Tablet 500 Mg PO DAILY Thera-M Tablet (Multivits,Ca,Minerals/Iron/Fa) 1 Each Tablet 1 Tab PO DAILY Vitals/I & O Vital Sign - Last 24 Hours 03/16/19 03/16/19 03/16/19 03/16/19 15:00 19:00 20:00 23:00 Temp 97.7 98.0 97.8 97.7 98.0 97.8 Pulse 58 69 78 Resp 18 22 20 B/P (MAP) 79/51 (60) 82/50 (61) 95/50 (65) Pulse Ox 94 93 94 O2 Delivery Nasal Cannula Nasal Cannula Nasal Cannula Nasal Cannula O2 Flow Rate 2.0 2.0 2.0 2.0 03/17/19 03/17/19 03:00 07:00 Temp 98.6 98.0 98.6 98.0 Pulse 74 92 Resp 22 18 B/P (MAP) 90/50 (63) 78/46 (57) Pulse Ox 91 91 O2 Delivery Nasal Cannula Room Air O2 Flow Rate 2.0 Intake and Output 03/16/19 03/16/19 03/17/19 14:59 22:59 06:59 Intake Total 1300 ml Output Total 50 ml Balance 1250 ml GONZALO HART MD Mar 17, 2019 10:29
[2019-03-17 11:00] VITALS: BP 92/57
--- NOTE | 2019-03-17 12:59 | PDOC ---
SUBJECTIVE ROS Sitting up in chair,pt and family opting for Hospice are and pt doesn't want to continue HD OBJECTIVE Vital Signs Vital Signs Date Time Temp Pulse Resp B/P (MAP) Pulse Ox O2 Delivery O2 Flow Rate FiO2 03/17/19 11:00 98.1 81 18 92/57 (69) 90 Room Air 98.1 03/17/19 03:00 2.0 I & 0 Intake and Output 03/17/19 07:00 Intake Total 1300 ml Output Total 50 ml Balance 1250 ml Intake Oral 300 ml IV Total 1000 ml Output Urine Total 50 ml # Bowel Movements 3 PHYSICAL EXAM Physical Exam General: NAD , HEENT: Icterus ++, neck supple Lungs: Clear to auscultation Heart: S1S2, RRR, no thrills, no rubs Abdomen: Soft, Extremities: No clubbing, No cyanosis, Bilat LE edema + Skin: No rashes, Jaundice++ Neuro: alert x Ox 3 Gan +, anuric DIAGNOSIS/ASSESSMENT Assessment & Plan Acute kidney injury: Suspect Hepatorenal Remains Anuric , initiated on HD on 03/10 ,currently on TTS schedule Less likely to tolerate or benefit from supervisor intermediates HD as not a Liver Transplant candidate per GI Pt opting for Hospice , doesnt want to continue HD, recommned dc Temp HDC Hypotensive- sec to Hepatic etiology Severe hypokalemia: at presentation - has been replacing as needed Alcoholic Hepatitis- Per GI MELD score 44 - 90 day mortality rate at 94% with impending hepatorenal syndrome. on IV steroids. Poor prognosis and Not transplant candidate at this time per GI Nonobstructive bilateral renal stones. No hydronephrosis. Urinary bladder is largely decompressed. Will sign off, Pt's and family decision to stop Dialysis and opting for Hospice care COMMENT/RELEVANT DATA Meds Current Medications Medications (Trade) Dose Ordered Sig/Kala Start Time Stop Time Status Last Admin Dose Admin Acetaminophen (Tylenol Supp) 325 mg PRN Q6HRS PRN 03/13/19 09:30 Acetaminophen (Tylenol) 500 mg 1X PRN PRN 03/16/19 07:45 03/17/19 07:44 DC Albumin Human 200 ml @ 200 mls/hr 1X PRN PRN 03/16/19 07:45 03/16/19 13:44 DC 03/16/19 10:22 200 MLS/HR Clonidine HCl (Catapres) 0.1 mg PRN Q1HR PRN 03/09/19 17:00 Dextrose (Dextrose 50%-Water Syringe) 12.5 gm PRN Q15MIN PRN 03/13/19 06:30 03/13/19 06:43 12.5 GM Dextrose/Sodium Chloride 1,000 ml @ 75 mls/hr [id number] 03/13/19 09:30 03/17/19 03:50 75 MLS/HR Diphenhydramine HCl (Benadryl) 25 mg 1X PRN PRN 03/16/19 07:45 03/17/19 07:44 DC Haloperidol Lactate (Haldol Inj) 5 mg PRN Q4HRS PRN 03/09/19 17:00 03/15/19 21:29 5 MG Info (PHARMACY MONITORING -- do not chart) 1 each PRN DAILY PRN 03/16/19 07:45 Lactulose (Lactulose) 20 gm TID 03/09/19 10:30 03/17/19 08:20 20 GM Lidocaine HCl (Buffered Lidocaine 1%) 3 ml STK-MED ONCE 03/10/19 13:34 03/10/19 13:34 DC Lorazepam (Ativan Inj) 0.5 mg PRN Q1HR PRN 03/10/19 07:45 03/14/19 23:11 0.5 MG Lorazepam (Ativan) 1 mg PRN Q1HR PRN 03/10/19 07:45 03/10/19 10:03 1 MG Magnesium Sulfate 50 ml @ 25 mls/hr 1X ONCE 03/09/19 01:45 03/09/19 03:44 DC 03/09/19 02:02 25 MLS/HR Methylprednisolone Sodium Succinate (SOLU-Medrol 40MG VIAL) 20 mg Q12HR 03/13/19 12:00 03/17/19 08:21 20 MG Nicotine (Nicoderm Cq 21mg) 1 patch PRN DAILY PRN 03/09/19 08:30 03/13/19 08:56 1 PATCH Ondansetron HCl (Zofran) 4 mg PRN Q6HRS PRN 03/09/19 13:30 03/09/19 13:45 4 MG Pantoprazole Sodium (PROTONIX VIAL for IV PUSH) 40 mg 1X ONCE 03/13/19 09:30 03/13/19 09:31 DC 03/13/19 11:01 40 MG Pantoprazole Sodium (Protonix) 40 mg DAILYAC 03/16/19 07:30 03/17/19 08:21 40 MG Piperacillin Sod/ Tazobactam Sod (Zosyn Per Pharmacy) 1 each PRN DAILY PRN 03/09/19 06:00 03/09/19 17:01 DC Piperacillin Sod/ Tazobactam Sod 2.25 gm/Sodium Chloride 50 ml @ 100 mls/hr Q6HRS 03/09/19 06:00 03/09/19 10:25 DC 03/09/19 06:25 100 MLS/HR Piperacillin Sod/ Tazobactam Sod 3.375 gm/Sodium Chloride 50 ml @ 100 mls/hr 1X ONCE 03/09/19 02:15 03/09/19 02:44 DC 03/09/19 02:24 100 MLS/HR Potassium Chloride/Sodium Chloride 1,000 ml @ 150 mls/hr Q6H40M 03/09/19 09:30 03/10/19 12:12 DC 03/09/19 23:29 150 MLS/HR Potassium Chloride/Water 100 ml @ 100 mls/hr Q1H 03/17/19 08:00 03/17/19 09:59 DC 03/17/19 08:19 100 MLS/HR Potassium Chloride (Klor-Con) 40 meq 1X ONCE 03/09/19 18:45 03/09/19 18:48 DC 03/09/19 19:25 40 MEQ Sodium Chloride 1,000 ml @ 400 mls/hr Q2H30M PRN 03/16/19 07:35 03/16/19 19:34 DC Sodium Chloride (Normal Saline Flush) 10 ml 1X PRN PRN 03/16/19 07:45 03/17/19 07:44 DC Vancomycin HCl (Vanco Per Pharmacy) 1 each PRN DAILY PRN 03/09/19 06:00 03/09/19 21:39 DC 03/09/19 06:34 1 EACH Vancomycin HCl (Vancomycin Trough Level) 1 each 1X ONCE 03/11/19 03:30 03/09/19 21:39 DC Vancomycin HCl 1.5 gm/Sodium Chloride 500 ml @ 250 mls/hr Q24H 03/10/19 04:00 03/09/19 10:25 DC Vancomycin HCl 1 gm/Sodium Chloride 250 ml @ 250 mls/hr 1X ONCE 03/09/19 06:45 03/09/19 07:44 DC 03/09/19 06:25 250 MLS/HR Vancomycin HCl 2 gm/Sodium Chloride 500 ml @ 250 mls/hr 1X ONCE 03/09/19 06:30 03/09/19 08:29 Cancel Lab Laboratory Tests Test 03/17/19 05:30 White Blood Count 20.0 x10^3/uL (4.0-11.0) Red Blood Count 2.91 x10^6/uL (4.30-5.70) Hemoglobin 11.5 g/dL (13.0-17.5) Hematocrit 34.8 % (39.0-53.0) Mean Corpuscular Volume 120 fL (79-100) Mean Corpuscular Hemoglobin 40 pg (25-35) Mean Corpuscular Hemoglobin Concent 33 g/dL (31-37) Red Cell Distribution Width 17.5 % (11.5-14.5) Platelet Count 71 x10^3/uL (140-400) Neutrophils (%) (Auto) 94 % (31-73) Lymphocytes (%) (Auto) 5 % (24-48) Monocytes (%) (Auto) 1 % (0-9) Eosinophils (%) (Auto) 0 % (0-3) Basophils (%) (Auto) 0 % (0-3) Neutrophils # (Auto) 18.8 x10^3/uL (1.8-7.7) Lymphocytes # (Auto) 0.9 x10^3/uL (1.0-4.8) Monocytes # (Auto) 0.3 x10^3/uL (0.0-1.1) Eosinophils # (Auto) 0.0 x10^3/uL (0.0-0.7) Basophils # (Auto) 0.0 x10^3/uL (0.0-0.2) Segmented Neutrophils % 81 % (35-66) Band Neutrophils % 6 % (0-9) Lymphocytes % 3 % (24-48) Atypical Lymphocytes % (Manual) 2 % (0-0) Monocytes % 6 % (0-10) Myelocytes % 2 % (0-0) Platelet Estimate Decreased (ADEQUATE) Large Platelets Few Giant Platelets Few Polychromasia Present Anisocytosis Slight Macrocytosis Present Prothrombin Time 19.5 SEC (11.7-14.0) Prothromb Time International Ratio 1.7 (0.8-1.1) Sodium Level 139 mmol/L (136-145) Potassium Level 2.9 mmol/L (3.5-5.1) Chloride Level 101 mmol/L (98-107) Carbon Dioxide Level 26 mmol/L (21-32) Anion Gap 12 (6-14) Blood Urea Nitrogen 23 mg/dL (8-26) Creatinine 4.7 mg/dL (0.7-1.3) Estimated GFR (Cockcroft-Gault) 12.9 BUN/Creatinine Ratio 5 (6-20) Glucose Level 110 mg/dL (70-99) Calcium Level 7.4 mg/dL (8.5-10.1) Total Bilirubin 25.7 mg/dL (0.2-1.0) Aspartate Amino Transf (AST/SGOT) 185 U/L (15-37) Alanine Aminotransferase (ALT/SGPT) 125 U/L (16-63) Alkaline Phosphatase 144 U/L (46-116) Total Protein 4.3 g/dL (6.4-8.2) Albumin 1.9 g/dL (3.4-5.0) Albumin/Globulin Ratio 0.8 (1.0-1.7) Results All relevant outside records, renal labs, imaging studies, telemetry/EKG's were reviewed. MERI ÁLVAREZ MD Mar 17, 2019 12:59
[2019-03-17] MEDS ORDERED: HYDROmorphone 2 MG/ML VIAL IVP PRN (13:15)
--- NOTE | 2019-03-17 13:17 | NUR ---
TEAGAN following pt. TEAGAN met with pt, pt's parents and pt's sister in pt's room. SW discussed about goals of care. Pt first stated he wants to 'prolong his life as much as he could' but does not want to HD, wants to go home. SW extensively discussed about pt's poor prognosis and possible outcomes with/without HD, and comorbid medical conditions. Pt asks 'why is this happening to me'. Pt's mother told pt 'it's because you have been drinking too much' Pt's father used to drink before but quit a long time ago. Pt's states 'no want me around anymore'. SW provided emotional support and reminded pt that he has supportive parents that are by his side. SW discussed about hospice at home vs inpt hospice. Pt agreeable with DNR and he does not want to be put on machines to extend his life. Pt's wants to peacefully at home. Pt's parents are elderly and informed SWer they are not able to care for him at home. Discussed with Nephrology, without HD pt might have likely few weeks to live up to a month as he is not producing urine output. Pt and family would like to proceed with hospice. SW had discussed all extensive life prolonging measures, treatments will be stopped once pt decides on comfort care. Pt is currently Self Pay with possible Medicaid pending application (left a VM to [facility]). Discussed about inpt hospice vs LTC with hospice, complication due no insurance. Spoke with Stephani at [facility]. She is speaking with her assistant business manager regarding if they are able to do [facility]. Pt is not safe to go home at this time. Pt is 2 person assist with transfers and his parents are elderly and can not provide the help he needs at home. Awaiting to hear back from [facility] regarding GIP or will proceed with hospice house evaluation pending meeting criteria. Discussed with RN and Physician.
--- NOTE | 2019-03-17 15:41 | NUR ---
SW following pt. [facility] has agreed to take pt on [facility]. Contract signed by Admin and provided to Stephani from [facility]. Pt also named his father, as his DPOA. Pt is provided with original and copy of AD. A copy placed on chart and also given to [facility]. Pt also signed hospice consent papers. RN to call Physician to dc pt and admit under [facility]. Pt and family denies other needs at this time. Discussed CM director.
--- NOTE | 2019-03-17 15:43 | NUR ---
Pt contract with [facility] approved. Will discharge patient to be readmitted under hospice GIP.
== END 2019-03-17 15:53 | disposition hospice, inpatient (51) | DRG 432 ==
LOC: ER 00:19 → 5 SOUTH 01:12 → 1 WEST ICU 02:20 → 2 NORTH 03-11 14:38 → 5 SOUTH 03-15 16:25
PROVIDERS: ADMIT Internal Medicine; ATTEND Internal Medicine
PROC: 02H633Z Insertion of Infusion Device into Right Atrium, Percutaneous Approach (ICD-10-PCS; principal; 2019-03-09)
PROC: B548ZZA Ultrasonography of Superior Vena Cava, Guidance (ICD-10-PCS; 2019-03-09)
PROC: 5A1D70Z Performance of Urinary Filtration, Intermittent, Less than 6 Hours Per Day (ICD-10-PCS; 2019-03-10)
PROC: 5A1D70Z Performance of Urinary Filtration, Intermittent, Less than 6 Hours Per Day (ICD-10-PCS; 2019-03-11)
PROC: 5A1D70Z Performance of Urinary Filtration, Intermittent, Less than 6 Hours Per Day (ICD-10-PCS; 2019-03-12)
PROC: 5A1D70Z Performance of Urinary Filtration, Intermittent, Less than 6 Hours Per Day (ICD-10-PCS; 2019-03-13)
PROC: 5A1D70Z Performance of Urinary Filtration, Intermittent, Less than 6 Hours Per Day (ICD-10-PCS; 2019-03-14)
PROC: 5A1D70Z Performance of Urinary Filtration, Intermittent, Less than 6 Hours Per Day (ICD-10-PCS; 2019-03-15)
PROC: 5A1D70Z Performance of Urinary Filtration, Intermittent, Less than 6 Hours Per Day (ICD-10-PCS; 2019-03-16)
PROC: 5A1D70Z Performance of Urinary Filtration, Intermittent, Less than 6 Hours Per Day (ICD-10-PCS; 2019-03-17)
DX: K70.40 Alcoholic hepatic failure without coma (principal); K76.7 Hepatorenal syndrome; E43 Unspecified severe protein-calorie malnutrition; N17.9 Acute kidney failure, unspecified; D68.9 Coagulation defect, unspecified; E87.2 Acidosis; I47.2 Ventricular tachycardia; I50.32 Chronic diastolic (congestive) heart failure; K56.0 Paralytic ileus; E87.1 Hypo-osmolality and hyponatremia; M19.90 Unspecified osteoarthritis, unspecified site; K58.9 Irritable bowel syndrome, unspecified; F41.9 Anxiety disorder, unspecified; F32.9 Major depressive disorder, single episode, unspecified; D53.9 Nutritional anemia, unspecified; E78.5 Hyperlipidemia, unspecified; E83.42 Hypomagnesemia; E87.6 Hypokalemia; F10.10 Alcohol abuse, uncomplicated; F17.210 Nicotine dependence, cigarettes, uncomplicated; I11.0 Hypertensive heart disease with heart failure; I45.10 Unspecified right bundle-branch block; K70.10 Alcoholic hepatitis without ascites; Z68.34 Body mass index [BMI] 34.0-34.9, adult; Z91.012 Allergy to eggs; Z71.41 Alcohol abuse counseling and surveillance of alcoholic; Z91.15 Patient's noncompliance with renal dialysis; Z87.730 Personal history of (corrected) cleft lip and palate; Z83.3 Family history of diabetes mellitus; Z82.49 Family history of ischemic heart disease and other diseases of the circulatory system; K70.30 Alcoholic cirrhosis of liver without ascites; K76.0 Fatty (change of) liver, not elsewhere classified
CPT/HCPCS: 36415; 36556; 71045; 74018; 74176; 76705; 76937; 80048; 80053; 80076; 80202; 82140; 82550; 82962; 83605; 83690; 83735; 83880; 84132; 84145; 84300; 84443; 84484; 85007; 85025; 85610; 85730; 87040; 87340; 93005; 96365; 96366; 96368; C1769; C1892; C9113; G0480; J1630; J2060; J2405; J2543; J2920; J3370; J3475; J3480; J7030; J7042; J7050; P9046; 92526; 92610; 97116; 97530; 97535; 99291-25; G0378

== ENCOUNTER 2019-03-17 16:01 | Inpatient (IN) | payer OTHER ==
[~2019-03-17] VITALS: Ht 180.3 cm; Wt 117.2 kg
[2019-03-17] MEDS ORDERED: ONDANSETRON PF 4 MG/2 ML VIAL. IVP PRN (16:15)
[2019-03-17] MEDS ORDERED: HALOPERIDOL LACTATE 5 MG/ML VIAL. IVP PRN (16:15)
[2019-03-17 19:00] VITALS: BP 85/51
[2019-03-18] MEDS: HYDROmorphone 2 MG/ML VIAL IV PRN ×3 (06:12→23:02)
[2019-03-18 08:00] VITALS: BP 80/37
[2019-03-18] MEDS: SCOPOLAMINE 1.5MG PATCH. TD SCH (09:20)
[2019-03-18] MEDS ORDERED: IV NORMAL SALINE 1000ML BAG 1,000 ML IV PRN ×2 (10:24)
[2019-03-18] MEDS ORDERED: DIALYSIS PATIENT. MC PRN ×2 (10:30)
[2019-03-18] MEDS ORDERED: ALBUMIN HUMAN 25% 200 ML IV PRN (10:30)
--- NOTE | 2019-03-18 11:02 | PDOC ---
[employer] PROGRESS NOTE Chief Complaint Chief Complaint End stage liver disease History of Present Illness History of Present Illness 03/18/19 Pt seen and examined. Pt family is present in room. Pt chart reviewed Pt intermittently confused. Vitals/I&O Vitals/I&O: Vital Signs Date Time Temp Pulse Resp B/P (MAP) Pulse Ox O2 Delivery O2 Flow Rate FiO2 03/18/19 08:00 98.0 85 16 80/37 (51) 90 Room Air 98.0 Physical Exam Physical Exam: HEENT: Eyes- Scleral icterus. General: No acute distress, Other (Intermittenly confused) Heart: Regular rate, No murmurs Lungs: Wheezing, Other (No respiratory distress) Abdomen: Normal bowel sounds, Soft, Other (Ascites) Extremities: No cyanosis, No edema Skin: No significant lesion, Other (Jaundiced) Review of Systems Review of Systems: Neurologic: denies headache Cardio: Denies chest pain Assessment and Plan Assessmemt and Plan ASSESSMENT 1. End stage liver disease 2. Jaundice 3. Intermittently confused PLAN - End stage liver disease, continue comfort care Comment Review of Relevant I have reviewed the following items tammi (where applicable) has been applied. Medications: Current Medications Medications (Trade) Dose Ordered Sig/Kala Route PRN Reason Start Time Stop Time Status Last Admin Dose Admin Hydromorphone HCl (Dilaudid) 0.5 mg PRN Q3HRS PRN IV MODERATE TO SEVERE PAIN 03/17/19 16:15 03/18/19 06:12 MARY KATE SPRINGER III DO Mar 18, 2019 11:02
[2019-03-18 19:00] VITALS: BP 69/37
[2019-03-19] MEDS: HYDROmorphone 2 MG/ML VIAL IV PRN ×3 (02:16→15:10)
[2019-03-19 08:09] VITALS: BP 69/40
[2019-03-19] MEDS: NICOTINE 21MG PATCH. TD SCH (10:08)
--- NOTE | 2019-03-19 11:54 | PDOC ---
[employer] PROGRESS NOTE Chief Complaint Chief Complaint End stage liver disease History of Present Illness History of Present Illness 03/19/19 Pt seen and examined. Pt family is present in room. Pt resting comfortably. Vitals/I&O Vitals/I&O: Vital Signs Date Time Temp Pulse Resp B/P (MAP) Pulse Ox O2 Delivery O2 Flow Rate FiO2 03/19/19 10:11 20 90 Room Air 03/19/19 08:09 96.7 81 69/40 (50) 96.7 Physical Exam General: No acute distress, Other (Sleeping) Heart: Regular rate, No murmurs Lungs: Other (No respiratory distress) Abdomen: Other (Ascites, distended) Extremities: No clubbing, No cyanosis Skin: No significant lesion, Other (Jaundiced) Review of Systems Review of Systems: Unable to obtain Assessment and Plan Assessmemt and Plan ASSESSMENT 1. End stage liver disease 2. Jaundice 3. Intermittently confused PLAN - End stage liver disease, continue comfort care Comment Review of Relevant I have reviewed the following items tammi (where applicable) has been applied. Medications: Current Medications Medications (Trade) Dose Ordered Sig/Kala Route PRN Reason Start Time Stop Time Status Last Admin Dose Admin Nicotine (Nicoderm Cq 21mg) 1 patch DAILY TD 03/19/19 09:00 03/19/19 10:08 MARY KATE SPRINGER III DO Mar 19, 2019 11:54
[2019-03-19 19:00] VITALS: BP 82/50
[2019-03-20] MEDS: HYDROmorphone 2 MG/ML VIAL IV PRN ×3 (00:12→23:53)
[2019-03-20 08:00] VITALS: BP 79/42
[2019-03-20] MEDS: SCOPOLAMINE 1.5MG PATCH. TD SCH (09:00)
[2019-03-20] MEDS: NICOTINE 21MG PATCH. TD SCH (09:43)
--- NOTE | 2019-03-20 11:43 | PDOC ---
PROGRESS NOTES Chief Complaint Chief Complaint impression End stage liver disease hx severe alcohol abuse ESRD refused dialysis History of Present Illness History of Present Illness 03/20/19 Pt seen and examined. Pt family is present in room. Pt resting hypotensive d/w family in room Vitals Vitals Vital Signs Date Time Temp Pulse Resp B/P (MAP) Pulse Ox O2 Delivery O2 Flow Rate FiO2 03/20/19 08:00 Room Air 03/20/19 08:00 97.4 92 17 79/42 (54) 93 97.4 03/20/19 00:42 2.0 Physical Exam General: No acute distress, Other (Sleeping) Heart: Regular rate, No murmurs Lungs: Other (No respiratory distress) Abdomen: Other (Ascites, distended) Extremities: No clubbing, No cyanosis Skin: No significant lesion, Other (Jaundiced) Comment Review of Relevant I have reviewed the following items tammi (where applicable) has been applied. Medications Current Medications Scopolamine (Transderm-Scop) 1 patch Q3DAYS TD Last administered on 03/18/19at 09:20; Start 03/17/19 at 09:00 Hydromorphone HCl (Dilaudid) 0.5 mg PRN Q3HRS PRN IV MODERATE TO SEVERE PAIN Last administered on 03/20/19at 00:12; Start 03/17/19 at 16:15 Lorazepam (Ativan Inj) 0.5 mg PRN Q1HR PRN IVP ANXIETY / AGITATION; Start 03/17/19 at 16:15 Ondansetron HCl (Zofran) 4 mg PRN Q6HRS PRN IVP NAUSEA/VOMITING; Start 03/17/19 at 16:15 Haloperidol Lactate (Haldol Inj) 5 mg PRN Q4HRS PRN IVP AGITATION 2ND CHOICE; Start 03/17/19 at 16:15 Diphenhydramine HCl (Benadryl) 25 mg PRN Q6HRS PRN IVP ITCHING; Start 03/17/19 at 16:30 Sodium Chloride 1,000 ml @ 1,000 mls/hr Q1H PRN IV hypotension; Start 03/18/19 at 10:24; Stop 03/18/19 at 11:14; Status DC Albumin Human 200 ml @ 200 mls/hr 1X PRN PRN IV Hypotension; Start 03/18/19 at 10:30; Stop 03/18/19 at 11:14; Status DC Sodium Chloride 1,000 ml @ 400 mls/hr Q2H30M PRN IV PATENCY; Start 03/18/19 at 10:24; Stop 03/18/19 at 11:14; Status DC Info (PHARMACY MONITORING -- do not chart) 1 each PRN DAILY PRN MC SEE COMMENTS; Start 03/18/19 at 10:30; Status UNV Info (PHARMACY MONITORING -- do not chart) 1 each PRN DAILY PRN MC SEE COMMENTS; Start 03/18/19 at 10:30; Stop 03/18/19 at 11:14; Status DC Nicotine (Nicoderm Cq 21mg) 1 patch DAILY TD Last administered on 03/20/19at 09:43; Start 03/19/19 at 09:00 Active Scripts Active Ativan (Lorazepam) 1 Mg Tablet 1 Mg PO QIDPRN PRN B Complex (Vitamin B Complex) 1 Each Tablet 1 Each PO DAILY Thiamine Hcl 500 Mg Tablet 500 Mg PO DAILY Thera-M Tablet (Multivits,Ca,Minerals/Iron/Fa) 1 Each Tablet 1 Tab PO DAILY Vitals/I & O Vital Sign - Last 24 Hours 03/19/19 03/19/19 03/19/19 03/20/19 15:10 19:00 22:00 00:12 Temp 97.5 97.5 Pulse 90 Resp 20 18 20 B/P (MAP) 82/50 (61) Pulse Ox 90 88 O2 Delivery Room Air Room Air Room Air Room Air 03/20/19 03/20/19 03/20/19 00:42 08:00 08:00 Temp 97.4 97.4 Pulse 92 Resp 20 17 B/P (MAP) 79/42 (54) Pulse Ox 93 O2 Delivery Nasal Cannula Room Air Room Air O2 Flow Rate 2.0 GONZALO HART MD Mar 20, 2019 11:43
[2019-03-20] MEDS: diphenhydrAMINE 50 MG/ML VIAL IVP PRN (13:14)
--- NOTE | 2019-03-20 18:57 | NUR ---
R IF temp cath removed. stitches X2 cut. pt tolerated well. no bleeding noted.
[2019-03-20 19:00] VITALS: BP 122/47
[2019-03-21 08:00] VITALS: BP 60/31
[2019-03-21] MEDS: NICOTINE 21MG PATCH. TD SCH (08:04)
[2019-03-21] MEDS: HYDROmorphone 2 MG/ML VIAL IV PRN ×3 (08:04→18:28)
--- NOTE | 2019-03-21 09:39 | PDOC ---
PROGRESS NOTES Chief Complaint Chief Complaint impression End stage liver disease hx severe alcohol abuse ESRD refused dialysis History of Present Illness History of Present Illness 03/21/19 Pt seen and examined. Pt resting hypotensive, WORSE d/w family in room Vitals Vitals Vital Signs Date Time Temp Pulse Resp B/P (MAP) Pulse Ox O2 Delivery O2 Flow Rate FiO2 03/21/19 08:04 Room Air 03/21/19 08:00 97.4 83 60/31 (41) 93 97.4 03/20/19 23:53 2.0 03/20/19 19:00 18 Physical Exam General: Cooperative, No acute distress, Other (Sleeping, LETHARGIC) Heart: Regular rate, No murmurs Lungs: Clear, Crackles, Other (No respiratory distress) Abdomen: Other (Ascites, distended) Extremities: No clubbing, No cyanosis Skin: No significant lesion, Other (Jaundiced) Comment Review of Relevant I have reviewed the following items tammi (where applicable) has been applied. Medications Current Medications Scopolamine (Transderm-Scop) 1 patch Q3DAYS TD Last administered on 03/18/19at 09:20; Start 03/17/19 at 09:00 Hydromorphone HCl (Dilaudid) 0.5 mg PRN Q3HRS PRN IV MODERATE TO SEVERE PAIN Last administered on 03/21/19at 08:04; Start 03/17/19 at 16:15 Lorazepam (Ativan Inj) 0.5 mg PRN Q1HR PRN IVP ANXIETY / AGITATION; Start 03/17/19 at 16:15 Ondansetron HCl (Zofran) 4 mg PRN Q6HRS PRN IVP NAUSEA/VOMITING; Start 03/17/19 at 16:15 Haloperidol Lactate (Haldol Inj) 5 mg PRN Q4HRS PRN IVP AGITATION 2ND CHOICE; Start 03/17/19 at 16:15 Diphenhydramine HCl (Benadryl) 25 mg PRN Q6HRS PRN IVP ITCHING Last administered on 03/20/19at 13:14; Start 03/17/19 at 16:30 Sodium Chloride 1,000 ml @ 1,000 mls/hr Q1H PRN IV hypotension; Start 03/18/19 at 10:24; Stop 03/18/19 at 11:14; Status DC Albumin Human 200 ml @ 200 mls/hr 1X PRN PRN IV Hypotension; Start 03/18/19 at 10:30; Stop 03/18/19 at 11:14; Status DC Sodium Chloride 1,000 ml @ 400 mls/hr Q2H30M PRN IV PATENCY; Start 03/18/19 at 10:24; Stop 03/18/19 at 11:14; Status DC Info (PHARMACY MONITORING -- do not chart) 1 each PRN DAILY PRN MC SEE COMMENTS; Start 03/18/19 at 10:30; Status UNV Info (PHARMACY MONITORING -- do not chart) 1 each PRN DAILY PRN MC SEE COMMENTS; Start 03/18/19 at 10:30; Stop 03/18/19 at 11:14; Status DC Nicotine (Nicoderm Cq 21mg) 1 patch DAILY TD Last administered on 03/21/19at 08:04; Start 03/19/19 at 09:00 Active Scripts Active Ativan (Lorazepam) 1 Mg Tablet 1 Mg PO QIDPRN PRN B Complex (Vitamin B Complex) 1 Each Tablet 1 Each PO DAILY Thiamine Hcl 500 Mg Tablet 500 Mg PO DAILY Thera-M Tablet (Multivits,Ca,Minerals/Iron/Fa) 1 Each Tablet 1 Tab PO DAILY Vitals/I & O Vital Sign - Last 24 Hours 03/20/19 03/20/19 03/20/19 03/20/19 19:00 19:51 23:00 23:53 Temp 98.0 98.0 Pulse 87 Resp 18 B/P (MAP) 122/47 (72) Pulse Ox 94 93 O2 Delivery Room Air Room Air O2 Flow Rate 2.0 03/21/19 03/21/19 03/21/19 00:23 08:00 08:04 Temp 97.4 97.4 Pulse 83 B/P (MAP) 60/31 (41) Pulse Ox 93 O2 Delivery Room Air Room Air Room Air GONZALO HART MD Mar 21, 2019 09:39
[2019-03-21] MEDS: diphenhydrAMINE 50 MG/ML VIAL IVP PRN (13:13)
[2019-03-21 20:00] VITALS: BP 71/37
[2019-03-22] MEDS: HYDROmorphone 2 MG/ML VIAL IV PRN ×2 (05:23→15:10)
[2019-03-22 08:00] VITALS: BP 71/38
[2019-03-22] MEDS: NICOTINE 21MG PATCH. TD SCH (08:52)
--- NOTE | 2019-03-22 10:23 | PDOC ---
PROGRESS NOTES Chief Complaint Chief Complaint impression End stage liver disease hx severe alcohol abuse ESRD refused dialysis History of Present Illness History of Present Illness 03/22/19 Pt seen and examined. Pt resting hypotensive, WORSE d/w family in room confused to details, no agitation Vitals Vitals Vital Signs Date Time Temp Pulse Resp B/P (MAP) Pulse Ox O2 Delivery O2 Flow Rate FiO2 03/22/19 08:00 96.7 85 18 71/38 (49) 93 Room Air 96.7 03/21/19 20:00 2.0 Physical Exam General: Cooperative, No acute distress, Other (Sleeping, LETHARGIC) Heart: Regular rate, No murmurs Lungs: Clear, Crackles, Other (No respiratory distress) Abdomen: Other (Ascites, distended) Extremities: No clubbing, No cyanosis Skin: No significant lesion, Other (Jaundiced) Comment Review of Relevant I have reviewed the following items tammi (where applicable) has been applied. Medications Current Medications Scopolamine (Transderm-Scop) 1 patch Q3DAYS TD Last administered on 03/18/19at 09:20; Start 03/17/19 at 09:00 Hydromorphone HCl (Dilaudid) 0.5 mg PRN Q3HRS PRN IV MODERATE TO SEVERE PAIN Last administered on 03/22/19at 05:23; Start 03/17/19 at 16:15 Lorazepam (Ativan Inj) 0.5 mg PRN Q1HR PRN IVP ANXIETY / AGITATION; Start 03/17/19 at 16:15 Ondansetron HCl (Zofran) 4 mg PRN Q6HRS PRN IVP NAUSEA/VOMITING; Start 03/17/19 at 16:15 Haloperidol Lactate (Haldol Inj) 5 mg PRN Q4HRS PRN IVP AGITATION 2ND CHOICE; Start 03/17/19 at 16:15 Diphenhydramine HCl (Benadryl) 25 mg PRN Q6HRS PRN IVP ITCHING Last administered on 03/21/19at 13:13; Start 03/17/19 at 16:30 Sodium Chloride 1,000 ml @ 1,000 mls/hr Q1H PRN IV hypotension; Start 03/18/19 at 10:24; Stop 03/18/19 at 11:14; Status DC Albumin Human 200 ml @ 200 mls/hr 1X PRN PRN IV Hypotension; Start 03/18/19 at 10:30; Stop 03/18/19 at 11:14; Status DC Sodium Chloride 1,000 ml @ 400 mls/hr Q2H30M PRN IV PATENCY; Start 03/18/19 at 10:24; Stop 03/18/19 at 11:14; Status DC Info (PHARMACY MONITORING -- do not chart) 1 each PRN DAILY PRN MC SEE COMMENTS; Start 03/18/19 at 10:30; Status UNV Info (PHARMACY MONITORING -- do not chart) 1 each PRN DAILY PRN MC SEE COMMENTS; Start 03/18/19 at 10:30; Stop 03/18/19 at 11:14; Status DC Nicotine (Nicoderm Cq 21mg) 1 patch DAILY TD Last administered on 03/22/19at 08:52; Start 03/19/19 at 09:00 Active Scripts Active Ativan (Lorazepam) 1 Mg Tablet 1 Mg PO QIDPRN PRN B Complex (Vitamin B Complex) 1 Each Tablet 1 Each PO DAILY Thiamine Hcl 500 Mg Tablet 500 Mg PO DAILY Thera-M Tablet (Multivits,Ca,Minerals/Iron/Fa) 1 Each Tablet 1 Tab PO DAILY Vitals/I & O Vital Sign - Last 24 Hours 03/21/19 03/21/19 03/21/19 03/21/19 13:22 13:52 18:28 20:00 O2 Delivery Room Air Room Air Room Air Room Air O2 Flow Rate 2.0 03/21/19 03/22/19 20:00 08:00 Temp 97.5 96.7 97.5 96.7 Pulse 83 85 Resp 20 18 B/P (MAP) 71/37 (48) 71/38 (49) Pulse Ox 94 93 O2 Delivery Room Air Room Air GONZALO HART MD Mar 22, 2019 10:23
[2019-03-22] MEDS: diphenhydrAMINE 50 MG/ML VIAL IVP PRN (11:15)
--- NOTE | 2019-03-22 12:50 | NUR ---
SW following for discharge planning. Discussed with RN, pt currently inpatient hospice with [facility]. RN reported to TEAGAN, she had heard pt was coming off hospice today. TEAGAN contacted [facility] who stated pt "is good to stay on GIP as far as we are concerned. No plans to discharge at this time." RN notified. TEAGAN will continue to follow.
[2019-03-22 20:00] VITALS: BP 70/32
[2019-03-22 23:00] VITALS: BP 70/32
[2019-03-23] MEDS: HYDROmorphone 2 MG/ML VIAL IV PRN ×3 (04:37→20:35)
[2019-03-23 07:00] VITALS: BP_SYST 58; BP_SYST 62; BP_DIAS 33
[2019-03-23 08:00] VITALS: BP 70/32
--- NOTE | 2019-03-23 08:23 | PDOC ---
PROGRESS NOTES Chief Complaint Chief Complaint impression End stage liver disease hx severe alcohol abuse ESRD refused dialysis History of Present Illness History of Present Illness 03/23/19 Pt seen and examined. Pt resting hypotensive, WORSE d/w family in room confused to details, no agitation EXPECT IN 24 HRS Vitals Vitals Vital Signs Date Time Temp Pulse Resp B/P (MAP) Pulse Ox O2 Delivery O2 Flow Rate FiO2 03/23/19 05:17 Room Air 03/22/19 23:00 97.9 98 22 70/32 (45) 94 97.9 03/22/19 20:00 2.0 Physical Exam General: Cooperative, No acute distress, Other (Sleeping, LETHARGIC) Heart: Regular rate, No murmurs Lungs: Clear, Crackles, Other (No respiratory distress) Abdomen: Other (Ascites, distended) Extremities: No clubbing, No cyanosis Skin: No significant lesion, Other (Jaundiced) Comment Review of Relevant I have reviewed the following items tammi (where applicable) has been applied. Medications Current Medications Scopolamine (Transderm-Scop) 1 patch Q3DAYS TD Last administered on 03/18/19at 09:20; Start 03/17/19 at 09:00 Hydromorphone HCl (Dilaudid) 0.5 mg PRN Q3HRS PRN IV MODERATE TO SEVERE PAIN Last administered on 03/23/19at 04:37; Start 03/17/19 at 16:15 Lorazepam (Ativan Inj) 0.5 mg PRN Q1HR PRN IVP ANXIETY / AGITATION; Start 1 05/18/18 at 16:15 Ondansetron HCl (Zofran) 4 mg PRN Q6HRS PRN IVP NAUSEA/VOMITING; Start 03/17/19 at 16:15 Haloperidol Lactate (Haldol Inj) 5 mg PRN Q4HRS PRN IVP AGITATION 2ND CHOICE; Start 03/17/19 at 16:15 Diphenhydramine HCl (Benadryl) 25 mg PRN Q6HRS PRN IVP ITCHING Last administered on 03/22/19at 11:15; Start 03/17/19 at 16:30 Sodium Chloride 1,000 ml @ 1,000 mls/hr Q1H PRN IV hypotension; Start 03/18/19 at 10:24; Stop 03/18/19 at 11:14; Status DC Albumin Human 200 ml @ 200 mls/hr 1X PRN PRN IV Hypotension; Start 03/18/19 at 10:30; Stop 03/18/19 at 11:14; Status DC Sodium Chloride 1,000 ml @ 400 mls/hr Q2H30M PRN IV PATENCY; Start 03/18/19 at 10:24; Stop 03/18/19 at 11:14; Status DC Info (PHARMACY MONITORING -- do not chart) 1 each PRN DAILY PRN MC SEE COMMENTS; Start 03/18/19 at 10:30; Status UNV Info (PHARMACY MONITORING -- do not chart) 1 each PRN DAILY PRN MC SEE COMMENTS; Start 03/18/19 at 10:30; Stop 03/18/19 at 11:14; Status DC Nicotine (Nicoderm Cq 21mg) 1 patch DAILY TD Last administered on 03/22/19at 08:52; Start 03/19/19 at 09:00 Active Scripts Active Ativan (Lorazepam) 1 Mg Tablet 1 Mg PO QIDPRN PRN B Complex (Vitamin B Complex) 1 Each Tablet 1 Each PO DAILY Thiamine Hcl 500 Mg Tablet 500 Mg PO DAILY Thera-M Tablet (Multivits,Ca,Minerals/Iron/Fa) 1 Each Tablet 1 Tab PO DAILY Vitals/I & O Vital Sign - Last 24 Hours 03/22/19 03/22/19 03/22/19 03/22/19 15:10 16:00 20:00 20:00 Temp 97.9 97.9 Pulse 98 Resp 19 19 22 B/P (MAP) 70/32 (45) Pulse Ox 94 93 95 O2 Delivery Room Air Room Air Nasal Cannula Room Air O2 Flow Rate 2.0 2.0 03/22/19 03/23/19 03/23/19 23:00 04:37 05:17 Temp 97.9 97.9 Pulse 98 Resp 22 B/P (MAP) 70/32 (45) Pulse Ox 94 O2 Delivery Room Air Room Air Room Air Intake and Output 03/22/19 03/22/19 03/23/19 15:00 23:00 07:00 Intake Total 50 ml Output Total 100 ml 0 ml Balance -100 ml 50 ml GONZALO HART MD Mar 23, 2019 08:23
[2019-03-23] MEDS: NICOTINE 21MG PATCH. TD SCH (08:52)
[2019-03-23] MEDS: SCOPOLAMINE 1.5MG PATCH. TD SCH (09:19)
[2019-03-23 11:00] VITALS: BP 70/32
[2019-03-23 19:00] VITALS: BP 76/35
[2019-03-23 23:00] VITALS: BP 62/37
[2019-03-24 03:00] VITALS: BP 62/37
[2019-03-24 08:00] VITALS: BP 103/84
[2019-03-24] MEDS: NICOTINE 21MG PATCH. TD SCH (09:24)
[2019-03-24] MEDS ORDERED: MORPHINE SULFATE 20 MG/ML CONC SOLUTION. SL PRN ×3 (10:15→11:00)
[2019-03-24] MEDS ORDERED: LORazepam INTENSOL 2 MG/ML ORAL.CONC SL PRN ×2 (10:15→11:00)
--- NOTE | 2019-03-24 11:15 | PDOC ---
PROGRESS NOTES Chief Complaint Chief Complaint summary End stage liver disease hx severe alcohol abuse ESRD refused dialysis History of Present Illness History of Present Illness 03/24/19 THIS NOONTIME D/C PLANNING 20 MIN Vitals Vitals Vital Signs Date Time Temp Pulse Resp B/P (MAP) Pulse Ox O2 Delivery O2 Flow Rate FiO2 03/24/19 08:00 97.5 83 20 103/84 (90) 95 Room Air 97.5 03/23/19 08:00 2.0 Physical Exam General: Other (Sleeping, LETHARGIC) Lungs: Clear, Other (No respiratory distress) Abdomen: Other (Ascites, distended) Skin: Other (Jaundiced) Comment Review of Relevant I have reviewed the following items tammi (where applicable) has been applied. Medications Current Medications Scopolamine (Transderm-Scop) 1 patch Q3DAYS TD Last administered on 03/23/19at 09:19; Start 03/17/19 at 09:00 Hydromorphone HCl (Dilaudid) 0.5 mg PRN Q3HRS PRN IV MODERATE TO SEVERE PAIN Last administered on 03/23/19at 20:35; Start 03/17/19 at 16:15; Stop 03/24/19 at 10:08; Status DC Lorazepam (Ativan Inj) 0.5 mg PRN Q1HR PRN IVP ANXIETY / AGITATION Last administered on 03/23/19at 20:35; Start 03/17/19 at 16:15; Stop 03/24/19 at 10:08; Status DC Ondansetron HCl (Zofran) 4 mg PRN Q6HRS PRN IVP NAUSEA/VOMITING; Start 03/17/19 at 16:15; Stop 03/24/19 at 10:08; Status DC Haloperidol Lactate (Haldol Inj) 5 mg PRN Q4HRS PRN IVP AGITATION 2ND CHOICE; Start 03/17/19 at 16:15; Stop 03/24/19 at 10:08; Status DC Diphenhydramine HCl (Benadryl) 25 mg PRN Q6HRS PRN IVP ITCHING Last administered on 03/22/19at 11:15; Start 03/17/19 at 16:30; Stop 03/24/19 at 10: 08; Status DC Sodium Chloride 1,000 ml @ 1,000 mls/hr Q1H PRN IV hypotension; Start 03/18/19 at 10:24; Stop 03/18/19 at 11:14; Status DC Albumin Human 200 ml @ 200 mls/hr 1X PRN PRN IV Hypotension; Start 03/18/19 at 10:30; Stop 03/18/19 at 11:14; Status DC Sodium Chloride 1,000 ml @ 400 mls/hr Q2H30M PRN IV PATENCY; Start 03/18/19 at 10:24; Stop 03/18/19 at 11:14; Status DC Info (PHARMACY MONITORING -- do not chart) 1 each PRN DAILY PRN MC SEE COMMENTS; Start 03/18/19 at 10:30; Status UNV Info (PHARMACY MONITORING -- do not chart) 1 each PRN DAILY PRN MC SEE COMMENTS; Start 03/18/19 at 10:30; Stop 03/18/19 at 11:14; Status DC Nicotine (Nicoderm Cq 21mg) 1 patch DAILY TD Last administered on 03/24/19at 09:24; Start 03/19/19 at 09:00 Morphine Sulfate (Roxanol Conc) 2 mg PRN Q2HR PRN SL PAIN; Start 03/24/19 at 10:15; Stop 03/24/19 at 10:52; Status DC Lorazepam (Ativan Intensol) 2 mg PRN Q2HR PRN SL ANXIETY / AGITATION Last administered on 03/24/19at 10:22; Start 03/24/19 at 10:15; Stop 03/24/19 at 10:52; Status DC Lorazepam (Ativan Intensol) 1 mg PRN Q2HR PRN SL ANXIETY / AGITATION; Start 03/24/19 at 11:00 Morphine Sulfate (Roxanol Conc) 5 mg PRN Q2HR PRN SL PAIN; Start 03/24/19 at 11:00 Morphine Sulfate (Roxanol Conc) 5 mg PRN Q3HRS PRN SL PAIN; Start 03/24/19 at 11:00; Status Cancel Active Scripts Active Ativan (Lorazepam) 1 Mg Tablet 1 Mg PO QIDPRN PRN B Complex (Vitamin B Complex) 1 Each Tablet 1 Each PO DAILY Thiamine Hcl 500 Mg Tablet 500 Mg PO DAILY Thera-M Tablet (Multivits,Ca,Minerals/Iron/Fa) 1 Each Tablet 1 Tab PO DAILY Vitals/I & O Vital Sign - Last 24 Hours 03/23/19 03/23/19 03/23/19 03/23/19 19:00 20:20 20:35 23:00 Temp 97.5 97.7 97.5 97.7 Pulse 88 90 Resp 20 22 20 B/P (MAP) 76/35 (49) 62/37 (45) Pulse Ox 93 92 O2 Delivery Room Air Room Air Room Air 03/23/19 03/24/19 03/24/19 23:00 03:00 08:00 Temp 97.7 97.7 97.5 97.7 97.7 97.5 Pulse 90 90 83 Resp 20 20 20 B/P (MAP) 62/37 (45) 62/37 (45) 103/84 (90) Pulse Ox 92 92 95 O2 Delivery Room Air Room Air Room Air Intake and Output 03/23/19 03/23/19 03/24/19 15:00 23:00 07:00 Intake Total 50 ml 100 ml Output Total 0 ml Balance 50 ml 100 ml GONZALO HART MD Mar 24, 2019 11:15
--- NOTE | 2019-03-24 13:14 | PDOC3 ---
Discharge Summary Date of Admission: Mar 18, 2019 Date of Discharge: Mar 24, 2019 Follow-Up: Other () Admitting Diagnosis comment: summary End stage liver disease hx severe alcohol abuse ESRD refused dialysis History of Present Illness History of Present Illness 03/24/19 THIS NOONTIME D/C PLANNING 20 MIN Vitals Vitals Vital Signs Date Time Temp Pulse Resp B/P (MAP) Pulse Ox O2 Delivery O2 Flow Rate FiO2 03/24/19 08:00 97.5 83 20 103/84 (90) 95 Room Air 97.5 03/23/19 08:00 2.0 Brief Hospital Course Mr. Mcgowan is a 59 old [sex] who presented with [ ] CONDITION AT DISCHARGE: / Discharge Medications Current Medications Scopolamine (Transderm-Scop) 1 patch Q3DAYS TD Last administered on 03/23/19at 09:19; Start 03/17/19 at 09:00 Hydromorphone HCl (Dilaudid) 0.5 mg PRN Q3HRS PRN IV MODERATE TO SEVERE PAIN Last administered on 03/23/19at 20:35; Start 03/17/19 at 16:15; Stop 03/24/19 at 10:08; Status DC Lorazepam (Ativan Inj) 0.5 mg PRN Q1HR PRN IVP ANXIETY / AGITATION Last administered on 03/23/19at 20:35; Start 03/17/19 at 16:15; Stop 03/24/19 at 10: 08; Status DC Ondansetron HCl (Zofran) 4 mg PRN Q6HRS PRN IVP NAUSEA/VOMITING; Start 03/17/19 at 16:15; Stop 03/24/19 at 10:08; Status DC Haloperidol Lactate (Haldol Inj) 5 mg PRN Q4HRS PRN IVP AGITATION 2ND CHOICE; Start 03/17/19 at 16:15; Stop 03/24/19 at 10:08; Status DC Diphenhydramine HCl (Benadryl) 25 mg PRN Q6HRS PRN IVP ITCHING Last administered on 03/22/19at 11:15; Start 03/17/19 at 16:30; Stop 03/24/19 at 10:08; Status DC Sodium Chloride 1,000 ml @ 1,000 mls/hr Q1H PRN IV hypotension; Start 03/18/19 at 10:24; Stop 03/18/19 at 11:14; Status DC Albumin Human 200 ml @ 200 mls/hr 1X PRN PRN IV Hypotension; Start 03/18/19 at 10:30; Stop 03/18/19 at 11:14; Status DC Sodium Chloride 1,000 ml @ 400 mls/hr Q2H30M PRN IV PATENCY; Start 03/18/19 at 10:24; Stop 03/18/19 at 11:14; Status DC Info (PHARMACY MONITORING -- do not chart) 1 each PRN DAILY PRN MC SEE COMMENTS ; Start 03/18/19 at 10:30; Status UNV Info (PHARMACY MONITORING -- do not chart) 1 each PRN DAILY PRN MC SEE COMMENTS; Start 03/18/19 at 10:30; Stop 03/18/19 at 11:14; Status DC Nicotine (Nicoderm Cq 21mg) 1 patch DAILY TD Last administered on 03/24/19at 09:24; Start 03/19/19 at 09:00 Morphine Sulfate (Roxanol Conc) 2 mg PRN Q2HR PRN SL PAIN; Start 03/24/19 at 10:15; Stop 03/24/19 at 10:52; Status DC Lorazepam (Ativan Intensol) 2 mg PRN Q2HR PRN SL ANXIETY / AGITATION Last administered on 03/24/19at 10:22; Start 03/24/19 at 10:15; Stop 03/24/19 at 10:52; Status DC Lorazepam (Ativan Intensol) 1 mg PRN Q2HR PRN SL ANXIETY / AGITATION Last administered on 03/24/19at 12:04; Start 03/24/19 at 11:00 Morphine Sulfate (Roxanol Conc) 5 mg PRN Q2HR PRN SL PAIN; Start 03/24/19 at 11:00 Morphine Sulfate (Roxanol Conc) 5 mg PRN Q3HRS PRN SL PAIN; Start 03/24/19 at 11:00; Status Cancel Active Scripts Active Ativan (Lorazepam) 1 Mg Tablet 1 Mg PO QIDPRN PRN B Complex (Vitamin B Complex) 1 Each Tablet 1 Each PO DAILY Thiamine Hcl 500 Mg Tablet 500 Mg PO DAILY Thera-M Tablet (Multivits,Ca,Minerals/Iron/Fa) 1 Each Tablet 1 Tab PO DAILY Vital Signs Vital Signs Date Time Temp Pulse Resp B/P (MAP) Pulse Ox O2 Delivery O2 Flow Rate FiO2 03/24/19 08:00 97.5 83 20 103/84 (90) 95 Room Air 97.5 03/23/19 08:00 2.0 Allergies Allergies Coded Allergies Type Severity Reaction Last Updated Verified egg Allergy Intermediate 03/20/19 Yes Disposition/Orders: GONZALO HART MD Mar 24, 2019 13:14
--- NOTE | 2019-03-24 13:47 | NUR ---
pt passed at 1250 as witnessed by lack of lung sounds and no pulse. Verified by MITALI Villagran. Dr. Khan on unit and informed.
--- NOTE | 2019-03-24 14:38 | NUR ---
[facility]N will be contacting family. pt taken to [facility] [place]. MTN will call back after they have spoken with family so that home can be contacted.
--- NOTE | 2019-03-24 18:32 | NUR ---
MTN returned call. pt does meet donation criteria. MTN will coordinate mushroom picker with security and NS.
== END 2019-03-24 14:00 | disposition expired | DRG 871 ==
LOC: 5 SOUTH 16:01
PROVIDERS: ADMIT Family Medicine; ATTEND Family Medicine
PROC: 5A1D70Z Performance of Urinary Filtration, Intermittent, Less than 6 Hours Per Day (ICD-10-PCS; principal; 2019-03-17)
DX: A41.9 Sepsis, unspecified organism (principal); N18.6 End stage renal disease; E43 Unspecified severe protein-calorie malnutrition; R18.8 Other ascites; N17.9 Acute kidney failure, unspecified; I47.2 Ventricular tachycardia; K70.40 Alcoholic hepatic failure without coma; I95.9 Hypotension, unspecified; F10.10 Alcohol abuse, uncomplicated; Z91.15 Patient's noncompliance with renal dialysis; Z99.2 Dependence on renal dialysis; F32.9 Major depressive disorder, single episode, unspecified; L40.9 Psoriasis, unspecified; F17.210 Nicotine dependence, cigarettes, uncomplicated; D64.9 Anemia, unspecified; E87.6 Hypokalemia; Z91.012 Allergy to eggs; F41.9 Anxiety disorder, unspecified
CPT/HCPCS: J1170; J1200; J2060; G0378